=== PATIENT | male | born 1925 | race Caucasian/White ===

== ENCOUNTER 2016-09-16 16:25 | Inpatient (IN) | payer MEDICARE ==
[~2016-09-16] VITALS: Ht 180.3 cm; Wt 86.6 kg
[~2016-09-16 16:25] MED LIST: ACET-2321 PO; ASPI-725 PO; ATOR40TA PO; CABE0.5T2 PO; CLOP75TA PO; DIVA250T4 PO; DOCU-168 PO; HYDR-4246 PO; IPRA3AMP AEROSOL; MIDO10TA PO; MULT-57 PO; NITR0.4T38 SL; OMEG1CAP79 PO; ONDA4VIA23 PO/SL; POLY17PO18 PO; SODI1TAB3 PO
--- NOTE | 2016-09-16 16:25 | NUR ---
Admit Patient admitted to IRU 169. Transported to unit in wheelchair, accompanied by nsg and his spouse. Patient is on droplet precautions for Elam virus. Today is day 9 and his precautions should be lifted in 24 hours per report. Patient has had repeat CVA with right side weakness. He is a max assist with 2 person for transfers with gait belt from wc to bed. Hospitalist services states they will see him tomorrow. Patient on 1800 cc fluid restrictions. Patient has loose cough with clear sputum. Few crackles heard in left upper lobe of lungs. Patient oriented to room,
--- OUTSIDE RECORDS SUMMARY | 2016-09-16 16:45 | XMS REPORT | Continuity of Care Document ---
Author Author [facility] Organization [facility] Address Unknown Phone Unavailable Support Name Relationship Address Phone LILIAN SIEGEL MD Caregiver [address] [place] [phone] GONZALO BRIDGES MD Caregiver [address] [place] [address] [place] [phone] JENN DEMPSEY DPFRANSICO Next Of Kin [address] [place], [place] [id number] Insurance Providers Payer Name Policy Number Subscriber Name Relationship Medicare [id number] Eliza Dempsey Self [facility] [id number] Eliza Dempsey 20 Self Advance Directives Directive Response Recorded Date/Time Advanced Directives Type None 07/19/14 11:38am Problems Medical Problems Problem Onset Date Status syncopal episode Unknown Active Syncope Unknown Active Syncope Unknown Active Symptomatic bradycardia Unknown Active Medications Medication Dose Route Sig Days/Qty Instructions Order Date Discontinued Date Status Pravastatin Sodium 10 Mg PO DAILY 08/04/09 06/06/13 Discontinued Losartan Potassium 25 Mg PO DAILY 08/04/09 Active Aspirin 325 Mg PO DAILY 08/04/09 06/06/13 Discontinued Nitroglycerin 0.4 Mg SL NEEDED 08/04/09 Active Vitamin E 200 Unit PO DAILY 08/04/09 Active Fish Oil/[place]-3 Fatty Acids 1 Cap PO DAILY 08/04/09 06/06/13 Discontinued Nitroglycerin 1 Patch TD NEEDED 06/10/10 06/06/13 Discontinued Pravastatin Sodium 20 Mg PO BEDTIME 06/06/13 Active Aspirin 81 Mg PO DAILY 06/06/13 Active Multivitamin DAILY 04/09/14 Active Social History Social History Problem Response Recorded Date/Time Hx Substance Use No 07/19/2014 11:38am Hx Alcohol Use Y OCC 07/19/2014 11:38am Tobacco Usage none 07/19/2014 12:32pm Query Response Start Date Stop Date Smoking Status Never smoker Hospital Discharge Instructions No hospital discharge instructions. Plan of Care No plan of care. Functional Status Query Response Date Recorded Physical Hygiene Self July 19, 2014 11:38am Disabilities None July 19, 2014 11:38am Devices Used Cane July 19, 2014 11:38am Dressing Self July 19, 2014 11:38am Ambulation Assist July 19, 2014 11:38am Diet Self July 19, 2014 11:38am Cognitive/Functional Comments PT REPORTS HE HAS BEEN USING A CANE FOR SEVERAL MONTHS R/T GAIT ABNORMALITY July 19, 2014 11:38am Mental Status Alert Oriented July 19, 2014 11:38am Disabilities None July 19, 2014 11:38am Devices Used Cane July 19, 2014 11:38am Physical Hygiene Self July 19, 2014 11:38am Dressing Self July 19, 2014 11:38am Ambulation Assist July 19, 2014 11:38am Diet Self July 19, 2014 11:38am Allergies, Adverse Reactions, Alerts Allergen Type Severity Reaction Status Last Updated No Known Drug Allergies Allergy Unknown Active 07/19/14 Immunizations Name Given Type Hx Influenza Vaccination Y 03/27; H1N1 06/25 Historical Hx Pneumococcal Vaccination Y -2007 Historical Hx Influenza Vaccination Y 03/27; H1N1 06/25 Historical Vital Signs Acute Vital Signs Vital Response Date/Time Temperature (Fahrenheit) 96.5 deg F (96.8 - 99.1) Temperature (Calculated Celsius) 35.79695 degrees C (36.0 - 37.3) Pulse Rate (adult) 68 bpm (60 - 100) Respiratory Rate 16 breaths/min (10 - 20) O2 Sat by Pulse Oximetry 96 % (90 - 100) Blood Pressure 169/86 mm Hg Height 5 ft 11 in Weight 203 lb Body Mass Index 28.0 kg/m^2 Results Test Source Date Result Interp. Ref. Range Comments Activated Partial Thromboplast Time July 19, 2014 12:10pm 42.0 SEC H 24-36 Alanine Aminotransferase (ALT/SGPT) July 19, 2014 12:10pm 24 U/L N 21 -72 Albumin July 19, 2014 12:10pm 4.0 G/DL N 3.5-5.0 Albumin/Globulin Ratio July 19, 2014 12:10pm 1.5 RATIO N 1.1-2.2 Alkaline Phosphatase July 19, 2014 12:10pm 102 U/L N 38-126 Anion Gap July 19, 2014 12:10pm 8 MEQ/L N 5-15 Aspartate Amino Transf (AST/SGOT) July 19, 2014 12:10pm 29 U/L N 17- 59 BUN/Creatinine Ratio July 19, 2014 12:10pm 11 RATIO N 6-26 Basophils # (Auto) July 19, 2014 12:10pm 0.1 T/MM3 N 0-0.2 Basophils (%) (Auto) July 19, 2014 12:10pm 0.9 % N 0-2 Blood Urea Nitrogen July 19, 2014 12:10pm 12.0 MG/DL N 9-20 Calcium Level July 19, 2014 12:10pm 9.4 MG/DL N 8.4-10.2 Calculated Osmolality July 19, 2014 12:10pm 253 MOSM/KG L 261-280 Carbon Dioxide Level July 19, 2014 12:10pm 30 MEQ/L N 22-30 Chloride Level July 19, 2014 12:10pm 93 MEQ/L L 98-107 Creatinine July 19, 2014 12:10pm 1.1 MG/DL N 0.8-1.5 Eosinophils # (Auto) July 19, 2014 12:10pm 0.5 T/MM3 N 0-0.5 Eosinophils (%) (Auto) July 19, 2014 12:10pm 9.2 % H 0-4 Globulin July 19, 2014 12:10pm 2.6 G/DL N 2.4-3.6 Glucose Level July 19, 2014 12:10pm 104 MG/DL N 75-110 Hematocrit July 19, 2014 12:10pm 35.7 % L 41-53 Hemoglobin July 19, 2014 12:10pm 12.2 GM/DL L 13.5-17.5 Lymphocytes # (Auto) July 19, 2014 12:10pm 1.7 T/MM3 N 1-4.8 Lymphocytes (%) (Auto) July 19, 2014 12:10pm 31.7 % N 23-45 Magnesium Level July 19, 2014 12:10pm 2.1 MG/DL N 1.6-2.3 Mean Corpuscular Hemoglobin July 19, 2014 12:10pm 29.3 UUG N 26-34 Mean Corpuscular Hemoglobin Concent July 19, 2014 12:10pm 34.2 GM/DL N 31-37 Mean Corpuscular Volume July 19, 2014 12:10pm 85.6 UM3 N 80-100 Mean Platelet Volume July 19, 2014 12:10pm 8.4 UM3 L 9.4-12.4 Monocytes # (Auto) July 19, 2014 12:10pm 0.5 T/MM3 N 0-0.8 Monocytes (%) (Auto) July 19, 2014 12:10pm 9.0 % N 0-9.0 Neutrophils # (Auto) July 19, 2014 12:10pm 2.7 T/MM3 N 1.8-7.7 Neutrophils (%) (Auto) July 19, 2014 12:10pm 49.2 % N 33-66 Platelet Count July 19, 2014 12:10pm 259 T/MM3 N 130-400 Potassium Level July 19, 2014 12:10pm 3.7 MEQ/L N 3.6-5 Prostate Specific Antigen November 12, 2009 8:44am 1.79 NG/ML N 0-4.0 Prothromb Time International Ratio July 19, 2014 12:10pm 1.14 H 0.81- 1.09 THERAPUTIC RANGE=2.00-3.00 FOR ANTI-THROMBOSIS THERAPUTIC RANGE=2.50- 3.50 FOR IMPLANTED VALVE RDW Standard Deviation July 19, 2014 12:10pm 44.8 FL N 36.9-50.2 Red Blood Count July 19, 2014 12:10pm 4.17 M/MM3 L 4.50-5.90 Sodium Level July 19, 2014 12:10pm 131 MEQ/L L 134-144 Tests Not Done October 07, 2009 9:15am Not done - P[facility] Thyroid Stimulating Hormone (TSH) July 19, 2014 12:10pm 2.39 MIU/L N 0.47-4.68 Total Bilirubin July 19, 2014 12:10pm 1.30 MG/DL N 0.20-1.30 Total Protein July 19, 2014 12:10pm 6.6 G/DL N 6.3-8.2 Troponin I July 19, 2014 12:10pm 0.014 ng/ml N 0-0.12 Urine Bacteria September 16, 2009 9:25am 1+ - PLEASE [facility] Urine Bilirubin July 19, 2014 1:36pm Negative - Has specimen been collected/obtained? Y Urine Blood July 19, 2014 1:36pm Negative - Has specimen been collected/obtained? Y Urine Collection Type July 19, 2014 1:36pm Voided-not cc-midstr - Has specimen been collected/obtained? Y Urine Color July 19, 2014 1:36pm Yellow - Has specimen been collected/obtained? Y Urine Glucose (UA) July 19, 2014 1:36pm Negative - Has specimen been collected/obtained? Y Urine Ketones July 19, 2014 1:36pm Negative - Has specimen been collected/obtained? Y Urine Leukocyte Esterase July 19, 2014 1:36pm Negative - Has specimen been collected/obtained? Y Urine Nitrite July 19, 2014 1:36pm Negative - Has specimen been collected/obtained? Y Urine Protein July 19, 2014 1:36pm Negative - Has specimen been collected/obtained? Y Urine RBC September 16, 2009 9:25am 30-50 /HPF - PLEASE [facility] Urine Specific [place] July 19, 2014 1:36pm 1.010 L - Has specimen been collected/obtained? Y Urine Squamous Epithelial Cells September 16, 2009 9:25am Few - PLEASE [facility] Urine Turbidity July 19, 2014 1:36pm Clear - Has specimen been collected/obtained? Y Urine Urobilinogen July 19, 2014 1:36pm 0.2 EU/DL - Has specimen been collected/obtained? Y Urine WBC September 16, 2009 9:25am 5-10 /HPF - PLEASE [facility] Urine pH July 19, 2014 1:36pm 6.0 - Has specimen been collected/ obtained? Y White Blood Count July 19, 2014 12:10pm 5.4 T/MM3 N 4.5-11.0 Chemistry Specimen Hemolysis July 19, 2014 12:10pm < 15 0-25 0-25 : No Hemolysis.26-70: Slight Hemolysis - can falsely elevate K and Urine Protein. 71-285: Moderate Hemolysis - can falsely elevate K, Troponin I, CA 19-9, PTH, CSF GLucose, and Urine Protein, and can falsely decrease Phenytoin. 286-999: Gross Hemolysis - can falsely elevate K, Troponin I, CA 19-9, PTH, CSF Glucose, and Urine Protine, and can falsely decrease Phenytoin. Recommend specimen recollection. Urinalysis Comment July 19, 2014 1:36pm Microscopic not ind. - Has specimen been collected/obtained? Y Lab Scanned Report April 05, 2014 8:34pm LAB TEST FORM REQUEST [id number] - EKG August 04, 2009 7:50am Complete - Methicillin-Resist S.aureus DNA PCR June 08, 2010 9:18am Negative - Turbidity July 19, 2014 12:10pm < 20 0-20 Glomerular Filtration Rate Calc July 19, 2014 12:10pm 63 - Immature Granulocyte # (Auto) July 19, 2014 12:10pm 0.00 T/MM3 N 0.00 -0.03 Immature Granulocyte % (Auto) July 19, 2014 12:10pm 0.0 % N 0.0-0.5 Icterus Index July 19, 2014 12:10pm < 2 0-7 MRSA Specimen Source June 08, 2010 9:18am Nasal - GG-Gmp-B-Type Natriuretic Peptide July 19, 2014 12:10pm 1060 PG/ML H 0-175 Rule in cut points: <50 years old=450; 50-75 years old=900; >75 years old=1800; When utilizing ProBNP rule-in cut points, adjustment for impaired renal function is typically not required. Name: Eliza DEMPSEY Unit #: [id number] : 1925 Sex: M Loc / Svc: ED DOS: 07/19/14 Signed Report #: [id number] DIAGNOSTIC IMAGING REPORT TYPE OF EXAM: CT NECK W/O CONTRAST Dictated By: LUIS JONES MD INDICATION: ITS.REASON: SYNCOPE EPISODES ? NECK PAIN- MASS? CT NECK W/O CONTRAST: Comparison: None Technique: Axial CT images were performed through the neck without intravenous contrast. Coronal and sagittal two-dimensional reformats. Findings: 4 to 5 mm nodule in the right upper lobe. Additional 4 mm nodule in the left upper lobe. Esophagus is patulous. There is soft tissue prominence in the right clavicular area. Much of this appears to relate to an enlarged internal jugular and brachiocephalic vein. Without contrast it is difficult to tell if there could be a small soft tissue mass also in this location. Otherwise there is no discrete mass seen in the neck. The parotid and submandibular glands are stable. There are small subcentimeter bilateral cervical level II nodes present. Thyroid gland is grossly unremarkable. No mucosal based mass lesions appreciated. Bone windows show degenerative changes. Impression: 1. Soft tissue prominence in the right infraclavicular region, most of which is felt to relate to prominent veins. Recommend correlation for the site of any palpable abnormality. Contrast enhanced exam would be more sensitive for evaluation of this area. 2. Small upper lobe pulmonary nodules. Differential considerations include granulomas and metastases. . Procedures No known history of procedures. Encounters Encounter Location Date/Time Departed Emergency Room [facility] 07/19/14 11:36am Recent Diagnosis
--- OUTSIDE RECORDS SUMMARY | 2016-09-16 16:46 | XMS REPORT | Continuity of Care Document ---
Author Author Hossein [facility] Organization [facility] Address Unknown Phone Unavailable Support Name Relationship Address Phone GONZALO BRIDGES MD Caregiver [address] [place] [phone] ESTEFANY PASTRANA MD Caregiver [address] [place] [phone] JENN DEMPSEY DPOA Next Of Kin [address] [place] [address] Insurance Providers Payer Name Policy Number Subscriber Name Relationship Medicare [id number] Eliza Dempsey 20 Self [facility] [id number] Eliza Dempsey 20 Self Problems Medical Problems Problem Onset Date Status syncopal episode Unknown Active Syncope Unknown Active Syncope Unknown Active Medications Medication Dose Route Sig Days/Qty Instructions Order Date Discontinued Date Status Amlodipine Besylate 5 Mg PO DAILY 08/04/09 Active Pravastatin Sodium 10 Mg PO DAILY 08/04/09 06/06/13 Discontinued Losartan Potassium 25 Mg PO DAILY 08/04/09 Active Aspirin 325 Mg PO DAILY 08/04/09 06/06/13 Discontinued Nitroglycerin 0.4 Mg SL NEEDED 08/04/09 Active Vitamin E 200 Unit PO DAILY 08/04/09 Active Fish Oil/[place]-3 Fatty Acids 1 Cap PO DAILY 08/04/09 06/06/13 Discontinued Nitroglycerin 1 Patch TD NEEDED 06/10/10 06/06/13 Discontinued Pravastatin Sodium 20 Mg PO BEDTIME 06/06/13 Active Clopidogrel Bisulfate 75 Mg PO DAILY 06/06/13 Active Isosorbide Mononitrate 30 Mg PO DAILY 06/06/13 Active Aspirin 81 Mg PO DAILY 06/06/13 Active Multivitamin DAILY 04/09/14 Active Cephalexin 1 Cap PO NEEDED EVERY 6 MONTHS-HOUR BEFORE DENTAL APPOINTMENT 04/09/14 Active Social History Social History Problem Response Recorded Date/Time Smoking Status Never smoker 04/09/2014 3:39pm Hx Substance Use No 04/09/2014 3:39pm Hx Alcohol Use Y OCC 04/09/2014 3:39pm Query Response Start Date Stop Date Smoking Status Never smoker Hospital Discharge Instructions No hospital discharge instructions. Plan of Care No plan of care. Functional Status Query Response Date Recorded Physical Hygiene Self April 09, 2014 3:39pm Disabilities None April 09, 2014 3:39pm Devices Used None April 09, 2014 3:39pm Dressing Self April 09, 2014 3:39pm Ambulation Self April 09, 2014 3:39pm Diet Self April 09, 2014 3:39pm Mental Status Alert April 09, 2014 7:18pm Disabilities None April 09, 2014 3:39pm Devices Used None April 09, 2014 3:39pm Physical Hygiene Self April 09, 2014 3:39pm Dressing Self April 09, 2014 3:39pm Ambulation Self April 09, 2014 3:39pm Diet Self April 09, 2014 3:39pm Allergies, Adverse Reactions, Alerts Allergen Type Severity Reaction Status Last Updated No Known Drug Allergies Allergy Unknown Active 08/01/09 Immunizations Name Given Type Hx Influenza Vaccination Y 03/27; H1N1 06/25 Historical Hx Pneumococcal Vaccination Y -2007 Historical Hx Influenza Vaccination Y 03/27; H1N1 06/25 Historical Vital Signs Acute Vital Signs Vital Response Date/Time Temperature (Fahrenheit) 97.6 deg F (96.8 - 99.1) Temperature (Calculated Celsius) 36.48675 degrees C (36.0 - 37.3) Pulse Rate (adult) 66 bpm (60 - 100) Respiratory Rate 16 breaths/min (10 - 20) O2 Sat by Pulse Oximetry 98 % (90 - 100) Blood Pressure 138/73 mm Hg Results Test Source Date Result Interp. Ref. Range Comments Activated Partial Thromboplast Time August 04, 2009 7:50am 29.0 SEC N 25-36 Alanine Aminotransferase (ALT/SGPT) April 09, 2014 3:28pm 28 U/L N 21-72 Albumin April 09, 2014 3:28pm 3.7 G/DL N 3.5-5.0 Albumin/Globulin Ratio April 09, 2014 3:28pm 1.4 RATIO N 1.1-2.2 Alkaline Phosphatase April 09, 2014 3:28pm 85 U/L N 38-126 Anion Gap April 09, 2014 3:28pm 11 MEQ/L N 5-15 Aspartate Amino Transf (AST/SGOT) April 09, 2014 3:28pm 38 U/L N 17- 59 BUN/Creatinine Ratio April 09, 2014 3:28pm 12 RATIO N 6-26 Basophils # (Auto) April 09, 2014 3:28pm 0.1 T/MM3 N 0-0.2 Basophils (%) (Auto) April 09, 2014 3:28pm 0.8 % N 0-2 Blood Urea Nitrogen April 09, 2014 3:28pm 12.0 MG/DL N 9-20 Calcium Level April 09, 2014 3:28pm 8.9 MG/DL N 8.4-10.2 Calculated Osmolality April 09, 2014 3:28pm 255 MOSM/KG L 261-280 Carbon Dioxide Level April 09, 2014 3:28pm 27 MEQ/L N 22-30 Chloride Level April 09, 2014 3:28pm 93 MEQ/L L 98-107 Creatinine April 09, 2014 3:28pm 1.0 MG/DL N 0.8-1.5 Eosinophils # (Auto) April 09, 2014 3:28pm 0.3 T/MM3 N 0-0.5 Eosinophils (%) (Auto) April 09, 2014 3:28pm 3.0 % N 0-4 Globulin April 09, 2014 3:28pm 2.6 G/DL N 2.4-3.6 Glucose Level April 09, 2014 3:28pm 126 MG/DL H 75-110 Hematocrit April 09, 2014 3:28pm 34.3 % L 41-53 Hemoglobin April 09, 2014 3:28pm 12.0 GM/DL L 13.5-17.5 Lymphocytes # (Auto) April 09, 2014 3:28pm 3.5 T/MM3 N 1-4.8 Lymphocytes (%) (Auto) April 09, 2014 3:28pm 40.3 % N 23-45 Mean Corpuscular Hemoglobin April 09, 2014 3:28pm 30.6 UUG N 26-34 Mean Corpuscular Hemoglobin Concent April 09, 2014 3:28pm 35.0 GM/DL N 31-37 Mean Corpuscular Volume April 09, 2014 3:28pm 87.5 UM3 N 80-100 Mean Platelet Volume April 09, 2014 3:28pm 8.7 UM3 L 9.4-12.4 Monocytes # (Auto) April 09, 2014 3:28pm 1.1 T/MM3 H 0-0.8 Monocytes (%) (Auto) April 09, 2014 3:28pm 12.9 % H 0-9.0 Neutrophils # (Auto) April 09, 2014 3:28pm 3.7 T/MM3 N 1.8-7.7 Neutrophils (%) (Auto) April 09, 2014 3:28pm 42.9 % N 33-66 Platelet Count April 09, 2014 3:28pm 352 T/MM3 N 130-400 Potassium Level April 09, 2014 3:28pm 3.8 MEQ/L N 3.6-5 Prostate Specific Antigen November 12, 2009 8:44am 1.79 NG/ML N 0-4.0 Prothromb Time International Ratio June 18, 2010 5:18am 2.28 H 0.86- 1.10 THERAPUTIC RANGE=2.00-3.00 FOR ANTI-THROMBOSIS THERAPUTIC RANGE=2.50- 3.50 FOR IMPLANTED VALVE RDW Standard Deviation April 09, 2014 3:28pm 42.5 FL N 36.9-50.2 Red Blood Count April 09, 2014 3:28pm 3.92 M/MM3 L 4.50-5.90 Sodium Level April 09, 2014 3:28pm 131 MEQ/L L 134-144 Tests Not Done October 07, 2009 9:15am Not done - PLEASE [facility] Thyroid Stimulating Hormone (TSH) April 05, 2014 11:55am 2.83 MIU/L N 0.47-4.68 Total Bilirubin April 09, 2014 3:28pm 1.60 MG/DL H 0.20-1.30 Total Protein April 09, 2014 3:28pm 6.3 G/DL N 6.3-8.2 Troponin I April 09, 2014 3:28pm 0.017 ng/ml N 0-0.12 Urine Bacteria September 16, 2009 9:25am 1+ - P[facility] Urine Bilirubin October 07, 2009 9:15am Negative - P[facility] Urine Blood October 07, 2009 9:15am Negative - [facility] Urine Collection Type October 07, 2009 9:15am Voided - [facility] Urine Color October 07, 2009 9:15am Yellow - [facility] Urine Glucose (UA) October 07, 2009 9:15am Negative - [facility] Urine Ketones October 07, 2009 9:15am Negative - PLEASE [facility] Urine Leukocyte Esterase October 07, 2009 9:15am Negative - PLEASE [employer] Urine Nitrite October 07, 2009 9:15am Negative - PLEASE [employer] Urine Protein October 07, 2009 9:15am Negative - P[facility] Urine RBC September 16, 2009 9:25am 30-50 /HPF - PLEASE [employer] Urine Specific [place] October 07, 2009 9:15am 1.005 L - PLEASE [facility] Urine Squamous Epithelial Cells September 16, 2009 9:25am Few - [facility] Urine Turbidity October 07, 2009 9:15am Clear - PLEASE [facility] Urine Urobilinogen October 07, 2009 9:15am Normal EU/DL - PLEASE [facility] Urine WBC September 16, 2009 9:25am 5-10 /HPF - PLEASE [facility] Urine pH October 07, 2009 9:15am 7.0 - PLEASE [facility] White Blood Count April 09, 2014 3:28pm 8.6 T/MM3 N 4.5-11.0 Chemistry Specimen Hemolysis April 09, 2014 3:28pm 74 H 0-25 0-25: No Hemolysis.26-70: Slight Hemolysis - can falsely elevate K and Urine Protein. 71-285: Moderate Hemolysis - can falsely elevate K, Troponin I, CA 19-9, PTH, CSF GLucose, and Urine Protein, and can falsely decrease Phenytoin. 286-999: Gross Hemolysis - can falsely elevate K, Troponin I, CA 19-9, PTH, CSF Glucose, and Urine Protine, and can falsely decrease Phenytoin. Recommend specimen recollection. Lab Scanned Report April 05, 2014 8:34pm LAB TEST FORM REQUEST [id number] - EKG August 04, 2009 7:50am Complete - Methicillin-Resist S.aureus DNA PCR June 08, 2010 9:18am Negative - Turbidity April 09, 2014 3:28pm < 20 0-20 Glomerular Filtration Rate Calc April 09, 2014 3:28pm 71 - Immature Granulocyte # (Auto) April 09, 2014 3:28pm 0.01 T/MM3 N 0.00-0.03 Immature Granulocyte % (Auto) April 09, 2014 3:28pm 0.1 % N 0.0-0.5 Icterus Index April 09, 2014 3:28pm < 2 0-7 MRSA Specimen Source June 08, 2010 9:18am Nasal - KP-Bee-T-Type Natriuretic Peptide April 09, 2014 3:28pm 721 PG/ML H 0-175 Rule in cut points: <50 years old=450; 50-75 years old=900; >75 years old=1800; When utilizing ProBNP rule-in cut points, adjustment for impaired renal function is typically not required. Procedures No known history of procedures. Encounters Encounter Location Date/Time Departed Emergency Room [facility] 04/09/14 3:39pm Registered Clinic [facility] 04/05/14 12:17pm Recent Diagnosis
--- OUTSIDE RECORDS SUMMARY | 2016-09-16 16:46 | XMS REPORT | Continuity of Care Document ---
Author Author [facility] Organization [facility] Address Unknown Phone Unavailable Allergies Active Description Code Type Severity Reaction Onset Reported/Identified Relationship to Patient Clinical Status Yes No Known Medication Allergies NKMA N/A N/A 02/13/2014 Medications Problems Procedures Results Test Result Range FLUID CYTOLOGY - 12/10/15 15:25 FLUID CYTOLOGY SPECIMEN RECEIVED GRAM STAIN - 12/10/15 15:25 Microbiology Encounters ACCT No. Visit Date/Time Discharge Status Pt. Type Provider Facility Loc./Unit Complaint [id number] 07/31/2013 09:33:00 07/31/2013 23 :59:59 [facility] Outpatient [id number] 05/07/2013 08:16:00 05/07/2013 23 :59:59 [facility] Outpatient
--- OUTSIDE RECORDS SUMMARY | 2016-09-16 16:47 | XMS REPORT | Referral Summary ---
Author Author [facility] [place], [facility] Organization [facility] Address Unknown Phone Unavailable Care Team Providers Care Creative Lead Name Role Phone Jojo Corona Primary Care Physician [phone] Encounter [facility] [id number] Date(s): 07/08/16 - 07/08/16 [facility] [place] [address] [place] [address]- Discharge Diagnosis: Right-sided nosebleed Discharge Diagnosis: H/O pleural effusion Discharge Diagnosis: Poor mobility Discharge Diagnosis: Syncopal episodes Discharge Diagnosis: Dysphagia Discharge Diagnosis: Leg weakness Discharge Diagnosis: Encounter for medication monitoring Discharge Diagnosis: Frequent falls Discharge Diagnosis: CAD (coronary artery disease) Discharge Disposition: 01-Home or Self Care Attending Physician: Jose Corona MD Admitting Physician: Jose Corona MD Vital Signs Most recent to 1 oldest [Reference Range]: Temperature Tympanic 37 degC [36.6-38.1 degC] (07/08/16 11:17 AM) Peripheral Pulse 78 bpm Rate [60-100 bpm] (07/08/16 11:17 AM) Blood Pressure 130/68 mmHg [90-140/60-90 mmHg] (07/08/16 11:17 AM) Problem List Condition Effective Dates Status Health Status Informant Adenomatous colon 2006 Resolved polyp(Confirmed) Angina(Confirmed) Resolved Benign paroxysmal Resolved positional vertigo(Confirmed) Colonic Resolved polyps(Confirmed) Deviated Resolved septum(Confirmed) Diverticulitis(Confi Resolved rmed) Diverticulum of Resolved bladder(Confirmed) Dizziness and Resolved giddiness(Confirmed) Exostosis(Confirmed) Resolved High Resolved cholesterol(Confirme d) Hypertrophy(Confirme Resolved d) Irregular heart Resolved rhythm(Confirmed) 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) Neoplasm(Confirmed) Resolved Nodular prostate w/o Resolved urinary obstruction(Confirme d) Old bucket handle Resolved tear of medial meniscus(Confirmed) Osteopenia(Confirmed Resolved ) Osteoporosis(Confirm Resolved ed) Photokeratitis(Confi Resolved rmed) Seborrheic Resolved keratosis(Confirmed) Solar Resolved degeneration(Confirm ed) Allergies, Adverse Reactions, Alerts No Known Medication Allergies Medications Aspirin Low Dose 81 mg, Oral, Daily, 0 Refill(s) Start Date: 12/26/13 Status: Ordered Fish Oil Oral, 0 Refill(s) Start Date: 02/14/15 Status: Ordered midodrine 10 mg oral tablet See Instructions, 1 tabs in AM, 1/2 tab in afternoon, 0 Refill(s) Start Date: 11/25/15 Status: Ordered multivitamin 1 tabs, Oral, Daily, 0 Refill(s) Start Date: 12/26/13 Status: Ordered nitroglycerin 0.4 mg sublingual tablet 0.4 mg 1 tabs, SubLingual, q5min, as needed for chest pain, # [id number],640 tabs, 0 Refill(s), Pharmacy: [id number], 1 tabs SubLingual q5min,PRN:as needed for chest pain Start Date: 07/08/15 Status: Ordered Norvasc 5 mg oral tablet 5 mg 1 tabs, Oral, Daily, 0 Refill(s) Start Date: 12/12/15 Status: Ordered Tylenol Caplet 325 mg, Oral, q4hr, as needed for pain, 0 Refill(s) Start Date: 03/30/16 Status: Ordered Results Hematology Most recent to 1 oldest [Reference Range]: WBC [4.8-10.8 5.6 10*3/uL 10*3/uL] (07/08/16 12:07 PM) RBC [4.60-6.20] 3.59 *LOW* (07/08/16 12:07 PM) Hgb [14.0-18.0 10.6 gm/dL gm/dL] *LOW* (07/08/16 12:07 PM) Hct [42.0-52.0 %] 31.8 % *LOW* (07/08/16 12:07 PM) MCV [82.0-99.0 fL] 88.6 fL (07/08/16 12:07 PM) MCH [27.0-32.0 pg] 29.5 pg (12/22/16 12: PM) MCHC [32.0-36.0 33.3 gm/dL gm/dL] (07/08/16 12 PM) RDW [11.5-14.5 %] 14.2 % (07/08/16 PM) Platelet [150-400 308 10*3/uL 10*3/uL] (07/08/16 PM) MPV [8.8-14.8 fL] 8.6 fL *LOW* (07/08/16 PM) Immature 0.2 % Granulocytes (07/08/16 PM) [0.0-1.0 %] Neutrophils [51-75 59 % %] (07/08/16 PM) Lymphocytes [20-46 27 % %] (07/08/16 PM) Monocytes [4-11 %] 11 % (07/08/16 PM) Eosinophils [0-4 %] 2 % (07/08/16 PM) Basophils [0-2 %] 1 % (07/08/16: PM) Neutro Absolute 3.29 [1.90-7.00] (07/08/16: PM) Lymph Absolute 1.49 [0.80-3.30] (07/08/16: PM) [place] Absolute 0.61 [0.30-1.00] (07/08/16: PM) Eos Absolute 0.13 [0.00-0.50] (07/08/16 PM) Baso Absolute 0.06 [0.00-0.20] (07/08/16: PM) Chemistry Most recent to 1 oldest [Reference Range]: Sodium Lvl [135-144 128 mEq/L mEq/L] *LOW* (07/08/16 PM) Potassium Lvl 4.0 mEq/L [3.5-5.2 mEq/L] (07/08/16: PM) Chloride [99-111 94 mEq/L mEq/L] *LOW* (07/08/16 PM) CO2 [23-31 mEq/L] 26 mEq/L (12/22/16 12:07 PM) AGAP [3-20] 8 (07/08/16 12:07 PM) BUN [8-26 mg/dL] 16 mg/dL (07/08/16 12:07 PM) Glucose Lvl [70-99 102 mg/dL mg/dL] *HI* (07/08/16 12:07 PM) Creatinine Lvl 1.01 mg/dL [0.72-1.25 mg/dL] (07/08/16 12:07 PM) eGFR [>60 mL/min] >60 mL/min 1 (07/08/16 12:07 PM) Calcium Lvl 9.1 mg/dL [8.9-10.5 mg/dL] (07/08/16 12:07 PM) 1Result Comment: Multiply eGFR results by 1.21 for race. Immunizations Given and Recorded Vaccine Date Status Refusal Reason tetanus/diphth/pertuss (Tdap) adult/adol 10/28/15 Given influenza virus vaccine, live 05/17/11 Given influenza virus vaccine, live 03/25/10 Given pneumococcal 13-valent conjugate vaccine 06/10/15 Given pneumococcal 23-polyvalent vaccine 02/28/08 Recorded pneumococcal 23-polyvalent vaccine 12/14/96 Recorded tetanus toxoid 07/18/00 Given Procedures Procedure Date Related Diagnosis Body Site Syncope1 2013 Prostate biopsy sample2 2009 Colonoscopy 07/18/05 Cardiac catheterization3 1998 Angioplasty4 1995 Angioplasty 07/18/94 Arthroplasty Biopsy of prostate Cholecystectomy Circumcision Hx of CABG Placement of stent in cardiac conduit Tonsillectomy Transurethral resection of prostate (TURP) syndrome 1Hospitalized twice in 2013 2Adenocarcinoma. 3LIMA graft was open. 4Repeat coronary artery. Social History Social History Type Response Smoking Status Never smoker Assessment and Plan Extracted from: Title: 6 Month CDM Author: Jose Corona MD Date: 07/08/16 Impression and Plan Diagnosis CAD (coronary artery disease) (VTC64-OM I25.10, Discharge, Medical). Dysphagia (KAW66-ZT R13.10, Discharge, Medical). Encounter for medication monitoring (CWN26-RX Z51.81, Discharge, Medical). Frequent falls (OSK09-HV R29.6, Discharge, Medical). H/O pleural effusion (FBF17-CQ Z87.09, Discharge, Medical). Leg weakness (HCC05-LL M62.81, Discharge, Medical). Poor mobility (HIG28-VY Z74.09, Discharge, Medical). Right-sided nosebleed (EAF83-ZY R04.0, Discharge, Medical). Syncopal episodes (YQR50-BB R55, Discharge, Medical). Orders Orders (Selected) Outpatient Orders Future (On Hold) BMP: CBC w/ Differential: XR Chest 2 Views: .
--- OUTSIDE RECORDS SUMMARY | 2016-09-16 16:47 | XMS REPORT | Continuity of Care Document ---
Author Author [facility] Organization [facility] Address Unknown Phone Unavailable Support Name Relationship Address Phone LANRE RAMON MD Caregiver [address] [place] [address] GONZALO BRIDGES MD Caregiver [address] [place] [phone] JENN DEMPSEY DPOA Next Of Kin [address] [place] [address] Insurance Providers Payer Name Policy Number Subscriber Name Relationship Medicare [id number] Eliza Dempsey Self [facility] [id number] Eliza Dempsey 20 Self Advance Directives Directive Response Recorded Date/Time Advanced Directives Type None 07/28/14 10:19am Problems Medical Problems Problem Onset Date Status syncopal episode Unknown Active Syncope Unknown Active Syncope Unknown Active Symptomatic bradycardia Unknown Active Orthostatic hypotension Unknown Active Syncope Unknown Active Orthostatic hypotension Unknown Active Medications Medication Dose Route Sig Days/Qty Instructions Order Date Discontinued Date Status Pravastatin Sodium 10 Mg PO DAILY 08/04/09 06/06/13 Discontinued Losartan Potassium 25 Mg PO TWICE A DAY 08/04/09 Active Aspirin 325 Mg PO DAILY 08/04/09 06/06/13 Discontinued Nitroglycerin 0.4 Mg SL NEEDED 08/04/09 Active Vitamin E 200 Unit PO DAILY 08/04/09 Active Fish Oil/[place]-3 Fatty Acids 1 Cap PO DAILY 08/04/09 06/06/13 Discontinued Nitroglycerin 1 Patch TD NEEDED 06/10/10 06/06/13 Discontinued Pravastatin Sodium 20 Mg PO BEDTIME 06/06/13 Active Aspirin 81 Mg PO DAILY 06/06/13 Active Multivitamin DAILY 04/09/14 Active Fluticasone Propionate 2 [place] EA NOSTRIL NEEDED 07/28/14 Active Loratadine 10 Mg PO BEFORE BREAKFAST Take 1 tablet, by mouth, one time a day (before breakfast). 07/28/14 Active Midodrine HCl 10 Mg PO THREE TIMES A DAY 07/28/14 Active Fludrocortisone Acetate 0.1 Mg PO DAILY 30 Qty 07/28/14 Active Social History Social History Problem Response Recorded Date/Time Hx Substance Use No 07/19/2014 11:38am Hx Alcohol Use Y OCC 07/19/2014 11:38am Tobacco Usage none 07/19/2014 12:32pm Hospital Discharge Instructions No hospital discharge instructions. Plan of Care No plan of care. Functional Status Query Response Date Recorded Physical Hygiene Self July 19, 2014 11:38am Mental Status Alert July 28, 2014 11:56am Physical Hygiene Self July 19, 2014 11:38am Allergies, Adverse Reactions, Alerts Allergen Type Severity Reaction Status Last Updated No Known Drug Allergies Allergy Unknown Active 07/19/14 Immunizations Name Given Type Hx Influenza Vaccination Y 03/27; H1N1 06/25 Historical Hx Pneumococcal Vaccination Y -2007 Historical Hx Influenza Vaccination Y 03/27; H1N1 06/25 Historical Vital Signs Acute Vital Signs Vital Response Date/Time Temperature (Fahrenheit) 97.1 deg F (96.8 - 99.1) Temperature (Calculated Celsius) 36.12090 degrees C (36.0 - 37.3) Pulse Rate (adult) 69 bpm (60 - 100) Respiratory Rate 14 breaths/min (10 - 20) O2 Sat by Pulse Oximetry 98 % (90 - 100) Blood Pressure 152/80 mm Hg Height 5 ft 11 in Weight 199 lb Body Mass Index 27.0 kg/m^2 Results Test Source Date Result Interp. Ref. Range Comments Activated Partial Thromboplast Time July 19, 2014 12:10pm 42.0 SEC H 24-36 Alanine Aminotransferase (ALT/SGPT) July 28, 2014 9:36am 24 U/L N 21- 72 Albumin July 28, 2014 9:36am 3.9 G/DL N 3.5-5.0 Albumin/Globulin Ratio July 28, 2014 9:36am 1.3 RATIO N 1.1-2.2 Alkaline Phosphatase July 28, 2014 9:36am 102 U/L N 38-126 Anion Gap July 28, 2014 9:36am 8 MEQ/L N 5-15 Aspartate Amino Transf (AST/SGOT) July 28, 2014 9:36am 44 U/L N 17- 59 BUN/Creatinine Ratio July 28, 2014 9:36am 14 RATIO N 6-26 Basophils # (Auto) July 28, 2014 9:36am 0.1 T/MM3 N 0-0.2 Basophils (%) (Auto) July 28, 2014 9:36am 1.9 % N 0-2 Blood Urea Nitrogen July 28, 2014 9:36am 14.0 MG/DL N 9-20 Calcium Level July 28, 2014 9:36am 9.7 MG/DL N 8.4-10.2 Calculated Osmolality July 28, 2014 9:36am 259 MOSM/KG L 261-280 Carbon Dioxide Level July 28, 2014 9:36am 26 MEQ/L N 22-30 Chloride Level July 28, 2014 9:36am 100 MEQ/L N 98-107 Creatinine July 28, 2014 9:36am 1.0 MG/DL N 0.8-1.5 Eosinophils # (Auto) July 28, 2014 9:36am 0.4 T/MM3 N 0-0.5 Eosinophils (%) (Auto) July 28, 2014 9:36am 5.7 % H 0-4 Globulin July 28, 2014 9:36am 2.9 G/DL N 2.4-3.6 Glucose Level July 28, 2014 9:36am 105 MG/DL N 75-110 Hematocrit July 28, 2014 9:36am 36.7 % L 41-53 Hemoglobin July 28, 2014 9:36am 12.4 GM/DL L 13.5-17.5 Lymphocytes # (Auto) July 28, 2014 9:36am 3.8 T/MM3 N 1-4.8 Lymphocytes (%) (Auto) July 28, 2014 9:36am 51.5 % H 23-45 Magnesium Level July 19, 2014 12:10pm 2.1 MG/DL N 1.6-2.3 Mean Corpuscular Hemoglobin July 28, 2014 9:36am 29.1 UUG N 26-34 Mean Corpuscular Hemoglobin Concent July 28, 2014 9:36am 33.8 GM/DL N 31-37 Mean Corpuscular Volume July 28, 2014 9:36am 86.2 UM3 N 80-100 Mean Platelet Volume July 28, 2014 9:36am 9.8 UM3 N 9.4-12.4 Monocytes # (Auto) July 28, 2014 9:36am 0.7 T/MM3 N 0-0.8 Monocytes (%) (Auto) July 28, 2014 9:36am 8.7 % N 0-9.0 Neutrophils # (Auto) July 28, 2014 9:36am 2.4 T/MM3 N 1.8-7.7 Neutrophils (%) (Auto) July 28, 2014 9:36am 32.2 % L 33-66 Platelet Count July 28, 2014 9:36am 328 T/MM3 N 130-400 Potassium Level July 28, 2014 9:36am 3.7 MEQ/L N 3.6-5 Prolactin July 28, 2014 9:36am 24.4 NG/ML - Normal Female (Non- ): 3.0-18.6 ng/ml;Males: 3.7-17.9 ng/ml Prostate Specific Antigen November 12, 2009 8:44am 1.79 NG/ML N 0-4.0 Prothromb Time International Ratio July 19, 2014 12:10pm 1.14 H 0.81- 1.09 THERAPUTIC RANGE=2.00-3.00 FOR ANTI-THROMBOSIS THERAPUTIC RANGE=2.50- 3.50 FOR IMPLANTED VALVE RDW Standard Deviation July 28, 2014 9:36am 47.5 FL N 36.9-50.2 Red Blood Count July 28, 2014 9:36am 4.26 M/MM3 L 4.50-5.90 Sodium Level July 28, 2014 9:36am 134 MEQ/L N 134-144 Tests Not Done October 07, 2009 9:15am Not done - [facility] Thyroid Stimulating Hormone (TSH) July 19, 2014 12:10pm 2.39 MIU/L N 0.47-4.68 Total Bilirubin July 28, 2014 9:36am 1.50 MG/DL H 0.20-1.30 Total Protein July 28, 2014 9:36am 6.8 G/DL N 6.3-8.2 Troponin I July 28, 2014 9:36am 0.016 ng/ml N 0-0.12 Urine Bacteria September 16, 2009 9:25am 1+ - [facility] Urine Bilirubin July 19, 2014 1:36pm Negative [...] 16, 2009 9:25am 30-50 /HPF - [facility] Urine Specific [place] July 19, 2014 1:36pm 1.010 L - Has specimen been collected/obtained? Y Urine Squamous Epithelial Cells September 16, 2009 9:25am Few - [facility] Urine Turbidity July 19, 2014 1:36pm Clear - Has specimen been collected/obtained? Y Urine Urobilinogen July 19, 2014 1:36pm 0.2 EU/DL - Has specimen been collected/obtained? Y Urine WBC September 16, 2009 9:25am 5-10 /HPF - [facility] Urine pH July 19, 2014 1:36pm 6.0 - Has specimen been collected/ obtained? Y White Blood Count July 28, 2014 9:36am 7.4 T/MM3 N 4.5-11.0 Chemistry Specimen Hemolysis July 28, 2014 9:36am 73 H 0-25 0-25: No Hemolysis.26-70: Slight Hemolysis [...] 05, 2014 8:34pm LAB TEST FORM REQUEST [id number] - EKG August 04, 2009 7:50am Complete - Methicillin-Resist S.aureus DNA PCR June 08, 2010 9:18am Negative - Turbidity July 28, 2014 9:36am < 20 0-20 Glomerular Filtration Rate Calc July 28, 2014 9:36am 71 - Immature Granulocyte # (Auto) July 28, 2014 9:36am 0.00 T/MM3 N 0.00- 0.03 Immature Granulocyte % (Auto) July 28, 2014 9:36am 0.0 % N 0.0-0.5 Icterus Index July 28, 2014 9:36am < 2 0-7 MRSA Specimen Source June 08, 2010 9:18am Nasal - CI-Cih-P-Type Natriuretic Peptide July 19, 2014 12:10pm 1060 PG/ML H 0-175 Rule in cut points: <50 years old=450; 50-75 years old=900; >75 years old=1800; When utilizing ProBNP rule-in cut points, adjustment for impaired renal function is typically not required. Name: Eliza DEMPSEY Unit #: [id number] : 1925 Sex: M Loc / Svc: ED DOS: 07/28/14 Signed Report #: [id number] DIAGNOSTIC IMAGING REPORT TYPE OF EXAM: CT HEAD W/O CONTRAST Dictated By: LUIS JONES MD INDICATION: ITS.REASON: syncope CT HEAD W/O CONTRAST: Comparison: July 19, 2014 Technique: Axial CT images through the head were performed without contrast. FINDINGS: The suprasellar rounded density is stable. The ventricles are of normal size, shape, and contour for the patient's age. There are scattered areas of low attenuation in the white matter which most likely represent changes from chronic microvascular ischemia. The brainstem, cerebellum, and cerebral hemispheres otherwise have a normal morphology and CT attenuation. There is no evidence of midline displacement. No hemorrhage, signs of acute territorial stroke, or edema is evident. The visualized portions of the skull base, midface, and calvarium demonstrate no abnormality. The paranasal sinuses are well aerated and free of significant disease. Small mastoid effusions. IMPRESSION: No acute intracranial abnormality or hemorrhage. Suprasellar rounded density that again could represent aneurysm or true mass. Recommendations as given on the comparison report. There is a preliminary report by virtual radiologic. . Procedures Procedure Status Date Provider(s) ROUTINE VENIPUNCTURE completed 07/19/14 CT HEAD/BRAIN W/O DYE completed 07/19/14 CT SOFT TISSUE NECK W/O DYE completed 07/19/14 CHEST X-RAY 1 VIEW FRONTAL completed 07/19/14 COMPREHEN METABOLIC PANEL completed 07/19/14 URINALYSIS AUTO W/O SCOPE completed 07/19/14 ASSAY OF MAGNESIUM completed 07/19/14 ASSAY OF NATRIURETIC PEPTIDE completed 07/19/14 ASSAY THYROID STIM HORMONE completed 07/19/14 ASSAY OF TROPONIN QUANT completed 07/19/14 COMPLETE CBC W/AUTO DIFF WBC completed 07/19/14 PROTHROMBIN TIME completed 07/19/14 THROMBOPLASTIN TIME PARTIAL completed 07/19/14 ELECTROCARDIOGRAM TRACING completed 07/19/14 HYDRATION IV INFUSION INIT completed 07/19/14 EMERGENCY DEPT VISIT completed 07/19/14 [id number]"INFUSION, NORMAL SALINE SOLUTION , 1000 CC" completed 07/19/14 Encounters Encounter Location Date/Time Departed Emergency Room [facility] 07/28/14 9:54am Departed Emergency Room [facility] 07/19/14 11:36am Recent Diagnosis
--- OUTSIDE RECORDS SUMMARY | 2016-09-16 16:47 | XMS REPORT | Continuity of Care Document ---
Author Author [facility] LIVE Organization [facility] LIVE Address Unknown Phone Unavailable Support Name Relationship Address Phone LILIAN SIEGEL MD Caregiver [address] [place] [phone] GONZALO BRIDGES MD Caregiver [address] [place] [address] [place] [phone] JENN DEMPSEY DPFRANSICO Next Of Kin [address] [place] [address] Insurance Providers Payer Name Policy Number Subscriber Name Relationship Medicare [id number] Eliza Dempsey Self [facility] [id number] Eliza Dempsey Self Advance Directives Directive Response Recorded Date/Time Advanced Directives Type DNR Documentation 09/18/14 12:08pm Problems Medical Problems Problem Onset Date Status syncopal episode Unknown Resolved Syncope Unknown Resolved Symptomatic bradycardia Unknown Active Orthostatic hypotension Unknown Active Syncope Unknown Resolved Prostate cancer Unknown Resolved Chr Ischemic Hrt Dis Nos Unknown Active Syncope Unknown Active Medications Medication Dose Route Sig Days/Qty Instructions Order Date Discontinued Date Status Pravastatin Sodium 10 Mg PO DAILY 08/04/09 06/06/13 Discontinued Aspirin 325 Mg PO DAILY 08/04/09 06/06/13 Discontinued Nitroglycerin 0.4 Mg SL NEEDED 08/04/09 Active Vitamin E 200 Unit PO DAILY 08/04/09 Active Fish Oil/Parnell-3 Fatty Acids 1 Cap PO DAILY 08/04/09 06/06/13 Discontinued Nitroglycerin 1 Patch TD NEEDED 06/10/10 06/06/13 Discontinued Pravastatin Sodium 20 Mg PO BEDTIME 06/06/13 Active Aspirin 81 Mg PO DAILY 06/06/13 Active Multivitamin DAILY 04/09/14 Active Midodrine HCl 10 Mg PO THREE TIMES A DAY Take 1 tablet, by mouth, 3 times a day. 07/28/14 Active Fludrocortisone Acetate (FLORINEF Eq.) 0.1 Mg PO DAILY 30 Qty 07/28/14 Active Cabergoline 0.5 Mg PO TWICE A WEEK 03/04/15 Active Social History Social History Problem Response Recorded Date/Time Hx Substance Use No 09/18/2014 1:14pm Hx Alcohol Use Y OCC 09/18/2014 1:14pm Tobacco Usage none 07/19/2014 12:32pm Query Response Start Date Stop Date Smoking Status Never smoker Hospital Discharge Instructions No hospital discharge instructions. Plan of Care No plan of care. Functional Status Query Response Date Recorded Physical Hygiene Self September 18, 2014 1:14pm Disabilities None September 18, 2014 1:14pm Devices Used Glasses Walker September 18, 2014 1:14pm Dressing Self September 18, 2014 1:14pm Ambulation Self September 18, 2014 1:14pm Diet Self September 18, 2014 1:14pm Mental Status Alert Oriented September 18, 2014 3:59pm Disabilities None September 18, 2014 1:14pm Devices Used Glasses Walker September 18, 2014 1:14pm Physical Hygiene Self September 18, 2014 1:14pm Dressing Self September 18, 2014 1:14pm Ambulation Self September 18, 2014 1:14pm Diet Self September 18, 2014 1:14pm Allergies, Adverse Reactions, Alerts Allergen Type Severity Reaction Status Last Updated No Known Drug Allergies Allergy Unknown Active 09/18/14 Immunizations Name Given Type Hx Influenza Vaccination Y 03/27; H1N1 06/25 Historical Hx Pneumococcal Vaccination Y Historical Hx Influenza Vaccination Y 03/27; H1N1 06/25 Historical Vital Signs Acute Vital Signs Vital Response Date/Time Temperature (Fahrenheit) 96.0 deg F (96.8 - 99.1) Temperature (Calculated Celsius) 35.04424 degrees C (36.0 - 37.3) Pulse Rate (adult) 59 bpm (60 - 100) Respiratory Rate 12 breaths/min (10 - 20) O2 Sat by Pulse Oximetry 98 % (90 - 100) Blood Pressure 179/88 mm Hg Height 5 ft 11 in Weight 189 lb Body Mass Index 26.0 kg/m^2 Results Test Source Date Result Interp. Ref. Range Comments Activated Partial Thromboplast Time July 19, 2014 12:10pm 42.0 SEC H 24-36 Alanine Aminotransferase (ALT/SGPT) September 18, 2014 12:47pm 24 U/L N 21- 72 Albumin September 18, 2014 12:47pm 3.9 G/DL N 3.5-5.0 Albumin/Globulin Ratio September 18, 2014 12:47pm 1.3 RATIO N 1.1-2.2 Alkaline Phosphatase September 18, 2014 12:47pm 115 U/L N 38-126 Anion Gap September 18, 2014 12:47pm 13 MEQ/L N 5-15 Aspartate Amino Transf (AST/SGOT) September 18, 2014 12:47pm 35 U/L N 17-59 BUN/Creatinine Ratio September 18, 2014 12:47pm 13 RATIO N 6-26 Basophils # (Auto) September 18, 2014 12:47pm 0.1 T/MM3 N 0-0.2 Basophils (%) (Auto) September 18, 2014 12:47pm 0.8 % N 0-2 Blood Urea Nitrogen September 18, 2014 12:47pm 13.0 MG/DL N 9-20 Calcium Level September 18, 2014 12:47pm 9.1 MG/DL N 8.4-10.2 Calculated Osmolality September 18, 2014 12:47pm 278 MOSM/KG N 261-280 Carbon Dioxide Level September 18, 2014 12:47pm 31 MEQ/L H 22-30 Chemistry Specimen Hemolysis September 18, 2014 12:47pm 22 N 0-25 0-25: No Hemolysis.26-70: Slight Hemolysis - can falsely elevate K and Urine Protein. 71-285: Moderate Hemolysis - can falsely elevate K, Troponin I, CA 19-9, PTH, CSF GLucose, and Urine Protein, and can falsely decrease Phenytoin. 286-999: Gross Hemolysis - can falsely elevate K, Troponin I, CA 19-9, PTH, CSF Glucose, and Urine Protine, and can falsely decrease Phenytoin. Recommend specimen recollection. Chloride Level September 18, 2014 12:47pm 100 MEQ/L N 98-107 Creatinine September 18, 2014 12:47pm 1.0 MG/DL N 0.8-1.5 EKG August 04, 2009 7:50am Complete - Eosinophils # (Auto) September 18, 2014 12:47pm 0.2 T/MM3 N 0-0.5 Eosinophils (%) (Auto) September 18, 2014 12:47pm 2.5 % N 0-4 Globulin September 18, 2014 12:47pm 3.1 G/DL N 2.4-3.6 Glomerular Filtration Rate Calc September 18, 2014 12:47pm 71 - Glucometer September 18, 2014 12:37pm 117 mg/dL H 75-110 Glucose Level September 18, 2014 12:47pm 116 MG/DL H 75-110 Hematocrit September 18, 2014 12:47pm 37.9 % L 41-53 Hemoglobin September 18, 2014 12:47pm 12.3 GM/DL L 13.5-17.5 Icterus Index September 18, 2014 12:47pm < 2 0-7 Immature Granulocyte # (Auto) September 18, 2014 12:47pm 0.00 T/MM3 N 0.00- 0.03 Immature Granulocyte % (Auto) September 18, 2014 12:47pm 0.0 % N 0.0-0.5 Lab Scanned Report August 11, 2014 10:39pm LAB TEST FORM REQUEST [id number] - Lymphocytes # (Auto) September 18, 2014 12:47pm 1.8 T/MM3 N 1-4.8 Lymphocytes (%) (Auto) September 18, 2014 12:47pm 28.7 % N 23-45 MRSA Specimen Source June 08, 2010 9:18am Nasal - Magnesium Level July 19, 2014 12:10pm 2.1 MG/DL N 1.6-2.3 Mean Corpuscular Hemoglobin September 18, 2014 12:47pm 28.9 UUG N 26-34 Mean Corpuscular Hemoglobin Concent September 18, 2014 12:47pm 32.5 GM/DL N 31-37 Mean Corpuscular Volume September 18, 2014 12:47pm 89.0 UM3 N 80-100 Mean Platelet Volume September 18, 2014 12:47pm 8.6 UM3 L 9.4-12.4 Methicillin-Resist S.aureus DNA PCR June 08, 2010 9:18am Negative - Monocytes # (Auto) September 18, 2014 12:47pm 0.6 T/MM3 N 0-0.8 Monocytes (%) (Auto) September 18, 2014 12:47pm 9.7 % H 0-9.0 LN-Uqq-C-Type Natriuretic Peptide July 19, 2014 12:10pm 1060 PG/ML H 0-175 Rule in cut points: <50 years old=450; 50-75 years old=900; >75 years old=1800; When utilizing ProBNP rule-in cut points, adjustment for impaired renal function is typically not required. Neutrophils # (Auto) September 18, 2014 12:47pm 3.7 T/MM3 N 1.8-7.7 Neutrophils (%) (Auto) September 18, 2014 12:47pm 58.3 % N 33-66 Platelet Count September 18, 2014 12:47pm 311 T/MM3 N 130-400 Potassium Level September 18, 2014 12:47pm 3.3 MEQ/L L 3.6-5 Prolactin September 18, 2014 12:47pm 4.5 NG/ML - Normal Female (Non- ): 3.0-18.6 ng/ml;Males: 3.7-17.9 ng/ml Prostate Specific Antigen November 12, 2009 8:44am 1.79 NG/ML N 0-4.0 Prothromb Time International Ratio July 19, 2014 12:10pm 1.14 H 0.81- 1.09 THERAPUTIC RANGE=2.00-3.00 FOR ANTI-THROMBOSIS THERAPUTIC RANGE=2.50- 3.50 FOR IMPLANTED VALVE RDW Standard Deviation September 18, 2014 12:47pm 49.3 FL N 36.9-50.2 Red Blood Count September 18, 2014 12:47pm 4.26 M/MM3 L 4.50-5.90 Sodium Level September 18, 2014 12:47pm 144 MEQ/L N 134-144 Tests Not Done October 07, 2009 9:15am Not done - PLEASE SET BUILDER Thyroid Stimulating Hormone (TSH) July 19, 2014 12:10pm 2.39 MIU/L N 0.47-4.68 Total Bilirubin September 18, 2014 12:47pm 1.10 MG/DL N 0.20-1.30 Total Protein September 18, 2014 12:47pm 7.0 G/DL N 6.3-8.2 Troponin I September 18, 2014 12:47pm < 0.012 ng/ml 0-0.12 Turbidity September 18, 2014 12:47pm < 20 0-20 U Collection Duration (Cortisol) August 10, 2014 10:00pm 24 - Urinalysis Comment July 19, 2014 1:36pm Microscopic not ind. - Has specimen been collected/obtained? Y Urine Amorphous Phosphates September 18, 2014 2:09pm Many - Has specimen been collected/obtained? Y Urine Bacteria September 18, 2014 2:09pm Trace H - Has specimen been collected/obtained? Y Urine Bilirubin September 18, 2014 2:09pm Negative - Has specimen been collected/obtained? Y Urine Blood September 18, 2014 2:09pm Negative - Has specimen been collected/obtained? Y Urine Collection Type September 18, 2014 2:09pm Straight cath - Has specimen been collected/obtained? Y Urine Color September 18, 2014 2:09pm Yellow - Has specimen been collected/obtained? Y Urine Free Cortisol 24 Hour August 10, 2014 10:00pm 4.1 mcg/24 h - Urine Glucose (UA) September 18, 2014 2:09pm Negative - Has specimen been collected/obtained? Y Urine Ketones September 18, 2014 2:09pm Trace H - Has specimen been collected/obtained? Y Urine Leukocyte Esterase September 18, 2014 2:09pm Negative - Has specimen been collected/obtained? Y Urine Nitrite September 18, 2014 2:09pm Negative - Has specimen been collected/obtained? Y Urine Protein September 18, 2014 2:09pm Negative - Has specimen been collected/obtained? Y Urine RBC September 18, 2014 2:09pm None seen /HPF - Has specimen been collected/obtained? Y Urine Specific [place] September 18, 2014 2:09pm 1.020 - Has specimen been collected/obtained? Y Urine Squamous Epithelial Cells September 16, 2009 9:25am Few - PLEASE SET BUILDER Urine Total Volume (Cortisol) August 10, 2014 10:00pm 900 mL - Cortisol Free, 24 hr Urine performed at [facility], [address] [place] [address] Pressure Welder Nydia Hines MD Test Performed by: [place] [address] Promotion Manager: Derek Maldonado M.D. Cortisol Free, 24 hr Urine performed at [facility], [address] [place] [address] Pressure Welder Nydia Hines MD --- 08/14/14 1605 --- CORTFV previously reported as: 900 Cortisol Free, 24 hr Urine performed at [facility], [address] [place] [address] Pressure Welder Nydia Hines MD Urine Turbidity September 18, 2014 2:09pm Sl cloudy - Has specimen been collected/obtained? Y Urine Urobilinogen September 18, 2014 2:09pm 1.0 EU/DL - Has specimen been collected/obtained? Y Urine WBC September 18, 2014 2:09pm None seen /HPF - Has specimen been collected/obtained? Y Urine pH September 18, 2014 2:09pm 8.0 - Has specimen been collected/ obtained? Y White Blood Count September 18, 2014 12:47pm 6.4 T/MM3 N 4.5-11.0 Name: Eliza DEMPSEY Unit #: [id number] : [id number] Sex: M Loc / Svc: ED DOS: 09/18/14 Signed Report #: [id number] DIAGNOSTIC IMAGING REPORT TYPE OF EXAM: CHEST 1 VIEW Dictated By: FOREST FLYNN MD Indication: ITS.REASON: LEFT LATERAL GAZE, RIGHT SIDED WEAKNESS CHEST 1 VIEW: Comparison: 07/19/2014 Findings: Lungs: Low lung volumes. Redemonstration of left upper lobe postsurgical changes. No new focal airspace consolidation. Normal pulmonary vasculature. Pleura: No pleural effusion or pneumothorax. Heart and mediastinum: The cardiomediastinal silhouette and great vessels appear stable with redemonstration of mild aortic atherosclerosis. Osseous structures: The visualized osseous structures appear unchanged with redemonstration of postoperative changes of median sternotomy and degenerative arthrosis of the bilateral shoulders. Impression: No acute cardiac pulmonary process. . Procedures Procedure Status Date Provider(s) ROUTINE [...] completed 07/19/14 EMERGENCY DEPT VISIT completed 07/19/14 [id number]"INFUSION, NORMAL SALINE SOLUTION , 1000 CC" completed 07/19/14 ROUTINE VENIPUNCTURE completed 07/28/14 CT HEAD/BRAIN W/O DYE completed 07/28/14 COMPREHEN METABOLIC PANEL completed 07/28/14 ASSAY OF PROLACTIN completed 07/28/14 ASSAY OF TROPONIN QUANT completed 07/28/14 COMPLETE CBC W/AUTO DIFF WBC completed 07/28/14 ELECTROCARDIOGRAM TRACING completed 07/28/14 EMERGENCY DEPT VISIT completed 07/28/14 MR ANGIOGRAPHY HEAD W/O DYE completed 08/05/14 MRI BRAIN STEM W/O & W/DYE completed 08/05/14 GADAVIST 10ML SDV - Contrast,Gadavist 10ml completed 08/05/14 Encounters Encounter Location Date/Time Registered Emergency Room [facility] 09/18/14 12:05pm Registered Clinic [facility] 08/05/14 1:17pm Departed Emergency Room [facility] 07/28/14 9:54am Departed Emergency Room [facility] 07/19/14 11:36am Recent Diagnosis
[2016-09-16 17:27] VITALS: BP 146/73; PULSE 87; RESP 24; TEMP 99.2; O2SAT 96
[2016-09-16 17:28] VITALS: Ht 180.3 cm; Wt 86.6 kg
[2016-09-16] MEDS ORDERED: HYDROCODONE/APAP 5 mg/325 mg TABLET PO PRN (18:45)
[2016-09-16] MEDS ORDERED: PRN ORDERS MC (18:45)
[2016-09-16] MEDS ORDERED: ONDANSETRON 4mg/2ml INJECTION IV PRN (18:45)
[2016-09-16] MEDS ORDERED: NITROGLYCERIN 0.4 MG SUBLINGUAL TABLET SL PRN (18:45)
[2016-09-16] MEDS ORDERED: ACETAMINOPHEN 325 MG TABLET PO PRN (18:45)
[2016-09-16] MEDS ORDERED: ONDANSETRON 4 MG TABLET PO PRN (18:45)
[2016-09-16 19:51] VITALS: BP 148/69; PULSE 52; RESP 18; TEMP 98.3; O2SAT 94
[2016-09-16] MEDS: ALBUTEROL/IPRATROPIUM INHAL. 2.5mg-0.5mg/3ml Neb. AEROSOL SCH (20:03)
[2016-09-16 20:05] VITALS: O2SAT 95
[2016-09-16] MEDS: DOCUSATE SODIUM 100 MG CAPSULE PO SCH ×2 (21:00→21:26)
[2016-09-16] MEDS: SODIUM CHLORIDE 1 G TABLET PO SCH (21:26)
[2016-09-16] MEDS: DEMECLOCYCLINE 150 MG TABLET PO SCH (21:26)
[2016-09-16] MEDS: DIVALPROEX 250 MG TABLET PO SCH (21:27)
[2016-09-16] MEDS: ATORVASTATIN 40 MG TABLET PO SCH (21:27)
[2016-09-16 23:01] VITALS: PULSE 52; RESP 18
--- NOTE | 2016-09-16 23:42 | NUR ---
STATUS. PT HAS BEEN ALERT AND ORIENTED. PT STATES HE DOESN'T NOT REMEMBER BEING ON THIS UNIT A MONTH AGO. PT ASKED WHAT ARE THE RULES OF THIS UNIT? THIS NURSE EXPLAINED ABOUT USING THE CALL LIGHT, AND THAT HE WILL GO TO DINING ROOM FOR HIS MEALS, AND WORK WITH THERAPY TOMORROW. PT RESPONDS "OK". PT INCONT OF BLADDER. PT DENIED NEED FOR URINAL., BUT HE IS AWARE HE IS WET. TOTAL ASSIST WITH INCONT CARE.
--- NOTE | 2016-09-16 23:49 | NUR ---
Chart Check 24 hour chart check completed
[2016-09-17] MEDS: DEMECLOCYCLINE 150 MG TABLET PO SCH ×2 (06:22→19:54)
[2016-09-17 06:49] LABS: BASOPHILS # (AUTO) 0.1 T/MM3 (0-0.2); BASOPHILS % (AUTO) 0.8 % (0-2); EOSINOPHILS # (AUTO) 0.1 T/MM3 (0-0.5); EOSINOPHILS % (AUTO) 2.1 % (0-4); HCT - HEMATOCRIT 29.9 % (41-53); HGB - HEMOGLOBIN 9.4 GM/DL (13.5-17.5); IMMATURE GRANULOCYTE # (AUTO) 0.02 T/MM3 (0.00-0.03); IMMATURE GRANULOCYTE % (AUTO) 0.3 % (0.0-0.5); LYMPHOCYTES # (AUTO) 1.4 T/MM3 (1-4.8); LYMPHOCYTES % (AUTO) 23.1 % (23-45); MEAN CORPUSCULAR HGB CONC(MCHC 31.4 GM/DL (31-37); MEAN CORPUSCULAR VOLUME 92.3 UM3 (80-100); MONOCYTES # (AUTO) 0.6 T/MM3 (0-0.8); MONOCYTES % (AUTO) 9.7 % (0-9.0); RED BLOOD COUNT 3.24 M/MM3 (4.50-5.90); WBC - WHITE BLOOD COUNT 6.2 T/MM3 (4.5-11.0)
[2016-09-17 07:00] LABS: ANION GAP 7 MEQ/L (5-15); BUN/CREATININE RATIO 20 RATIO (6-26); CALCIUM 8.4 MG/DL (8.4-10.2); CHLORIDE 102 MEQ/L (98-107); CO2 - CARBON DIOXIDE 28 MEQ/L (22-30); CREATININE 1.3 MG/DL (0.8-1.5); GLOMERULAR FILTRATION RATE 52; GLUCOSE 80 MG/DL (75-110); POTASSIUM 4.2 MEQ/L (3.6-5); SODIUM 137 MEQ/L (134-144)
[2016-09-17 08:00] VITALS: PULSE 52; RESP 18
[2016-09-17] MEDS ORDERED: MIDODRINE 5 MG TABLET PO SCH (08:00)
[2016-09-17 08:07] VITALS: BP 175/94; PULSE 68; RESP 12; TEMP 97.5; O2SAT 97
[2016-09-17] MEDS: ALBUTEROL/IPRATROPIUM INHAL. 2.5mg-0.5mg/3ml Neb. AEROSOL SCH ×2 (08:15→19:20)
[2016-09-17] MEDS: POLYETHYL.GLYCOL 3350 PACKET 17gm PO SCH (09:00)
[2016-09-17] MEDS: DOCUSATE SODIUM 100 MG CAPSULE PO SCH ×3 (09:00→19:54)
[2016-09-17] MEDS: SODIUM CHLORIDE 1 G TABLET PO SCH (09:07)
[2016-09-17] MEDS: OMEGA-3 ACID ESTERS 1 G CAPSULE PO SCH (09:08)
[2016-09-17] MEDS: MULTIVITAMIN PLAIN TABLET PO SCH (09:09)
[2016-09-17] MEDS: CLOPIDOGREL 75 MG TABLET PO SCH (09:09)
[2016-09-17] MEDS: MIDODRINE 10 MG TABLET PO SCH ×3 (09:10→17:48)
[2016-09-17] MEDS: DIVALPROEX 250 MG TABLET PO SCH ×2 (09:11→19:55)
[2016-09-17] MEDS: AMIODARONE 200 MG TABLET PO SCH (09:11)
[2016-09-17] MEDS: ASPIRIN 81 MG CHEWABLE TABLET PO SCH (09:21)
--- NOTE | 2016-09-17 10:40 | STEVAL ---
Eval Subjective and History Date/Time of Eval DATE: 09/17/16 TIME: 09:59 Medical Diagnosis repeat CVA with right side weakness; increased risk for oropharyngeal dysphagia Orientations: Person, Alert, Cooperative Primary Complaint: repeat CVA Pain: No (none reported) Date of Onset of Primary Com: 09/16/16 Clinical Test Results: bedside swallow eval complete Prior History of This Problem: Yes (hx recent CVA 08/07/16 with dysphagia) Patient's Goals: none stated Significant Past Medical Hx: Per chart, the pt is an 89 y/o male admitted to [facility] on 09/16/16 with repeat CVA with right side weakness. AT the time of admit, the pt was on droplet precautions for Elam virus, but those precautions have since been lifted. 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 Medical History Form Reviewed: Yes Residence Type: Private home/apartment Lives With: Spouse Caregiver Status: No Prior Functional Status: pt received dysphagia tx during prior admit, after his CVA; dismissed to on soft diet with thin liquids with swallow precautions Current Functional Status: increased risk of aspiration due to recent repeat CVA Education Subject: Diet, Treatment Plan Person(s) Educated: Patient Instruction Understanding Demo: Pt. verbalizes understand Education Comment HYDROPRESS OPERATOR educated patient on reasoning for evaluation. Patient was agreeable to evaluation and he participated willingly. After the evaluation was completed, the pt was educated regarding results and recommendations, including recommendation for thickened liquids and dysphagia tx. Pt was agreeable to treatment and his questions were answered. Subjective and History Comment: Per chart, the patient is an 89 y/o male admitted to [facility] on 09/16/16 with c/o repeat CVA. At the time of admit, the pt was on droplet precautions for Elam virus, but those precautions have since been lifted per RN. 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 Dysphagia Evaluation Evaluation Location: Chair Evaluation Angle: 90 Comment Pt was sitting upright in the chair and eating breakfast when HYDROPRESS OPERATOR entered the patient's room. He was agreeable to participating in this evaluation. Tongue Elevation: No Impairment (WFL) Tongue Lateralization: Minimal Impairment (slow, but functional, with no noted reduced ROM) Tongue Protrusion: No Impairment (WFL) Tongue Retraction: No Impairment (WFL) Tongue Extension Midline: No Impairment (WFL) Labial Approximation: No Impairment (WFL) Intraoral Air Pressure: No Impairment (WFL) Volitional Cough: No Impairment (WFL) Palatal Elevation: No Impairment (WFL) Saliva Control: No Impairment (WFL) Dentition: Natural Oral Peripheral Exam Comment: No asymmetry or gross weakness noted. Lip Seal: Adequate-liquid, Adequate-solid Lingual Manipulation: Adequate-liquid, Inadequate-liquid (audible swallow, which may be indicative of reduced oral bolus control), Adequate-solid (slow but functional mastication of solids) Chewing: Adequate-solid (slow but functional swallow) Oral cavity clear post swallow: Adequate-liquid, Adequate-solid Multiple swallows not needed: Inadequate-solid (sometimes pt needed to use a secondary swallow to clear) Voice clear&dry post swallow: Adequate-liquid, Adequate-solid No cough/throat clear: Inadequate-liquid (coughing approximately 30% of the time after the swallow with thin), Adequate-solid Comments During this evaluation, the pt took self-administered trials of thin liquids and solids from his breakfast tray. No straws were used during this assessment. With thin, the patient exhibited audible swallow with all trials, with coughing after the swallow on approximately 40% of trials. Coughing was eliminated when pt took trials of nectar-thick liquids by cup. He also took self -administered trials of solids from his breakfast tray. Mastication was slow, but functional. The oral cavity was clear post-swallow with most trials or was cleared with a spontaneous subsequent swallow. There were no clinical s/s aspiration. Assessment/Plan of Care Speech Therapy Impressions: Pt presents with mild/moderate oropharyngeal dysphagia characterized by the following: slow mastication; audible swallow with thin liquids; coughing after the swallow with thin liquids on approximately 40% of trials. Based on this assessment, the following recommendations are made: 1. continue regular diet 2. nectar-thick liquids by cup only 3. no straws 4. upright fully for all intake 5. dysphagia tx Half-Way Goal: Pt will maintain nutrition and hydration of the least restrictive diet while demonstrating no s/s of aspiration for 3 consecutive trials. Short Term Goal: Pt will consume a regular consistency with nectar-thick liquids without outward signs of aspiration at bedside in 85% of trials. Pt will demonstrate 2 out of 3 components necessary for a safe swallow as listed from the following no straws; upright fully for all eating and drinking; small, single sips of liquids. ST Treatment Plan: Swallow Retraining, Swallow Precautions, Modified Diet ST Treatment Plan Frequency: three times per week Treatment Plan Duration: one week Plan of Care Comment ST will continue to follow for dysphagia tx, providing treatment 3x per week for 30 minutes each time. Recommended Diet: Regular diet with nectar-thick liquids Date of Visit 09/17/16 Time Visit Began: 08:30 Time Visit Ended: 09:00 ST Assess/Plan of Care: ST Treatment Charge: Swallow Eval Minutes of Individual Therapy: 30 ST FIM Comprehension Ability: 5 Supervision/Setup Social Interaction: 5 Supervision/Setup Expression Ability: 5 Supervision/Setup Swallowin Moderate Assistance MASTER MANDUJANO MS CCC-HYDROPRESS OPERATOR Sep 17, 2016 10:03
--- NOTE | 2016-09-17 12:20 | CONSPD ---
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 West Reason for Consultation: Stroke; CAD; orthostatic hypotension HPI - Adult Date DATE: 09/17/16 TIME: 09:49 General Chief Complaint: Weakness History of Present Illness Bernabe Galeana is an 89 y/o male seen in consultation from Dr. West. He was admitted on 08/07/16 and again on 09/06/16, both for acute strokes to left MCA territory; resulting in right leg weakness, short term memory loss (resolved ). ASA and statin were continued, Plavix was initiated. Further investigation revealed NSVT, started amiodarone. Heart cath showed significant coronary occlusions, and RCA was stented. He had early problems with hypoxia, and required intermittent supplemental oxygen. He had problems with hyponatremia during both hospitalizations, treated with salt tabs/fluid restriction. Sodium improved to a normal level. He was also dx with coronavirus, and placed in precautions. Chronic orthostasis was treated with midodrine, and occasional fluid bolus. Medically stabilized, and was transferred to IRU on 09/16/16. Bernabe was seen while working with therapy. He was very weak. He was unable to sit upright on the side of his bed without a nurse holding onto him. He tends to lean to the right. He requires assistance of 2 to stand and transfer to the chair beside his bed. He was unsteady. He states he doesn't feel weaker per se on his right, just overall weak. He felt dizzy this morning, and nurse reports that his systolic blood pressure was 104 with standing. His dizziness improved after he sat back down. He did not become dizzy during the transfer from his bed to the chair. He denies any chest pain or difficulty breathing. No abdominal pain or GI complaints. He continues to have a cough, and will be on precautions for coronavirus for 1 more day. He is incontinent of urine. Past Medical History Past Medical History Acute CVA- left MCA with right-sided weakness-08/07/16, 09/06/16 HTN CAD-Dr. Marie Dyslipidemia Pituitary adenoma-Dr. Romero Bradycardia Chronic anemia Orthostatic hypotension Osteoarthritis Left pleural effusion-negative workup in [place] fall 2015 Surgical History Patient's Surgical History: Heart catheterization 09/14/16 - stent to RCA (Resolute integrity); LAD occluded; L circ 50% stenosis; RCA 90%; EF 50-55% Tonsillectomy Right partial knee replacement CABG . Cardiac [id number]. [place] Cholecystectomy TURP Thoracentesis 11/2015 Colonoscopy Current Medications Home Meds Active Scripts Ipratropium/Albuterol Sulfate (Iprat-Albut 0.5-3(2.5) mg/3 ml) 3 Ml Ampul.neb, 3 ML AEROSOL BID for 7 Days Prov:TIFFANIE JOE MD 09/16/16 Ondansetron HCl/Pf (Ondansetron HCl 4 mg/2 ml Vial) 4 Mg/2 Ml Vial, 4 MG PO/SL Q6H Y for NAUSEA &/OR VOMITING, #20 VIAL Prov:TIFFANIE JOE MD 09/16/16 Divalproex Sodium (Depakote) 250 Mg Tablet.dr, 1 TAB PO BID, #30 TAB Prov:DYAN WEST MD 09/05/16 Docusate Sodium (Colace) 100 Mg Capsule, 100 MG PO BID for 30 Days, #60 CAP Prov:LUIS FERNANDO NOBLES APRN 08/26/16 Sodium Chloride (Sodium Chloride) 1 G Tablet, 1 G PO BID for 30 Days, #60 TAB Prov:LUIS FERNANDO NOBLES APRN 08/26/16 Cabergoline (Cabergoline) 0.5 Mg Tablet, 0.25 MG PO 2XW for 30 Days Tuesday and tuesday at 0900. Prov:LUIS FERNANDO NOBLES APRN 08/26/16 Polyethylene Glycol 3350 (Healthylax) 17 Gm Powd.pack, 17 G PO DAILY for 30 Days Prov:LUIS FERNANDO NOBLES APRN 08/26/16 Hydrocodone/Acetaminophen ([place] 5-325 Tablet) 5-325 Tablet, 1 TAB PO Q6H Y for PAIN for 30 Days, #120 TAB Prov:LUIS FERNANDO NOBLES APRN 08/26/16 Atorvastatin Calcium (Lipitor) 40 Mg Tablet, 40 MG PO HS for 30 Days, #30 TAB Prov:LUIS FERNANDO NOBLES APRN 08/26/16 Clopidogrel Bisulfate (Plavix) 75 Mg Tablet, 75 MG PO DAILY for 30 Days, #30 TAB Prov:LUIS FERNANDO NOBLES APRN 08/26/16 Midodrine HCl (Midodrine HCl) 10 Mg Tablet, 5 MG PO TID for 30 Days 0800,1200,1600 Prov:LUIS FERNANDO NOBLES APRN 08/26/16 Acetaminophen (Tylenol) 325 Mg Tablet, 325 MG PO Q5H Y for PAIN for 30 Days, # 120 TAB Prov:LUIS FERNANDO NOBLES APRN 08/11/16 Reported Medications [place]-3/Dha/Epa/Fish Oil (Fish Oil 1,000 mg Softgel) 1 Each Capsule, 1000 MG PO DAILY 12/11/15 Multivitamin (Daily Vitamin) 1 Each Tablet, 1 TAB PO DAILY 04/09/14 Aspirin (Aspirin) 81 Mg Tab.chew, 81 MG PO DAILY 06/06/13 Nitroglycerin (Nitroglycerin) 0.4 Mg Tab.subl, 0.4 MG SL Q5MIN Y for CHEST PAIN 08/04/09 Allergies: Coded Allergies: No Known Drug Allergies (Verified Allergy, Unknown, 09/05/16) Family History Family History: Father- at age 75 from heart disease. Mother-CVA. Brother-coronary artery disease and prostate cancer. Social History Smoking Status: Never smoker Does patient use chewing tobac: No Second Hand Exposure: No Substance Use Type: does not use Alcohol Intake: none, occasionally Marital Status: Sexuality: female partner Housing: house Household Members: spouse Current Occupational Status: retired Occupational Hazard: No Advance Directives: Yes DPOA for Healthcare Only, Yes Full Code Social History Comments PCP - Dr. Corona Review of Systems Constitutional: REPORTS: dizziness, weakness, DENIES: chills, fever Eyes Vision: DENIES: vision changes ENMT Sinuses: NOT FOUND: congestion, rhinorrhea Mouth/Throat: DENIES: sore throat Cardiovascular DENIES: chest pain, dyspnea on exertion Vascular: DENIES: pedal edema Pulmonary Respiratory: DENIES: cough, dyspnea GI Upper Abdomen: DENIES: nausea, vomiting Lower Abdomen: DENIES: diarrhea General: DENIES: dysuria Musculoskeletal General: weakness Integumentary Skin: DENIES: sores Neurological General: syncope (history), weakness, DENIES: headache, seizures Comments Right-sided weakness Psychiatric Psychiatric: DENIES: nervousness Hematologic/Lymphatic anemia, easy bruising All Other Systems All Other Systems: Reviewed (remainder of 10-point ROS Neg.) Physical Exam General General Nourishment: well nourished, well developed General Body Habitus: well groomed Vital Signs Vital Signs Date Time Temp Pulse Resp B/P Pulse Ox O2 Delivery O2 Flow Rate FiO2 09/17/16 08:18 51 09/17/16 08:15 14 09/17/16 08:07 97.5 175/94 97 Room Air Height (Feet): 5 Height (Inches): 11.00 Eyes Brief: FOUND: PERRL, NOT FOUND: scleral icterus ENMT Brief: NOT FOUND: mucosa moist (dry tongue) Neck Brief: NOT FOUND: adenopathy, nuchal rigidity Respiratory Auscultation: FOUND: decreased (Left mid and lower lung whelan), NOT FOUND: rales, rhonchi, wheezes Cardiovascular (brief) Cardiac Brief: FOUND: regular rate, regular rhythm Cardiovascular Auscultation: FOUND: S1, S2, regular Peripheral Pulses: 2+: Dorasalis Pedis (L), Dorsalis Pedis (R), Posterior Tibial (L), Posterior Tibial (R), Radial (L), Radial (R) Edema: 0: Anasarca, Arm (L), Arm (R), Face, Leg (L), Leg (R) Abdomen Inspection: NOT FOUND: distention Palpation: FOUND: soft, NOT FOUND: McBurney's point tender, Barrios's sign, involuntary guarding, rebound, tender, voluntary guarding Auscultation: FOUND: normo active Lymphatic (brief) Lymphatic Brief: NOT FOUND: adenopathy Musculoskeletal (brief) Musculoskeletal Brief: FOUND: loss of motion Integumentary (brief) Integumentary Brief: FOUND: dry, pink, warm Integumentary General: FOUND: dry, warm Color: FOUND: pink Neurologic (brief) Neurological Brief: FOUND: cranial 2-12 intact (grossly), motor (manager asset equal but he tends to lean towards the right) Neurologic GCS Eye Opening: (4)Spontaneous GCS Verbal: (5)Oriented GCS Motor: (6)Obeys Commands RN Documented GCS Total: 15 Psychiatric (brief) FOUND: alert, attentive, normal affect, oriented Laboratory Laboratory Tests Test 09/17/16 06:07 White Blood Count 6.2T/MM3 Red Blood Count 3.24M/MM3 Hemoglobin 9.4GM/DL Hematocrit 29.9% Mean Corpuscular Volume 92.3UM3 Mean Corpuscular Hemoglobin 29.0UUG Mean Corpuscular Hemoglobin Concent 31.4GM/DL RDW Standard Deviation 50.3FL Platelet Count 296T/MM3 Mean Platelet Volume 9.0UM3 Immature Granulocyte % (Auto) 0.3% Neutrophils (%) (Auto) 64.0% Lymphocytes (%) (Auto) 23.1% Monocytes (%) (Auto) 9.7% Eosinophils (%) (Auto) 2.1% Basophils (%) (Auto) 0.8% Absolute Immature Granulocyte (auto 0.02T/MM3 Absolute Neutrophils (auto) 4.0T/MM3 Absolute Lymphocytes (auto) 1.4T/MM3 Absolute Monocytes (auto) 0.6T/MM3 Absolute Eosinophils (auto) 0.1T/MM3 Absolute Basophils (auto) 0.1T/MM3 Turbidity < 20 Sodium Level 137MEQ/L Potassium Level 4.2MEQ/L Chloride Level 102MEQ/L Carbon Dioxide Level 28MEQ/L Anion Gap 7MEQ/L Blood Urea Nitrogen 26.0MG/DL Creatinine 1.3MG/DL Glomerular Filtration Rate Calc 52 BUN/Creatinine Ratio 20RATIO Glucose Level 80MG/DL Calculated Osmolality 268MOSM/KG Calcium Level 8.4MG/DL Icterus Index < 2 Chemistry Specimen Hemolysis 19 Impression/Recommendation Problems: (1) Myopathy (2) Right sided weakness Status: Acute (3) Arterial ischemic stroke, MCA (middle cerebral artery), left, acute Onset Date: ~ 08/07/2016 Status: Acute Assessment & Plan: Had a repeat stroke to the same area on 09/06/16 (4) Nonsustained ventricular tachycardia Status: Resolved Assessment & Plan: Treated with amiodarone (5) Coronavirus infection Status: Acute (6) Hyponatremia Status: Chronic (7) Syncope Status: Chronic (8) Orthostatic hypotension Status: Chronic (9) CAD (coronary artery disease) Status: Chronic Assessment & Plan: Heart catheterization on 09/14/[address] 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 Recommendation Acute stroke - continue aspirin, statin, Plavix, PT and OT. Stop Depakote - no reason to suspect hx of seizure. Creatinine has slightly increased to 1.3, and BUN is at 26. Repeat BMP tomorrow , and if renal functions are still elevated, consider lifting fluid restriction. Chronic hyponatremia - improving on demeclocycline and salt tabs and 1800 fluid restriction Left pleural effusion with decreased breath sounds - repeat chest x-ray Coronary artery disease and recent nonsustained V. tach - consult Dr. Adkins; continue amiodarone Orthostatic hypotension - continue midodrine, monitor orthostatics Coronavirus infection - mild residual cough. Continue precautions, DC later today. Thank you for this consultation. We will continue to follow Mr. Galeana throughout his rehabilitation stay. TIFFANIE JOE MD 09/17/16 3101: Past Medical History Current Medications Home Meds Active Scripts Ipratropium/Albuterol Sulfate (Iprat-Albut 0.5-3(2.5) mg/3 ml) 3 Ml Ampul.neb, 3 ML AEROSOL BID for 7 Days Prov:TIFFANIE JOE MD 09/16/16 Ondansetron HCl/Pf (Ondansetron HCl 4 mg/2 ml Vial) 4 Mg/2 Ml Vial, 4 MG PO/SL Q6H Y for NAUSEA &/OR VOMITING, #20 VIAL Prov:TIFFANIE JOE MD 09/16/16 Divalproex Sodium (Depakote) 250 Mg Tablet.dr, 1 TAB PO BID, #30 TAB Prov:DYAN EWST MD 09/05/16 Docusate Sodium (Colace) 100 Mg Capsule, 100 MG PO BID for 30 Days, #60 CAP Prov:LUIS FERNANDO NOBLES APRN 08/26/16 Sodium Chloride (Sodium Chloride) 1 G Tablet, 1 G PO BID for 30 Days, #60 TAB Prov:LUIS FERNANDO NOBLES APRN 08/26/16 Cabergoline (Cabergoline) 0.5 Mg Tablet, 0.25 MG PO 2XW for 30 Days Tuesday and tuesday at 0900. Prov:LUIS FERNANDO NOBLES APRN 08/26/16 Polyethylene Glycol 3350 (Healthylax) 17 Gm Powd.pack, 17 G PO DAILY for 30 Days Prov:LUIS FERNANDO NOBLES APRN 08/26/16 Hydrocodone/Acetaminophen ([place] 5-325 Tablet) 5-325 Tablet, 1 TAB PO Q6H Y for PAIN for 30 Days, #120 TAB Prov:LUIS FERNANDO NOBLES APRN 08/26/16 Atorvastatin Calcium (Lipitor) 40 Mg Tablet, 40 MG PO HS for 30 Days, #30 TAB Prov:LUIS FERNANDO NOBLES APRN 08/26/16 Clopidogrel Bisulfate (Plavix) 75 Mg Tablet, 75 MG PO DAILY for 30 Days, #30 TAB Prov:LUIS FERNANDO NOBLES APRN 08/26/16 Midodrine HCl (Midodrine HCl) 10 Mg Tablet, 5 MG PO TID for 30 Days 0800,1200,1600 Prov:LUIS FERNANDO NOBLES APRN 08/26/16 Acetaminophen (Tylenol) 325 Mg Tablet, 325 MG PO Q5H Y for PAIN for 30 Days, # 120 TAB Prov:LUIS FERNANDO NOBLES APRN 08/11/16 Reported Medications [place]-3/Dha/Epa/Fish Oil (Fish Oil 1,000 mg Softgel) 1 Each Capsule, 1000 MG PO DAILY 12/11/15 Multivitamin (Daily Vitamin) 1 Each Tablet, 1 TAB PO DAILY 04/09/14 Aspirin (Aspirin) 81 Mg Tab.chew, 81 MG PO DAILY 06/06/13 Nitroglycerin (Nitroglycerin) 0.4 Mg Tab.subl, 0.4 MG SL Q5MIN Y for CHEST PAIN 08/04/09 Allergies: Coded Allergies: No Known Drug Allergies (Verified Allergy, Unknown, 09/05/16) Impression/Recommendation Recommendation Have read and physically examined patient same day as nurse practitioner Valente Angelo. Agree with above findings location is now mildly wheezy with slightly diminished left posterior base. In review of patients chest x-ray performed today there is some enlargement of the left pleural effusion but this does not appear to be clinically significant enough to warrant thoracentesis at this time. Patient has had prior thoracentesis with nonmalignant findings. Continue patient care per rehab VALENTE ANGELO APRN Sep 17, 2016 09:52 TIFFANIE JOE MD Sep 17, 2016 17:31
--- NOTE | 2016-09-17 12:51 | CONSPD ---
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 ASA and statin were continued, Plavix was initiated. Further investigation revealed NSVT, started amiodarone. Heart cath showed significant coronary occlusions, and RCA was stented. He had early problems with hypoxia, and required intermittent supplemental oxygen. He had problems with hyponatremia during both hospitalizations, treated with salt tabs/ fluid restriction. Sodium improved to a normal level. He was also dx with coronavirus, and placed in precautions. Chronic orthostasis was treated with midodrine, and occasional fluid bolus. Medically stabilized, and was transferred to IRU on 09/16/16. Bernabe is seen in his wheelchair as he is rolling himself towards the dining room for lunch. He denies chest pain or pressure, dyspnea or dizziness at this time. Past Medical History Past Medical History Metabolic: cancer, hypercholesterolemia, hypertension, other Cardiac: CAD Neurological: CVA, other Musculoskeletal: osteoarthritis Surgical History Cardiac: cardiac bypass, cardiac cath, cardiac stent Joint: knee Current Medications Home Meds Active Scripts Ipratropium/Albuterol Sulfate (Iprat-Albut 0.5-3(2.5) mg/3 ml) 3 Ml Ampul.neb, 3 ML AEROSOL BID for 7 Days Prov:TIFFANIE JOE MD 09/16/16 Ondansetron HCl/Pf (Ondansetron HCl 4 mg/2 ml Vial) 4 Mg/2 Ml Vial, 4 MG PO/SL Q6H Y for NAUSEA &/OR VOMITING, #20 VIAL Prov:TIFFANIE JOE MD 09/16/16 Divalproex Sodium (Depakote) 250 Mg Tablet.dr, 1 TAB PO BID, #30 TAB Prov:DYAN WEST MD 09/05/16 Docusate Sodium (Colace) 100 Mg Capsule, 100 MG PO BID for 30 Days, #60 CAP Prov:LUIS FERNANDO NOBLES APRN 08/26/16 Sodium Chloride (Sodium Chloride) 1 G Tablet, 1 G PO BID for 30 Days, #60 TAB Prov:LUIS FERNANDO NOBLES APRN 08/26/16 Cabergoline (Cabergoline) 0.5 Mg Tablet, 0.25 MG PO 2XW for 30 Days Tuesday and tuesday at 0900. Prov:LUIS FERNANDO NOBLES APRN 08/26/16 Polyethylene Glycol 3350 (Healthylax) 17 Gm Powd.pack, 17 G PO DAILY for 30 Days Prov:LUIS FERNANDO NOBLES APRN 08/26/16 Hydrocodone/Acetaminophen ([place] 5-325 Tablet) 5-325 Tablet, 1 TAB PO Q6H Y for PAIN for 30 Days, #120 TAB Prov:LUIS FERNANDO NOBLES APRN 08/26/16 Atorvastatin Calcium (Lipitor) 40 Mg Tablet, 40 MG PO HS for 30 Days, #30 TAB Prov:LUIS FERNANDO NOBLES APRN 08/26/16 Clopidogrel Bisulfate (Plavix) 75 Mg Tablet, 75 MG PO DAILY for 30 Days, #30 TAB Prov:LUIS FERNANDO NOBLES APRN 08/26/16 Midodrine HCl (Midodrine HCl) 10 Mg Tablet, 5 MG PO TID for 30 Days 0800,1200,1600 Prov:LUIS FERNANDO NOBLES APRN 08/26/16 Acetaminophen (Tylenol) 325 Mg Tablet, 325 MG PO Q5H Y for PAIN for 30 Days, # 120 TAB Prov:LUIS FERNANDO NOBLES APRN 08/11/16 Reported Medications [place]-3/Dha/Epa/Fish Oil (Fish Oil 1,000 mg Softgel) 1 Each Capsule, 1000 MG PO DAILY 12/11/15 Multivitamin (Daily Vitamin) 1 Each Tablet, 1 TAB PO DAILY 04/09/14 Aspirin (Aspirin) 81 Mg Tab.chew, 81 MG PO DAILY 06/06/13 Nitroglycerin (Nitroglycerin) 0.4 Mg Tab.subl, 0.4 MG SL Q5MIN Y for CHEST PAIN 08/04/09 Allergies: Coded Allergies: No Known Drug Allergies (Verified Allergy, Unknown, 09/05/16) Family History FOUND: hypertension Vaccines apr [id number] 11/2012 Social History Smoking Status: Never smoker Does patient use chewing tobac: No Second Hand Exposure: No Substance Use Type: does not use Alcohol Intake: none, occasionally Marital Status: Sexuality: female partner Housing: house Household Members: spouse Current Occupational Status: retired Occupational Hazard: No Advance Directives: Yes DPOA for Healthcare Only, Yes Full Code Review of Systems Constitutional: REPORTS: weakness, DENIES: chills, dizziness, fever Eyes Vision: DENIES: double vision ENMT Hearing: DENIES: tinnitus Balance: DENIES: vertigo Mouth/Throat: DENIES: sore throat Cardiovascular DENIES: chest pain, dyspnea on exertion Rhythm/Rate: DENIES: irregular beat, palpitations Pulmonary Respiratory: DENIES: cough, sputum GI Upper Abdomen: DENIES: nausea, vomiting Lower Abdomen: DENIES: diarrhea Integumentary Skin: DENIES: rash, sores Neurological General: weakness, DENIES: headache, numbness All Other Systems All Other Systems: Reviewed (remainder of 10-point ROS Neg.) Physical Exam General General Nourishment: well nourished, apparent age Vital Signs Vital Signs Date Time Temp Pulse Resp B/P Pulse Ox O2 Delivery O2 Flow Rate FiO2 09/17/16 08:18 51 09/17/16 08:15 14 09/17/16 08:07 97.5 175/94 97 Room Air Height (Feet): 5 Height (Inches): 11.00 ENMT Brief: FOUND: mucosa moist Neck Brief: NOT FOUND: JVD, carotid bruits Respiratory Brief: FOUND: clear all whelan, NOT FOUND: equal bilaterally ( diminished left), wheezes Cardiovascular (brief) Cardiac Brief: FOUND: regular rate, regular rhythm, NOT FOUND: gallop, murmur, pedal edema Abdomen (brief) Abdominal Brief: FOUND: BS normo active x4, soft, NOT FOUND: tender Integumentary (brief) Integumentary Brief: FOUND: dry, pink, warm Neurologic RN Documented GCS Eye Opening: (4)Spontaneous Verbal: (5)Oriented Motor: (6)Obeys Commands Total: Psychiatric (brief) FOUND: alert, attentive Laboratory Laboratory Tests Test 09/17/16 06:07 White Blood Count 6.2T/MM3 Red Blood Count 3.24M/MM3 Hemoglobin 9.4GM/DL Hematocrit 29.9% Mean Corpuscular Volume 92.3UM3 Mean Corpuscular Hemoglobin 29.0UUG Mean Corpuscular Hemoglobin Concent 31.4GM/DL RDW Standard Deviation 50.3FL Platelet Count 296T/MM3 Mean Platelet Volume 9.0UM3 Immature Granulocyte % (Auto) 0.3% Neutrophils (%) (Auto) 64.0% Lymphocytes (%) (Auto) 23.1% Monocytes (%) (Auto) 9.7% Eosinophils (%) (Auto) 2.1% Basophils (%) (Auto) 0.8% Absolute Immature Granulocyte (auto 0.02T/MM3 Absolute Neutrophils (auto) 4.0T/MM3 Absolute Lymphocytes (auto) 1.4T/MM3 Absolute Monocytes (auto) 0.6T/MM3 Absolute Eosinophils (auto) 0.1T/MM3 Absolute Basophils (auto) 0.1T/MM3 Turbidity < 20 Sodium Level 137MEQ/L Potassium Level 4.2MEQ/L Chloride Level 102MEQ/L Carbon Dioxide Level 28MEQ/L Anion Gap 7MEQ/L Blood Urea Nitrogen 26.0MG/DL Creatinine 1.3MG/DL Glomerular Filtration Rate Calc 52 BUN/Creatinine Ratio 20RATIO Glucose Level 80MG/DL Calculated Osmolality 268MOSM/KG Calcium Level 8.4MG/DL Icterus Index < 2 Chemistry Specimen Hemolysis 19 Laboratory Tests Test 09/17/16 06:07 White Blood Count 6.2T/MM3 Red Blood Count 3.24M/MM3 Hemoglobin 9.4GM/DL Hematocrit 29.9% Mean Corpuscular Volume 92.3UM3 Mean Corpuscular Hemoglobin 29.0UUG Mean Corpuscular Hemoglobin Concent 31.4GM/DL RDW Standard Deviation 50.3FL Platelet Count 296T/MM3 Mean Platelet Volume 9.0UM3 Immature Granulocyte % (Auto) 0.3% Neutrophils (%) (Auto) 64.0% Lymphocytes (%) (Auto) 23.1% Monocytes (%) (Auto) 9.7% Eosinophils (%) (Auto) 2.1% Basophils (%) (Auto) 0.8% Absolute Immature Granulocyte (auto 0.02T/MM3 Absolute Neutrophils (auto) 4.0T/MM3 Absolute Lymphocytes (auto) 1.4T/MM3 Absolute Monocytes (auto) 0.6T/MM3 Absolute Eosinophils (auto) 0.1T/MM3 Absolute Basophils (auto) 0.1T/MM3 Turbidity < 20 Sodium Level 137MEQ/L Potassium Level 4.2MEQ/L Chloride Level 102MEQ/L Carbon Dioxide Level 28MEQ/L Anion Gap 7MEQ/L Blood Urea Nitrogen 26.0MG/DL Creatinine 1.3MG/DL Glomerular Filtration Rate Calc 52 BUN/Creatinine Ratio 20RATIO Glucose Level 80MG/DL Calculated Osmolality 268MOSM/KG Calcium Level 8.4MG/DL Icterus Index < 2 Chemistry Specimen Hemolysis 19 Impression/Recommendation Problems: (1) CAD (coronary artery disease) Status: Chronic Assessment & Plan: Medical management, Continue Atorvastatin. (2) S/P right coronary artery (RCA) stent placement Status: Acute Assessment & Plan: Plavix 75mg and Aspirin 81mg daily (3) Nonsustained ventricular tachycardia Status: Resolved Assessment & Plan: Amiodarone 200mg daily, monitor telemetry (4) Orthostatic hypotension Status: Chronic Assessment & Plan: Midodrine 10mg TID (5) Dyslipidemia Status: Chronic Assessment & Plan: Continue Atorvastatin Recommendation CAD, S/P RCA Stent: Medical management, continue Atorvastatin. EKG prn chest pain. NSVT: Continue Amiodarone, monitor Telemetry. Thank you for allowing us to participate in this patients care. We will follow along with you. PRINCESS CRUZ MD 10/04/16 1013: Past Medical History Current Medications Home Meds Active Scripts Ipratropium/Albuterol Sulfate (Iprat-Albut 0.5-3(2.5) mg/3 ml) 3 Ml Ampul.neb, 3 ML AEROSOL BID for 7 Days Prov:TIFFANIE JOE MD 09/16/16 Ondansetron HCl/Pf (Ondansetron HCl 4 mg/2 ml Vial) 4 Mg/2 Ml Vial, 4 MG PO/SL Q6H Y for NAUSEA &/OR VOMITING, #20 VIAL Prov:TIFFANIE JOE MD 09/16/16 Divalproex Sodium (Depakote) 250 Mg Tablet.dr, 1 TAB PO BID, #30 TAB Prov:DYAN WEST MD 09/05/16 Docusate Sodium (Colace) 100 Mg Capsule, 100 MG PO BID for 30 Days, #60 CAP Prov:LUIS FERNANDO NOBLES APRN 08/26/16 Sodium Chloride (Sodium Chloride) 1 G Tablet, 1 G PO BID for 30 Days, #60 TAB Prov:MALLORIE,LUIS FERNANDOYISEL Uribe APRN 08/26/16 Cabergoline (Cabergoline) 0.5 Mg Tablet, 0.25 MG PO 2XW for 30 Days Tuesday and tuesday at 0900. Prov:LUIS FERNANDO NOBLES APRN 08/26/16 Polyethylene Glycol 3350 (Healthylax) 17 Gm Powd.pack, 17 G PO DAILY for 30 Days Prov:LUIS FERNANDO NOBLES APRN 08/26/16 Hydrocodone/Acetaminophen ([place] 5-325 Tablet) 5-325 Tablet, 1 TAB PO Q6H Y for PAIN for 30 Days, #120 TAB Prov:LUIS FERNANDO ONBLES APRN 08/26/16 Atorvastatin Calcium (Lipitor) 40 Mg Tablet, 40 MG PO HS for 30 Days, #30 TAB Prov:LUIS FERNANDO NOBLES APRN 08/26/16 Clopidogrel Bisulfate (Plavix) 75 Mg Tablet, 75 MG PO DAILY for 30 Days, #30 TAB Prov:LUIS FERNANDO NOBLES APRN 08/26/16 Midodrine HCl (Midodrine HCl) 10 Mg Tablet, 5 MG PO TID for 30 Days 0800,1200,1600 Prov:LUIS FERNANDO NOBLES APRN 08/26/16 Acetaminophen (Tylenol) 325 Mg Tablet, 325 MG PO Q5H Y for PAIN for 30 Days, # 120 TAB Prov:LUIS FERNANDO NOBLES APRN 08/11/16 Reported Medications Laie-3/Dha/Epa/Fish Oil (Fish Oil 1,000 mg Softgel) 1 Each Capsule, 1000 MG PO DAILY 12/11/15 Multivitamin (Daily Vitamin) 1 Each Tablet, 1 TAB PO DAILY 04/09/14 Aspirin (Aspirin) 81 Mg Tab.chew, 81 MG PO DAILY 06/06/13 Nitroglycerin (Nitroglycerin) 0.4 Mg Tab.subl, 0.4 MG SL Q5MIN Y for CHEST PAIN 08/04/09 Allergies: Coded Allergies: No Known Drug Allergies (Verified Allergy, Unknown, 09/05/16) Impression/Recommendation Recommendation After examining the patient I agree with the above assessment. I am involved in the formulation of the patient's plan of care. CINDY MEHTA APRN Sep 17, 2016 12:36 PRINCESS CRUZ MD Oct 04, 2016 10:13
--- NOTE | 2016-09-17 13:36 | DI ---
Indication: ITS.REASON: left pleural effusion PROCEDURE: CHEST 1 VIEW: Encounter: Initial Comparison: September 12, 2016 Findings: Increasing moderate left pleural effusion with continued compressive atelectasis of the left lower lobe. Right lung appears grossly clear. No pneumothorax. Cardiac silhouette is obscured by the effusion. Prior CABG. The mediastinal contours are grossly stable. Pulmonary vascularity appears normal. Impression: Increasing moderate left effusion. .
--- NOTE | 2016-09-17 13:36 | NUR ---
CM RASTAE SCORE IS 11 Addendum: 09/17/16 at 1336 by ANNA CINTRON Amended: Links added.
--- NOTE | 2016-09-17 13:37 | NUR ---
CM CALL FROM [facility] WITH [facility]; SHE SAID PER FAMILY, PT IS CONSIDERING SNU THEN NURSERY RN CARE WITH THEM. SHE SAID SHE WILL CALL THE FAMILY TO INQUIRE FURTHER OF WHAT THEIR PLANS ARE. THIS WORKER SPOKE WITH PT. INTRODUCED SELF, EXPLAINED ROLE, PROVIDED CONTACT INFO. PT SAID HE LIVES WITH HIS , JENN, AND HE WANTS TO RETURN HOME. HE SAID HE IS NOT AWARE OF FAMILY'S PLAN. HE GAVE PERMISSION TO CONTACT FAMILY FOR DC PLANNING. HE SAID AT HOME, HE HAS A WHEELCHAIR AND 2 WALKERS (2 WHEELED AND 4 WHEELED). HE SAID HE HAD [facility] PRIOR TO BEING ADMITTED TO THE HOSPITAL. HE WOULD WANT TO RETURN HOME WITH [facility]. HE HAD NO QUESTIONS/NEEDS AT THIS TIME. Addendum: 09/17/16 at 1339 by ANNA CINTRON Amended: Links added.
--- NOTE | 2016-09-17 13:49 | HPPDOC ---
HPI Date DATE: 09/17/16 TIME: 13:38 General Chief Complaint: Weakness Past Medical History Past Medical History Acute CVA- left MCA with right-sided weakness-08/07/16, 09/06/16 HTN CAD-Dr. Marie Dyslipidemia Pituitary adenoma-Dr. Romero Bradycardia Chronic anemia Orthostatic hypotension Osteoarthritis Left pleural effusion-negative workup in fall Surgical History Patient's Surgical History: Heart catheterization 09/14/16 - stent to RCA (Resolute integrity); LAD occluded; L circ 50% stenosis; RCA 90%; EF 50-55% Tonsillectomy Right partial knee replacement CABG . Cardiac [id number]. [place] Cholecystectomy TURP Thoracentesis 11/2015 Colonoscopy Current Medications Home Meds Active Scripts Ipratropium/Albuterol Sulfate (Iprat-Albut 0.5-3(2.5) mg/3 ml) 3 Ml Ampul.neb, 3 ML AEROSOL BID for 7 Days Prov:TIFFANIE JOE MD 09/16/16 Ondansetron HCl/Pf (Ondansetron HCl 4 mg/2 ml Vial) 4 Mg/2 Ml Vial, 4 MG PO/SL Q6H Y for NAUSEA &/OR VOMITING, #20 VIAL Prov:TIFFANIE JOE MD 09/16/16 Divalproex Sodium (Depakote) 250 Mg Tablet.dr, 1 TAB PO BID, #30 TAB Prov:DYAN WEST MD 09/05/16 Docusate Sodium (Colace) 100 Mg Capsule, 100 MG PO BID for 30 Days, #60 CAP Prov:LUIS FERNANDO NOBLES APRN 08/26/16 Sodium Chloride (Sodium Chloride) 1 G Tablet, 1 G PO BID for 30 Days, #60 TAB Prov:LUIS FERNANDO NOBLES APRN 08/26/16 Cabergoline (Cabergoline) 0.5 Mg Tablet, 0.25 MG PO 2XW for 30 Days Tuesday and tuesday at 0900. Prov:LUIS FERNANDO NOBLES APRN 08/26/16 Polyethylene Glycol 3350 (Healthylax) 17 Gm Powd.pack, 17 G PO DAILY for 30 Days Prov:LUIS FERNANDO NOBLES APRN 08/26/16 Hydrocodone/Acetaminophen ([place] 5-325 Tablet) 5-325 Tablet, 1 TAB PO Q6H Y for PAIN for 30 Days, #120 TAB Prov:LUIS FERNANDO NOBLES V SERVICE PLANNER 08/26/16 Atorvastatin Calcium (Lipitor) 40 Mg Tablet, 40 MG PO HS for 30 Days, #30 TAB Prov:LUIS FERNANDO NOBLES V SERVICE PLANNER 08/26/16 Clopidogrel Bisulfate (Plavix) 75 Mg Tablet, 75 MG PO DAILY for 30 Days, #30 TAB Prov:LUIS FERNANDO NOBLES V SERVICE PLANNER 08/26/16 Midodrine HCl (Midodrine HCl) 10 Mg Tablet, 5 MG PO TID for 30 Days 0800,1200,1600 Prov:LUIS FERNANDO NOBLES V SERVICE PLANNER 08/26/16 Acetaminophen (Tylenol) 325 Mg Tablet, 325 MG PO Q5H Y for PAIN for 30 Days, # 120 TAB Prov:LUIS FERNANDO NOBLES APRN 08/11/16 Reported Medications [place]-3/Dha/Epa/Fish Oil (Fish Oil 1,000 mg Softgel) 1 Each Capsule, 1000 MG PO DAILY 12/11/15 Multivitamin (Daily Vitamin) 1 Each Tablet, 1 TAB PO DAILY 04/09/14 Aspirin (Aspirin) 81 Mg Tab.chew, 81 MG PO DAILY 06/06/13 Nitroglycerin (Nitroglycerin) 0.4 Mg Tab.subl, 0.4 MG SL Q5MIN Y for CHEST PAIN 08/04/09 Allergies: Coded Allergies: No Known Drug Allergies (Verified Allergy, Unknown, 09/05/16) Family History Family History: Father- at age 75 from heart disease. Mother-CVA. Brother-coronary artery disease and prostate cancer. Social History Smoking Status: Never smoker Does patient use chewing tobac: No Second Hand Exposure: No Substance Use Type: does not use Alcohol Intake: none, occasionally Marital Status: Sexuality: female partner Housing: house Household Members: spouse Current Occupational Status: retired Occupational Hazard: No Advance Directives: Yes DPOA for Healthcare Only, Yes Full Code Physical Exam General Vital Signs Vital Signs Date Time Temp Pulse Resp B/P Pulse Ox O2 Delivery O2 Flow Rate FiO2 09/17/16 08:18 51 09/17/16 08:15 14 09/17/16 08:07 97.5 175/94 97 Room Air Height (Feet): 5 Height (Inches): 11.00 Neurologic RN Documented GCS Eye Opening: (4)Spontaneous Verbal: (5)Oriented Motor: (6)Obeys Commands Total: Laboratory Laboratory Tests Test 09/17/16 06:07 White Blood Count 6.2T/MM3 Red Blood Count 3.24M/MM3 Hemoglobin 9.4GM/DL Hematocrit 29.9% Mean Corpuscular Volume 92.3UM3 Mean Corpuscular Hemoglobin 29.0UUG Mean Corpuscular Hemoglobin Concent 31.4GM/DL RDW Standard Deviation 50.3FL Platelet Count 296T/MM3 Mean Platelet Volume 9.0UM3 Immature Granulocyte % (Auto) 0.3% Neutrophils (%) (Auto) 64.0% Lymphocytes (%) (Auto) 23.1% Monocytes (%) (Auto) 9.7% Eosinophils (%) (Auto) 2.1% Basophils (%) (Auto) 0.8% Absolute Immature Granulocyte (auto 0.02T/MM3 Absolute Neutrophils (auto) 4.0T/MM3 Absolute Lymphocytes (auto) 1.4T/MM3 Absolute Monocytes (auto) 0.6T/MM3 Absolute Eosinophils (auto) 0.1T/MM3 Absolute Basophils (auto) 0.1T/MM3 Turbidity < 20 Sodium Level 137MEQ/L Potassium Level 4.2MEQ/L Chloride Level 102MEQ/L Carbon Dioxide Level 28MEQ/L Anion Gap 7MEQ/L Blood Urea Nitrogen 26.0MG/DL Creatinine 1.3MG/DL Glomerular Filtration Rate Calc 52 BUN/Creatinine Ratio 20RATIO Glucose Level 80MG/DL Calculated Osmolality 268MOSM/KG Calcium Level 8.4MG/DL Icterus Index < 2 Chemistry Specimen Hemolysis 19 Assessment & Plan Code Status Full Code Interventions to Obtain Goals PT Treatment Plan: Therapeutic Exercise, Gait Training, Functional Activities , Patient/Family Education, Balance/Proprioception OT Treatment Plan: ADL's (basic care), Ther. Exercise for ADL's, UE Functional Training, Pt./Family Education ST Treatment Plan: Swallow Retraining, Swallow Precautions, Modified Diet Hospital Course Summary Disclaimer The hospital course summary below is not to be considered part of the above Progress Note. DYAN WEST MD Sep 17, 2016 13:41
--- NOTE | 2016-09-17 14:05 | HPPDOC ---
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 Patient has been admitted inpatient to hospital since 09/06/2016. He has had several medical issues during that period of time including SVT, CAD with an KS , coronary stenting, hyponatremia, most recently a coronavirus infection. He has done well with all of these and consistently improved after acute interventions. However the CVA continues to plague him with weakness. He is admitted to IRU for physical therapy, occupational therapy and speech therapy if needed. Past Medical History Past Medical History Acute CVA- left MCA with right-sided weakness-08/07/16, 09/06/16 HTN CAD-Dr. Marie Dyslipidemia Pituitary adenoma-Dr. Romero Bradycardia Chronic anemia Orthostatic hypotension Osteoarthritis Left pleural effusion-negative workup in fall Surgical History Patient's Surgical History: Heart catheterization 09/14/16 - stent to RCA (Resolute integrity); LAD occluded; L circ 50% stenosis; RCA 90%; EF 50-55% Tonsillectomy Right partial knee replacement CABG . Cardiac pypic-[id number]. [place] Cholecystectomy TURP Thoracentesis 11/2015 Colonoscopy Current Medications Home Meds Active Scripts Ipratropium/Albuterol Sulfate (Iprat-Albut 0.5-3(2.5) mg/3 ml) 3 Ml Ampul.neb, 3 ML AEROSOL BID for 7 Days Prov:TIFFANIE JOE MD 09/16/16 Ondansetron HCl/Pf (Ondansetron HCl 4 mg/2 ml Vial) 4 Mg/2 Ml Vial, 4 MG PO/SL Q6H Y for NAUSEA &/OR VOMITING, #20 VIAL Prov:TIFFANIE JOE MD 09/16/16 Divalproex Sodium (Depakote) 250 Mg Tablet.dr, 1 TAB PO BID, #30 TAB Prov:DYAN WEST MD 09/05/16 Docusate Sodium (Colace) 100 Mg Capsule, 100 MG PO BID for 30 Days, #60 CAP Prov:LUIS FERNANDO NOBLES APRN 08/26/16 Sodium Chloride (Sodium Chloride) 1 G Tablet, 1 G PO BID for 30 Days, #60 TAB Prov:LUIS FERNANDO NOBLES APRN 08/26/16 Cabergoline (Cabergoline) 0.5 Mg Tablet, 0.25 MG PO 2XW for 30 Days Tuesday and tuesday at 0900. Prov:MALLORIELUIS FERNANDO APRN 08/26/16 Polyethylene Glycol 3350 (Healthylax) 17 Gm Powd.pack, 17 G PO DAILY for 30 Days Prov:LUIS FERNANDO NOBLES APRN 08/26/16 Hydrocodone/Acetaminophen ([place] 5-325 Tablet) 5-325 Tablet, 1 TAB PO Q6H Y for PAIN for 30 Days, #120 TAB Prov:LUIS FERNANDO NOBLES APRN 08/26/16 Atorvastatin Calcium (Lipitor) 40 Mg Tablet, 40 MG PO HS for 30 Days, #30 TAB Prov:LUIS FERNANDO NOBLES APRN 08/26/16 Clopidogrel Bisulfate (Plavix) 75 Mg Tablet, 75 MG PO DAILY for 30 Days, #30 TAB Prov:LUIS FERNANDO NOBLES APRN 08/26/16 Midodrine HCl (Midodrine HCl) 10 Mg Tablet, 5 MG PO TID for 30 Days 0800,1200,1600 Prov:LUIS FERNANDO NOBLES APRN 08/26/16 Acetaminophen (Tylenol) 325 Mg Tablet, 325 MG PO Q5H Y for PAIN for 30 Days, # 120 TAB Prov:LUIS FERNANDO NOBLES APRN 08/11/16 Reported Medications [place]-3/Dha/Epa/Fish Oil (Fish Oil 1,000 mg Softgel) 1 Each Capsule, 1000 MG PO DAILY 12/11/15 Multivitamin (Daily Vitamin) 1 Each Tablet, 1 TAB PO DAILY 04/09/14 Aspirin (Aspirin) 81 Mg Tab.chew, 81 MG PO DAILY 06/06/13 Nitroglycerin (Nitroglycerin) 0.4 Mg Tab.subl, 0.4 MG SL Q5MIN Y for CHEST PAIN 08/04/09 Allergies: Coded Allergies: No Known Drug Allergies (Verified Allergy, Unknown, 09/05/16) Family History Family History: Father- at age 75 from heart disease. Mother-CVA. Brother-coronary artery disease and prostate cancer. Social History Smoking Status: Never smoker Does patient use chewing tobac: No Second Hand Exposure: No Substance Use Type: does not use Alcohol Intake: none, occasionally Marital Status: Sexuality: female partner Housing: house Household Members: spouse Current Occupational Status: retired Occupational Hazard: No Advance Directives: Yes DPOA for Healthcare Only, Yes Full Code Review of Systems Constitutional: REPORTS: dizziness, weakness Cardiovascular see HPI Rhythm/Rate: see HPI Vascular: see HPI Musculoskeletal General: see HPI Neurological General: see HPI Physical Exam General General Nourishment: well nourished, well developed, adult General Body Habitus: well groomed Vital Signs Vital Signs Date Time Temp Pulse Resp B/P Pulse Ox O2 Delivery O2 Flow Rate FiO2 09/17/16 08:18 51 09/17/16 08:15 14 09/17/16 08:07 97.5 175/94 97 Room Air Height (Feet): 5 Height (Inches): 11.00 Eyes Brief: FOUND: EOMI, PERRL Neck Brief: NOT FOUND: adenopathy, carotid bruits, thyromegaly Respiratory Brief: FOUND: clear all whelan Comments Diminished bilateral Cardiovascular (brief) Cardiac Brief: FOUND: regular rate, regular rhythm Capillary Refill: <2 sec Abdomen (brief) Abdominal Brief: FOUND: BS normo active x4, soft, NOT FOUND: tender Musculoskeletal (brief) Comments Generalized lower extremity weakness, requiring assist. Neurologic (brief) Neurological Brief: FOUND: DTR 2/4 all extremities, cranial 2-12 intact, motor (see musculoskeletal), sensory Neurologic RN Documented GCS Eye Opening: (4)Spontaneous Verbal: (5)Oriented Motor: (6)Obeys Commands Total: Psychiatric (brief) FOUND: alert, oriented Laboratory Laboratory Tests Test 09/17/16 06:07 White Blood Count 6.2T/MM3 Red Blood Count 3.24M/MM3 Hemoglobin 9.4GM/DL Hematocrit 29.9% Mean Corpuscular Volume 92.3UM3 Mean Corpuscular Hemoglobin 29.0UUG Mean Corpuscular Hemoglobin Concent 31.4GM/DL RDW Standard Deviation 50.3FL Platelet Count 296T/MM3 Mean Platelet Volume 9.0UM3 Immature Granulocyte % (Auto) 0.3% Neutrophils (%) (Auto) 64.0% Lymphocytes (%) (Auto) 23.1% Monocytes (%) (Auto) 9.7% Eosinophils (%) (Auto) 2.1% Basophils (%) (Auto) 0.8% Absolute Immature Granulocyte (auto 0.02T/MM3 Absolute Neutrophils (auto) 4.0T/MM3 Absolute Lymphocytes (auto) 1.4T/MM3 Absolute Monocytes (auto) 0.6T/MM3 Absolute Eosinophils (auto) 0.1T/MM3 Absolute Basophils (auto) 0.1T/MM3 Turbidity < 20 Sodium Level 137MEQ/L Potassium Level 4.2MEQ/L Chloride Level 102MEQ/L Carbon Dioxide Level 28MEQ/L Anion Gap 7MEQ/L Blood Urea Nitrogen 26.0MG/DL Creatinine 1.3MG/DL Glomerular Filtration Rate Calc 52 BUN/Creatinine Ratio 20RATIO Glucose Level 80MG/DL Calculated Osmolality 268MOSM/KG Calcium Level 8.4MG/DL Icterus Index < 2 Chemistry Specimen Hemolysis 19 Concerns For Adverse Events Significant recent medical issues including coronary artery disease, and SVT, CVA all require medical supervision during physical therapy. Assessment & Plan Problems: (1) Orthostatic hypotension Status: Chronic Assessment & Plan: Physical therapy and occupational therapy as well as nursing staff will be aware of this while working with patient. (2) CAD (coronary artery disease) Status: Chronic Assessment & Plan: Medical management (3) Acute ischemic stroke Status: Acute Assessment & Plan: Left-sided CVA with right-sided weakness, PT OT and ST consulted (4) Myopathy Assessment & Plan: Patient has right-sided weakness, physical therapy and occupational therapy are consulted. (5) Hyponatremia Status: Chronic Assessment & Plan: Medically managed DVT Prophylaxis: SANTIAGO [place]er Code Status Full Code Interventions to Obtain Goals PT Treatment Plan: Therapeutic Exercise, Gait Training, Functional Activities , Patient/Family Education, Balance/Proprioception OT Treatment Plan: ADL's (basic care), Ther. Exercise for ADL's, UE Functional Training, Pt./Family Education ST Treatment Plan: Swallow Retraining, Swallow Precautions, Modified Diet Hospital Course Summary Disclaimer The hospital course summary below is not to be considered part of the above Progress Note. DYAN WEST MD Sep 17, 2016 14:00
--- NOTE | 2016-09-17 14:08 | IRU24PDOC ---
24 Hour Post Admission Eval Relevant Changes Relevant Changes: No I have reviewed the patient's information and concur with the finding and results of the pre-admission screen. Certification I certify the patient for rehabilitation. Patient Condition Prior Medical Conditions: (1) Orthostatic hypotension Status: Chronic Additional Information: Physical therapy and occupational therapy as well as nursing staff will be aware of this while working with patient. (2) CAD (coronary artery disease) Status: Chronic Additional Information: Medical management (3) Acute ischemic stroke Status: Acute Additional Information: Left-sided CVA with right-sided weakness, PT OT and ST consulted (4) Myopathy Additional Information: Patient has right-sided weakness, physical therapy and occupational therapy are consulted. (5) Hyponatremia Status: Chronic Additional Information: Medically managed Current Medical Conditions: (1) Orthostatic hypotension Status: Chronic Additional Information: Physical therapy and occupational therapy as well as nursing staff will be aware of this while working with patient. (2) CAD (coronary artery disease) Status: Chronic Additional Information: Medical management (3) Acute ischemic stroke Status: Acute Additional Information: Left-sided CVA with right-sided weakness, PT OT and ST consulted (4) Myopathy Additional Information: Patient has right-sided weakness, physical therapy and occupational therapy are consulted. (5) Hyponatremia Status: Chronic Additional Information: Medically managed Prior Functional Condition Lives With: Spouse Residence Type: Private home/apartment Assistive Devices: Front Wheeled Walker Prior Functional Status: Indep. at home or school Current Functional Status Failed Alternative Therapy Tri: Arrived from acute care Patient Requirements * Patient has been determined to have significant functional limitations requiring at least two therapy disciplines. * Rehabilitation medical practitioner will provide admission approval, assessment and oversight and program coordination at least daily. * Intensive rehabilitative nursing services on site and available 24 hours a day. * The treatment plan will be developed within 24 hours of admission. * Interdisciplinary and goal oriented treatment by professional nursing, social media content manager, and rehabilitation therapist. * Interdisciplinary team meeting weekly inclusive of ongoing comprehensive discharge planning. First team meeting by . Weekly meetings to follow. * Rehab Physician is the team meeting leader. * Pharmacy and diagnostic services will be available. * Ongoing comprehensive rehab program with at least 2 disciplines and greater than or equal to 3 hours a day, 5 days a week. Speech Therapy Minutes: 60 Physical Therapy Minutes: 60 Occupational Therapy Minutes: 60 Therapy The patient is to receive therapy at least 5 days a week. Current Functional Status: Using assistive device PT Treatment Plan: Therapeutic Exercise, Gait Training, Functional Activities , Patient/Family Education, Balance/Proprioception Treatment Plan Frequency: five times per week Treatment Plan Duration: two weeks Plan of Care Comment: 6x/wk for 1st wk; 5x/wk for 2nd and 3rd wks. OT Treatment Plan: ADL's (basic care), Ther. Exercise for ADL's, UE Functional Training, Pt./Family Education OT Treatment Plan Frequency: five times per week OT Treatment Plan Duration: three weeks ST Treatment Plan: Swallow Retraining, Swallow Precautions, Modified Diet ST Treatment Plan Frequency: three times per week Treatment Plan Duration: one week ROM Deficit: Right Lower Extremity ROM Comment: B/L SHAY ROOTL See OT for UEs. Complication/Comorbidities Patient Complication Risk: (1) Orthostatic hypotension Status: Chronic Comments: Physical therapy and occupational therapy as well as nursing staff will be aware of this while working with patient. (2) CAD (coronary artery disease) Status: Chronic Comments: Medical management (3) Acute ischemic stroke Status: Acute Comments: Left-sided CVA with right-sided weakness, PT OT and ST consulted (4) Myopathy Comments: Patient has right-sided weakness, physical therapy and occupational therapy are consulted. (5) Hyponatremia Status: Chronic Comments: Medically managed Impact on Functional Outcomes Limited endurance and will need close supervision Barriers to Discharge: weakness, endurance, balance, medical stability Plan to Avoid Complications Plan to Avoid Complications The patient cannot receive this care in a lesser intensive setting such as [facility]sp or Outpatient Therapy due to the patient requiring the following CAD, SVT, Hyponatremia. The patient requires oversight by a rehabilitation physician to manage their rehabilitation treatment plan and the multidisciplinary approach to care that can only be provided in an IRF and requires a multidisciplinary approach to care , provided by professional PTs, OTs, STs, dieticians, RTs, rehabilitation nurses and is not available in lesser levels of care. The frequency and duration for therapy, as recommended by the professional Rehabilitation therapists, meet the patient's initial rehabilitation treatment plan needs and will be further evaluated on a weekly basis for progress and/or changes needed. YDAN WEST MD Sep 17, 2016 14:08
[2016-09-17 16:00] VITALS: BP 157/82; PULSE 97; RESP 18; TEMP 98.4; O2SAT 94
[2016-09-17 17:28] VITALS: BP 157/82; PULSE 97; RESP 18; TEMP 98.4; O2SAT 94
[2016-09-17 19:30] VITALS: PULSE 50; RESP 18
[2016-09-17] MEDS: ATORVASTATIN 40 MG TABLET PO SCH (19:55)
[2016-09-17 20:18] VITALS: BP 148/73; PULSE 50; RESP 18; TEMP 98.1; O2SAT 95
--- NOTE | 2016-09-17 20:21 | NUR ---
Shift summary Patient transfering with assiist x2 using gait belt and grab bar for toileting. Transfer sith 2 assist and gait belt for transfer to bed and wheelchair. Patient started on nectar thick liquids today and states he does not like them. Telemetry started per Dr. Gentile today. Patient droplet precautions lifted today. Patient feeds self, takes mediacation whole. Thigh high SANTIAGO hose on this shift. Denies pain this shift. Patient alert and oriented x3. Leans to the right, right side weakness noted.
--- NOTE | 2016-09-18 01:37 | NUR ---
Chart Check 24 hour chart check completed
[2016-09-18 05:05] LABS: ANION GAP 8 MEQ/L (5-15); BUN/CREATININE RATIO 20 RATIO (6-26); CALCIUM 8.7 MG/DL (8.4-10.2); CHLORIDE 105 MEQ/L (98-107); CO2 - CARBON DIOXIDE 27 MEQ/L (22-30); CREATININE 1.4 MG/DL (0.8-1.5); GLOMERULAR FILTRATION RATE 48; GLUCOSE 81 MG/DL (75-110); POTASSIUM 5.5 MEQ/L (3.6-5); SODIUM 140 MEQ/L (134-144)
[2016-09-18] MEDS: DEMECLOCYCLINE 150 MG TABLET PO SCH ×2 (05:55→20:38)
--- NOTE | 2016-09-18 06:20 | NUR ---
Summary Bernabe has been pleasant and cooperative. He is alert and oriented x three. He has denied pain. He has taken all his meds whole.His IVL to his left hand is intact and flushes easily. 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 Fluid restrictions continue. He transfers with max assist of two staff and gaitbelt to and from the w/c-- toilet.When in bed the SCD'S to bilateral lower legs intact along with the bedalarms . The siderails were up x two .Dressing to his right groin C/D/I.Bilateral feet noted to be edematous 1 to 2 plus.Pedal pulses +.Once in bed he was turned frequently through the night.
[2016-09-18] MEDS: ALBUTEROL/IPRATROPIUM INHAL. 2.5mg-0.5mg/3ml Neb. AEROSOL SCH ×2 (07:08→19:40)
[2016-09-18 08:00] VITALS: BP 110/65; PULSE 60; RESP 16; TEMP 98.1; O2SAT 95
[2016-09-18] MEDS: MIDODRINE 10 MG TABLET PO SCH ×3 (08:32→16:24)
[2016-09-18] MEDS: DOCUSATE SODIUM 100 MG CAPSULE PO SCH ×2 (08:33→20:38)
[2016-09-18] MEDS: ASPIRIN 81 MG CHEWABLE TABLET PO SCH (08:33)
[2016-09-18] MEDS: OMEGA-3 ACID ESTERS 1 G CAPSULE PO SCH (08:33)
[2016-09-18] MEDS: POLYETHYL.GLYCOL 3350 PACKET 17gm PO SCH ×2 (08:33→09:00)
[2016-09-18] MEDS: CABERGOLINE 0.5 MG TABLET PO SCH (08:33)
[2016-09-18] MEDS: CLOPIDOGREL 75 MG TABLET PO SCH (08:34)
[2016-09-18] MEDS: MULTIVITAMIN PLAIN TABLET PO SCH (08:34)
[2016-09-18] MEDS: AMIODARONE 200 MG TABLET PO SCH (08:34)
[2016-09-18 09:53] VITALS: BP 110/65; PULSE 53; RESP 18; TEMP 97.9; O2SAT 94
[2016-09-18 10:35] VITALS: PULSE 59; RESP 16
--- NOTE | 2016-09-18 13:39 | STDAILYN ---
ST Daily Note Date/Time DATE: 09/18/16 TIME: 13:31 Orientations: Alert, Cooperative Chief Complaint: Repeat CVA with right sided weakness, dysphagia Pain: No Was Patient Education Provided: Yes Person(s) Educated: Patient Education Subject: Diet Instruction Understanding Demo: Pt. verbalizes understand *Speech Therapy Impressions Pt received speech therapy during the noon meal. He is currently on a regular diet with nectar thick liquids however, his liquids did not come thickened for this meal. The pt was assessed with thin liquids and nectar consistency. The pt consumed a chicken sandwich, cooked broccoli, apple juice and coffee. The pt demonstrated adequate mastication however slight residue was noted in the oral cavity. The pt stated that the meat is a little difficult to chew and he prefers the meat to be cut up. The pt took small sips of thin coffee and demonstrated a timely swallow response. No coughing or throat clearing was noted throughout the meal. Voicing remained dry and clear. Recommend upgrading liquids to thin and changing diet to include chopped meat. ST Treatment Plan: Swallow Retraining ST Treatment Plan Frequency: three times per week Treatment Plan Duration: one week Plan of Care Comment: Cont POC. Recommend upgrade liquids to thin liquids and change diet to include chopped meats per pt request. Start Treatment 1: 12:15 Stop Treatment 1: 12:45 Treatment Duration : ST Treatment Charge: Swallow Treatment Minutes of Individual Therapy: 30 ST FIM Comprehension Ability: 5 Supervision/Setup Social Interaction: 5 Supervision/Setup Expression Ability: 5 Supervision/Setup Swallowin Minimal Assistance LYNNETTE JOHNSON MA Sep 18, 2016 13:37
[2016-09-18 16:00] VITALS: BP 158/78; PULSE 55; RESP 16; TEMP 98.3; O2SAT 95
--- NOTE | 2016-09-18 18:28 | NUR ---
SUMMARY Bernabe is A/O X 3. Patient is up with 2 assist and GB to WC. Patient worked with PT/OT today and did well. Patient at bedside most of the day. Patient tolerates meals well and denies nausea and vomiting. Patient denies SOA, and pain during my shift. Patient is out to dining halls x 3 today. Patient takes Meds whole and does well with the new thin liquid diet. Patient sitting in chair in room most of the day. Patient call light is within reach will continue to monitor.
--- NOTE | 2016-09-18 18:44 | PDIRUOPC ---
Overall Plan of Care Date DATE: 09/18/16 TIME: 18:41 Relevant Changes Relevant Changes: No I have reviewed the patient's information and concur with the finding and results of the pre-admission screen. Certification I certify the patient for rehabilitation. Patient Impairments Prior Medical Conditions: (1) Orthostatic hypotension Status: Chronic Additional Information: Physical therapy and occupational therapy as well as nursing staff will be aware of this while working with patient. (2) CAD (coronary artery disease) Status: Chronic Additional Information: Medical management (3) Acute ischemic stroke Status: Acute Additional Information: Left-sided CVA with right-sided weakness, PT OT and ST consulted (4) Myopathy Additional Information: Patient has right-sided weakness, physical therapy and occupational therapy are consulted. (5) Hyponatremia Status: Chronic Additional Information: Medically managed Current Medical Conditions: (1) Orthostatic hypotension Status: Chronic Additional Information: Physical therapy and occupational therapy as well as nursing staff will be aware of this while working with patient. (2) CAD (coronary artery disease) Status: Chronic Additional Information: Medical management (3) Acute ischemic stroke Status: Acute Additional Information: Left-sided CVA with right-sided weakness, PT OT and ST consulted (4) Myopathy Additional Information: Patient has right-sided weakness, physical therapy and occupational therapy are consulted. (5) Hyponatremia Status: Chronic Additional Information: Medically managed Medical Prognosis IRF Tx That Should Address Dx: (1) Weakness (2) Right sided weakness (3) CVA (cerebral vascular accident) Dx Requiring Medical FU: (1) Hyponatremia (2) Coronary artery disease (3) Prolactinoma Vital Signs Vital Signs Date Time Temp Pulse Resp B/P Pulse Ox O2 Delivery O2 Flow Rate FiO2 09/18/16 16:00 98.3 55 16 158/78 95 Room Air Laboratory Laboratory Tests Test 09/17/16 06:07 09/18/16 04:19 White Blood Count 6.2T/MM3 Red Blood Count 3.24M/MM3 Hemoglobin 9.4GM/DL Hematocrit 29.9% Mean Corpuscular Volume 92.3UM3 Mean Corpuscular Hemoglobin 29.0UUG Mean Corpuscular Hemoglobin Concent 31.4GM/DL RDW Standard Deviation 50.3FL Platelet Count 296T/MM3 Mean Platelet Volume 9.0UM3 Immature Granulocyte % (Auto) 0.3% Neutrophils (%) (Auto) 64.0% Lymphocytes (%) (Auto) 23.1% Monocytes (%) (Auto) 9.7% Eosinophils (%) (Auto) 2.1% Basophils (%) (Auto) 0.8% Absolute Immature Granulocyte (auto 0.02T/MM3 Absolute Neutrophils (auto) 4.0T/MM3 Absolute Lymphocytes (auto) 1.4T/MM3 Absolute Monocytes (auto) 0.6T/MM3 Absolute Eosinophils (auto) 0.1T/MM3 Absolute Basophils (auto) 0.1T/MM3 Turbidity < 20 < 20 Sodium Level 137MEQ/L 140MEQ/L Potassium Level 4.2MEQ/L 5.5MEQ/L Chloride Level 102MEQ/L 105MEQ/L Carbon Dioxide Level 28MEQ/L 27MEQ/L Anion Gap 7MEQ/L 8MEQ/L Blood Urea Nitrogen 26.0MG/DL 28.0MG/DL Creatinine 1.3MG/DL 1.4MG/DL Glomerular Filtration Rate Calc 52 48 BUN/Creatinine Ratio 20RATIO 20RATIO Glucose Level 80MG/DL 81MG/DL Calculated Osmolality 268MOSM/KG 274MOSM/KG Calcium Level 8.4MG/DL 8.7MG/DL Icterus Index < 2 < 2 Chemistry Specimen Hemolysis 19 41 Anticipated Interventions The patient requires inpatient IRF care for PT, OT, and/or ST for residuals remaining from [] resulting in muscular weakness and strength deficits. Strength Deficits: Right Upper Extremity FIM Scores Ambulation Distance: 12 Wheelchair Propulsion Distance: 47 Ambulation Ability: 3 Moderate Assistance Ambulation Assistance Needed: 1 Person Wheelchair Propulsion Ability: 4 Minimal Assistance Wheelchair Propulsion [place]: 1 Person Wheelchair FIM Score Reason: Difficulty negotiating WC Stairs: 0 Activity Does Not Occur Eating Ability-FIM: 5 Supervision/Setup Grooming Ability: 4 Minimal Assistance Grooming FIM Score Reason: sba ; pt is at sink doing cares Bathing Ability: 2 Maximum Assistance Upper Body Dressing Ability: 4 Minimal Assistance Lower Body Dressing Ability: 2 Maximum Assistance Lower Body Dressing Assistance: 2 Persons Toileting Ability: 1 Total Assistance Toileting Assistance Needed: 2 Persons Bed Transfer Ability: 3 Moderate Assistance Bed Transfer Assistance Needed: 2 Persons Chair Transfer Ability: 3 Moderate Assistance Chair Transfer Assistance Need: 1 Person Overall Wheelchair Transfer Ab: 3 Moderate Assistance Overall Toilet / Commode Trans: 1 Total Assistance Toilet / Commode Transfer Assi: 2 Persons Comprehension Ability: 5 Supervision/Setup Social Interaction: 5 Supervision/Setup Problem Solvin Modified Bledsoe Expression Ability: 5 Supervision/Setup Memory: 7+ Complete Bledsoe Swallowin Minimal Assistance Current Functional Status Failed Alternative Therapy: Arrived from acute care Patient Requires * Patient has been determined to have significant functional limitations requiring at least two therapy disciplines. * Rehabilitation medical practitioner will provide admission approval, assessment and oversight and program coordination at least daily. * Intensive rehabilitative nursing services on site and available 24 hours a day. * The treatment plan will be developed within 24 hours of admission. * Interdisciplinary and goal oriented treatment by professional nursing, social insurance administrator, and rehabilitation therapist. * Interdisciplinary team meeting weekly inclusive of ongoing comprehensive discharge planning. First team meeting by . Weekly meetings to follow. * Rehab Physician is the team meeting leader. * Pharmacy and diagnostic services will be available. * Ongoing comprehensive rehab program with at least 2 disciplines and greater than or equal to 3 hours a day, 5 days a week. Speech Therapy Minutes: 60 Physical Therapy Minutes: 60 Occupational Therapy Minutes: 60 Therapy The patient is to receive therapy at least 5 days a week. PT Treatment Plan: Therapeutic Exercise, Gait Training, Functional Activities , Patient/Family Education, Balance/Proprioception Treatment Plan Frequency: five times per week Treatment Plan Duration: two weeks Plan of Care Comment: Cont POC. Recommend upgrade liquids to thin liquids and change diet to include chopped meats per pt request. OT Treatment Plan: ADL's (basic care), Ther. Exercise for ADL's, UE Functional Training, Pt./Family Education OT Treatment Plan Frequency: five times per week OT Treatment Plan Duration: three weeks ST Treatment Plan: Swallow Retraining ST Treatment Plan Frequency: three times per week Treatment Plan Duration: one week Anticapted LOS/Outcomes Anticipated Functional Outcome improvement in right sided strength and coordination. Anticipated DC Destination: Home Health Service Home Safety Plan The patient will be provided with the development of a Home Safety Plan for return to a home or home-like environment and to ensure safety post discharge. Complicating Conditions Complications since IRF admit: (1) Orthostatic hypotension Status: Chronic Comments: Physical therapy and occupational therapy as well as nursing staff will be aware of this while working with patient. (2) CAD (coronary artery disease) Status: Chronic Comments: Medical management (3) Acute ischemic stroke Status: Acute Comments: Left-sided CVA with right-sided weakness, PT OT and ST consulted (4) Myopathy Comments: Patient has right-sided weakness, physical therapy and occupational therapy are consulted. (5) Hyponatremia Status: Chronic Comments: Medically managed Other Contributing Factors: Plan to Avoid Complications Barriers to Attaining Goals: weakness, balance, endurance, medical limitation Plan to Avoid Complications The patient cannot receive this care in a lesser intensive setting such as [facility] or Outpatient Therapy due to the patient requiring the following Prolactinoma, orthostatic hypotension, hyponatremia. The patient requires oversight by a rehabilitation physician to manage their rehabilitation treatment plan and the multidisciplinary approach to care that can only be provided in an IRF and requires a multidisciplinary approach to care , provided by professional PTs, OTs, STs, dieticians, RTs, rehabilitation nurses and is not available in lesser levels of care. The frequency and duration for therapy, as recommended by the professional Rehabilitation therapists, meet the patient's initial rehabilitation treatment plan needs and will be further evaluated on a weekly basis for progress and/or changes needed. DYAN WEST MD Sep 18, 2016 18:43
[2016-09-18 20:30] VITALS: PULSE 75; RESP 20
--- NOTE | 2016-09-18 20:30 | NUR ---
Summary Bernabe is pleasant and cooperative. He is alert and oriented x three. He denies pain. He took all of his meds whole. His IVL to his left hand is intact and flushes easily. He tolerates thin liquids well. Fluid restrictions continue. He transfers with max assist of two staff and gaitbelt with use of w/c to and from the bathroom. He is incontinent of bladder and bowel with staff managing hygiene and clothes. When in bed he has SCD'S to bilateral lower legs intact along with the bedalarms and siderails up x two . Dressing to his right groin C/D/I.Bilateral feet noted to be edematous 1 plus.Pedal pulses +.
[2016-09-18] MEDS: ATORVASTATIN 40 MG TABLET PO SCH (20:38)
[2016-09-18 21:28] VITALS: BP 161/88; PULSE 75; RESP 20; TEMP 97.2; O2SAT 95
--- NOTE | 2016-09-18 22:03 | NUR ---
Chart Check 24 hour chart check completed
[2016-09-19] MEDS: DEMECLOCYCLINE 150 MG TABLET PO SCH ×2 (05:39→19:37)
--- NOTE | 2016-09-19 06:10 | NUR ---
ERIC has slept well this evening.He has been incontinent times three with staff managing clothing and hygiene. He has continued to deny pain.
[2016-09-19] MEDS: ALBUTEROL/IPRATROPIUM INHAL. 2.5mg-0.5mg/3ml Neb. AEROSOL SCH ×2 (07:52→19:54)
[2016-09-19 08:30] VITALS: PULSE 57; RESP 16
[2016-09-19 08:45] VITALS: BP 122/69; PULSE 57; RESP 16; TEMP 96.3; O2SAT 92
[2016-09-19] MEDS: DOCUSATE SODIUM 100 MG CAPSULE PO SCH ×2 (09:00→19:36)
[2016-09-19] MEDS: POLYETHYL.GLYCOL 3350 PACKET 17gm PO SCH (09:00)
[2016-09-19] MEDS: AMIODARONE 200 MG TABLET PO SCH (09:00)
[2016-09-19] MEDS: CLOPIDOGREL 75 MG TABLET PO SCH (09:02)
[2016-09-19] MEDS: MIDODRINE 10 MG TABLET PO SCH ×3 (09:02→17:20)
[2016-09-19] MEDS: ASPIRIN 81 MG CHEWABLE TABLET PO SCH (09:02)
[2016-09-19] MEDS: MULTIVITAMIN PLAIN TABLET PO SCH (09:02)
[2016-09-19] MEDS: OMEGA-3 ACID ESTERS 1 G CAPSULE PO SCH (09:02)
[2016-09-19 13:22] LABS: ANION GAP 14 MEQ/L (5-15); BUN/CREATININE RATIO 19 RATIO (6-26); CALCIUM 8.9 MG/DL (8.4-10.2); CHLORIDE 102 MEQ/L (98-107); CO2 - CARBON DIOXIDE 27 MEQ/L (22-30); CREATININE 1.5 MG/DL (0.8-1.5); GLOMERULAR FILTRATION RATE 44; GLUCOSE 98 MG/DL (75-110); POTASSIUM 3.7 MEQ/L (3.6-5); SODIUM 143 MEQ/L (134-144)
--- NOTE | 2016-09-19 14:28 | PNPDOC ---
Subjective Date DATE: 09/19/16 TIME: 14:24 Subjective Mr. Galeana is seen today for f/u CVA, hyponatremia. He is seen in his room. His is present. He denies dizziness today. Denies chest pain or trouble breathing. Objective Vital Signs Vital signs Vital Signs Date Time Temp Pulse Resp B/P Pulse Ox O2 Delivery O2 Flow Rate FiO2 09/19/16 08:45 96.3 57 16 122/69 92 Room Air Height (Feet): 5 Height (Inches): 11.00 Weight (Kilograms): 85.500 General General Appearance: Alert, Orientated x 3, Cooperative, No Acute Distress Respiratory (Brief) Respiratory: FOUND: clear all whelan, equal bilaterally Cardiovascular (Brief) Cardiac: FOUND: regular rate, regular rhythm Abdomen (Brief) Abdominal: FOUND: BS normo active x4, soft, NOT FOUND: tender Integumentary (Brief) Integumentary: FOUND: dry, pink, warm Psychiatric (Brief) Psychiatric: FOUND: alert, attentive, normal affect, oriented Laboratory Laboratory Laboratory Tests 09/18/16 04:19 09/19/16 13:01 Assessment & Plan Problems: (1) Myopathy (2) Right sided weakness Status: Acute (3) Arterial ischemic stroke, MCA (middle cerebral artery), left, acute Onset Date: ~ 08/07/2016 Status: Acute Assessment & Plan: Had a repeat stroke to the same area on 09/06/16 (4) Nonsustained ventricular tachycardia Status: Resolved Assessment & Plan: Treated with amiodarone (5) Coronavirus infection Status: Acute (6) Hyponatremia Status: Chronic (7) Syncope Status: Chronic (8) Orthostatic hypotension Status: Chronic (9) CAD (coronary artery disease) Status: Chronic Assessment & Plan: Heart catheterization on 09/14/[address] 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 Continues on demeclocycline as started by Dr. Pruitt on 09/07. Consulted with Dr. Robles regarding appropriate time to discontinue. At this time, it is effective and we will continue. Consider lowering dose of discontinuing if Na goes too high. Salt tabs have been discontinued. Fluid restriction discontinued. Tele showing SB with BBB hr 50-60s. Amirani was consulted for non sustained VT with patient' having prior CAD hx. On amiodarone. Continue Plavix for cerebrovascular disease. K 5.5 yest on hemolyzed specimen. Rechecked today for accuracy - 3.7. Continue to trend. Doing well in rehab. Code Status Full Code Hospital Course Summary Disclaimer The hospital course summary below is not to be considered part of the above Progress Note. SUYAPA ROSSI APRN Sep 19, 2016 14:27
[2016-09-19 15:18] VITALS: BP 165/81; PULSE 54; RESP 18; TEMP 98.1; O2SAT 94
--- NOTE | 2016-09-19 18:19 | NUR ---
Shift Summary Pt is resting at this time. He is alert and oriented to person, place, and time. Pivot transfers with assist of 2, FWW, and gait belt. He has denied pain this shift. IVL flushed well. Has been continent and incontinent this shift, needed max assist with clothing and hygiene cares. With a bath needed moderate assist with top and max assist with bottom. The same with getting dressed, did need total assist with shoes. Telemetry has been running sinus vern with a bundle branch block. Ate well for all meals, did not need assist with his tray, wheeled himself to the dining room on occasion. When in bed or the chair the alarm is in use and call light is within reach.
[2016-09-19 19:30] VITALS: PULSE 50; RESP 20
[2016-09-19 19:32] VITALS: BP 143/67; PULSE 50; RESP 20; TEMP 98.6; O2SAT 96
[2016-09-19] MEDS: ATORVASTATIN 40 MG TABLET PO SCH (19:37)
--- NOTE | 2016-09-19 20:16 | PNPDOC ---
IRU Subjective Date DATE: 09/19/16 TIME: 20:12 Subjective Pt comfortable, resting tonight. Did get up for meals, but otherwise resting. He is sitting in wheelchair waiting to go to bed. No pain, did eat meals in commons. IRU Objective Vital Signs Vital signs Vital Signs Date Time Temp Pulse Resp B/P Pulse Ox O2 Delivery O2 Flow Rate FiO2 09/19/16 20:04 68 09/19/16 19:54 16 09/19/16 19:32 98.6 143/67 96 Room Air Height (Feet): 5 Height (Inches): 11.00 Weight (Kilograms): 85.500 General General Appearance: Alert, Orientated x 2 Respiratory (Brief) Respiratory: FOUND: clear all whelan, equal bilaterally Cardiovascular (Brief) Cardiac: FOUND: regular rate, regular rhythm Capillary Refill: <2 sec Laboratory Laboratory Laboratory Tests Test 09/18/16 04:19 09/19/16 13:01 Turbidity < 20 < 20 Sodium Level 140MEQ/L 143MEQ/L Potassium Level 5.5MEQ/L 3.7MEQ/L Chloride Level 105MEQ/L 102MEQ/L Carbon Dioxide Level 27MEQ/L 27MEQ/L Anion Gap 8MEQ/L 14MEQ/L Blood Urea Nitrogen 28.0MG/DL 29.0MG/DL Creatinine 1.4MG/DL 1.5MG/DL Glomerular Filtration Rate Calc 48 44 BUN/Creatinine Ratio 20RATIO 19RATIO Glucose Level 81MG/DL 98MG/DL Calculated Osmolality 274MOSM/KG 281MOSM/KG Calcium Level 8.7MG/DL 8.9MG/DL Icterus Index < 2 < 2 Chemistry Specimen Hemolysis 41 28 Assessment & Plan Problems: (1) Orthostatic hypotension Status: Chronic Assessment & Plan: managed by medical. (2) CAD (coronary artery disease) Status: Chronic (3) Acute ischemic stroke Status: Acute Assessment & Plan: Pt to dining room for meals, but otherwise rested most of today. Plan to reeval with PT and OT in am. Follow in am. (4) Myopathy (5) Hyponatremia Status: Chronic Code Status Full Code Interventions to Obtain Goals PT Treatment Plan: Therapeutic Exercise, Gait Training, Functional Activities , Patient/Family Education, Balance/Proprioception OT Treatment Plan: ADL's (basic care), Ther. Exercise for ADL's, UE Functional Training, Pt./Family Education ST Treatment Plan: Swallow Retraining Hospital Course Summary Disclaimer The hospital course summary below is not to be considered part of the above Progress Note. DYAN WEST MD Sep 19, 2016 20:15
--- NOTE | 2016-09-19 22:29 | NUR ---
Chart Check 24 hour chart check completed
[2016-09-20] MEDS: DEMECLOCYCLINE 150 MG TABLET PO SCH ×2 (06:10→19:56)
--- NOTE | 2016-09-20 07:24 | NUR ---
Summary Jimmy is pleasant cooperative ,somewhat reserved with a flat affect.He is alert and oriented and will answer all direct questions but will not initiate conversation. He is able to make his needs known.He denies pain. Cough noted .His IV lock to his left hand is intact and flushes well , erythremia noted. SCD's worn during the night.While in bed side rails up x two and bedalarms intact.He has been incontinent of bladder x 4 . Hygiene and clothing management per staff of two. Attends and an insert used to manage urinary incontinence .
[2016-09-20] MEDS: ALBUTEROL/IPRATROPIUM INHAL. 2.5mg-0.5mg/3ml Neb. AEROSOL SCH ×2 (07:26→20:03)
[2016-09-20 07:27] VITALS: O2SAT 95
[2016-09-20] MEDS: AMIODARONE 200 MG TABLET PO SCH (08:55)
[2016-09-20] MEDS: DOCUSATE SODIUM 100 MG CAPSULE PO SCH ×2 (08:55→19:56)
[2016-09-20] MEDS: MULTIVITAMIN PLAIN TABLET PO SCH (08:55)
[2016-09-20] MEDS: CLOPIDOGREL 75 MG TABLET PO SCH (08:55)
[2016-09-20] MEDS: ASPIRIN 81 MG CHEWABLE TABLET PO SCH (08:55)
[2016-09-20] MEDS: MIDODRINE 10 MG TABLET PO SCH ×3 (08:56→17:04)
[2016-09-20] MEDS: POLYETHYL.GLYCOL 3350 PACKET 17gm PO SCH (08:57)
[2016-09-20 08:58] VITALS: BP 107/60; PULSE 57; RESP 18; TEMP 98.7; O2SAT 95
[2016-09-20 09:00] VITALS: PULSE 57
[2016-09-20] MEDS: OMEGA-3 ACID ESTERS 1 G CAPSULE PO SCH (09:59)
--- NOTE | 2016-09-20 10:49 | STDAILYN ---
ST Daily Note Date/Time DATE: 09/20/16 TIME: 10:36 Subjective Comment Pt received therapy during the breakfast meal. He was alert and pleasant to work with. The pt stated that he had coughed up phlegm earlier this morning but it wasn't while eating or drinking. He said he feels good this morning and denies s/s of swallowing problems. He also stated that he prefers the chopped meat and is doing well with this diet. Orientations: x 3, Alert, Cooperative Chief Complaint: Repeat CVA, Dysphagia Pain: No Was Patient Education Provided: Yes Person(s) Educated: Patient Education Subject: Diet Instruction Understanding Demo: Pt. verbalizes understand *Speech Therapy Impressions Pt consumed cream of wheat, thin orange juice, and thin coffee for breakfast. Prior to the meal, the pts speech was clear and voicing was dry and clear. The pt demonstrated a timely swallow response with all consistencies; slightly decreased laryngeal elevation was noted however, no cough or throat clearing was elicited during this meal. The pt is independently using swallow strategies such as small bites/sips at a slow rate and use of chin tuck strategy. The pt tolerated swallowing his pills whole with coffee; again no s/ s of aspiration was noted. Although the pt did not have a meat item on his tray , the pt is currently on a dysphagia chopped meat diet per pt request. ST Treatment Plan: Swallow Retraining, Modified Diet ST Treatment Plan Frequency: three times per week Treatment Plan Duration: one week Plan of Care Comment: Cont POC Start Treatment 1: 08:25 Stop Treatment 1: 08:55 Treatment Duration : ST Treatment Charge: Swallow Treatment Minutes of Individual Therapy: 30 ST FIM Comprehension Ability: 5 Supervision/Setup Social Interaction: 5 Supervision/Setup Expression Ability: 5 Supervision/Setup Swallowin Minimal Assistance LYNNETTE JOHNSON MA Sep 20, 2016 10:39
--- NOTE | 2016-09-20 12:25 | NUR ---
CM ON 09-18-16, THIS WORKER SPOKE WITH PT'S DAUGHTER. SHE SAID THE DC PLAN IS FOR PT TO GO TO [facility], AND HIS WOULD GO TO THE ASSISTED LIVING AT [facility]. SHE SAID PT HAS BEEN A BIT RESISTIVE OF THIS AND THINKS HIS CAN TAKE CARE OF HIM, BUT SHE CANNOT ANY LONGER. SHE SAID PT IS COMING AROUND AND IS MORE AGREEABLE TO THIS NOW. TODAY, ON 09-20-16, THIS WORKER SPOKE WITH PT, RE: DC PLAN. HE SAID HE JUST WANTS TO GO HOME. HE SAID GOING TO [facility] IS NOT WHAT HE WANTS RIGHT NOW. DISCUSSED THAT WE NEED TO HAVE A MEETING WITH HIS FAMILY, THEN, SINCE THEY WANT HIM TO GO TO [facility]. HE WAS AGREEABLE TO A MEETING. CALLED HIS , SCHEDULED MEETING FOR THIS AFTERNOON. SHE SAID SHE IS ON BOARD WITH HIM GOING TO [facility], AND THAT SHE WOULD MOVE THERE WITH HIM, TOO.
--- NOTE | 2016-09-20 12:29 | NUR ---
NADINE LEFT MESSAGE WITH CARL AT [facility].
--- NOTE | 2016-09-20 12:47 | PNPDOC ---
CINDY MEHTA PRODUCT DEVELOPMENT CHEMIST 09/20/16 1246: Subjective Date DATE: 09/20/16 TIME: 12:43 Subjective Bernabe is laying in bed, he has no complaints. Objective Vital Signs Vital signs Vital Signs 09/20/16 09/20/16 09/20/16 09/20/16 07:27 07:27 07:27 08:58 Temp 98.7 Pulse 66 64 57 Resp 18 18 B/P 107/60 Pulse Ox 95 95 O2 Delivery Room Air 09/20/16 09:00 Pulse 57 Height (Feet): 5 Height (Inches): 11.00 Weight (Kilograms): 85.500 General Alert, Orientated x 3, Cooperative ENMT (Brief) mucosa moist Neck (Brief) NOT FOUND: JVD, carotid bruits Respiratory (Brief) clear all whelan, equal bilaterally, NOT FOUND: rales, wheezes Cardiovascular (Brief) regular rate, regular rhythm, NOT FOUND: murmur, pedal edema Abdomen (Brief) BS normo active x4, soft, NOT FOUND: tender Integumentary (Brief) dry, pink, warm Psychiatric (Brief) alert, attentive, oriented Laboratory Laboratory Laboratory Tests Test 09/19/16 13:01 Turbidity < 20 Sodium Level 143MEQ/L Potassium Level 3.7MEQ/L Chloride Level 102MEQ/L Carbon Dioxide Level 27MEQ/L Anion Gap 14MEQ/L Blood Urea Nitrogen 29.0MG/DL Creatinine 1.5MG/DL Glomerular Filtration Rate Calc 44 BUN/Creatinine Ratio 19RATIO Glucose Level 98MG/DL Calculated Osmolality 281MOSM/KG Calcium Level 8.9MG/DL Icterus Index < 2 Chemistry Specimen Hemolysis 28 Laboratory Tests 09/19/16 13:01 Medications Current Medications Miscellaneous Medication (May use PRN orders) 1 PRN PRN MC ; Start 09/16/16 at 18:45 Acetaminophen (Tylenol Regular Strength) 325 mg Q5H PRN PO PAIN; Start 09/16/16 at 18:45 Aspirin (ASA) 81 mg DAILY PO Last administered on 09/20/16 08:55; Start at 09:00 Atorvastatin Calcium (LIPITOR 40 mg) 40 mg HS PO Last administered on 09/19/16 19:37; Start 09/16/16 at 22:00 Cabergoline (Dostinex) 0.25 mg TuSa@09 PO Last administered on 09/18/16 08:33; Start 09/18/16 at 09:00 Clopidogrel Bisulfate (Plavix) 75 mg DAILY PO Last administered on 09/20/16 08: 55; Start 09/17/16 at 09:00 Divalproex Sodium (Depakote) 250 mg BID PO Last administered on 09/17/16 19:55 ; Start 09/16/16 at 21:00; Stop 09/17/16 at 20:26; Status DC Docusate Sodium (Colace) 100 mg BID PO ; Start 09/16/16 at 21:00; Stop 09/17/16 at 17:32; Status DC Acetaminophen/ Hydrocodone Bitart (Bisbee 5/325) 1 tab Q6H PRN PO PAIN; Start at 18:45 Albuterol/ Ipratropium (Duoneb) 3 ml BID AEROSOL Last administered on 09/20/16 07:26; Start 09/16/16 at 21:00 Nitroglycerin (Nitrostat) 0.4 mg Q5MIN PRN SL CHEST PAIN; Start 09/16/16 at 18: 45 Polyethylene Glycol (Miralax) 17 g DAILY PO ; Start 09/17/16 at 09:00 Sodium Chloride (Salt Tab) 1 g BIDBS PO Last administered on 09/17/16 09:07; Start 09/16/16 at 19:30; Status Future Hold Multivitamins Therapeutic (Theragran) 1 tab DAILY PO Last administered on 08:55; Start 09/17/16 at 09:00 [id number] Ethyl Esters (Lovaza) 1 g DAILY PO Last administered on 09/20/16 09:59; Start 09/17/16 at 09:00 Ondansetron HCl (Zofran) 4 mg Q6H PRN PO ; Start 09/16/16 at 18:45 Midodrine (Proamatine) 10 mg 08,12,16 PO Last administered on 09/20/16 12:17; Start 09/17/16 at 08:00 Demeclocycline HCl (Declomycin) 300 mg BID/E PO Last administered on 09/20/16 06:10; Start 09/16/16 at 20:00 Amiodarone HCl (Pacerone) 200 mg DAILY PO Last administered on 09/20/16t 08:55; Start 09/17/16 at 09:00 Assessment & Plan Problems: (1) CAD (coronary artery disease) Status: Chronic Qualifiers: Coronary Disease-Associated Artery/Lesion type: bypass graft [place] vs. transplanted heart: [place] heart Associated angina: with unspecified angina Qualified Codes: I25.709 - Atherosclerosis of coronary artery bypass graft(s), unspecified, with unspecified angina pectoris Assessment & Plan: Medical management, Continue Atorvastatin. (2) S/P right coronary artery (RCA) stent placement Status: Acute Assessment & Plan: Plavix 75mg and Aspirin 81mg daily (3) Nonsustained ventricular tachycardia Status: Resolved Assessment & Plan: Amiodarone 200mg daily, monitor telemetry (4) Orthostatic hypotension Status: Chronic Assessment & Plan: Midodrine 10mg TID (5) Dyslipidemia Status: Chronic Assessment & Plan: Continue Atorvastatin Plan/Intensity of Service 09/17/16 CAD, S/P RCA Stent: Medical management, continue Atorvastatin. EKG prn chest pain. NSVT: Continue Amiodarone, monitor Telemetry. 09/20/16 No further VTach on telemetry. No cardiac complaint. continue to monitor telemetry. Thank you for allowing us to participate in this patients care. We will follow along with you. PRINCESS CRUZ MD 10/04/16 1015: Assessment & Plan Plan/Intensity of Service After examining the patient I agree with the above assessment. I am involved in the formulation of the patient's plan of care. CINDY MEHTA APRN Sep 20, 2016 12:46 PRINCESS CRUZ MD Oct 04, 2016 10:15
--- NOTE | 2016-09-20 14:21 | NUR ---
CM CALL FROM CARL WITH [facility]. DISCUSSED DC PLANNING AND POSSIBLE LONGTERM CARE AT [facility] (PER FAMILY'S PREVIOUS CONVERSATIONS). SHE SAID SHE DID MEET WITH THE FAMILY, AND PT IS ON THE WAIT LIST FOR THEIR LONGTERM CARE UNIT. SHE SAID IF THE PT CAN GET A ROOM THERE, THEN THEY COULD GET THE A ROOM IN THE ASSISTED LIVING SECTION. SHE SAID THEY WILL PROBABLY NOT APPROVE ASSISTED LIVING FOR BOTH OF THEM, DUE TO PT'S LEVEL OF CARE, SO PT WOULD NEED TO GO SN[facility] OR [facility] AND COULD GO ASSISTED LIVING. IT WILL STILL DEPEND ON ROOM AVAILABILITY AT [facility] WHEN PT IS READY TO DC.
[2016-09-20 16:47] VITALS: BP 156/91; PULSE 55; RESP 18; TEMP 98.5; O2SAT 96
--- NOTE | 2016-09-20 17:15 | NUR ---
CM MET WITH PT, , AND SON (LANDON) AND DTR IN LAW. DISCUSSED DC PLANNING. PT AND STATED THEY WANT PT TO RETURN HOME. STATED SHE REALLY WANTS PT HOME, AND CAN MANAGE HIS CARES LONG HE CAN STAND AND PIVOT. SAID THEY HAVE THEIR ROUTINE OF PERSONAL CARES AT HOME (I.E. SHOWERING WITH THE HAND HELD SHOWER AND SHOWER CHAIR, ETC). SHE SAID THE PROBLEM IS GETTING PT IN/OUT OF THE HOME TO GO TO DOCTOR'S APPOINTMENTS. DISCUSSED INSTALLING A RAMP; FAMILY AGREEABLE TO THIS. THEY WILL LOOK FOR A RAMP, AND THIS WORKER WILL ALSO FOLLOW UP WITH THIS. FAMILY WAS IN AGREEMENT WITH PT RETURNING HOME IF RAMP INSTALLED, AND IF PT PROGRESSES TO A LEVEL THAT CAN SAFELY MANAGE. THIS WORKER DISCUSSED THAT DC PLAN CAN BE ONGOING; GOAL IS HOME AND THIS WILL BE REASSESSED. ENCOURAGED TO COME DURING THERAPY TO SEE PT'S PROGRESS. DISCUSSED POSSIBLE ASSISTED LIVING FOR BOTH OF THEM IF PT CAN PROGRESS ENOUGH. PROVIDED AND FAMILY WITH THIS WORKER'S CONTACT INFO AND ENCOURAGED THEM TO CALL.
--- NOTE | 2016-09-20 17:19 | NUR ---
CM ALSO DISCUSSED HOME HEALTH AND PRIVATE PAY SERVICES IN THE HOME WHEN/IF PT DC'S HOME.
--- NOTE | 2016-09-20 18:01 | PNPDOC ---
IRU Subjective Date DATE: 09/20/16 TIME: 17:59 Subjective Pt pleasant and relaxed. WOrked with PT and OT today. No specific complaints. IRU Objective Vital Signs Vital signs Vital Signs Date Time Temp Pulse Resp B/P Pulse Ox O2 Delivery O2 Flow Rate FiO2 09/20/16 16:47 98.5 55 18 156/91 96 Room Air Height (Feet): 5 Height (Inches): 11.00 Weight (Kilograms): 85.500 General General Appearance: Alert, Orientated x 2 Respiratory (Brief) Respiratory: FOUND: clear all whelan, equal bilaterally, NOT FOUND: rales, wheezes Cardiovascular (Brief) Cardiac: FOUND: regular rate, regular rhythm, NOT FOUND: pedal edema Capillary Refill: <2 sec Laboratory Laboratory Laboratory Tests Test 09/19/16 13:01 Turbidity < 20 Sodium Level 143MEQ/L Potassium Level 3.7MEQ/L Chloride Level 102MEQ/L Carbon Dioxide Level 27MEQ/L Anion Gap 14MEQ/L Blood Urea Nitrogen 29.0MG/DL Creatinine 1.5MG/DL Glomerular Filtration Rate Calc 44 BUN/Creatinine Ratio 19RATIO Glucose Level 98MG/DL Calculated Osmolality 281MOSM/KG Calcium Level 8.9MG/DL Icterus Index < 2 Chemistry Specimen Hemolysis 28 Assessment & Plan Problems: (1) Orthostatic hypotension Status: Chronic Assessment & Plan: medical management (2) CAD (coronary artery disease) Status: Chronic Assessment & Plan: stable, followed by cardiology (3) Acute ischemic stroke Status: Acute (4) Myopathy Assessment & Plan: Continues to work well with PT nd OT and Speech. Follow FIM scores. Team meeting scheduled for tuesday. (5) Hyponatremia Status: Chronic Code Status Full Code Interventions to Obtain Goals PT Treatment Plan: Therapeutic Exercise, Gait Training, Functional Activities , Patient/Family Education, Balance/Proprioception OT Treatment Plan: ADL's (basic care), Ther. Exercise for ADL's, UE Functional Training, Pt./Family Education ST Treatment Plan: Swallow Retraining, Modified Diet Hospital Course Summary Disclaimer The hospital course summary below is not to be considered part of the above Progress Note. DYAN WEST MD Sep 20, 2016 18:01
--- NOTE | 2016-09-20 18:48 | NUR ---
SHIFT SUMMARY PT HAS BEEN PLEASANT AND COOPERATIVE. HAS BEEN OUT TO DINING ROOM FOR MEALS. PT HAS WORKED WITH THERAPY. PT IS INCONTINENT OF BLADDER. PT PIVOT TRANSFERS WITH AND WITHOUT FWW TO WHEELCHAIR. PT PROPELLED SELF MOST OF THE WAY BACK TO ROOM FROM DINNING ROOM. PT DID REQUIRE ASSISTANCE TO STAY STRAIGHT AND NOT RUN INTO SETHI. PT IS CURRENTLY UP IN WHEELCHAIR IN ROOM.
[2016-09-20] MEDS: ATORVASTATIN 40 MG TABLET PO SCH (19:55)
[2016-09-20 20:00] VITALS: BP 140/75; PULSE 48; RESP 20; TEMP 98.5; O2SAT 99
--- NOTE | 2016-09-20 23:03 | NUR ---
Chart Check 24 hour chart check completed
[2016-09-21] MEDS: DEMECLOCYCLINE 150 MG TABLET PO SCH ×2 (05:52→21:57)
--- NOTE | 2016-09-21 06:21 | NUR ---
Summary Jimmy is pleasant and cooperative with a flat affect.He is alert and oriented and will answer questions but will not initiate a conversation. He is able to make his needs known.He denies pain. His IV lock to his left hand is intact and flushes well , erythremia noted. SCD's worn during the night.While in bed side rails up x two and bedalarms intact.He has been incontinent of bladder x 3. Hygiene and clothing management per staff of two. Attends and an insert used to manage urinary incontinence . Telemetry with sinus bradycardia and bbb.
[2016-09-21] MEDS: CLOPIDOGREL 75 MG TABLET PO SCH (08:37)
[2016-09-21] MEDS: CABERGOLINE 0.5 MG TABLET PO SCH (08:37)
[2016-09-21] MEDS: MIDODRINE 10 MG TABLET PO SCH ×3 (08:37→16:49)
[2016-09-21] MEDS: OMEGA-3 ACID ESTERS 1 G CAPSULE PO SCH (08:38)
[2016-09-21] MEDS: MULTIVITAMIN PLAIN TABLET PO SCH (08:38)
[2016-09-21] MEDS: ASPIRIN 81 MG CHEWABLE TABLET PO SCH (08:38)
[2016-09-21] MEDS: AMIODARONE 200 MG TABLET PO SCH (08:38)
[2016-09-21] MEDS: DOCUSATE SODIUM 100 MG CAPSULE PO SCH ×2 (08:39→21:57)
[2016-09-21] MEDS: POLYETHYL.GLYCOL 3350 PACKET 17gm PO SCH (08:39)
[2016-09-21 08:48] VITALS: BP 104/65; PULSE 53; RESP 20; TEMP 97.9; O2SAT 96
--- NOTE | 2016-09-21 10:23 | STDAILYN ---
ST Daily Note Date/Time DATE: 09/21/16 TIME: 09:54 Subjective Comment Jimmy WAS TREATED IN HIS ROOM FOLLOWING BREAKFAST. HE HAD NO ACUTE C/O PAIN OR FATIGUE. PATIENT WAS PLEASANT, COOPERATIVE, AND AGREEABLE TO HAVING CONCRETE [employer] CLINICIAN, J LUIS, CONDUCT TREATMENT WHILE [employer] SURVEYOR NIKKI SUPERVISED. Orientations: x 3, Alert, Cooperative Chief Complaint: Repeat CVA, Dysphagia Pain: No Was Patient Education Provided: Yes Person(s) Educated: Patient Education Subject: Swallowing Strategies, Treatment Plan Instruction Understanding Demo: Pt. verbalizes understand Education Comment PATIENT WAS EDUCATED ON THE PURPOSE FOR THE TREATMENT SESSION, WHICH WAS TO COMPLETE LARYNGEAL EXERCISES TO IMPROVE SWALLOW FUNCTION. HE WAS ALSO INSTRUCTED ON HOW TO COMPLETE SEVERAL LARYNGEAL EXERCISES. PATIENT VERBALIZED AND THEN DEMONSTRATED UNDERSTANDING OF HOW TO PERFORM THE EXERCISES. PATIENT WAS AGREEABLE TO TREATMENT. *Speech Therapy Impressions PATIENT WAS SEATED UPRIGHT AT 90 DEGREES IN HIS WHEELCHAIR DURING THE SESSION. THIN ICE WATER WAS PROVIDED BY THE CLINICIAN, WHICH THE PATIENT CONSUMED BETWEEN LARYNGEAL EXERCISES. PATIENT OCCASIONALLY REQUIRED A BREAK WHEN HE FATIGUED. HE COMPLETED THE FOLLOWING EXERCISES: ALEX 11X: PATIENT WAS INSTRUCTED TO PRODUCE A SWALLOW WHILE LIGHTLY BITING HIS TONGUE. (PATIENT SUCCESSFULLY COMPLETED 10/11 TRIALS; A DELAY IN SWALLOW WAS OBSERVED ON 1/6 TRIALS) TONGUE PRESS OUT 5X: PATIENT WAS INSTRUCTED TO PROTRUDE HIS TONGUE AND RESIST A TONGUE DEPRESSOR FOR 5 SECONDS. (PATIENT SUCCESSFULLY COMPLETED 5/5 TRIALS) TONGUE PRESS SIDE 5X EACH SIDE: PATIENT WAS INSTRUCTED TO PROTRUDE HIS TONGUE LATERALLY WHILE RESISTING A TONGUE DEPRESSOR FOR 5 SECONDS. (PATIENT COMPLETED 5/5 TRIALS ON EACH SIDE. INCREASED FATIGUE WAS NOTED WITH MORE TRIALS) TONGUE BOWL 5X: PATIENT WAS INSTRUCTED TO MAKE HIS TONGUE INTO A BOWL-LIKE SHAPE AND HOLD A SMALL ICE CHIP FOR 5 SECONDS BEFORE SWALLOWING. (PATIENT COMPLETED 5/5 SUCCESSFUL TRIALS) SHOWA 2X: THIS EXERCISE WAS MODIFIED TO DECREASE DIFFICULTY. PATIENT WAS INSTRUCTED TO HOLD A TONGUE DEPRESSOR ON THE ROOF OF HIS MOUTH WITH HIS TONGUE WHILE HE PRODUCED A SWALLOW. (PATIENT ATTEMPTED 2 TRIALS, BUT WAS UNSUCCESSFUL (I.E., SWALLOW WAS NOT ELICITED)) EFFORTFUL SWALLOW 5X: PATIENT WAS INSTRUCTED TO SQUEEZE THE MUSCLES IN HIS THROAT WHILE HE SWALLOWED. (PATIENT SUCCESSFULLY COMPLETED 5/5 TRIALS. 1/5 TRIALS WAS COMPLETED WITH THIN WATER) SUSTAINED "AH" 1X: PATIENT WAS INSTRUCTED TO SAY "AH" AND HOLD IT FOR LONG AND LOUD HE COULD. (PATIENT SUSTAINED PHONATION FOR 12 SECONDS) HAWK EXERCISES 10X: PATIENT WAS INSTRUCTED TO REPEAT WORDS THAT CONTAINED /K/ IN FINAL POSITION OF WORDS WITH AN EXAGGERATED/FORCEFUL /K/. (PATIENT SUCCESSFULLY COMPLETED 9/10 TRIALS) ST Treatment Plan: Swallow Retraining, Modified Diet ST Treatment Plan Frequency: three times per week Treatment Plan Duration: one week Plan of Care Comment: CURRENT DIET: REGULAR WITH CHOPPED MEATS, THIN LIQUIDS PATIENT COULD BENEFIT FROM ADDITIONAL LARYNGEAL EXERCISES. HIS POC WILL BE EXTENDED TO RECIEVE ST SERVICES 3X A WEEK FOR 1 WEEK, FOR 30 MINUTE SESSIONS. Start Treatment 1: 09:17 Stop Treatment 1: 09:48 Treatment Duration : ST Treatment Charge: Swallow Treatment Minutes of Individual Therapy: 31 ST FIM Comprehension Ability: 5 Supervision/Setup Social Interaction: 5 Supervision/Setup Expression Ability: 5 Supervision/Setup Swallowin Minimal Assistance J LUIS HAGEN Sep 21, 2016 09:59
--- NOTE | 2016-09-21 10:27 | PNPDOC ---
VALENTE ANGELO Bud CASINO PORTER 09/21/16 1022: Subjective Date DATE: 09/21/16 TIME: 10:19 Subjective Bernabe was resting in his room after a busy morning with PT. He feels like he's getting stronger, but his right leg still isn't working yet. He is still leaning towards the right but not as bad as he was previously. He hasn't had any problems with his right arm. He denies any syncope or dizziness with change in positions. No chest pain or dyspnea. Objective Vital Signs Vital signs Vital Signs Date Time Temp Pulse Resp B/P Pulse Ox O2 Delivery O2 Flow Rate FiO2 09/21/16 08:48 97.9 53 20 104/65 96 Room Air Height (Feet): 5 Height (Inches): 11.00 Weight (Kilograms): 85.500 General General Appearance: Alert, Orientated x 3, Well Nourished, Well Developed, No Acute Distress Eyes (Brief) Eyes: FOUND: PERRL, NOT FOUND: scleral icterus ENMT (Brief) ENMT: FOUND: mucosa moist, NOT FOUND: pharnyx erythema Respiratory (Brief) Respiratory: FOUND: rales (left low-mid blunting - known effusion) Cardiovascular (Brief) Cardiac: FOUND: pedal edema, regular rate, regular rhythm Abdomen (Brief) Abdominal: FOUND: BS normo active x4, soft, NOT FOUND: distended, tender Extremities (Brief) Extremity : Extremity Finding: FOUND: edema (b/l lower ext) Musculoskeletal (Brief) Musculoskeletal: NOT FOUND: tenderness (calves soft nttp) Integumentary (Brief) Integumentary: FOUND: dry, pink, warm Psychiatric (Brief) Psychiatric: FOUND: alert, attentive, normal affect, oriented Laboratory Laboratory Laboratory Tests 09/19/16 13:01 Assessment & Plan Problems: (1) Myopathy (2) Right sided weakness Status: Acute (3) Arterial ischemic stroke, MCA (middle cerebral artery), left, acute Onset Date: ~ 08/07/2016 Status: Acute Assessment & Plan: Had a repeat stroke to the same area on 09/06/16 (4) Nonsustained ventricular tachycardia Status: Resolved Assessment & Plan: Treated with amiodarone (5) Coronavirus infection Status: Resolved (6) Hyponatremia Status: Chronic (7) Syncope Status: Chronic (8) Orthostatic hypotension Status: Chronic (9) CAD (coronary artery disease) Status: Chronic Assessment & Plan: Heart catheterization on 09/14/[address] 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 He's on an 1800 ml fluid restriction but he's been taking in less than that per day. Cardiology notes reviewed - cont Amiodarone. No further NSVT. Continue Plavix, statin, ASA given recent ischemic strokes. Code Status Full Code Hospital Course Summary Disclaimer The hospital course summary below is not to be considered part of the above Progress Note. Hospital Course Summary 09/21/16 Will repeat BMP tomorrow to f/u on Na - salt tabs have been dc'd. He's on an 1800 ml fluid restriction but he's been taking in less than that per day. Cardiology notes reviewed - cont Amiodarone. No further NSVT. Continue Plavix, statin, ASA given recent ischemic strokes. OFELIA MI MD 09/22/16 1935: VALENTE ANGELO APRN Sep 21, 2016 10:22 OFELIA MI MD Sep 22, 2016 19:35
[2016-09-21] MEDS: ALBUTEROL/IPRATROPIUM INHAL. 2.5mg-0.5mg/3ml Neb. AEROSOL SCH ×2 (11:00→20:13)
[2016-09-21 11:21] VITALS: PULSE 53; RESP 20
--- NOTE | 2016-09-21 11:44 | PNPDOC ---
CINDY MEHTA RN ANESTHESIOLOGY 09/21/16 1143: Subjective Date DATE: 09/21/16 TIME: 11:42 Subjective F/U V Tach Bernabe is up in the recliner doing therapy. He denies chest pain or palpitations. States his breathing is okay. Objective Vital Signs Vital signs Vital Signs 09/21/16 09/21/16 09/21/16 09/21/16 08:48 11:00 11:00 11:11 Temp 97.9 Pulse 53 48 44 Resp 20 16 B/P 104/65 Pulse Ox 96 O2 Delivery Room Air 09/21/16 11:21 Pulse 53 Resp 20 Telemetry Rhythm: Sinus Rhythm Height (Feet): 5 Height (Inches): 11.00 Weight (Kilograms): 85.500 General Alert, Cooperative ENMT (Brief) mucosa moist Neck (Brief) NOT FOUND: JVD, carotid bruits Respiratory (Brief) clear all whelan, equal bilaterally, NOT FOUND: rales, wheezes Cardiovascular (Brief) regular rate, regular rhythm, NOT FOUND: murmur, pedal edema Abdomen (Brief) BS normo active x4, soft, NOT FOUND: tender Integumentary (Brief) dry, pink, warm Psychiatric (Brief) alert, attentive, oriented Laboratory Laboratory Laboratory Tests Test 09/19/16 13:01 Turbidity < 20 Sodium Level 143MEQ/L Potassium Level 3.7MEQ/L Chloride Level 102MEQ/L Carbon Dioxide Level 27MEQ/L Anion Gap 14MEQ/L Blood Urea Nitrogen 29.0MG/DL Creatinine 1.5MG/DL Glomerular Filtration Rate Calc 44 BUN/Creatinine Ratio 19RATIO Glucose Level 98MG/DL Calculated Osmolality 281MOSM/KG Calcium Level 8.9MG/DL Icterus Index < 2 Chemistry Specimen Hemolysis 28 Medications Current Medications Miscellaneous Medication (May use PRN orders) 1 PRN PRN MC ; Start 09/16/16 at 18:45 Acetaminophen (Tylenol Regular Strength) 325 mg Q5H PRN PO PAIN; Start 09/16/16 at 18:45 Aspirin (ASA) 81 mg DAILY PO Last administered on 09/21/16 08:38; Start at 09:00 Atorvastatin Calcium (LIPITOR 40 mg) 40 mg HS PO Last administered on 09/20/16 19:55; Start 09/16/16 at 22:00 Cabergoline (Dostinex) 0.25 mg TuSa@09 PO Last administered on 09/21/16 08:37; Start 09/18/16 at 09:00 Clopidogrel Bisulfate (Plavix) 75 mg DAILY PO Last administered on 09/21/16 08: 37; Start 09/17/16 at 09:00 Divalproex Sodium (Depakote) 250 mg BID PO Last administered on 09/17/16 19:55 ; Start 09/16/16 at 21:00; Stop 09/17/16 at 20:26; Status DC Docusate Sodium (Colace) 100 mg BID PO ; Start 09/16/16 at 21:00; Stop 09/17/16 at 17:32; Status DC Acetaminophen/ Hydrocodone Bitart ([place] 5/325) 1 tab Q6H PRN PO PAIN; Start at 18:45 Albuterol/ Ipratropium (Duoneb) 3 ml BID AEROSOL Last administered on 09/21/16 11:00; Start 09/16/16 at 21:00 Nitroglycerin (Nitrostat) 0.4 mg Q5MIN PRN SL CHEST PAIN; Start 09/16/16 at 18: 45 Polyethylene Glycol (Miralax) 17 g DAILY PO ; Start 09/17/16 at 09:00 Sodium Chloride (Salt Tab) 1 g BIDBS PO Last administered on 09/17/16 09:07; Start 09/16/16 at 19:30; Status Future Hold Multivitamins Therapeutic (Theragran) 1 tab DAILY PO Last administered on 08:38; Start 09/17/16 at 09:00 Dlctj-8-Pghm Ethyl Esters (Lovaza) 1 g DAILY PO Last administered on 09/21/16 08:38; Start 09/17/16 at 09:00 Ondansetron HCl (Zofran) 4 mg Q6H PRN PO ; Start 09/16/16 at 18:45 Midodrine (Proamatine) 10 mg 08,12,16 PO Last administered on 09/21/16 11:24; Start 09/17/16 at 08:00 Demeclocycline HCl (Declomycin) 300 mg BID/E PO Last administered on 09/21/16 05:52; Start 09/16/16 at 20:00 Amiodarone HCl (Pacerone) 200 mg DAILY PO Last administered on 09/21/16 08:38; Start 09/17/16 at 09:00 Assessment & Plan Problems: (1) CAD (coronary artery disease) Status: Chronic Qualifiers: Coronary Disease-Associated Artery/Lesion type: bypass graft [place] vs. transplanted heart: [place] heart Associated angina: with unspecified angina Qualified Codes: I25.709 - Atherosclerosis of coronary artery bypass graft(s), unspecified, with unspecified angina pectoris Assessment & Plan: Medical management, Continue Atorvastatin. (2) S/P right coronary artery (RCA) stent placement Status: Acute Assessment & Plan: Plavix 75mg and Aspirin 81mg daily (3) Nonsustained ventricular tachycardia Status: Resolved Assessment & Plan: Amiodarone 200mg daily, monitor telemetry (4) Orthostatic hypotension Status: Chronic Assessment & Plan: Midodrine 10mg TID (5) Dyslipidemia Status: Chronic Assessment & Plan: Continue Atorvastatin Plan/Intensity of Service 09/17/16 CAD, S/P RCA Stent: Medical management, continue Atorvastatin. EKG prn chest pain. NSVT: Continue Amiodarone, monitor Telemetry. 09/20/16 No further VTach on telemetry. No cardiac complaint. continue to monitor telemetry. 09/21/16 Continues to progress well with therapy, he denies complaints Thank you for allowing us to participate in this patients care. We will follow along with you. PRINCESS CRUZ MD 10/04/16 1019: Assessment & Plan Plan/Intensity of Service After examining the patient I agree with the above assessment. I am involved in the formulation of the patient's plan of care. CINDY MEHTA APRN Sep 21, 2016 11:43 PRINCESS CRUZ MD Oct 04, 2016 10:19
[2016-09-21 16:10] VITALS: BP 161/89; PULSE 55; RESP 18; TEMP 98.2; O2SAT 96
--- NOTE | 2016-09-21 18:25 | NUR ---
Summary VS's stable. Pt. has denied pain, nausea, SOA and dizziness/lightheadedness this shift. He is A/O. Pt. is a mod-max assist x2 with cares and transfers. He has been incontinent of urine once this shift. Pt. takes meds whole w/o difficulty. Pt. is currently sitting up in the recliner. Call light is within reach. Will pass on report to insurance account assistant.
[2016-09-21 20:37] VITALS: BP 144/73; PULSE 50; RESP 16; TEMP 98.3; O2SAT 97
[2016-09-21] MEDS: ATORVASTATIN 40 MG TABLET PO SCH (21:57)
[2016-09-21 22:25] VITALS: PULSE 50; RESP 16
[2016-09-22] VITALS (9 sets, daily range): BP systolic 78–154; BP diastolic 50–85; PULSE 49–63; RESP 12–20; TEMP 97.8–98.9; O2SAT 93–96
--- NOTE | 2016-09-22 01:16 | NUR ---
Chart Check 24 hour chart check completed
[2016-09-22 05:45] LABS: ANION GAP 12 MEQ/L (5-15); BUN/CREATININE RATIO 19 RATIO (6-26); CALCIUM 8.4 MG/DL (8.4-10.2); CHLORIDE 105 MEQ/L (98-107); CO2 - CARBON DIOXIDE 29 MEQ/L (22-30); CREATININE 1.6 MG/DL (0.8-1.5); GLOMERULAR FILTRATION RATE 41; GLUCOSE 81 MG/DL (75-110); POTASSIUM 3.4 MEQ/L (3.6-5); SODIUM 146 MEQ/L (134-144)
--- NOTE | 2016-09-22 06:25 | NUR ---
Summary Patient alert and oriented times three, pleasant and cooperative. Two person assist for transfer to bed. IV line flushes well. Took meds whole with no problems. Incontinent times 4 during the night with total assist times two for cleanup. He helps with turning himself. Patient had bed bath and linin change this morning. He washed his own face. He wore SCDs until bed bath this morning. He is in bed now with side rails up times two, bed alarm on and call light within reach.
[2016-09-22] MEDS: DEMECLOCYCLINE 150 MG TABLET PO SCH (06:30)
[2016-09-22] MEDS: ALBUTEROL/IPRATROPIUM INHAL. 2.5mg-0.5mg/3ml Neb. AEROSOL SCH ×2 (06:37→20:35)
--- NOTE | 2016-09-22 08:30 | NUR ---
Status Therapist came and got RN. It was reported pt. was not feeling well and acting differently than normal. VS's taken and BP noted to be 78/50. Pt. denies dizziness, pain and nausea at this time. He is awake and alert. KENNEDY Andrade, is present. Pt. is assisted back to be by therapist. BP taken again lying down in bed and noted to be 117/65. Morning meds (including Midodrine) administered. Please see eMAR. Will continue to monitor.
[2016-09-22] MEDS: MULTIVITAMIN PLAIN TABLET PO SCH (08:38)
[2016-09-22] MEDS: CLOPIDOGREL 75 MG TABLET PO SCH (08:38)
[2016-09-22] MEDS: MIDODRINE 10 MG TABLET PO SCH ×3 (08:38→16:45)
[2016-09-22] MEDS: ASPIRIN 81 MG CHEWABLE TABLET PO SCH (08:38)
[2016-09-22] MEDS: AMIODARONE 200 MG TABLET PO SCH (08:38)
[2016-09-22] MEDS: OMEGA-3 ACID ESTERS 1 G CAPSULE PO SCH (08:38)
[2016-09-22] MEDS: POLYETHYL.GLYCOL 3350 PACKET 17gm PO SCH (08:39)
[2016-09-22] MEDS: DOCUSATE SODIUM 100 MG CAPSULE PO SCH ×2 (08:39→20:23)
[2016-09-22] MEDS ORDERED: POTASSIUM CHLORIDE 20 MEQ TABLET PO SCH (08:45)
[2016-09-22] MEDS ORDERED: NORMAL SALINE 1,000 ML IV ONE (09:00)
--- NOTE | 2016-09-22 10:00 | NUR ---
Cough Pt. is noted to have a productive cough. He denies SOA and is on RA. Notified KENNEDY Andrade. Pt. is noted to be on scheduled breathing treatments. No new orders given at this time. Will continue to monitor.
--- NOTE | 2016-09-22 10:23 | PNPDOC ---
LUIS FERNANDO NOBLES V GEOTHERMAL HVAC TECHNICIAN 09/22/16 1014: Subjective Date DATE: 09/22/16 TIME: 10:11 Subjective Bernabe is seen this morning acutely following contact from physical therapy. Staff reported that patient is "not himself". Like you is generally weak and "slower" mentation. Upon arrival to exam room. Patient is sitting up in the wheelchair at the sink. He is alert, oriented 3, however, states that he feels "terrible" . When asked to be specific, he states that he is just worn out and doesn't fell well. He did initially complaining of feeling lightheaded/dizzy Initially when gotten up out of bed. Bedside vital signs are obtained and he is found to be hypotensive 78/50. Patient was then assisted back to bed, where vital signs were rechecked blood pressure improved to 117/65. He is noted to have an increase in sodium up to 146. Denies having any pain. Objective Vital Signs Vital signs Vital Signs Date Time Temp Pulse Resp B/P Pulse Ox O2 Delivery O2 Flow Rate FiO2 09/22/16 06:38 12 09/22/16 06:38 60 09/21/16 20:37 98.3 144/73 97 Room Air Telemetry Rhythm: Sinus Rhythm Height (Feet): 5 Height (Inches): 11.00 Weight (Kilograms): 85.500 General General Appearance: Alert, Orientated x 3, Cooperative, No Acute Distress Eyes (Brief) Eyes: FOUND: EOMI ENMT (Brief) ENMT: FOUND: mucosa moist, normal dentition, NOT FOUND: pharnyx erythema Neck (Brief) Neck: FOUND: midline, NOT FOUND: adenopathy, carotid bruits, tracheal deviation Respiratory (Brief) Respiratory: FOUND: clear all whelan, equal bilaterally, NOT FOUND: wheezes Cardiovascular (Brief) Cardiac: FOUND: regular rate, regular rhythm, NOT FOUND: murmur, pedal edema Capillary Refill: <2 sec Abdomen (Brief) Abdominal: FOUND: BS normo active x4, soft, NOT FOUND: distended, tender Lymphatic (Brief) Lymphatic: NOT FOUND: adenopathy Musculoskeletal (Brief) Musculoskeletal: NOT FOUND: tenderness Integumentary (Brief) Integumentary: FOUND: dry, pink, warm Neurologic (Brief) Neurological: FOUND: cranial 2-12 intact Psychiatric (Brief) Psychiatric: FOUND: alert, attentive, normal affect, oriented Laboratory Laboratory Laboratory Tests 09/22/16 04:39 Assessment & Plan Problems: (1) Myopathy (2) Right sided weakness Status: Acute (3) Arterial ischemic stroke, MCA (middle cerebral artery), left, acute Onset Date: ~ 08/07/2016 Status: Acute Assessment & Plan: Had a repeat stroke to the same area on 09/06/16 (4) Nonsustained ventricular tachycardia Status: Resolved Assessment & Plan: Treated with amiodarone (5) Coronavirus infection Status: Resolved (6) Hyponatremia Status: Chronic (7) Syncope Status: Chronic (8) Orthostatic hypotension Status: Chronic (9) CAD (coronary artery disease) Status: Chronic Assessment & Plan: Heart catheterization on 09/14/[address] 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 Spoke with cardiology agree with given 1 liter of IVF now. Sodium increased to 146 and Shoe Repairer is elevated at 1.6. Likely dehydrated. Recheck CBC as the last Hgb was 9.4. Given one time dose of oral potassium supplementation Continue Midodrine 10mg three times a day Continue Plavix, statin, ASA given recent ischemic strokes. Recheck Labs again tomorrow morning to follow blood counts, renal function and electrolytes Code Status Full Code Hospital Course Summary Disclaimer The hospital course summary below is not to be considered part of the above Progress Note. Hospital Course Summary 09/21/16 Will repeat BMP tomorrow to f/u on Na - salt tabs have been dc'd. He's on an 1800 ml fluid restriction but he's been taking in less than that per day. Cardiology notes reviewed - cont Amiodarone. No further NSVT. Continue Plavix, statin, ASA given recent ischemic strokes. 09/22/16 Given Hypotension will discontinue fluid restriction. Spoke with cardiology agree with given 1 liter of IVF now. Sodium increased to 146 and Shoe Repairer is elevated at 1.6. Likely dehydrated. Recheck CBC as the last Hgb was 9.4. Given one time dose of oral potassium supplementation Continue Midodrine 10mg three times a day Continue Plavix, statin, ASA given recent ischemic strokes. Recheck Labs again tomorrow morning to follow blood counts, renal function and electrolytes OFELIA NELSON MD 09/22/161955: Assessment & Plan Assessment 09/22/2016-I reviewed this chart, the patient history, and the GEOTHERMAL HVAC TECHNICIAN's/PA's documented findings as above. We discussed and formulated the assessment and plan as above with the additions below.-Dr. Nelson The patient was seen sitting up in a chair by the sink getting ready for bed. He states he is feeling better and is no longer lightheaded. He denies any pain. He denies any shortness of breath. He denies any nausea. He has had SIADH and low sodium and was on demeclocycline, salt tabs and fluid restriction. Today sodium was elevated and BUN and creatinine were rising. He was also hypotensive. Symptoms resolved after 1 L of IV fluids. Fluid restriction was discontinued. Salt tabs have been on hold. He does report that the salt tablets make him nauseated. Because of acute elevated sodium will hold demeclocycline. If sodium trends towards the low end of normal, could consider restarting demeclocycline then. Would try just demeclocycline at first and hopefully avoid salt tablets and fluid restriction. On exam the patient is alert and in no acute distress. HEENT reveals oropharynx to be moist. Chest is clear to auscultation. Cardio vascular reveals a regular rate and rhythm. Abdomen is soft and nontender. Extremities free of edema. Demeclocycline placed on hold CBC, renal panel, magnesium in the morning Continue to monitor vital signs. LUIS FERNANDO NOBLES APRN Sep 22, 2016 10:14 OFELIA NELSON MD Sep 22, 2016 19:56
--- NOTE | 2016-09-22 10:32 | PNPDOC ---
CINDY MEHTA EDGE TRIMMING MACHINE OPERATOR 09/22/16 1021: Subjective Date DATE: 09/22/16 TIME: 8:18 Subjective Bernabe is sitting up in his bed eating breakfast. States he was quite dizzy earlier this morning, states it is a little better now. He denies chest pain or pressure, palpitations or dyspnea. Objective Vital Signs Vital signs Vital Signs 09/21/16 09/22/16 09/22/16 09/22/16 22:25 06:38 06:38 06:38 Pulse 50 60 60 Resp 16 12 Telemetry Rhythm: Sinus Rhythm Height (Feet): 5 Height (Inches): 11.00 Weight (Kilograms): 85.500 General Alert, Orientated x 3, Cooperative, No Acute Distress ENMT (Brief) mucosa moist Neck (Brief) NOT FOUND: JVD, carotid bruits Respiratory (Brief) rales (left basilar), NOT FOUND: clear all whelan, equal bilaterally, wheezes Cardiovascular (Brief) pedal edema, regular rate, regular rhythm, NOT FOUND: murmur Abdomen (Brief) BS normo active x4, soft, NOT FOUND: tender Integumentary (Brief) dry, pink, warm Psychiatric (Brief) alert, oriented Laboratory Laboratory Laboratory Tests Test 09/22/16 04:39 Turbidity < 20 Sodium Level 146MEQ/L Potassium Level 3.4MEQ/L Chloride Level 105MEQ/L Carbon Dioxide Level 29MEQ/L Anion Gap 12MEQ/L Blood Urea Nitrogen 30.0MG/DL Creatinine 1.6MG/DL Glomerular Filtration Rate Calc 41 BUN/Creatinine Ratio 19RATIO Glucose Level 81MG/DL Calculated Osmolality 286MOSM/KG Calcium Level 8.4MG/DL Icterus Index < 2 Chemistry Specimen Hemolysis < 15 Laboratory Tests 09/22/16 04:39 Medications Current Medications Miscellaneous Medication (May use PRN orders) 1 PRN PRN MC ; Start 09/16/16 at 18:45 Acetaminophen (Tylenol Regular Strength) 325 mg Q5H PRN PO PAIN; Start 09/16/16 at 18:45 Aspirin (ASA) 81 mg DAILY PO Last administered on 09/22/16 08:38; Start at 09:00 Atorvastatin Calcium (LIPITOR 40 mg) 40 mg HS PO Last administered on 09/21/16 21:57; Start 09/16/16 at 22:00 Cabergoline (Dostinex) 0.25 mg TuSa@09 PO Last administered on 09/21/16 08:37; Start 09/18/16 at 09:00 Clopidogrel Bisulfate (Plavix) 75 mg DAILY PO Last administered on 09/22/16 08: 38; Start 09/17/16 at 09:00 Divalproex Sodium (Depakote) 250 mg BID PO Last administered on 09/17/16 19:55 ; Start 09/16/16 at 21:00; Stop 09/17/16 at 20:26; Status DC Docusate Sodium (Colace) 100 mg BID PO ; Start 09/16/16 at 21:00; Stop 09/17/16 at 17:32; Status DC Acetaminophen/ Hydrocodone Bitart ([place]land 5/325) 1 tab Q6H PRN PO PAIN; Start at 18:45 Albuterol/ Ipratropium (Duoneb) 3 ml BID AEROSOL Last administered on 09/22/16 06:37; Start 09/16/16 at 21:00 Nitroglycerin (Nitrostat) 0.4 mg Q5MIN PRN SL CHEST PAIN; Start 09/16/16 at 18: 45 Polyethylene Glycol (Miralax) 17 g DAILY PO ; Start 09/17/16 at 09:00 Sodium Chloride (Salt Tab) 1 g BIDBS PO Last administered on 09/17/16 09:07; Start 09/16/16 at 19:30; Status Future Hold Multivitamins Therapeutic (Theragran) 1 tab DAILY PO Last administered on 08:38; Start 09/17/16 at 09:00 [id number]-8-[id number] Ethyl Esters (Lovaza) 1 g DAILY PO Last administered on 09/22/16 08:38; Start 09/17/16 at 09:00 Ondansetron HCl (Zofran) 4 mg Q6H PRN PO ; Start 09/16/16 at 18:45 Midodrine (Proamatine) 10 mg 08,12,16 PO Last administered on 09/22/16 08:38; Start 09/17/16 at 08:00; Stop 09/22/16 at 09:02; Status DC Demeclocycline HCl (Declomycin) 300 mg BID/E PO Last administered on 09/22/16 06:30; Start 09/16/16 at 20:00 Amiodarone HCl (Pacerone) 200 mg DAILY PO Last administered on 09/22/16 08:38; Start 09/17/16 at 09:00 Potassium Chloride (Kdur) 20 meq WB PO Last administered on 09/22/16 09:53; Start 09/22/16 at 08:45 Midodrine 10 mg 10 mg 08,12,16 PO ; Start 09/22/16 at 12:00 Sodium Chloride (Normal Saline IV) 1,000 ml @ 500 mls/hr Q2H ONCE IV Last administered on 09/22/16 09:53; Start 09/22/16 at 09:00; Stop 09/22/16 at 10:59 Assessment & Plan Problems: (1) CAD (coronary artery disease) Status: Chronic Qualifiers: Coronary Disease-Associated Artery/Lesion type: bypass graft [place] vs. transplanted heart: [place] heart Associated angina: with unspecified angina Qualified Codes: I25.709 - Atherosclerosis of coronary artery bypass graft(s), unspecified, with unspecified angina pectoris Assessment & Plan: Medical management, Continue Atorvastatin. (2) S/P right coronary artery (RCA) stent placement Status: Acute Assessment & Plan: Plavix 75mg and Aspirin 81mg daily (3) Nonsustained ventricular tachycardia Status: Resolved Assessment & Plan: Amiodarone 200mg daily, monitor telemetry (4) Orthostatic hypotension Status: Chronic Assessment & Plan: Midodrine 10mg TID (5) Dyslipidemia Status: Chronic Assessment & Plan: Continue Atorvastatin Plan/Intensity of Service 09/17/16 CAD, S/P RCA Stent: Medical management, continue Atorvastatin. EKG prn chest pain. NSVT: Continue Amiodarone, monitor Telemetry. 09/20/16 No further VTach on telemetry. No cardiac complaint. continue to monitor telemetry. 09/21/16 Continues to progress well with therapy, he denies complaints. 09/22/16 Patient reports dizziness this morning, evidently had some orthostasis as well. Hypernatremic NA 146 today, give 1L of NS over 2 hours please. Continue to monitor BP and Midodrine dosage. Thank you for allowing us to participate in this patients care. We will follow along with you. PRINCESS CRUZ MD 10/04/16 1026: Assessment & Plan Plan/Intensity of Service After examining the patient I agree with the above assessment. I am involved in the formulation of the patient's plan of care. CINDY MEHTA APRN Sep 22, 2016 10:21 PRINCESS CRUZ MD Oct 04, 2016 10:26
--- NOTE | 2016-09-22 11:40 | NUR ---
BP/Status Ortho VS's taken per orders by KENNEDY Andrade. Lying BP noted to be 150/74, sitting 154/64 and standing 123/67. Lupe notified. Pt. reports he is feeling some better. NS bolus infusing at 500cc/hr per orders. Will continue to monitor.
[2016-09-22 11:58] LABS: BASOPHILS # (AUTO) 0.1 T/MM3 (0-0.2); BASOPHILS % (AUTO) 1.2 % (0-2); EOSINOPHILS # (AUTO) 0.1 T/MM3 (0-0.5); EOSINOPHILS % (AUTO) 1.5 % (0-4); HCT - HEMATOCRIT 28.2 % (41-53); IMMATURE GRANULOCYTE # (AUTO) 0.04 T/MM3 (0.00-0.03); IMMATURE GRANULOCYTE % (AUTO) 0.6 % (0.0-0.5); LYMPHOCYTES # (AUTO) 1.2 T/MM3 (1-4.8); LYMPHOCYTES % (AUTO) 17.8 % (23-45); MEAN CORPUSCULAR HGB 28.7 UUG (26-34); MEAN CORPUSCULAR HGB CONC(MCHC 31.9 GM/DL (31-37); MEAN CORPUSCULAR VOLUME 89.8 UM3 (80-100); MONOCYTES # (AUTO) 0.6 T/MM3 (0-0.8); MONOCYTES % (AUTO) 9.3 % (0-9.0); NEUTROPHILS #(AUTO)-ABSOLUTE 4.6 T/MM3 (1.8-7.7); NEUTROPHILS % (AUTO) 69.6 % (33-66); RED BLOOD COUNT 3.14 M/MM3 (4.50-5.90); WBC - WHITE BLOOD COUNT 6.6 T/MM3 (4.5-11.0)
--- NOTE | 2016-09-22 12:11 | PDIRUTEAM ---
Multidisciplinary Team Meeting Nursing Hx Incontinence: Yes Bladder Goal: 5 Supervision/Setup López Y/N: No Bladder Continent or Incontine: Incontinent Incontinent Product Used: Pull-up, Pads Number of Times Incontinent of: 4 Cleaning Ability-Bladder: 1 Total Assistance Bladder Incontinence Managemen: 1 Total Assistance Bowel Goal: 7+ Complete Gila Colostomy Y/N: No Bowel Incontinent/Continent: Continent Bowel Number of Accidents: 0 Number of times Incontinent of: 1 Cleaning Ability-Bowel: 1 Total Assistance Colostomy Care: 0 Activity Does Not Occur Bowel Incontinence Management: 1 Total Assistance Toileting Ability: 1 Total Assistance Vital Signs Vital Signs Date Time Temp Pulse Resp B/P Pulse Ox O2 Delivery O2 Flow Rate FiO2 09/22/16 08:40 62 20 09/22/16 08:35 97.8 117/65 96 Room Air Current Medications Current Medications Medications (Trade) Dose Ordered Sig/Aishwarya Route PRN Reason Start Time Stop Time Status Last Admin Dose Admin Docusate Sodium (Colace) 100 mg BID PO 09/16/16 21:00 09/21/16 21:57 Aspirin (ASA) 81 mg DAILY PO 09/17/16 09:00 09/22/16 08:38 Atorvastatin Calcium (LIPITOR 40 mg) 40 mg HS PO 09/16/16 22:00 09/21/16 21:57 Cabergoline (Dostinex) 0.25 mg TuSa@09 PO 09/18/16 09:00 09/21/16 08:37 Clopidogrel Bisulfate (Plavix) 75 mg DAILY PO 09/17/16 09:00 09/22/16 08:38 Divalproex Sodium (Depakote) 250 mg BID PO 09/16/16 21:00 09/17/16 20:26 DC 09/17/16 19:55 Albuterol/ Ipratropium (Duoneb) 3 ml BID AEROSOL 09/16/16 21:00 09/22/16 06:37 Sodium Chloride (Salt Tab) 1 g BIDBS PO 09/16/16 19:30 Future Hold 09/17/16 09:07 Multivitamins Therapeutic (Theragran) 1 tab DAILY PO 09/17/16 09:00 09/22/16 08:38 Iyswn-8-Kjec Ethyl Esters (Lovaza) 1 g DAILY PO 09/17/16 09:00 09/22/16 08:38 Midodrine (Proamatine) 10 mg 08,12,16 PO 09/17/16 08:00 09/22/16 09:02 DC 09/22/16 08:38 Demeclocycline HCl (Declomycin) 300 mg BID/E PO 09/16/16 20:00 09/22/16 06:30 Amiodarone HCl (Pacerone) 200 mg DAILY PO 09/17/16 09:00 09/22/16 08:38 Potassium Chloride (Kdur) 20 meq WB PO 09/22/16 08:45 09/22/16 09:53 Midodrine (Proamatine) 10 mg 08,12,16 PO 09/22/16 12:00 09/22/16 11:40 Comments S/P cva and left cardiac stent placement. Orthostatic Hypotension today. Creat incr to 1.6 Diet thin liquids and chopped meat Physical Therapy Bed Transfer Ability: 4 Minimal Assistance Bed Transfer Assistance Needed: 2 Persons Chair Transfer Ability: 3 Moderate Assistance Chair Transfer Assistance Need: 2 Persons Overall Wheelchair Transfer Ab: 3 Moderate Assistance Wheelchair Transfer Assistance: 2 Persons Overall Toilet / Commode Trans: 2 Maximum Assistance Ambulation Ability: 2 Maximum Assistance Ambulation Assistance Needed: 2 Persons Walk FIM Score Reason: distance. 4/7 A Ambulation Distance: 189 Comments Overall improvement, today slightly less due to hypotension Occupational Therapy Grooming Ability: 4 Minimal Assistance Grooming FIM Score Reason: seated in w/c. Bathing Ability: 2 Maximum Assistance Upper Body Dressing Ability: 4 Minimal Assistance Lower Body Dressing Ability: 2 Maximum Assistance Lower Body Dressing Assistance: 2 Persons Toileting Assistance Needed: 2 Persons Comments Diff with transfers. Hypotension caused diff with problem solving today. Care Plan Condition at time of discharge: Fair IRU Discharge Disposition: Home Health Service Interventions/Goals increased fluids to improve pressure. Day 6 . Barriers to d/c: endurance, strength, balance re-eval next week. DYAN WEST MD Sep 22, 2016 12:10
--- NOTE | 2016-09-22 16:44 | NUR ---
Student charting reviewed by [facility] automotive technician instructor.
--- NOTE | 2016-09-22 16:54 | NUR ---
Nutrition Risk R/T poor po intake Diet Order: Dysphagia Chopped 1/4" meat with thin liquids RD spoke with pt regarding poor po intake. Pt states nothing sounds good or tastes good. Pt reports difficulty with swallowing. Pt expressed interest in mighty shakes with each meal. Pt also expressed willingness to have 2% milk with each meal. FANS notified to send mighty shakes and 2 % milk. RD available at ext [phone]
--- NOTE | 2016-09-22 16:58 | NUR ---
CM CALL FROM PT'S AND LATER FROM PT'S SON (LANDON), RE: REQUESTING A PRESCRIPTION ORDER FOR A BP LIFT CHAIR. STATED THEY CHECKED INTO GETTING A RAMP AT HOME BUT THIS IS NOT FEASIBLE, SO THEY ARE GOING TO INSTALL A LIFT CHAIR TO GET PT IN/OUT OF THE HOUSE. THAT WAY HE CAN GET TO DOCTORS' APPOINTMENTS. SHE SAID SHE TALKED WITH PRES [facility] AND WAS TOLD PT WOULD NOT BE ACCEPTED AT [facility], AND "THERE IS NO WAY I'M GOING TO BE APART FROM HIM IN OUR LAST YEARS." SHE SAID THE PLAN IS GOING TO BE FOR PT TO RETURN HOME. SON LANDON ALSO CONFIRMED DC PLAN IS HOME, AND THEY NEED THE PRESCRIPTION FOR THE LIFT. RECEIVED RX FOR THE LIFT, AND THEN FAXED THIS TO [facility] (PER FAMILY'S REQUEST).
--- NOTE | 2016-09-22 18:34 | NUR ---
Summary Pt. A/O. VS's stable. He is an assist x2 with FWW and gait belt. Pt. is max to total assist with hygiene and toileting cares. He has be incontinent of urine twice this shift. He has denied SOA and pain all shift. Pt. does have a flat affect. He takes meds whole w/o difficulty. Will pass on report to night guard.
[2016-09-22] MEDS: ATORVASTATIN 40 MG TABLET PO SCH (20:23)
--- NOTE | 2016-09-22 21:50 | NUR ---
Chart Check 24 hour chart check completed
[2016-09-23 05:07] LABS: BASOPHILS # (AUTO) 0.1 T/MM3 (0-0.2); BASOPHILS % (AUTO) 0.7 % (0-2); EOSINOPHILS # (AUTO) 0.2 T/MM3 (0-0.5); EOSINOPHILS % (AUTO) 2.2 % (0-4); HCT - HEMATOCRIT 31.2 % (41-53); HGB - HEMOGLOBIN 9.5 GM/DL (13.5-17.5); IMMATURE GRANULOCYTE # (AUTO) 0.01 T/MM3 (0.00-0.03); IMMATURE GRANULOCYTE % (AUTO) 0.1 % (0.0-0.5); LYMPHOCYTES # (AUTO) 1.6 T/MM3 (1-4.8); MEAN CORPUSCULAR HGB 27.9 UUG (26-34); MEAN CORPUSCULAR HGB CONC(MCHC 30.4 GM/DL (31-37); MEAN CORPUSCULAR VOLUME 91.8 UM3 (80-100); MEAN PLATELET VOLUME 9.1 UM3 (9.4-12.4); MONOCYTES # (AUTO) 0.7 T/MM3 (0-0.8); MONOCYTES % (AUTO) 9.3 % (0-9.0); NEUTROPHILS % (AUTO) 66.7 % (33-66); WBC - WHITE BLOOD COUNT 7.4 T/MM3 (4.5-11.0)
[2016-09-23 05:14] LABS: ALBUMIN 3.2 G/DL (3.5-5.0); ANION GAP 14 MEQ/L (5-15); BUN/CREATININE RATIO 19 RATIO (6-26); CALCIUM 8.6 MG/DL (8.4-10.2); CHLORIDE 105 MEQ/L (98-107); CO2 - CARBON DIOXIDE 27 MEQ/L (22-30); CREATININE 1.6 MG/DL (0.8-1.5); GLOMERULAR FILTRATION RATE 41; GLUCOSE 85 MG/DL (75-110); MAGNESIUM 2.3 MG/DL (1.6-2.3); PHOSPHORUS 4.9 MG/DL (2.5-4.5); POTASSIUM 3.8 MEQ/L (3.6-5); SODIUM 146 MEQ/L (134-144)
--- NOTE | 2016-09-23 05:28 | NUR ---
Summary Jimmy is a pleasant and cooperative gentleman .He is alert and oriented x three. He is able to make his needs known.He denies pain. His IV lock to his left hand is intact and flushes well , erythremia noted. SCD's bilaterally worn during the night.While in bed side rails up x two and bedalarms intact.He has been incontinent of bladder x two with hygiene and clothing management per staff of two. Attends and an insert used to manage urinary incontinence . Telemetry with sinus bradycardia and BBB. HRR, LSCTA , BS+.Dressing to right groin is intact w/out drainage and yellow bruise noted .
[2016-09-23 07:44] VITALS: BP 148/77; PULSE 53; TEMP 98.1; O2SAT 96
[2016-09-23] MEDS: MIDODRINE 10 MG TABLET PO SCH ×3 (08:50→17:23)
[2016-09-23] MEDS: DOCUSATE SODIUM 100 MG CAPSULE PO SCH ×2 (08:50→20:09)
[2016-09-23] MEDS: OMEGA-3 ACID ESTERS 1 G CAPSULE PO SCH (08:50)
[2016-09-23] MEDS: AMIODARONE 200 MG TABLET PO SCH (08:50)
[2016-09-23] MEDS: MULTIVITAMIN PLAIN TABLET PO SCH (08:51)
[2016-09-23] MEDS: CLOPIDOGREL 75 MG TABLET PO SCH (08:51)
[2016-09-23] MEDS: ASPIRIN 81 MG CHEWABLE TABLET PO SCH (08:51)
[2016-09-23] MEDS: POLYETHYL.GLYCOL 3350 PACKET 17gm PO SCH (08:51)
[2016-09-23 09:28] VITALS: PULSE 53; RESP 16
--- NOTE | 2016-09-23 09:43 | PNPDOC ---
MALLORIESHIRALUIS FERNANDO Jojo BENAVIDES 09/23/16 0925: Subjective Date DATE: 09/23/16 TIME: 09:20 Subjective Mr Galeana is seen this morning while eating breakfast. He is alert and oriented. States he is feeling much better than yesterday morning in which he was lightheaded and hypotensive. He feels like the IV fluid bolus. He received yesterday did help. He currently denies having any pain, dizziness, shortness of breath or GI complaints. Blood pressure this morning 148/77. Pulse remains bradycardic in the 50s. Objective Vital Signs Vital signs Vital Signs Date Time Temp Pulse Resp B/P Pulse Ox O2 Delivery O2 Flow Rate FiO2 09/23/16 07:44 98.1 53 148/77 96 Room Air 09/22/16 20:40 16 Telemetry Rhythm: Sinus Rhythm Height (Feet): 5 Height (Inches): 11.00 Weight (Kilograms): 85.500 General General Appearance: Alert, Orientated x 3, Cooperative, No Acute Distress Eyes (Brief) Eyes: FOUND: EOMI ENMT (Brief) ENMT: FOUND: mucosa moist, normal dentition, NOT FOUND: pharnyx erythema Neck (Brief) Neck: FOUND: midline, NOT FOUND: adenopathy, carotid bruits, tracheal deviation Respiratory (Brief) Respiratory: FOUND: clear all whelan, equal bilaterally, NOT FOUND: wheezes Cardiovascular (Brief) Cardiac: FOUND: regular rate, regular rhythm, NOT FOUND: murmur, pedal edema Capillary Refill: <2 sec Abdomen (Brief) Abdominal: FOUND: BS normo active x4, soft, NOT FOUND: distended, tender Lymphatic (Brief) Lymphatic: NOT FOUND: adenopathy Musculoskeletal (Brief) Musculoskeletal: NOT FOUND: tenderness Integumentary (Brief) Integumentary: FOUND: dry, pink, warm Neurologic (Brief) Neurological: FOUND: cranial 2-12 intact Psychiatric (Brief) Psychiatric: FOUND: alert, attentive, normal affect, oriented Laboratory Laboratory Laboratory Tests 09/22/16 04:39 09/23/16 04:41 Laboratory Tests 09/22/16 11:51 09/23/16 04:41 Assessment & Plan Problems: (1) Myopathy Status: Acute (2) Right sided weakness Status: Acute (3) Arterial ischemic stroke, MCA (middle cerebral artery), left, acute Onset Date: ~ 08/07/2016 Status: Acute Assessment & Plan: Had a repeat stroke to the same area on 09/06/16 (4) Nonsustained ventricular tachycardia Status: Resolved Assessment & Plan: Treated with amiodarone (5) Coronavirus infection Status: Resolved (6) Hyponatremia Status: Chronic (7) Syncope Status: Chronic (8) Orthostatic hypotension Status: Chronic (9) CAD (coronary artery disease) Status: Chronic Assessment & Plan: Heart catheterization on 09/14/[address] 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 Developing Machine Operator remains elevated at 1.6 Continue with Midodrine 10 milligrams 3 times a day for orthostatic hypotension Appreciate continued recommendations by cardiology team Continue Plavix, statin, ASA given recent ischemic strokes. Recheck Labs again tomorrow morning to follow blood counts, renal function and electrolytes Continue to encourage work with PT and OT for ongoing strengthening Code Status Full Code Hospital Course Summary Disclaimer The hospital course summary below is not to be considered part of the above Progress Note. Hospital Course Summary 09/21/16 Will repeat BMP tomorrow to f/u on Na - salt tabs have been dc'd. He's on an 1800 ml fluid restriction but he's been taking in less than that per day. Cardiology notes reviewed - cont Amiodarone. No further NSVT. Continue Plavix, statin, ASA given recent ischemic strokes. 09/22/16 Given Hypotension will discontinue fluid restriction. Spoke with cardiology agree with given 1 liter of IVF now. Sodium increased to 146 and Developing Machine Operator is elevated at 1.6. Likely dehydrated. Recheck CBC as the last Hgb was 9.4. Given one time dose of oral potassium supplementation Continue Midodrine 10mg three times a day Continue Plavix, statin, ASA given recent ischemic strokes. 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 Developing Machine Operator remains elevated at 1.6 Continue with Midodrine 10 milligrams 3 times a day for orthostatic hypotension Appreciate continued recommendations by cardiology team Continue Plavix, statin, ASA given recent ischemic strokes. Recheck Labs again tomorrow morning to follow blood counts, renal function and electrolytes Continue to encourage work with PT and OT for ongoing strengthening OFELIA MI MD 09/23/16 1922: LUIS FERNANDO NOBLES APRN Sep 23, 2016 09:25 OFELIA MI MD Sep 23, 2016 19:22
--- NOTE | 2016-09-23 11:31 | STDAILYN ---
Daily Note Date/Time DATE: 09/23/16 TIME: 11:14 Subjective Comment Jimmy WAS TREATED WHILE SITTING IN HIS WHEELCHAIR IN HIS PRIVATE ROOM. HE DENIED PAIN AND FATIGUE AT THE TIME. HE WAS UNABLE TO IDENTIFY TODAY'S DATE, BUT WAS AWARE THAT IT WAS NEAR THE BEGINNING OF SEPTEMBER. PATIENT WAS PLEASANT USUAL, COOPERATIVE, AND AGREEABLE TO HAVING FILLER FEEDER CLINICIAN, J LUIS, CONDUCT TREATMENT WHILE FIRE ENGINE OPERATOR CATHLEEN SUPERVISED. Orientations: x 3, Alert, Cooperative Chief Complaint: REPEAT CVA; DYSPHAGIA Pain: No Was Patient Education Provided: Yes Person(s) Educated: Patient Education Subject: Swallowing Strategies, Treatment Plan Instruction Understanding Demo: Pt. verbalizes understand Education Comment PATIENT WAS REMINDED OF HOW TO PERFORM CERTAIN LARYNGEAL EXERCISES, AND INFORMED OF HOW THEY STRENGTHEN THE MUSCLES FOR IMPROVED SWALLOW FUNCTION. PATIENT VERBALIZED UNDERSTANDING AND WAS AGREEABLE TO TREATMENT. *Speech Therapy Impressions PATIENT WAS SEATED UPRIGHT AT 90 DEGREES IN HIS WHEELCHAIR DURING THE SESSION. THIN WATER WAS PROVIDED BY THE CLINICIAN, WHICH THE PATIENT CONSUMED BETWEEN LARYNGEAL EXERCISES. PATIENT OCCASIONALLY REQUIRED A BREAK WHEN HE FATIGUED. HE COMPLETED THE FOLLOWING LINGUAL/LARYNGEAL EXERCISES: ALEX 10X: PATIENT WAS INSTRUCTED TO PRODUCE A SWALLOW WHILE LIGHTLY BITING HIS TONGUE. (PATIENT SUCCESSFULLY COMPLETED 10/10 TRIALS; A SWALLOW DELAY WAS OBSERVED ON 8/ 10 TRIALS, AND LARYNGEAL BOBBING WAS OBSERVED ON 1/10 TRIALS) TONGUE OUT 5X: PATIENT WAS INSTRUCTED TO PROTRUDE HIS TONGUE FAR/NARROW IT WOULD GO AND HOLD FOR 5 SECONDS. (PATIENT COMPLETED 5/5 TRIALS WITH ASSISTANCE FROM HIS LIPS) TONGUE PRESS OUT 5X: PATIENT WAS INSTRUCTED TO PROTRUDE HIS TONGUE AND RESIST A TONGUE DEPRESSOR FOR 5 SECONDS. (PATIENT SUCCESSFULLY COMPLETED 5/5 TRIALS. LINGUAL WEAKNESS NOTED ON 5/5 TRIALS ) TONGUE PRESS SIDE 5X EACH SIDE: PATIENT WAS INSTRUCTED TO PROTRUDE HIS TONGUE LATERALLY WHILE RESISTING A TONGUE DEPRESSOR FOR 5 SECONDS. (PATIENT COMPLETED 5/5 TRIALS ON EACH SIDE. INCREASED FATIGUE WAS NOTED WITH MORE TRIALS) TONGUE BACK 5X: PATIENT WAS INSTRUCTED TO RETRACT THE TIP OF HIS TONGUE POSTERIORLY FAR WAS IT WOULD GO AND HOLD IT FOR 5 SECONDS. (PATIENT SUCCESSFULLY COMPLETED 5/5 TRIALS) SHOWA 2X: THIS EXERCISE WAS MODIFIED TO DECREASE DIFFICULTY. PATIENT WAS INSTRUCTED TO HOLD A TONGUE DEPRESSOR ON THE ROOF OF HIS MOUTH WITH HIS TONGUE WHILE HE PRODUCED A SWALLOW. (PATIENT ATTEMPTED 2 TRIALS, BUT WAS UNSUCCESSFUL (I.E., SWALLOW NOT ELICITED) .THIS IS CONSISTENT WITH HIS PERFORMANCE ON /7) EFFORTFUL SWALLOW 5X: PATIENT WAS INSTRUCTED TO SQUEEZE THE MUSCLES IN HIS THROAT WHILE HE SWALLOWED. (PATIENT SUCCESSFULLY COMPLETED 5/5 TRIALS. 2/5 TRIALS WERE COMPLETED WITH THIN WATER, AND A SWALLOW DELAY WAS NOTED ON 3/5 TRIALS) SUSTAINED "AH" 1X: PATIENT WAS INSTRUCTED TO SAY "AH" AND HOLD IT FOR LONG AND LOUD HE COULD. (PATIENT SUSTAINED PHONATION FOR 12 SECONDS) HAWK EXERCISES 10X: PATIENT WAS INSTRUCTED TO REPEAT WORDS THAT CONTAINED /K/ IN FINAL POSITION OF WORDS WITH AN EXAGGERATED/FORCEFUL /K/. (PATIENT SUCCESSFULLY COMPLETED 9/10 TRIALS) ST Treatment Plan: Swallow Retraining ST Treatment Plan Frequency: three times per week Treatment Plan Duration: one week Plan of Care Comment: PATIENT WILL RECEIVE 2 MORE 30-MINUTE SESSIONS WITH SPEECH THERAPY TO COMPLETE LARYNGEAL EXERCISES. Start Treatment 1: 10:01 Stop Treatment 1: 10:32 Treatment Duration : ST Treatment Charge: Swallow Treatment Minutes of Individual Therapy: 31 ST FIM Comprehension Ability: 5 Supervision/Setup Social Interaction: 5 Supervision/Setup Expression Ability: 5 Supervision/Setup Swallowin Minimal Assistance J LUIS HAGEN Sep 23, 2016 11:17
[2016-09-23 13:41] VITALS: PULSE 56; RESP 16
--- NOTE | 2016-09-23 13:49 | NUR ---
SUMMARY PT A&O X3. TRANSFERS WITH ASSISTX1 AND GAIT BELT. PT FEEDS SELF AT MEALS. DENIES PAIN AT THIS TIME. PT ON TELE. SINUS LEXIE RHYTHM WITH BUNDLE BRANCH BLOCK NOTED. EXPIRATORY WHEEZES AUSCULTATED IN BILATERAL LOWER LOBES. DIMINISHED IN BILATERAL UPPER LOBES. ACTIVE BOWEL SOUNDS IN ALL QUADRANTS. DRESSING INTACT IN RIGHT GROIN. SANTIAGO HOSE IN PLACE ON BILATERAL LOWER EXTREMITIES. PT CONTINUES TO WORK WITH THERAPY AND MAKES NEEDS KNOWN.
--- NOTE | 2016-09-23 15:44 | NUR ---
CM THIS WORKER CALLED [facility] AT [phone]. VERIFIED THEY RECEIVED THE FAX FOR THE PRESCRIPTION FOR A LIFT. THIS WORKER CALLED PT'S -[facility] AT [phone]. LEFT A VOICEMAIL CONFIRMING THE PRESCRIPTION WAS FAXED AND RECEIVED AND ENCOURAGED TO CALL WITH ANY QUESTIONS/NEEDS.
[2016-09-23 16:00] VITALS: BP 152/79; PULSE 52; RESP 16; TEMP 98.2; O2SAT 98
--- NOTE | 2016-09-23 16:49 | PNPDOC ---
CINDY MEHTA ENGLISH COMPOSITION INSTRUCTOR 09/23/16 1645: Subjective Date DATE: 09/23/16 TIME: 16:42 Subjective Bernabe is in bed, many family at the bedside. He says he has had no dizziness today, however states that he doesn't feel very good after his nebulizer treatments. He denies chest pain, dyspnea or nausea. Objective Vital Signs Vital signs Vital Signs 09/23/16 09/23/16 09/23/16 09/23/16 07:44 09:28 10:56 10:56 Temp 98.1 Pulse 53 53 52 Resp 16 16 B/P 148/77 Pulse Ox 96 O2 Delivery Room Air 09/23/16 09/23/16 11:07 13:41 Pulse 52 56 Resp 16 Telemetry Rhythm: Sinus Rhythm Height (Feet): 5 Height (Inches): 11.00 Weight (Kilograms): 85.500 General Alert, Orientated x 3, Cooperative, No Acute Distress ENMT (Brief) mucosa moist Neck (Brief) NOT FOUND: JVD, carotid bruits Respiratory (Brief) clear all whelan, equal bilaterally, NOT FOUND: rales, wheezes Cardiovascular (Brief) pedal edema, regular rate, regular rhythm, NOT FOUND: murmur Abdomen (Brief) BS normo active x4, soft, NOT FOUND: tender Integumentary (Brief) dry, pink, warm Psychiatric (Brief) alert, attentive, oriented Laboratory Laboratory Laboratory Tests Test 09/22/16 04:39 09/22/16 11:51 09/23/16 04:41 Turbidity < 20 < 20 Sodium Level 146MEQ/L 146MEQ/L Potassium Level 3.4MEQ/L 3.8MEQ/L Chloride Level 105MEQ/L 105MEQ/L Carbon Dioxide Level 29MEQ/L 27MEQ/L Anion Gap 12MEQ/L 14MEQ/L Blood Urea Nitrogen 30.0MG/DL 31.0MG/DL Creatinine 1.6MG/DL 1.6MG/DL Glomerular Filtration Rate Calc 41 41 BUN/Creatinine Ratio 19RATIO 19RATIO Glucose Level 81MG/DL 85MG/DL Calculated Osmolality 286MOSM/KG 287MOSM/KG Calcium Level 8.4MG/DL 8.6MG/DL Icterus Index < 2 < 2 Chemistry Specimen Hemolysis < 15 18 White Blood Count 6.6T/MM3 7.4T/MM3 Red Blood Count 3.14M/MM3 3.40M/MM3 Hemoglobin 9.0GM/DL 9.5GM/DL Hematocrit 28.2% 31.2% Mean Corpuscular Volume 89.8UM3 91.8UM3 Mean Corpuscular Hemoglobin 28.7UUG 27.9UUG Mean Corpuscular Hemoglobin Concent 31.9GM/DL 30.4GM/DL RDW Standard Deviation 50.2FL 52.0FL Platelet Count 352T/MM3 387T/MM3 Mean Platelet Volume 9.0UM3 9.1UM3 Immature Granulocyte % (Auto) 0.6% 0.1% Neutrophils (%) (Auto) 69.6% 66.7% Lymphocytes (%) (Auto) 17.8% 21.0% Monocytes (%) (Auto) 9.3% 9.3% Eosinophils (%) (Auto) 1.5% 2.2% Basophils (%) (Auto) 1.2% 0.7% Absolute Immature Granulocyte (auto 0.04T/MM3 0.01T/MM3 Absolute Neutrophils (auto) 4.6T/MM3 5.0T/MM3 Absolute Lymphocytes (auto) 1.2T/MM3 1.6T/MM3 Absolute Monocytes (auto) 0.6T/MM3 0.7T/MM3 Absolute Eosinophils (auto) 0.1T/MM3 0.2T/MM3 Absolute Basophils (auto) 0.1T/MM3 0.1T/MM3 Phosphorus Level 4.9MG/DL Magnesium Level 2.3MG/DL Albumin 3.2G/DL Laboratory Tests 09/23/16 04:41 Laboratory Tests 09/23/16 04:41 Medications Current Medications Miscellaneous Medication (May use PRN orders) 1 PRN PRN MC ; Start 09/16/16 at 18:45 Acetaminophen (Tylenol Regular Strength) 325 mg Q5H PRN PO PAIN; Start 09/16/16 at 18:45 Aspirin (ASA) 81 mg DAILY PO Last administered on 09/23/16 08:51; Start at 09:00 Atorvastatin Calcium (LIPITOR 40 mg) 40 mg HS PO Last administered on 09/22/16 20:23; Start 09/16/16 at 22:00 Cabergoline (Dostinex) 0.25 mg TuSa@09 PO Last administered on 09/21/16 08:37; Start 09/18/16 at 09:00 Clopidogrel Bisulfate (Plavix) 75 mg DAILY PO Last administered on 09/23/16 08: 51; Start 09/17/16 at 09:00 Divalproex Sodium (Depakote) 250 mg BID PO Last administered on 09/17/16 19:55 ; Start 09/16/16 at 21:00; Stop 09/17/16 at 20:26; Status DC Docusate Sodium (Colace) 100 mg BID PO ; Start 09/16/16 at 21:00; Stop 09/17/16 at 17:32; Status DC Acetaminophen/ Hydrocodone Bitart ([place] 5/325) 1 tab Q6H PRN PO PAIN; Start at 18:45 Albuterol/ Ipratropium (Duoneb) 3 ml BID AEROSOL Last administered on 09/22/16 20:35; Start 09/16/16 at 21:00 Nitroglycerin (Nitrostat) 0.4 mg Q5MIN PRN SL CHEST PAIN; Start 09/16/16 at 18: 45 Polyethylene Glycol (Miralax) 17 g DAILY PO ; Start 09/17/16 at 09:00 Sodium Chloride (Salt Tab) 1 g BIDBS PO Last administered on 09/17/16 09:07; Start 09/16/16 at 19:30; Status Future Hold Multivitamins Therapeutic (Theragran) 1 tab DAILY PO Last administered on 08:51; Start 09/17/16 at 09:00 [id number] Ethyl Esters (Lovaza) 1 g DAILY PO Last administered on 09/23/16 08:50; Start 09/17/16 at 09:00 Ondansetron HCl (Zofran) 4 mg Q6H PRN PO ; Start 09/16/16 at 18:45 Midodrine (Proamatine) 10 mg 08,12,16 PO Last administered on 09/22/16 08:38; Start 09/17/16 at 08:00; Stop 09/22/16 at 09:02; Status DC Demeclocycline HCl (Declomycin) 300 mg BID/E PO Last administered on 09/22/16 06:30; Start 09/16/16 at 20:00; Status Future Hold Amiodarone HCl (Pacerone) 200 mg DAILY PO Last administered on 09/23/16 08:50; Start 09/17/16 at 09:00 Potassium Chloride (Kdur) 20 meq WB PO Last administered on 09/22/16 09:53; Start 09/22/16 at 08:45; Stop 09/23/16 at 07:33; Status DC Midodrine 10 mg 10 mg 08,12,16 PO Last administered on 09/23/16 12:10; Start at 12:00 Sodium Chloride (Normal Saline IV) 1,000 ml @ 500 mls/hr Q2H ONCE IV Last administered on 09/22/16 09:53; Start 09/22/16 at 09:00; Stop 09/22/16 at 10:59; Status DC Assessment & Plan Problems: (1) CAD (coronary artery disease) Status: Chronic Qualifiers: Coronary Disease-Associated Artery/Lesion type: bypass graft [place] vs. transplanted heart: [place] heart Associated angina: with unspecified angina Qualified Codes: I25.709 - Atherosclerosis of coronary artery bypass graft(s), unspecified, with unspecified angina pectoris Assessment & Plan: Medical management, Continue Atorvastatin. (2) S/P right coronary artery (RCA) stent placement Status: Acute Assessment & Plan: Plavix 75mg and Aspirin 81mg daily (3) Nonsustained ventricular tachycardia Status: Resolved Assessment & Plan: Amiodarone 200mg daily, monitor telemetry (4) Orthostatic hypotension Status: Chronic Assessment & Plan: Midodrine 10mg TID (5) Dyslipidemia Status: Chronic Assessment & Plan: Continue Atorvastatin Plan/Intensity of Service 09/17/16 CAD, S/P RCA Stent: Medical management, continue Atorvastatin. EKG prn chest pain. NSVT: Continue Amiodarone, monitor Telemetry. 09/20/16 No further VTach on telemetry. No cardiac complaint. continue to monitor telemetry. 09/21/16 Continues to progress well with therapy, he denies complaints. 09/22/16 Patient reports dizziness this morning, evidently had some orthostasis as well. Hypernatremic NA 146 today, give 1L of NS over 2 hours please. Continue to monitor BP and Midodrine dosage. 09/23/16 Denies dizziness, however appears fluid down. Na remains elevated at 146 and Creatinine remains 1.6. Standing BP 123/67. Will give NS @ 75mL x1 Thank you for allowing us to participate in this patients care. We will follow along with you. PRINCESS CRUZ MD 10/04/16 1031: Assessment & Plan Plan/Intensity of Service After examining the patient I agree with the above assessment. I am involved in the formulation of the patient's plan of care. CINDY MEHTA APRN Sep 23, 2016 16:45 PRINCESS CRUZ MD Oct 04, 2016 10:31
[2016-09-23] MEDS: ALBUTEROL/IPRATROPIUM INHAL. 2.5mg-0.5mg/3ml Neb. AEROSOL SCH (18:31)
[2016-09-23 18:33] VITALS: O2SAT 91
[2016-09-23] MEDS ORDERED: NORMAL SALINE 1,000 ML IV SCH (18:45)
--- NOTE | 2016-09-23 19:16 | NUR ---
SHIFT SUMMARY PT HAS BEEN PLEASANT AND COOPERATIVE. PT HAS BEEN OUT TO DINING ROOM FOR MEALS. PT PIVOT TRANSFERS TO WHEELCHAIR. HAS WORKED WITH THERAPY. PT IS CURRENTLY RESTING IN BED.
[2016-09-23 19:30] VITALS: BP 141/74; PULSE 56; RESP 16; TEMP 98.1; O2SAT 94
[2016-09-23] MEDS ORDERED: NORMAL SALINE 1,000 ML IV ONE (19:44)
--- NOTE | 2016-09-23 20:00 | NUR ---
CARE: PM care was given.Resting comfortably in bed. Oral meds taken w/out issue.1000cc ns was started per order infusing at 75 cc per/hour. His site in his left hand with erythema noted . He denies pain.SCD's to bilateral lower legs.SR up x two,bedalarms on and pt aware of call light on bedrail. Dressing to his right groin C/D/I. J.B. is alert oriented and coopertive with all cares.Able to make his needs known.
[2016-09-23] MEDS: ATORVASTATIN 40 MG TABLET PO SCH (20:09)
--- NOTE | 2016-09-23 22:54 | NUR ---
Chart Check 24 hour chart check completed
[2016-09-24 05:25] LABS: ANION GAP 9 MEQ/L (5-15); BUN/CREATININE RATIO 21 RATIO (6-26); CALCIUM 8.4 MG/DL (8.4-10.2); CHLORIDE 107 MEQ/L (98-107); CO2 - CARBON DIOXIDE 27 MEQ/L (22-30); CREATININE 1.7 MG/DL (0.8-1.5); GLOMERULAR FILTRATION RATE 38; GLUCOSE 87 MG/DL (75-110); POTASSIUM 3.6 MEQ/L (3.6-5); SODIUM 143 MEQ/L (134-144)
--- NOTE | 2016-09-24 05:46 | NUR ---
Summary Jimmy has slept well through the night even amid the interruptions for turning and changing of his attends. He continues to deny pain . IV infusing w/o issue.Pascale has been incontinent x two with max assist of two staff with clothing management and hygiene.
[2016-09-24 07:30] VITALS: O2SAT 98
[2016-09-24] MEDS: ALBUTEROL/IPRATROPIUM INHAL. 2.5mg-0.5mg/3ml Neb. AEROSOL SCH ×2 (07:30→19:12)
[2016-09-24 08:00] VITALS: BP 137/70; PULSE 52; RESP 18; TEMP 97.8; O2SAT 98
[2016-09-24] MEDS: MIDODRINE 10 MG TABLET PO SCH ×3 (08:54→16:03)
[2016-09-24] MEDS: POLYETHYL.GLYCOL 3350 PACKET 17gm PO SCH (08:55)
[2016-09-24] MEDS: DOCUSATE SODIUM 100 MG CAPSULE PO SCH ×2 (08:55→20:33)
[2016-09-24] MEDS: ASPIRIN 81 MG CHEWABLE TABLET PO SCH (08:55)
[2016-09-24] MEDS: OMEGA-3 ACID ESTERS 1 G CAPSULE PO SCH (08:55)
[2016-09-24] MEDS: CLOPIDOGREL 75 MG TABLET PO SCH (09:02)
[2016-09-24] MEDS: MULTIVITAMIN PLAIN TABLET PO SCH (09:03)
[2016-09-24] MEDS: AMIODARONE 200 MG TABLET PO SCH (09:05)
--- NOTE | 2016-09-24 09:46 | STDAILYN ---
Daily Note Date/Time DATE: 09/24/16 TIME: 09:34 Subjective Comment Jimmy WAS TREATED WHILE SITTING IN HIS WHEELCHAIR FOLLOWING BREAKFAST. HE DENIED ACUTE PAIN AND FATIGUE. PATIENT'S RN AND TAG AND LABEL CUTTER WERE PRESENT DURING THE SESSION TO GIVE PATIENT HIS MEDS. PATIENT WAS AGREEABLE TO HAVING FILAMENT WELDER CLINICIAN, J LUIS, CONDUCT TREATMENT WHILE SUPERINTENDENT TESTS NIKKI SUPERVISED. Orientations: x 3, Alert, Cooperative Chief Complaint: REPEAT CVA; DYSPHAGIA Pain: No Was Patient Education Provided: Yes Person(s) Educated: Patient Education Subject: Swallowing Strategies, Treatment Plan Education Comment PATIENT WAS REMINDED OF HOW TO PERFORM CERTAIN LINGUAL AND LARYNGEAL EXERCISES. PATIENT VERBALIZED UNDERSTANDING AND CORRECTLY PERFORMED THE EXERCISES. HE WAS AGREEABLE TO TREATMENT. *Speech Therapy Impressions PATIENT WAS SEATED UPRIGHT AT 90 DEGREES IN HIS WHEELCHAIR DURING THE SESSION. THIN WATER WAS PROVIDED BY THE CLINICIAN, WHICH THE PATIENT CONSUMED WITH HIS MEDS AND BETWEEN LARYNGEAL EXERCISES. COUGH RESPONSE WAS NOTED 2X WITH MEDS, BUT VOCAL QUALITY WAS DRY. PATIENT REPORTED LARGER PILL GETTING STUCK IN HIS THROAT. HE WAS INSTRUCTED TO TAKE A SIP OF WATER AND PERFORM THE EFFORTFUL SWALLOW, AFTER WHICH PATIENT REPORTED PILL HAD CLEARED. PATIENT PATIENT OCCASIONALLY REQUIRED A BREAK WHEN HE FATIGUED. HE COMPLETED THE FOLLOWING LINGUAL/LARYNGEAL EXERCISES: ALEX 8X: PATIENT WAS INSTRUCTED TO PRODUCE A SWALLOW WHILE LIGHTLY BITING HIS TONGUE. (PATIENT SUCCESSFULLY COMPLETED THIS EXERCISE 8X; A SWALLOW DELAY WAS OBSERVED ON 2/8 TRIALS, AND LARYNGEAL BOBBING WAS OBSERVED ON 2/8 TRIALS) TONGUE PRESS OUT 5X: PATIENT WAS INSTRUCTED TO PROTRUDE HIS TONGUE AND RESIST A TONGUE DEPRESSOR FOR 5 SECONDS. (PATIENT SUCCESSFULLY COMPLETED 5/5 TRIALS. LINGUAL WEAKNESS NOTED ON 5/5 TRIALS ) TONGUE PRESS SIDE 5X EACH SIDE: PATIENT WAS INSTRUCTED TO PROTRUDE HIS TONGUE LATERALLY WHILE RESISTING A TONGUE DEPRESSOR FOR 5 SECONDS. (PATIENT COMPLETED 5/5 TRIALS ON EACH SIDE. INCREASED FATIGUE WAS NOTED WITH MORE TRIALS) TONGUE BACK 5X: PATIENT WAS INSTRUCTED TO RETRACT THE TIP OF HIS TONGUE POSTERIORLY FAR WAS IT WOULD GO AND HOLD IT FOR 5 SECONDS. (PATIENT SUCCESSFULLY COMPLETED 5/5 TRIALS) SHOWA 2X: THIS EXERCISE WAS MODIFIED TO DECREASE DIFFICULTY. PATIENT WAS INSTRUCTED TO HOLD A TONGUE DEPRESSOR ON THE ROOF OF HIS MOUTH WITH HIS TONGUE WHILE HE PRODUCED A SWALLOW. (PATIENT ATTEMPTED 2 TRIALS, BUT WAS UNSUCCESSFUL (I.E., SWALLOW NOT ELICITED) .THIS IS CONSISTENT WITH HIS PERFORMANCE ON 09/23) EFFORTFUL SWALLOW 5X: PATIENT WAS INSTRUCTED TO SQUEEZE THE MUSCLES IN HIS THROAT WHILE HE SWALLOWED. (PATIENT SUCCESSFULLY COMPLETED 5/5 TRIALS. 2/5 TRIALS WERE COMPLETED WITH THIN WATER. NO SWALLOW DELAY NOTED) SUSTAINED "AH" 1X: PATIENT WAS INSTRUCTED TO SAY "AH" AND HOLD IT FOR LONG AND LOUD HE COULD. (PATIENT SUSTAINED PHONATION FOR 14 SECONDS. CLEAR/DRY AND FORCEFUL VOCAL QUALITY OBSERVED) HAWK EXERCISES 10X: PATIENT WAS INSTRUCTED TO REPEAT WORDS THAT CONTAINED /K/ IN FINAL POSITION OF WORDS WITH AN EXAGGERATED/FORCEFUL /K/. (PATIENT SUCCESSFULLY COMPLETED 10/10 TRIALS) ST Treatment Plan: Swallow Retraining ST Treatment Plan Frequency: three times per week Treatment Plan Duration: one week Plan of Care Comment: CONTINUE PLAN OF CARE Start Treatment 1: 09:00 Stop Treatment 1: 09:30 Treatment Duration : ST Treatment Charge: Swallow Treatment Minutes of Individual Therapy: 30 ST FIM Comprehension Ability: 5 Supervision/Setup Social Interaction: 5 Supervision/Setup Expression Ability: 5 Supervision/Setup Swallowin Minimal Assistance J LUIS HAGEN Sep 24, 2016 09:40
[2016-09-24 09:55] VITALS: PULSE 52; RESP 18
--- NOTE | 2016-09-24 12:32 | NUR ---
Nutrition Risk F/U Diet Order: Cardiac Dysphagia 07/21" chopped meat with regular liquids Pt continues to receive and enjoy 2% milk and mighty shakes with each meal. Intake is now 90-100% however pt only had soup on his lunch tray besides the mighty shake and milk. RD offered to get pt additional food and made suggestions however pt declined. Mighty shake and 2% milk alone provides pt with 420 calories and 17 gm of protein per meal; 1260 calories and 51 gm [address] per day. RD available at ext [phone]
--- NOTE | 2016-09-24 14:12 | PNPDOC ---
CINDY MEHTA UTILITY LOCATOR 09/24/16 1410: Subjective Date DATE: 09/24/16 TIME: 14:07 Subjective taylor is in bed, just returned from the bathroom with therapy. He denies chest pain or palpitations, dyspnea or dizziness when up out of bed. Objective Vital Signs Vital signs Vital Signs 09/24/16 09/24/16 09/24/16 09/24/16 07:30 07:30 07:38 08:00 Temp 97.8 Pulse 52 52 52 Resp 16 18 B/P 137/70 Pulse Ox 98 98 O2 Delivery Room Air 09/24/16 09:55 Pulse 52 Resp 18 Telemetry Rhythm: Sinus Rhythm Height (Feet): 5 Height (Inches): 11.00 Weight (Kilograms): 85.500 General Alert, Orientated x 3, Cooperative ENMT (Brief) mucosa moist Neck (Brief) NOT FOUND: JVD, carotid bruits Respiratory (Brief) clear all whelan, equal bilaterally, NOT FOUND: rales, wheezes Cardiovascular (Brief) pedal edema, regular rate, regular rhythm, NOT FOUND: murmur Abdomen (Brief) BS normo active x4 Integumentary (Brief) dry, pink, warm Psychiatric (Brief) alert, attentive, oriented Laboratory Laboratory Laboratory Tests Test 09/23/16 04:41 09/24/16 04:36 White Blood Count 7.4T/MM3 Red Blood Count 3.40M/MM3 Hemoglobin 9.5GM/DL Hematocrit 31.2% Mean Corpuscular Volume 91.8UM3 Mean Corpuscular Hemoglobin 27.9UUG Mean Corpuscular Hemoglobin Concent 30.4GM/DL RDW Standard Deviation 52.0FL Platelet Count 387T/MM3 Mean Platelet Volume 9.1UM3 Immature Granulocyte % (Auto) 0.1% Neutrophils (%) (Auto) 66.7% Lymphocytes (%) (Auto) 21.0% Monocytes (%) (Auto) 9.3% Eosinophils (%) (Auto) 2.2% Basophils (%) (Auto) 0.7% Absolute Immature Granulocyte (auto 0.01T/MM3 Absolute Neutrophils (auto) 5.0T/MM3 Absolute Lymphocytes (auto) 1.6T/MM3 Absolute Monocytes (auto) 0.7T/MM3 Absolute Eosinophils (auto) 0.2T/MM3 Absolute Basophils (auto) 0.1T/MM3 Turbidity < 20 < 20 Sodium Level 146MEQ/L 143MEQ/L Potassium Level 3.8MEQ/L 3.6MEQ/L Chloride Level 105MEQ/L 107MEQ/L Carbon Dioxide Level 27MEQ/L 27MEQ/L Anion Gap 14MEQ/L 9MEQ/L Blood Urea Nitrogen 31.0MG/DL 35.0MG/DL Creatinine 1.6MG/DL 1.7MG/DL Glomerular Filtration Rate Calc 41 38 BUN/Creatinine Ratio 19RATIO 21RATIO Glucose Level 85MG/DL 87MG/DL Calculated Osmolality 287MOSM/KG 282MOSM/KG Calcium Level 8.6MG/DL 8.4MG/DL Phosphorus Level 4.9MG/DL Magnesium Level 2.3MG/DL Icterus Index < 2 < 2 Albumin 3.2G/DL Chemistry Specimen Hemolysis 18 < 15 Laboratory Tests 09/24/16 04:36 Medications Current Medications Miscellaneous Medication (May use PRN orders) 1 PRN PRN MC ; Start 09/16/16 at 18:45 Acetaminophen (Tylenol Regular Strength) 325 mg Q5H PRN PO PAIN; Start 09/16/16 at 18:45 Aspirin (ASA) 81 mg DAILY PO Last administered on 09/24/16 08:55; Start at 09:00 Atorvastatin Calcium (LIPITOR 40 mg) 40 mg HS PO Last administered on 09/23/16 20:09; Start 09/16/16 at 22:00 Cabergoline (Dostinex) 0.25 mg TuSa@09 PO Last administered on 09/21/16 08:37; Start 09/18/16 at 09:00 Clopidogrel Bisulfate (Plavix) 75 mg DAILY PO Last administered on 09/24/16 09 :02; Start 09/17/16 at 09:00 Divalproex Sodium (Depakote) 250 mg BID PO Last administered on 09/17/16 19:55 ; Start 09/16/16 at 21:00; Stop 09/17/16 at 20:26; Status DC Docusate Sodium (Colace) 100 mg BID PO ; Start 09/16/16 at 21:00; Stop 09/17/16 at 17:32; Status DC Acetaminophen/ Hydrocodone Bitart ([place] 5/325) 1 tab Q6H PRN PO PAIN; Start at 18:45 Albuterol/ Ipratropium (Duoneb) 3 ml BID AEROSOL Last administered on 07:30; Start 09/16/16 at 21:00 Nitroglycerin (Nitrostat) 0.4 mg Q5MIN PRN SL CHEST PAIN; Start 09/16/16 at 18: 45 Polyethylene Glycol (Miralax) 17 g DAILY PO Last administered on 09/24/16 08: 55; Start 09/17/16 at 09:00 Sodium Chloride (Salt Tab) 1 g BIDBS PO Last administered on 09/17/16 09:07; Start 09/16/16 at 19:30; Status Future Hold Multivitamins Therapeutic (Theragran) 1 tab DAILY PO Last administered on 09:03; Start 09/17/16 at 09:00 Ygddr-3-[id number] Ethyl Esters (Lovaza) 1 g DAILY PO Last administered on 09/24/16 08:55; Start 09/17/16 at 09:00 Ondansetron HCl (Zofran) 4 mg Q6H PRN PO ; Start 09/16/16 at 18:45 Midodrine (Proamatine) 10 mg 08,12,16 PO Last administered on 09/22/16 08:38; Start 09/17/16 at 08:00; Stop 09/22/16 at 09:02; Status DC Demeclocycline HCl (Declomycin) 300 mg BID/E PO Last administered on 09/22/16 06:30; Start 09/16/16 at 20:00; Status Future Hold Amiodarone HCl (Pacerone) 200 mg DAILY PO Last administered on 09/24/16 09:05 ; Start 09/17/16 at 09:00 Potassium Chloride (Kdur) 20 meq WB PO Last administered on 09/22/16 09:53; Start 09/22/16 at 08:45; Stop 09/23/16 at 07:33; Status DC Midodrine 10 mg 10 mg 08,12,16 PO Last administered on 09/24/16 12:21; Start 09/22/16 at 12:00 Sodium Chloride (Normal Saline IV) 1,000 ml @ 75 mls/hr [id number] ONCE IV Last administered on 09/23/16t 20:08; Start 09/23/16 at 19:44; Stop 09/24/16 at 09:03; Status DC Assessment & Plan Problems: (1) CAD (coronary artery disease) Status: Chronic Qualifiers: Coronary Disease-Associated Artery/Lesion type: bypass graft [place] vs. transplanted heart: [place] heart Associated angina: with unspecified angina Qualified Codes: I25.709 - Atherosclerosis of coronary artery bypass graft(s), unspecified, with unspecified angina pectoris Assessment & Plan: Medical management, Continue Atorvastatin. (2) S/P right coronary artery (RCA) stent placement Status: Acute Assessment & Plan: Plavix 75mg and Aspirin 81mg daily (3) Nonsustained ventricular tachycardia Status: Resolved Assessment & Plan: Amiodarone 200mg daily, monitor telemetry (4) Orthostatic hypotension Status: Chronic Assessment & Plan: Midodrine 10mg TID (5) Dyslipidemia Status: Chronic Assessment & Plan: Continue Atorvastatin Plan/Intensity of Service 09/17/16 CAD, S/P RCA Stent: Medical management, continue Atorvastatin. EKG prn chest pain. NSVT: Continue Amiodarone, monitor Telemetry. 09/20/16 No further VTach on telemetry. No cardiac complaint. continue to monitor telemetry. 09/21/16 Continues to progress well with therapy, he denies complaints. 09/22/16 Patient reports dizziness this morning, evidently had some orthostasis as well. Hypernatremic NA 146 today, give 1L of NS over 2 hours please. Continue to monitor BP and Midodrine dosage. 09/23/16 Denies dizziness, however appears fluid down. Na remains elevated at 146 and Creatinine remains 1.6. Standing BP 123/67. Will give NS @ 75mL x1 09/24/16 He denies any symptoms. Na 143 today, creatinine 1.7, continue to monitor. Measure and treat standing BP only Thank you for allowing us to participate in this patients care. We will follow along with you. PRINCESS CRUZ MD 10/04/16 1401: Assessment & Plan Plan/Intensity of Service After examining the patient I agree with the above assessment. I am involved in the formulation of the patient's plan of care. CINDY MEHTA UTILITY LOCATOR Sep 24, 2016 14:10 PRINCESS CRUZ MD Oct 04, 2016 14:01
[2016-09-24 15:48] VITALS: BP 162/86; PULSE 55; RESP 20; TEMP 98; O2SAT 95
--- NOTE | 2016-09-24 18:10 | NUR ---
SHIFT SUMMARY Pt has been in a good mood, flat affect, pleasant, compliant with medications, Pt speech is clear and appropriate, he is able to verbalize needs. He had input of NS of 200.87 mL this shift. He now has an IV lock on Left hand. Pt came out to the dining room for all meals. He uses call light appropriately. He transfers with assistance of 2 pivot to .
[2016-09-24 19:12] VITALS: O2SAT 98
[2016-09-24 19:59] VITALS: BP 145/73; PULSE 50; RESP 18; TEMP 98.1; O2SAT 96
[2016-09-24] MEDS: ATORVASTATIN 40 MG TABLET PO SCH (20:33)
[2016-09-25] VITALS (7 sets, daily range): BP systolic 91–132; BP diastolic 60–68; PULSE 48–79; RESP 16–20; TEMP 98.1–98.5; O2SAT 91–97
--- NOTE | 2016-09-25 04:20 | NUR ---
STATUS Patient required mod assist of 2 for toilet transfer and bed transfer. Was checked on rounds and has been dry so far. No incontinence this shift so far. Meds whole with water. Is repositioned with pillows q 2 hours. Noted spot on Right arm that appeared to be a scab that got bumped. Is not a skin tear. Sm. amt of bleeding at this site, but stopped quickly. Bandaid applied to the site.
--- NOTE | 2016-09-25 06:00 | NUR ---
SUMMARY Patient was incontinent of urine 1x, no bladder accidents, continent of bowel with total assist for all hygiene cares and dressing. Transfers with 2 person mod-max assist. IV patent, flushed. Dressing intact in R groin. Barrier cream to rakesh area following cares. Repositioned in bed q 2 hrs. Cooperative, oriented, but does not choose to tell staff when he needs to use bathroom. He goes in his pad, and then staff finds it when we round on him. Takes meds whole with water.
[2016-09-25] MEDS: POLYETHYL.GLYCOL 3350 PACKET 17gm PO SCH (09:00)
[2016-09-25] MEDS: DOCUSATE SODIUM 100 MG CAPSULE PO SCH ×2 (09:00→21:35)
[2016-09-25] MEDS: ALBUTEROL/IPRATROPIUM INHAL. 2.5mg-0.5mg/3ml Neb. AEROSOL SCH ×2 (09:15→19:48)
[2016-09-25] MEDS: CABERGOLINE 0.5 MG TABLET PO SCH (09:26)
[2016-09-25] MEDS: CLOPIDOGREL 75 MG TABLET PO SCH (09:26)
[2016-09-25] MEDS: AMIODARONE 200 MG TABLET PO SCH (09:26)
[2016-09-25] MEDS: MULTIVITAMIN PLAIN TABLET PO SCH (09:27)
[2016-09-25] MEDS: MIDODRINE 10 MG TABLET PO SCH ×3 (09:27→16:56)
[2016-09-25] MEDS: OMEGA-3 ACID ESTERS 1 G CAPSULE PO SCH (09:27)
[2016-09-25] MEDS: ASPIRIN 81 MG CHEWABLE TABLET PO SCH (09:27)
--- NOTE | 2016-09-25 11:53 | PNPDOC ---
IRU Subjective Date DATE: 09/24/16 TIME: 19:51 Subjective Pt is relaxed, comfortable. DId work with therapy and ate in commons. Exam done 09/24/16 evening. IRU Objective Vital Signs Vital signs Vital Signs Date Time Temp Pulse Resp B/P Pulse Ox O2 Delivery O2 Flow Rate FiO2 09/25/16 09:22 48 09/25/16 09:15 16 09/25/16 08:14 98.1 91/60 97 Room Air Telemetry Rhythm: Sinus Rhythm Height (Feet): 5 Height (Inches): 11.00 Weight (Kilograms): 85.500 General General Appearance: Alert, Orientated x 2 Respiratory (Brief) Respiratory: FOUND: clear all whelan, equal bilaterally, NOT FOUND: rales Cardiovascular (Brief) Cardiac: FOUND: pedal edema (trace), regular rate Capillary Refill: <2 sec Laboratory Laboratory Laboratory Tests Test 09/24/16 04:36 Turbidity < 20 Sodium Level 143MEQ/L Potassium Level 3.6MEQ/L Chloride Level 107MEQ/L Carbon Dioxide Level 27MEQ/L Anion Gap 9MEQ/L Blood Urea Nitrogen 35.0MG/DL Creatinine 1.7MG/DL Glomerular Filtration Rate Calc 38 BUN/Creatinine Ratio 21RATIO Glucose Level 87MG/DL Calculated Osmolality 282MOSM/KG Calcium Level 8.4MG/DL Icterus Index < 2 Chemistry Specimen Hemolysis < 15 Assessment & Plan Problems: (1) Orthostatic hypotension Status: Chronic Assessment & Plan: Midodrine per cardiology. (2) CAD (coronary artery disease) Status: Chronic Assessment & Plan: medical following. (3) Acute ischemic stroke Status: Acute Assessment & Plan: Pt is stable, medical following. PT and OT working with residual strength adn coordination loss. (4) Myopathy Status: Acute Assessment & Plan: PT and OT have POC to cont with strengthening and safety awareness. (5) Hyponatremia Status: Chronic Assessment & Plan: medical management. Code Status Full Code Interventions to Obtain Goals PT Treatment Plan: Therapeutic Exercise, Gait Training, Functional Activities , Patient/Family Education, Balance/Proprioception OT Treatment Plan: ADL's (basic care), Ther. Exercise for ADL's, UE Functional Training, Pt./Family Education ST Treatment Plan: Swallow Retraining Hospital Course Summary Disclaimer The hospital course summary below is not to be considered part of the above Progress Note. Hospital Course Summary 09/21/16 Will repeat BMP tomorrow to f/u on Na - salt tabs have been dc'd. He's on an 1800 ml fluid restriction but he's been taking in less than that per day. Cardiology notes reviewed - cont Amiodarone. No further NSVT. Continue Plavix, statin, ASA given recent ischemic strokes. 09/22/16 Given Hypotension will discontinue fluid restriction. Spoke with cardiology agree with given 1 liter of IVF now. Sodium increased to 146 and Straddle Bug Driver is elevated at 1.6. Likely dehydrated. Recheck CBC as the last Hgb was 9.4. Given one time dose of oral potassium supplementation Continue Midodrine 10mg three times a day Continue Plavix, statin, ASA given recent ischemic strokes. 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 Straddle Bug Driver remains elevated at 1.6 Continue with Midodrine 10 milligrams 3 times a day for orthostatic hypotension Appreciate continued recommendations by cardiology team Continue Plavix, statin, ASA given recent ischemic strokes. Recheck Labs again tomorrow morning to follow blood counts, renal function and electrolytes Continue to encourage work with PT and OT for ongoing strengthening DYAN WEST MD Sep 25, 2016 11:53
--- NOTE | 2016-09-25 19:49 | NUR ---
Summary Pt. A/O. VS's stable. He is a pivot transfer x2 with FWW and gait belt. Pt. is total assist clothing management and toileting cares. He has be incontinent of both urine and bowel twice this shift. He has denied SOA, nausea, dizziness and pain all shift. Pt. does have a flat affect. He takes meds whole w/o difficulty. Nick hose are applied. Report has been past on to restaurant shift supervisor.
[2016-09-25] MEDS: ATORVASTATIN 40 MG TABLET PO SCH (21:35)
--- NOTE | 2016-09-26 04:42 | NUR ---
CHART CHECK 24hr chart check completed
[2016-09-26 05:26] LABS: ANION GAP 8 MEQ/L (5-15); BUN/CREATININE RATIO 23 RATIO (6-26); CALCIUM 8.3 MG/DL (8.4-10.2); CHLORIDE 105 MEQ/L (98-107); CO2 - CARBON DIOXIDE 28 MEQ/L (22-30); CREATININE 1.4 MG/DL (0.8-1.5); GLOMERULAR FILTRATION RATE 48; GLUCOSE 87 MG/DL (75-110); POTASSIUM 3.6 MEQ/L (3.6-5); SODIUM 141 MEQ/L (134-144)
--- NOTE | 2016-09-26 07:31 | NUR ---
SHIFT SUMMARY Patient was assisted with 2 staff to transfer to w/c and to toilet. He had a bm before bed. Incontinent of urine during night. Was changed in bed with 2 staff. He reports he is aware of being wet, but he chooses not to tell staff that he needs to go, or that he is wet. He waits to be asked to tell staff. Meds taken without difficulty. Swallows them whole with water. IV patent. Asymptomatic.
[2016-09-26 08:19] VITALS: BP 102/62; PULSE 52; RESP 18; TEMP 97.9; O2SAT 95
[2016-09-26 08:30] VITALS: PULSE 52; RESP 18
[2016-09-26] MEDS: AMIODARONE 200 MG TABLET PO SCH (08:37)
[2016-09-26] MEDS: OMEGA-3 ACID ESTERS 1 G CAPSULE PO SCH (08:37)
[2016-09-26] MEDS: MULTIVITAMIN PLAIN TABLET PO SCH (08:37)
[2016-09-26] MEDS: ASPIRIN 81 MG CHEWABLE TABLET PO SCH (08:37)
[2016-09-26] MEDS: CLOPIDOGREL 75 MG TABLET PO SCH (08:37)
[2016-09-26] MEDS: DOCUSATE SODIUM 100 MG CAPSULE PO SCH ×2 (08:38→20:53)
[2016-09-26] MEDS: POLYETHYL.GLYCOL 3350 PACKET 17gm PO SCH (08:38)
[2016-09-26] MEDS: MIDODRINE 10 MG TABLET PO SCH ×3 (08:38→16:51)
[2016-09-26] MEDS: ALBUTEROL/IPRATROPIUM INHAL. 2.5mg-0.5mg/3ml Neb. AEROSOL SCH ×2 (09:57→18:33)
--- NOTE | 2016-09-26 16:41 | PNPDOC ---
BETTIE WILSON HOME HEALTH CLINICAL LIAISON 09/26/16 1639: Subjective Date DATE: 09/26/16 TIME: 16:35 Subjective Mr. Galeana is seen today in follow up. Reports that he is feeling well. Has no c/o. Chart is reviewed. Remains bradycardic. Objective Vital Signs Vital signs Vital Signs Date Time Temp Pulse Resp B/P Pulse Ox O2 Delivery O2 Flow Rate FiO2 09/26/16 10:07 52 09/26/16 09:58 16 09/26/16 08:19 97.9 102/62 95 Room Air Telemetry Rhythm: Sinus Bradycardia (Last EKG concerning for junctional rhythm) Height (Feet): 5 Height (Inches): 11.00 Weight (Kilograms): 85.500 General General Appearance: Alert, Cooperative, No Acute Distress Comments Pale, mildly icteric. Eyes (Brief) Eyes: FOUND: EOMI, PERRL, NOT FOUND: scleral icterus Neck (Brief) Neck: FOUND: midline, NOT FOUND: JVD, nuchal rigidity, spasm Respiratory (Brief) Respiratory: FOUND: clear all whelan, equal bilaterally, symmetrical, NOT FOUND : rales, wheezes Cardiovascular (Brief) Cardiac: FOUND: pedal edema (Trace), regular rate, regular rhythm, NOT FOUND: murmur Abdomen (Brief) Abdominal: FOUND: BS normo active x4, soft, NOT FOUND: distended, tender Extremities (Brief) Extremity : Side: Bilateral Extremity Finding: FOUND: edema (Trace) Integumentary (Brief) Integumentary: FOUND: dry, warm Laboratory Laboratory Laboratory Tests 09/26/16 04:39 Assessment & Plan Problems: (1) Arterial ischemic stroke, MCA (middle cerebral artery), left, acute Onset Date: ~ 08/07/2016 Status: Acute Assessment & Plan: Had a repeat stroke to the same area on 09/06/16 (2) Myopathy Status: Acute (3) Right sided weakness Status: Acute (4) Nonsustained ventricular tachycardia Status: Resolved Assessment & Plan: Treated with amiodarone (5) Coronavirus infection Status: Resolved (6) Hyponatremia Status: Chronic (7) Syncope Status: Chronic (8) Orthostatic hypotension Status: Chronic (9) CAD (coronary artery disease) Status: Chronic Assessment & Plan: Heart catheterization on 09/14/[address] 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 Continues with therapy. I was able to observe him wheeling his wheelchair independently. Nursing staff reports a flat affect- need to monitor for depression. Continue ASA, Plavix, Statin. Remains orthostatic- On midodrine. No BP meds otherwise. Hx of NSVT, but has been bradycardic with junctional rhythm. Hold Amiodarone. Repeat EKG in AM. CV following. Recent labs reviewed. Salt tabs on hold currently. Code Status Full Code Hospital Course Summary Disclaimer The hospital course summary below is not to be considered part of the above Progress Note. Hospital Course Summary 09/21/16 Will repeat BMP tomorrow to f/u on Na - salt tabs have been dc'd. He's on an 1800 ml fluid restriction but he's been taking in less than that per day. Cardiology notes reviewed - cont Amiodarone. No further NSVT. Continue Plavix, statin, ASA given recent ischemic strokes. 09/22/16 Given Hypotension will discontinue fluid restriction. Spoke with cardiology agree with given 1 liter of IVF now. Sodium increased to 146 and Information Writer is elevated at 1.6. Likely dehydrated. Recheck CBC as the last Hgb was 9.4. Given one time dose of oral potassium supplementation Continue Midodrine 10mg three times a day Continue Plavix, statin, ASA given recent ischemic strokes. 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 Information Writer remains elevated at 1.6 Continue with Midodrine 10 milligrams 3 times a day for orthostatic hypotension Appreciate continued recommendations by cardiology team Continue Plavix, statin, ASA given recent ischemic strokes. Recheck Labs again tomorrow morning to follow blood counts, renal function and electrolytes Continue to encourage work with PT and OT for ongoing strengthening 09/26/16- Pt reports feeling well. Continues with therapy. I was able to observe him wheeling his wheelchair independently. Nursing staff reports a flat affect- need to monitor for depression. Continue ASA, Plavix, Statin. Remains orthostatic- On midodrine. No BP meds otherwise. Hx of NSVT, but has been bradycardic with junctional rhythm. Hold Amiodarone. Repeat EKG in AM. CV following. Recent labs reviewed. Salt tabs on hold currently. AUTUMN FAJARDO MD 09/26/16 2932: Assessment & Plan Assessment I have independently evaluated and examined this patient. I reviewed the chart, the patient's history, and the HOME HEALTH CLINICAL LIAISON's documented findings as above. We discussed and formulated the assessment and plan as above with additions as below: Mr. Galeana reports he is feeling okay. He is walking minimally but denies lightheadedness or dizziness when he stands. He denied dyspnea, chest pain, palpitations, nausea or constipation. Appetite is good. On examination respirations nonlabored and air flow is good. There are faint crackles at the left base. Cardiac rhythm is regular. There is generalized pallor. He has no lower extremity edema and SANTIAGO hose are on. Serum sodium has been stable/improved with addition of demeclocycline. Salt tablets have been on hold-we'll discontinue at this time. We'll discuss bradycardia with Dr. Adkins tomorrow. Blood pressure low normal, may require additional IV fluids. Minor orthostasis present with last lying/standing blood pressures. Plan/Intensity of Service Laboratory data reviewed, medications modified. BETTIE WILSON APRN Sep 26, 2016 16:39 AUTUMN FAJARDO MD Sep 26, 2016 17:52
[2016-09-26 16:49] VITALS: BP 120/72; PULSE 52; RESP 16; TEMP 98.1; O2SAT 97
[2016-09-26 18:32] VITALS: O2SAT 99
[2016-09-26 18:53] LABS: BLOOD, URINE NEGATIVE (NEGATIVE); COLOR,URINE YELLOW (YELLOW); LEUKOCYTE ESTERASE ,URINE NEGATIVE (NEGATIVE); NITRITE,URINE NEGATIVE (NEGATIVE); UROBILINOGEN,URINE 0.2 EU/DL (NORMAL)
--- NOTE | 2016-09-26 19:32 | NUR ---
Summary Pt. A/O. VS's stable. He is a pivot transfer x12 with FWW and gait belt. He has been slowly gaining strength and improving with transfers. Pt. is total assist clothing management and toileting cares. He has be incontinent of urine three times this shift. He has denied SOA, nausea, dizziness and pain all shift. Pt. does have a flat affect. He takes meds whole w/o difficulty. Nick hose are applied. Pt. is currently resting in bed. Alarm is on. Report has been past on to thermocouple tester.
[2016-09-26] MEDS: ATORVASTATIN 40 MG TABLET PO SCH (20:53)
[2016-09-26 21:00] VITALS: PULSE 52; RESP 16
--- NOTE | 2016-09-26 22:00 | NUR ---
Assessment: Pascale is a quiet and reserved gentleman.He has been cooperative with all cares.He is alert and oriented x three.He has denied pain.He has been incontinent of bladder with staff managing hygiene and clothing. Side rails up x two ,bedalarms intact and bilateral SCD;s on.Two staff manage position changes.His IV lock remains intact and flushes. His telemetry reads BBB with Sinus Elieser.He is a stand and pivot with one staff for all transfers.Use of fww and gaitbelt.
--- NOTE | 2016-09-26 22:27 | PNPDOC ---
IRU Subjective Date DATE: 09/26/16 TIME: 22:22 Subjective Pt rested today, ate in commons area. No chest pain, still light headed on initial standing from sit. Unstable and requiring assist. IRU Objective Vital Signs Vital signs Vital Signs Date Time Temp Pulse Resp B/P Pulse Ox O2 Delivery O2 Flow Rate FiO2 09/26/16 18:41 52 09/26/16 18:32 16 99 09/26/16 16:49 98.1 120/72 Room Air Telemetry Rhythm: Sinus Bradycardia (Last EKG concerning for junctional rhythm) Height (Feet): 5 Height (Inches): 11.00 Weight (Kilograms): 85.500 General General Appearance: Alert, Orientated x 2 Respiratory (Brief) Respiratory: FOUND: clear all whelan, equal bilaterally, NOT FOUND: rales Cardiovascular (Brief) Capillary Refill: <2 sec Comments slightly bradycardic. Laboratory Laboratory Laboratory Tests Test 09/26/16 04:39 09/26/16 18:37 Turbidity < 20 Sodium Level 141MEQ/L Potassium Level 3.6MEQ/L Chloride Level 105MEQ/L Carbon Dioxide Level 28MEQ/L Anion Gap 8MEQ/L Blood Urea Nitrogen 32.0MG/DL Creatinine 1.4MG/DL Glomerular Filtration Rate Calc 48 BUN/Creatinine Ratio 23RATIO Glucose Level 87MG/DL Calculated Osmolality 277MOSM/KG Calcium Level 8.3MG/DL Icterus Index < 2 Chemistry Specimen Hemolysis < 15 Urine Collection Type Urine Color Yellow Urine Turbidity Clear Urine pH 6.5 Urine Specific [place] 1.010 Urine Protein Negative Urine Glucose (UA) Negative Urine Ketones Negative Urine Blood Negative Urine Nitrite Negative Urine Bilirubin Negative Urine Urobilinogen 0.2EU/DL Urine Leukocyte Esterase Negative Urinalysis Comment Microscopic not ind. Assessment & Plan Problems: (1) Orthostatic hypotension Status: Chronic Assessment & Plan: Continues to have sx. Managed by medical/ cardiology. (2) CAD (coronary artery disease) Status: Chronic (3) Acute ischemic stroke Status: Acute Assessment & Plan: Continued weakness with improved accommodation. Review with PT/OT and speech in am. (4) Myopathy Status: Acute Assessment & Plan: Therapies continuing to work with pt. He rested today, will restart therapy tomorrow. (5) Hyponatremia Status: Chronic Assessment & Plan: managed by medical. Assessment I have independently evaluated and examined this patient. I reviewed the chart, the patient's history, and the LAGGING MACHINE OPERATOR's documented findings as above. We discussed and formulated the assessment and plan as above with additions as below: Mr. Galeana reports he is feeling okay. He is walking minimally but denies lightheadedness or dizziness when he stands. He denied dyspnea, chest pain, palpitations, nausea or constipation. Appetite is good. On examination respirations nonlabored and air flow is good. There are faint crackles at the left base. Cardiac rhythm is regular. There is generalized pallor. He has no lower extremity edema and SANTIAGO hose are on. Serum sodium has been stable/improved with addition of demeclocycline. Salt tablets have been on hold-we'll discontinue at this time. We'll discuss bradycardia with Dr. Adkins tomorrow. Blood pressure low normal, may require additional IV fluids. Minor orthostasis present with last lying/standing blood pressures. Code Status Full Code Interventions to Obtain Goals PT Treatment Plan: Therapeutic Exercise, Gait Training, Functional Activities , Patient/Family Education, Balance/Proprioception OT Treatment Plan: ADL's (basic care), Ther. Exercise for ADL's, UE Functional Training, Pt./Family Education ST Treatment Plan: Swallow Retraining Hospital Course Summary Disclaimer The hospital course summary below is not to be considered part of the above Progress Note. Hospital Course Summary 09/21/16 Will repeat BMP tomorrow to f/u on Na - salt tabs have been dc'd. He's on an 1800 ml fluid restriction but he's been taking in less than that per day. Cardiology notes reviewed - cont Amiodarone. No further NSVT. Continue Plavix, statin, ASA given recent ischemic strokes. 09/22/16 Given Hypotension will discontinue fluid restriction. Spoke with cardiology agree with given 1 liter of IVF now. Sodium increased to 146 and Event Av Operator is elevated at 1.6. Likely dehydrated. Recheck CBC as the last Hgb was 9.4. Given one time dose of oral potassium supplementation Continue Midodrine 10mg three times a day Continue Plavix, statin, ASA given recent ischemic strokes. 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 Event Av Operator remains elevated at 1.6 Continue with Midodrine 10 milligrams 3 times a day for orthostatic hypotension Appreciate continued recommendations by cardiology team Continue Plavix, statin, ASA given recent ischemic strokes. Recheck Labs again tomorrow morning to follow blood counts, renal function and electrolytes Continue to encourage work with PT and OT for ongoing strengthening 09/26/16- Pt reports feeling well. Continues with therapy. I was able to observe him wheeling his wheelchair independently. Nursing staff reports a flat affect- need to monitor for depression. Continue ASA, Plavix, Statin. Remains orthostatic- On midodrine. No BP meds otherwise. Hx of NSVT, but has been bradycardic with junctional rhythm. Hold Amiodarone. Repeat EKG in AM. CV following. Recent labs reviewed. Salt tabs on hold currently. DYAN WEST MD Sep 26, 2016 22:25
[2016-09-26 23:13] VITALS: BP 130/69; PULSE 57; RESP 18; TEMP 98.7; O2SAT 99
--- NOTE | 2016-09-27 00:22 | NUR ---
Chart Check 24 hour chart check completed
--- NOTE | 2016-09-27 06:25 | NUR ---
Summary Jimmy has rested well for the exception of position changes , scheduled lab draws and routine EKG.He continues to deny pain or needs.Sleeping in bed at this time.
[2016-09-27 08:00] VITALS: PULSE 57; RESP 18
[2016-09-27 08:13] VITALS: BP 106/59; PULSE 52; RESP 16; TEMP 98; O2SAT 95
[2016-09-27] MEDS: POLYETHYL.GLYCOL 3350 PACKET 17gm PO SCH (09:00)
[2016-09-27] MEDS: DOCUSATE SODIUM 100 MG CAPSULE PO SCH ×2 (09:00→21:06)
[2016-09-27] MEDS: CLOPIDOGREL 75 MG TABLET PO SCH (09:02)
[2016-09-27] MEDS: OMEGA-3 ACID ESTERS 1 G CAPSULE PO SCH (09:03)
[2016-09-27] MEDS: MULTIVITAMIN PLAIN TABLET PO SCH (09:03)
[2016-09-27] MEDS: MIDODRINE 10 MG TABLET PO SCH ×3 (09:03→17:21)
[2016-09-27] MEDS: ASPIRIN 81 MG CHEWABLE TABLET PO SCH (09:03)
[2016-09-27] MEDS: ALBUTEROL/IPRATROPIUM INHAL. 2.5mg-0.5mg/3ml Neb. AEROSOL SCH (10:03)
[2016-09-27 10:05] VITALS: O2SAT 95
--- NOTE | 2016-09-27 13:49 | PNPDOC ---
CINDY MEHTA VENEER SORTER 09/27/16 1347: Subjective Date DATE: 09/27/16 TIME: 13:43 Subjective Bernabe is in bed working with therapy. He has no complaints. Objective Vital Signs Vital signs Vital Signs 09/27/16 09/27/16 09/27/16 09/27/16 08:13 10:05 10:05 10:11 Temp 98.0 Pulse 52 75 70 Resp 16 16 B/P 106/59 Pulse Ox 95 95 O2 Delivery Room Air Telemetry Rhythm: Sinus Bradycardia Height (Feet): 5 Height (Inches): 11.00 Weight (Kilograms): 85.500 General Alert, Orientated x 3, Cooperative ENMT (Brief) mucosa moist Neck (Brief) NOT FOUND: JVD, carotid bruits Respiratory (Brief) clear all whelan, equal bilaterally, NOT FOUND: rales, wheezes Cardiovascular (Brief) pedal edema, regular rate, regular rhythm, NOT FOUND: murmur Abdomen (Brief) BS normo active x4, soft, NOT FOUND: tender Integumentary (Brief) dry, warm Psychiatric (Brief) alert, oriented Laboratory Laboratory Laboratory Tests Test 09/26/16 04:39 09/26/16 18:37 Turbidity < 20 Sodium Level 141MEQ/L Potassium Level 3.6MEQ/L Chloride Level 105MEQ/L Carbon Dioxide Level 28MEQ/L Anion Gap 8MEQ/L Blood Urea Nitrogen 32.0MG/DL Creatinine 1.4MG/DL Glomerular Filtration Rate Calc 48 BUN/Creatinine Ratio 23RATIO Glucose Level 87MG/DL Calculated Osmolality 277MOSM/KG Calcium Level 8.3MG/DL Icterus Index < 2 Chemistry Specimen Hemolysis < 15 Urine Collection Type Urine Color Yellow Urine Turbidity Clear Urine pH 6.5 Urine Specific [place] 1.010 Urine Protein Negative Urine Glucose (UA) Negative Urine Ketones Negative Urine Blood Negative Urine Nitrite Negative Urine Bilirubin Negative Urine Urobilinogen 0.2EU/DL Urine Leukocyte Esterase Negative Urinalysis Comment Microscopic not ind. Medications Current Medications Miscellaneous Medication (May use PRN orders) 1 PRN PRN MC ; Start 09/16/16 at 18:45 Acetaminophen (Tylenol Regular Strength) 325 mg Q5H PRN PO PAIN; Start 09/16/16 at 18:45 Aspirin (ASA) 81 mg DAILY PO Last administered on 09/27/16t 09:03; Start at 09:00 Atorvastatin Calcium (LIPITOR 40 mg) 40 mg HS PO Last administered on 20:53; Start 09/16/16 at 22:00 Cabergoline (Dostinex) 0.25 mg TuSa@09 PO Last administered on 09/25/16 09:26 ; Start 09/18/16 at 09:00 Clopidogrel Bisulfate (Plavix) 75 mg DAILY PO Last administered on 09/27/16 09 :02; Start 09/17/16 at 09:00 Divalproex Sodium (Depakote) 250 mg BID PO Last administered on 09/17/16 19:55 ; Start 09/16/16 at 21:00; Stop 09/17/16 at 20:26; Status DC Docusate Sodium (Colace) 100 mg BID PO ; Start 09/16/16 at 21:00; Stop 09/17/16 at 17:32; Status DC Acetaminophen/ Hydrocodone Bitart ([place] 5/325) 1 tab Q6H PRN PO PAIN; Start at 18:45 Albuterol/ Ipratropium (Duoneb) 3 ml BID AEROSOL Last administered on 10:03; Start 09/16/16 at 21:00 Nitroglycerin (Nitrostat) 0.4 mg Q5MIN PRN SL CHEST PAIN; Start 09/16/16 at 18: 45 Polyethylene Glycol (Miralax) 17 g DAILY PO Last administered on 09/24/16 08: 55; Start 09/17/16 at 09:00 Sodium Chloride (Salt Tab) 1 g BIDBS PO Last administered on 09/17/16 09:07; Start 09/16/16 at 19:30; Stop 09/26/16 at 17:55; Status DC Multivitamins Therapeutic (Theragran) 1 tab DAILY PO Last administered on 09:03; Start 09/17/16 at 09:00 Rbcyo-5-Cydg Ethyl Esters (Lovaza) 1 g DAILY PO Last administered on 09/27/16 09:03; Start 09/17/16 at 09:00 Ondansetron HCl (Zofran) 4 mg Q6H PRN PO ; Start 09/16/16 at 18:45 Midodrine (Proamatine) 10 mg 08,12,16 PO Last administered on 09/22/16 08:38; Start 09/17/16 at 08:00; Stop 09/22/16 at 09:02; Status DC Demeclocycline HCl (Declomycin) 300 mg BID/E PO Last administered on 09/22/16 06:30; Start 09/16/16 at 20:00; Status Future Hold Amiodarone HCl (Pacerone) 200 mg DAILY PO Last administered on 09/26/16 08:37 ; Start 09/17/16 at 09:00; Status Future Hold Potassium Chloride (Kdur) 20 meq WB PO Last administered on 09/22/16 09:53; Start 09/22/16 at 08:45; Stop 09/23/16 at 07:33; Status DC Midodrine 10 mg 10 mg 08,12,16 PO Last administered on 09/27/16 12:20; Start 09/22/16 at 12:00 Sodium Chloride (Normal Saline IV) 1,000 ml @ 75 mls/hr [id number] ONCE IV Last administered on 09/23/16 20:08; Start 09/23/16 at 19:44; Stop 09/24/16 at 09:03; Status DC Assessment & Plan Problems: (1) CAD (coronary artery disease) Status: Chronic Qualifiers: Coronary Disease-Associated Artery/Lesion type: bypass graft [place] vs. transplanted heart: [place] heart Associated angina: with unspecified angina Qualified Codes: I25.709 - Atherosclerosis of coronary artery bypass graft(s), unspecified, with unspecified angina pectoris Assessment & Plan: Medical management, Continue Atorvastatin. (2) S/P right coronary artery (RCA) stent placement Status: Acute Assessment & Plan: Plavix 75mg and Aspirin 81mg daily (3) Nonsustained ventricular tachycardia Status: Resolved Assessment & Plan: Amiodarone 200mg daily, monitor telemetry (4) Orthostatic hypotension Status: Chronic Assessment & Plan: Midodrine 10mg TID (5) Dyslipidemia Status: Chronic Assessment & Plan: Continue Atorvastatin Plan/Intensity of Service 09/17/16 CAD, S/P RCA Stent: Medical management, continue Atorvastatin. EKG prn chest pain. NSVT: Continue Amiodarone, monitor Telemetry. 09/20/16 No further VTach on telemetry. No cardiac complaint. continue to monitor telemetry. 09/21/16 Continues to progress well with therapy, he denies complaints. 09/22/16 Patient reports dizziness this morning, evidently had some orthostasis as well. Hypernatremic NA 146 today, give 1L of NS over 2 hours please. Continue to monitor BP and Midodrine dosage. 09/23/16 Denies dizziness, however appears fluid down. Na remains elevated at 146 and Creatinine remains 1.6. Standing BP 123/67. Will give NS @ 75mL x1 09/24/16 He denies any symptoms. Na 143 today, creatinine 1.7, continue to monitor. Measure and treat standing BP only. 09/27/16 Na remains stable last Creatinine 1.4, repeat BMP Thank you for allowing us to participate in this patients care. We will follow along with you. PRINCESS CRUZ MD 10/04/16 1413: Assessment & Plan Plan/Intensity of Service After examining the patient I agree with the above assessment. I am involved in the formulation of the patient's plan of care. CINDY MEHTA APRN Sep 27, 2016 13:47 PRINCESS CRUZ MD Oct 04, 2016 14:13
[2016-09-27 14:45] LABS: ANION GAP 13 MEQ/L (5-15); BUN/CREATININE RATIO 21 RATIO (6-26); CALCIUM 8.5 MG/DL (8.4-10.2); CHLORIDE 100 MEQ/L (98-107); CO2 - CARBON DIOXIDE 28 MEQ/L (22-30); CREATININE 1.5 MG/DL (0.8-1.5); GLOMERULAR FILTRATION RATE 44; GLUCOSE 76 MG/DL (75-110); POTASSIUM 3.8 MEQ/L (3.6-5); SODIUM 141 MEQ/L (134-144)
--- NOTE | 2016-09-27 15:23 | NUR ---
Nutrition Risk F/U Intake: 100% of all meals Pt states he is getting enough to eat and his appetite is good. Pt continues to enjoy mighty shakes. FANS notified to continue sending mighty shakes. RD available at ext [phone]
[2016-09-27 16:00] VITALS: BP 139/68; PULSE 51; RESP 20; TEMP 98.1; O2SAT 99
[2016-09-27] MEDS ORDERED: ALBUTEROL/IPRATROPIUM INHAL. 2.5mg-0.5mg/3ml Neb. AEROSOL PRN (17:00)
--- NOTE | 2016-09-27 18:45 | NUR ---
Shift Summary Patient alert and oriented x3. Ambulates with FWW, gait belt, min to mod assist to bathroom. Walks with therapy today. Incontinent at times of urine. Incontinet of BM x1 this shift. Telemetry shows sinus vern. IVL to left hand. Feeds self meals, takes med whole. Denies pain this shift.
[2016-09-27] MEDS: ATORVASTATIN 40 MG TABLET PO SCH (21:06)
--- NOTE | 2016-09-27 21:55 | PNPDOC ---
IRU Subjective Date DATE: 09/27/16 TIME: 21:52 Subjective Pt at breakfast, moving himself with wheelchair. Worked with PT and OT today. IRU Objective Vital Signs Vital signs Vital Signs Date Time Temp Pulse Resp B/P Pulse Ox O2 Delivery O2 Flow Rate FiO2 09/27/16 16:00 98.1 51 20 139/68 99 Room Air Telemetry Rhythm: Sinus Bradycardia Height (Feet): 5 Height (Inches): 11.00 Weight (Kilograms): 85.500 General General Appearance: Alert Respiratory (Brief) Respiratory: FOUND: clear all whelan, equal bilaterally, NOT FOUND: rales, wheezes Cardiovascular (Brief) Cardiac: FOUND: regular rate, regular rhythm Capillary Refill: <2 sec Laboratory Laboratory Laboratory Tests Test 09/26/16 04:39 09/26/16 18:37 09/27/16 14:13 Turbidity < 20 < 20 Sodium Level 141MEQ/L 141MEQ/L Potassium Level 3.6MEQ/L 3.8MEQ/L Chloride Level 105MEQ/L 100MEQ/L Carbon Dioxide Level 28MEQ/L 28MEQ/L Anion Gap 8MEQ/L 13MEQ/L Blood Urea Nitrogen 32.0MG/DL 31.0MG/DL Creatinine 1.4MG/DL 1.5MG/DL Glomerular Filtration Rate Calc 48 44 BUN/Creatinine Ratio 23RATIO 21RATIO Glucose Level 87MG/DL 76MG/DL Calculated Osmolality 277MOSM/KG 277MOSM/KG Calcium Level 8.3MG/DL 8.5MG/DL Icterus Index < 2 < 2 Chemistry Specimen Hemolysis < 15 < 15 Urine Collection Type Urine Color Yellow Urine Turbidity Clear Urine pH 6.5 Urine Specific [place] 1.010 Urine Protein Negative Urine Glucose (UA) Negative Urine Ketones Negative Urine Blood Negative Urine Nitrite Negative Urine Bilirubin Negative Urine Urobilinogen 0.2EU/DL Urine Leukocyte Esterase Negative Urinalysis Comment Microscopic not ind. Assessment & Plan Problems: (1) Orthostatic hypotension Status: Chronic Assessment & Plan: medically managed. (2) CAD (coronary artery disease) Status: Chronic Assessment & Plan: managed by medical. (3) Acute ischemic stroke Status: Acute Assessment & Plan: cont with weakness, using wheelchair assist, working with PT and OT. Waiting for stroke consult note from [facility]. (4) Myopathy Status: Acute Assessment & Plan: See PT and OT notes. Cont with treatment (5) Hyponatremia Status: Chronic Assessment & Plan: Managed by medical. stable. Assessment I have independently evaluated and examined this patient. I reviewed the chart, the patient's history, and the FORENSIC PSYCHIATRIST's documented findings as above. We discussed and formulated the assessment and plan as above with additions as below: Mr. Galeana reports he is feeling okay. He is walking minimally but denies lightheadedness or dizziness when he stands. He denied dyspnea, chest pain, palpitations, nausea or constipation. Appetite is good. On examination respirations nonlabored and air flow is good. There are faint crackles at the left base. Cardiac rhythm is regular. There is generalized pallor. He has no lower extremity edema and SANTIAGO hose are on. Serum sodium has been stable/improved with addition of demeclocycline. Salt tablets have been on hold-we'll discontinue at this time. We'll discuss bradycardia with Dr. Adkins tomorrow. Blood pressure low normal, may require additional IV fluids. Minor orthostasis present with last lying/standing blood pressures. Code Status Full Code Interventions to Obtain Goals PT Treatment Plan: Therapeutic Exercise, Gait Training, Functional Activities , Patient/Family Education, Balance/Proprioception OT Treatment Plan: ADL's (basic care), Ther. Exercise for ADL's, UE Functional Training, Pt./Family Education ST Treatment Plan: Swallow Retraining Hospital Course Summary Disclaimer The hospital course summary below is not to be considered part of the above Progress Note. Hospital Course Summary 09/21/16 Will repeat BMP tomorrow to f/u on Na - salt tabs have been dc'd. He's on an 1800 ml fluid restriction but he's been taking in less than that per day. Cardiology notes reviewed - cont Amiodarone. No further NSVT. Continue Plavix, statin, ASA given recent ischemic strokes. 09/22/16 Given Hypotension will discontinue fluid restriction. Spoke with cardiology agree with given 1 liter of IVF now. Sodium increased to 146 and Mold Polisher is elevated at 1.6. Likely dehydrated. Recheck CBC as the last Hgb was 9.4. Given one time dose of oral potassium supplementation Continue Midodrine 10mg three times a day Continue Plavix, statin, ASA given recent ischemic strokes. 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 Mold Polisher remains elevated at 1.6 Continue with Midodrine 10 milligrams 3 times a day for orthostatic hypotension Appreciate continued recommendations by cardiology team Continue Plavix, statin, ASA given recent ischemic strokes. Recheck Labs again tomorrow morning to follow blood counts, renal function and electrolytes Continue to encourage work with PT and OT for ongoing strengthening 09/26/16- Pt reports feeling well. Continues with therapy. I was able to observe him wheeling his wheelchair independently. Nursing staff reports a flat affect- need to monitor for depression. Continue ASA, Plavix, Statin. Remains orthostatic- On midodrine. No BP meds otherwise. Hx of NSVT, but has been bradycardic with junctional rhythm. Hold Amiodarone. Repeat EKG in AM. CV following. Recent labs reviewed. Salt tabs on hold currently. DYAN WEST MD Sep 27, 2016 21:55
[2016-09-28] VITALS: BP 153/73; PULSE 50; RESP 18; TEMP 97.9; O2SAT 99
[2016-09-28 00:56] VITALS: PULSE 50; RESP 18
--- NOTE | 2016-09-28 04:51 | NUR ---
CHART CHECK 24hr chart check completed
--- NOTE | 2016-09-28 06:25 | NUR ---
SHIFT SUMMARY Bernabe slept well through night between repositioning and incontinent cares. He was toileted before going to bed for the night. Voided, but no bm. He was incontinent twice during night. Oriented x 3. Had a visitor after supper and he was quite talkative with him. Took meds whole with water without difficulty. He was able to ambulate from recliner to bathroom with only 1 assist. He moves slowly but was able to complete ambulation and transfers without difficulty. He reported being very worn out from all the therapy he did during the day, but stated he knew it would help him get stronger. He does not let staff know when he needs to use the bathroom, and instead is incontinent.
[2016-09-28 08:00] VITALS: BP 152/81; PULSE 52; RESP 18; TEMP 97.5; O2SAT 98
[2016-09-28] MEDS: MIDODRINE 10 MG TABLET PO SCH ×3 (08:47→17:48)
[2016-09-28] MEDS: CABERGOLINE 0.5 MG TABLET PO SCH (08:47)
[2016-09-28] MEDS: OMEGA-3 ACID ESTERS 1 G CAPSULE PO SCH (08:48)
[2016-09-28] MEDS: DOCUSATE SODIUM 100 MG CAPSULE PO SCH ×2 (08:48→21:17)
[2016-09-28] MEDS: MULTIVITAMIN PLAIN TABLET PO SCH (08:48)
[2016-09-28] MEDS: POLYETHYL.GLYCOL 3350 PACKET 17gm PO SCH (08:48)
[2016-09-28] MEDS: CLOPIDOGREL 75 MG TABLET PO SCH (08:48)
[2016-09-28] MEDS: ASPIRIN 81 MG CHEWABLE TABLET PO SCH (08:48)
--- NOTE | 2016-09-28 09:43 | STDAILYN ---
ST Daily Note Date/Time DATE: 09/28/16 TIME: 09:32 Subjective Comment Pt was alert, in good spirits and had no complaint of pain. Orientations: x 3, Person Chief Complaint: CVA Pain: No Was Patient Education Provided: Yes Person(s) Educated: Patient Education Subject: Swallowing Strategies Instruction Understanding Demo: Pt. verbalizes understand *Speech Therapy Impressions ALEX 11X: PATIENT WAS INSTRUCTED TO PRODUCE A SWALLOW WHILE LIGHTLY BITING HIS TONGUE. (PATIENT PRODUCED 3/6 TRIAL WITH FULL SWALLOW, LARYNGEAL BOBBING ON 3/6). TONGUE PRESS OUT 5X: PATIENT WAS INSTRUCTED TO PROTRUDE HIS TONGUE AND RESIST A TONGUE DEPRESSOR FOR 5 SECONDS. (PATIENT SUCCESSFULLY COMPLETED 5/5 TRIALS) TONGUE PRESS SIDE 5X EACH SIDE: PATIENT WAS INSTRUCTED TO PROTRUDE HIS TONGUE LATERALLY WHILE RESISTING A TONGUE DEPRESSOR FOR 5 SECONDS. (PATIENT COMPLETED 5/5 TRIALS ON EACH SIDE). TONGUE BOWL 5X: PATIENT WAS INSTRUCTED TO MAKE HIS TONGUE INTO A BOWL-LIKE SHAPE AND HOLD A SMALL ICE CHIP FOR 5 SECONDS BEFORE SWALLOWING. (NOT COMPLETED THIS SESSION). SHOWA 2X: THIS EXERCISE WAS MODIFIED TO DECREASE DIFFICULTY. PATIENT WAS INSTRUCTED TO HOLD A TONGUE DEPRESSOR ON THE ROOF OF HIS MOUTH WITH HIS TONGUE WHILE HE PRODUCED A SWALLOW. (PT POSITIONED TONGUE TIP ON ALVEOLAR RIDGE AND PRODUCED TONGUE CLICK X10) EFFORTFUL SWALLOW 5X: PATIENT WAS INSTRUCTED TO SQUEEZE THE MUSCLES IN HIS THROAT WHILE HE SWALLOWED. (PATIENT SUCCESSFULLY COMPLETED 5/5 TRIALS WAS COMPLETED WITH THIN WATER. SWALLOW WAS PROMPT). SUSTAINED "AH" 1X: PATIENT WAS INSTRUCTED TO SAY "AH" AND HOLD IT FOR LONG AND LOUD HE COULD. (PATIENT SUSTAINED PHONATION FOR 10 SECONDS ON 8/10 TRIALS). HAWK EXERCISES 10X: PATIENT WAS INSTRUCTED TO REPEAT WORDS THAT CONTAINED /K/ IN FINAL POSITION OF WORDS WITH AN EXAGGERATED/FORCEFUL /K/. (PT PRODUCE /K/ IN FINAL POSITION ON 5/[address]). [address] Treatment Plan: Oral Motor Exercise, Swallow Precautions, Modified Diet ST Treatment Plan Frequency: three times per week Treatment Plan Duration: one week Plan of Care Comment: CONTINUE POC Start Treatment 1: 09:00 Stop Treatment 1: 09:30 Treatment Duration : ST Treatment Charge: Swallow Treatment Minutes of Individual Therapy: 30 CATHLEEN JOYCE MS CCC-SPECIFICATION WRITER Sep 28, 2016 09:41
--- NOTE | 2016-09-28 14:23 | NUR ---
CM CALLED , EXPLAINED PER THERAPY, PT SEEMS TO HAVE FLUCTUATIONS, AND SHOULD COME IN TO SEE HIM, TO BETTER ASSESS IF SHE CAN PROVIDE THE CARES FOR HIM EVEN WHEN HE IS REQUIRING MORE ASSISTANCE. SHE SAID SHE CAN DO THIS, AND WILL BE IN TOMORROW AT 9 AM. SHE SAID THEY ARE IN PROCESS OF INSTALLING THE LIFT. SHE SAID SHE STILL WANTS PT TO RETURN HOME. THIS WORKER EXPLAINED PT IS NEEDING A LOT OF CARE, AND ENCOURAGED HER TO COME SEE PT. SHE SAID SHE WILL DO THIS.
[2016-09-28 16:00] VITALS: BP 134/66; PULSE 55; RESP 18; TEMP 97.8; O2SAT 95
--- NOTE | 2016-09-28 16:26 | STDAILYN ---
Discharge Note Date/Time DATE: 09/28/16 TIME: 16:24 Discharge From: Inpatient ST Reason for Discharge: Progress Plateaued Other Reasons for Discharge: HOSPICE Barriers to Achieving Outcomes: Pt's Medical Condition Discharge Summary: PT PLACED ON HOSPICE DUE TO DECLINING MEDICAL CONDITION. DC SKILLED SPEECH THERAPY Recommended Follow-up: Contact Dept. prn/as CATHLEEN Gunderson MS CCC-[employer] ADMINISTRATOR Sep 28, 2016 16:26
--- NOTE | 2016-09-28 16:52 | PNPDOC ---
CINDY MEHTA CHIEF JUVENILE PROBATION OFFICER 09/28/16 1649: Subjective Date DATE: 09/28/16 TIME: 16:44 Subjective Bernabe is in his bed, his and son at the bedside. He denies chest pain, palpitations or dizziness. Objective Vital Signs Vital signs Vital Signs 09/28/16 09/28/16 08:00 08:00 Temp 97.5 Pulse 52 52 Resp 18 18 B/P 152/81 Pulse Ox 98 O2 Delivery Room Air Telemetry Rhythm: Sinus Bradycardia Height (Feet): 5 Height (Inches): 11.00 Weight (Kilograms): 85.500 General Alert, Orientated x 3, Cooperative ENMT (Brief) mucosa moist Neck (Brief) NOT FOUND: JVD, carotid bruits Respiratory (Brief) clear all whelan, equal bilaterally, NOT FOUND: rales, wheezes Cardiovascular (Brief) pedal edema, regular rate, regular rhythm, NOT FOUND: click, gallop, murmur, rub Abdomen (Brief) BS normo active x4, soft, NOT FOUND: tender Integumentary (Brief) dry, warm Psychiatric (Brief) alert, attentive, oriented Laboratory Laboratory Laboratory Tests Test 09/26/16 18:37 09/27/16 14:13 Urine Collection Type Urine Color Yellow Urine Turbidity Clear Urine pH 6.5 Urine Specific [place] 1.010 Urine Protein Negative Urine Glucose (UA) Negative Urine Ketones Negative Urine Blood Negative Urine Nitrite Negative Urine Bilirubin Negative Urine Urobilinogen 0.2EU/DL Urine Leukocyte Esterase Negative Urinalysis Comment Microscopic not ind. Turbidity < 20 Sodium Level 141MEQ/L Potassium Level 3.8MEQ/L Chloride Level 100MEQ/L Carbon Dioxide Level 28MEQ/L Anion Gap 13MEQ/L Blood Urea Nitrogen 31.0MG/DL Creatinine 1.5MG/DL Glomerular Filtration Rate Calc 44 BUN/Creatinine Ratio 21RATIO Glucose Level 76MG/DL Calculated Osmolality 277MOSM/KG Calcium Level 8.5MG/DL Icterus Index < 2 Chemistry Specimen Hemolysis < 15 Medications Current Medications Miscellaneous Medication (May use PRN orders) 1 PRN PRN MC ; Start 09/16/16 at 18:45 Acetaminophen (Tylenol Regular Strength) 325 mg Q5H PRN PO PAIN; Start 09/16/16 at 18:45 Aspirin (ASA) 81 mg DAILY PO Last administered on 09/28/16 08:48; Start at 09:00 Atorvastatin Calcium (LIPITOR 40 mg) 40 mg HS PO Last administered on 21:06; Start 09/16/16 at 22:00 Cabergoline (Dostinex) 0.25 mg TuSa@09 PO Last administered on 09/28/16 08:47 ; Start 09/18/16 at 09:00 Clopidogrel Bisulfate (Plavix) 75 mg DAILY PO Last administered on 09/28/16 08 :48; Start 09/17/16 at 09:00 Divalproex Sodium (Depakote) 250 mg BID PO Last administered on 09/17/16 19:55 ; Start 09/16/16 at 21:00; Stop 09/17/16 at 20:26; Status DC Docusate Sodium (Colace) 100 mg BID PO ; Start 09/16/16 at 21:00; Stop 09/17/16 at 17:32; Status DC Acetaminophen/ Hydrocodone Bitart ([place] 5/325) 1 tab Q6H PRN PO PAIN; Start at 18:45 Nitroglycerin (Nitrostat) 0.4 mg Q5MIN PRN SL CHEST PAIN; Start 09/16/16 at 18: 45 Polyethylene Glycol (Miralax) 17 g DAILY PO Last administered on 09/24/16 08: 55; Start 09/17/16 at 09:00 Sodium Chloride (Salt Tab) 1 g BIDBS PO Last administered on 09/17/16 09:07; Start 09/16/16 at 19:30; Stop 09/26/16 at 17:55; Status DC Multivitamins Therapeutic (Theragran) 1 tab DAILY PO Last administered on 08:48; Start 09/17/16 at 09:00 [id number] Ethyl Esters (Lovaza) 1 g DAILY PO Last administered on 09/28/16 08:48; Start 09/17/16 at 09:00 Ondansetron HCl (Zofran) 4 mg Q6H PRN PO ; Start 09/16/16 at 18:45 Midodrine (Proamatine) 10 mg 08,12,16 PO Last administered on 09/22/16 08:38; Start 09/17/16 at 08:00; Stop 09/22/16 at 09:02; Status DC Demeclocycline HCl (Declomycin) 300 mg BID/E PO Last administered on 09/22/16 06:30; Start 09/16/16 at 20:00; Status Future Hold Amiodarone HCl (Pacerone) 200 mg DAILY PO Last administered on 09/26/16 08:37 ; Start 09/17/16 at 09:00; Status Future Hold Potassium Chloride (Kdur) 20 meq WB PO Last administered on 09/22/16 09:53; Start 09/22/16 at 08:45; Stop 09/23/16 at 07:33; Status DC Midodrine 10 mg 10 mg 08,12,16 PO Last administered on 09/28/16 12:03; Start 09/22/16 at 12:00 Sodium Chloride (Normal Saline IV) 1,000 ml @ 75 mls/hr [id number] ONCE IV Last administered on 09/23/16 20:08; Start 09/23/16 at 19:44; Stop 09/24/16 at 09:03; Status DC Albuterol/ Ipratropium (Duoneb) 3 ml PRN PRN AEROSOL ; Start 09/27/16 at 17:00 Assessment & Plan Problems: (1) CAD (coronary artery disease) Status: Chronic Qualifiers: Coronary Disease-Associated Artery/Lesion type: bypass graft [place] vs. 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 (2) S/P right coronary artery (RCA) stent placement Status: Acute Assessment & Plan: Plavix 75mg and Aspirin 81mg daily (3) Nonsustained ventricular tachycardia Status: Resolved Assessment & Plan: Amiodarone 200mg daily, monitor telemetry (4) Orthostatic hypotension Status: Chronic Assessment & Plan: Midodrine 10mg TID (5) Dyslipidemia Status: Chronic Assessment & Plan: Continue Atorvastatin Plan/Intensity of Service 09/17/16 CAD, S/P RCA Stent: Medical management, continue Atorvastatin. EKG prn chest pain. NSVT: Continue Amiodarone, monitor Telemetry. 09/20/16 No further VTach on telemetry. No cardiac complaint. continue to monitor telemetry. 09/21/16 Continues to progress well with therapy, he denies complaints. 09/22/16 Patient reports dizziness this morning, evidently had some orthostasis as well. Hypernatremic NA 146 today, give 1L of NS over 2 hours please. Continue to monitor BP and Midodrine dosage. 09/23/16 Denies dizziness, however appears fluid down. Na remains elevated at 146 and Creatinine remains 1.6. Standing BP 123/67. Will give NS @ 75mL x1 09/24/16 He denies any symptoms. Na 143 today, creatinine 1.7, continue to monitor. Measure and treat standing BP only. 09/27/16 Na remains stable last Creatinine 1.4, repeat BMP 09/28/16 BUN improved, creatinine 1.5. No change in plan Thank you for allowing us to participate in this patients care. We will follow along with you. PRINCESS CRUZ MD 10/06/16 1047: Assessment & Plan Plan/Intensity of Service After examining the patient I agree with the above assessment. I am involved in the formulation of the patient's plan of care. CINDY MEHTA APRN Sep 28, 2016 16:49 PRINCESS CRUZ MD Oct 06, 2016 10:47
[2016-09-28 20:05] VITALS: BP 126/73; PULSE 51; RESP 17; TEMP 97.9; O2SAT 98
--- NOTE | 2016-09-28 20:30 | NUR ---
Shift summary Patient ambulating to bathroom with FWW, gait belt, min assist. Incontinent of urine x2 this shift. Continent of BM, with total assist for hygeine. Wears pull ups. Telemetry with atrial fib. IVL patent to left hand. Patient alert and oriented x3. Alarms to chair and bed used as patient attempted to transfer self. Denies discomfort this shift.
[2016-09-28] MEDS: ATORVASTATIN 40 MG TABLET PO SCH (21:17)
[2016-09-29 02:26] VITALS: RESP 17
--- NOTE | 2016-09-29 05:34 | NUR ---
CHART CHECK 24hr chart check completed
--- NOTE | 2016-09-29 07:32 | NUR ---
SHIFT SUMMARY Bernabe slept well this shift. He was incontinent 2 times during night and was changed in bed with 1-2 staff assist. He was able to ambulate with min assist and walker to bathroom from his recliner before bed. Required total assist for hygiene. IV to L arm flushes. Telemetry continues to show Sinus Bradycardia with HR 52 this night. Batteries to tele box replaced. Takes meds whole with water without difficulty. Bernabe was a bit more talkative with staff tonight, and even joked around. He is a very private person, and visited a lot with visitors in the evening. Wore SCDs during night.
[2016-09-29 08:00] VITALS: BP 116/65; PULSE 57; RESP 18; TEMP 97.7; O2SAT 100
[2016-09-29] MEDS: POLYETHYL.GLYCOL 3350 PACKET 17gm PO SCH (09:00)
[2016-09-29] MEDS: ASPIRIN 81 MG CHEWABLE TABLET PO SCH (09:17)
[2016-09-29] MEDS: OMEGA-3 ACID ESTERS 1 G CAPSULE PO SCH (09:18)
[2016-09-29] MEDS: MULTIVITAMIN PLAIN TABLET PO SCH (09:18)
[2016-09-29] MEDS: CLOPIDOGREL 75 MG TABLET PO SCH (09:18)
[2016-09-29] MEDS: DOCUSATE SODIUM 100 MG CAPSULE PO SCH ×2 (09:18→21:31)
[2016-09-29] MEDS: MIDODRINE 10 MG TABLET PO SCH ×3 (09:19→17:09)
--- NOTE | 2016-09-29 12:42 | PDIRUTEAM ---
Multidisciplinary Team Meeting Nursing Hx Incontinence: Yes Bladder Goal: 5 Supervision/Setup Ló[place] Y/N: No Bladder Continent or Incontine: Incontinent Incontinent Product Used: Pull-up Number of Times Incontinent of: 2 Cleaning Ability-Bladder: 2 Maximum Assistance Bladder Incontinence Managemen: 2 Maximum Assistance Bowel Goal: 6 Modified [place] Colostomy Y/N: No Bowel Incontinent/Continent: Continent Bowel Number of Accidents: 0 Number of times Incontinent of: 0 Cleaning Ability-Bowel: 1 Total Assistance Colostomy Care: 0 Activity Does Not Occur Bowel Incontinence Management: 1 Total Assistance Toileting Ability: 3 Moderate Assistance Vital Signs Vital Signs Date Time Temp Pulse Resp B/P Pulse Ox O2 Delivery O2 Flow Rate FiO2 09/29/16 08:00 97.7 57 18 116/65 100 Room Air Current Medications Current Medications Medications (Trade) Dose Ordered Sig/Aishwarya Route PRN Reason Start Time Stop Time Status Last Admin Dose Admin Docusate Sodium (Colace) 100 mg BID PO 09/16/16 21:00 09/29/16 09:18 Aspirin (ASA) 81 mg DAILY PO 09/17/16 09:00 09/29/16 09:17 Atorvastatin Calcium (LIPITOR 40 mg) 40 mg HS PO 09/16/16 22:00 09/28/16 21:17 Cabergoline (Dostinex) 0.25 mg TuSa@09 PO 09/18/16 09:00 09/28/16 08:47 Clopidogrel Bisulfate (Plavix) 75 mg DAILY PO 09/17/16 09:00 09/29/16 09:18 Divalproex Sodium (Depakote) 250 mg BID PO 09/16/16 21:00 09/17/16 20:26 DC 09/17/16 19:55 Albuterol/ Ipratropium (Duoneb) 3 ml BID AEROSOL 09/16/16 21:00 09/27/16 16:49 DC 09/27/16 10:03 Polyethylene Glycol (Miralax) 17 g DAILY PO 09/17/16 09:00 09/24/16 08:55 Sodium Chloride (Salt Tab) 1 g BIDBS PO 09/16/16 19:30 09/26/16 17:55 DC 09/17/16 09:07 Multivitamins Therapeutic (Theragran) 1 tab DAILY PO 09/17/16 09:00 09/29/16 09:18 [id number] Ethyl Esters (Lovaza) 1 g DAILY PO 09/17/16 09:00 09/29/16 09:18 Midodrine (Proamatine) 10 mg 08,12,16 PO 09/17/16 08:00 09/22/16 09:02 DC 09/22/16 08:38 Demeclocycline HCl (Declomycin) 300 mg BID/E PO 09/16/16 20:00 Future Hold 09/22/16 06:30 Amiodarone HCl (Pacerone) 200 mg DAILY PO 09/17/16 09:00 Future Hold 09/26/16 08:37 Potassium Chloride (Kdur) 20 meq WB PO 09/22/16 08:45 09/23/16 07:33 DC 09/22/16 09:53 Midodrine (Proamatine) 10 mg 08,12,16 PO 09/22/16 12:00 09/29/16 12:14 Comments Still has saline lock in left hand. continent, eating 100% meals, but does not order much. Does take a might shake with each meal to increase calories. SPEECH swallow retraining program. Motivated, ability to swallow variable. Physical Therapy Bed Transfer Ability: 3 Moderate Assistance Bed Transfer Assistance Needed: 1 Person Bed FIM Score Reason: stood at bedside for blood pressure Chair Transfer Ability: 3 Moderate Assistance Chair Transfer Assistance Need: 1 Person Overall Wheelchair Transfer Ab: 4 Minimal Assistance Wheelchair Transfer Assistance: 1 Person Overall Toilet / Commode Trans: 3 Moderate Assistance Ambulation Ability: 4 Minimal Assistance Ambulation Assistance Needed: 1 Person Walk FIM Score Reason: distance. 4/7 A Ambulation Distance: 179 Comments 4-5 FIM. came in for training. Occupational Therapy Grooming Ability: 5 Supervision/Setup Grooming FIM Score Reason: seated in w/c. Bathing Ability: 4 Minimal Assistance Upper Body Dressing Ability: 5 Supervision/Setup Lower Body Dressing Ability: 4 Minimal Assistance Lower Body Dressing Assistance: 1 Person Toileting Assistance Needed: 2 Persons Comments FIMS 4. Scores do fluctuate daily. Care Plan Condition at time of discharge: Fair IRU Discharge Disposition: Home Health Service Interventions/Goals D/C home , Home lift in process of being installed. Day . Plan d/c next week. Awaiting home lift installation, family training. Barriers to d/c, fluctuation of ability, strength, coordination, DYAN WEST MD Sep 29, 2016 12:40
--- NOTE | 2016-09-29 12:42 | PNPDOC ---
LUIS FERNANDO NOBLES V CASTING AND PASTING SUPERVISOR 09/29/16 1239: Subjective Date DATE: 09/29/16 TIME: 12:35 Subjective Mr Galeana is seen this morning during breakfast. He is overall feeling well without complaints. No recent episodes of hypotension. Denies having pain or feeling short of breath. Appetite is decreased however he is taking mighty shakes. BP 153/73 Objective Vital Signs Vital signs Vital Signs Date Time Temp Pulse Resp B/P Pulse Ox O2 Delivery O2 Flow Rate FiO2 09/29/16 08:00 97.7 57 18 116/65 100 Room Air Telemetry Rhythm: Sinus Bradycardia Height (Feet): 5 Height (Inches): 11.00 Weight (Kilograms): 85.500 General General Appearance: Alert, Orientated x 3, Cooperative, No Acute Distress Eyes (Brief) Eyes: FOUND: EOMI ENMT (Brief) ENMT: FOUND: mucosa moist, normal dentition, NOT FOUND: pharnyx erythema Neck (Brief) Neck: FOUND: midline, NOT FOUND: adenopathy, carotid bruits, tracheal deviation Respiratory (Brief) Respiratory: FOUND: clear all whelan, equal bilaterally, NOT FOUND: wheezes Cardiovascular (Brief) Cardiac: FOUND: regular rate, regular rhythm, NOT FOUND: murmur, pedal edema Capillary Refill: <2 sec Abdomen (Brief) Abdominal: FOUND: BS normo active x4, soft, NOT FOUND: distended, tender Lymphatic (Brief) Lymphatic: NOT FOUND: adenopathy Musculoskeletal (Brief) Musculoskeletal: NOT FOUND: tenderness Integumentary (Brief) Integumentary: FOUND: dry, pink, warm Neurologic (Brief) Neurological: FOUND: cranial 2-12 intact Psychiatric (Brief) Psychiatric: FOUND: alert, attentive, normal affect, oriented Laboratory Laboratory Laboratory Tests 09/27/16 14:13 Assessment & Plan Problems: (1) Arterial ischemic stroke, MCA (middle cerebral artery), left, acute Onset Date: ~ 08/07/2016 Status: Acute Assessment & Plan: Had a repeat stroke to the same area on 09/06/16 (2) Myopathy Status: Acute (3) Right sided weakness Status: Acute (4) Nonsustained ventricular tachycardia Status: Resolved Assessment & Plan: Treated with amiodarone (5) Coronavirus infection Status: Resolved (6) Hyponatremia Status: Chronic (7) Syncope Status: Chronic (8) Orthostatic hypotension Status: Chronic (9) CAD (coronary artery disease) Status: Chronic Qualifiers: Coronary Disease-Associated Artery/Lesion type: bypass graft [place] vs. transplanted heart: [place] heart Associated angina: with unspecified angina Qualified Codes: I25.709 - Atherosclerosis of coronary artery bypass graft(s), unspecified, with unspecified angina pectoris Assessment & Plan: Heart catheterization on 09/14/[address] 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 Blood pressures are stable without episodes of hypotension. Does continue to be bradycardic. Amiodarone Declomycin currently on hold. Continue on Midodrine ASA and Plavix given recent stroke. Will check CBC and BMP tomorrow Planning for discharge home next week Code Status Full Code Hospital Course Summary Disclaimer The hospital course summary below is not to be considered part of the above Progress Note. Hospital Course Summary 09/21/16 Will repeat BMP tomorrow to f/u on Na - salt tabs have been dc'd. He's on an 1800 ml fluid restriction but he's been taking in less than that per day. Cardiology notes reviewed - cont Amiodarone. No further NSVT. Continue Plavix, statin, ASA given recent ischemic strokes. 09/22/16 Given Hypotension will discontinue fluid restriction. Spoke with cardiology agree with given 1 liter of IVF now. Sodium increased to 146 and Remote Sensing Advisor is elevated at 1.6. Likely dehydrated. Recheck CBC as the last Hgb was 9.4. Given one time dose of oral potassium supplementation Continue Midodrine 10mg three times a day Continue Plavix, statin, ASA given recent ischemic strokes. 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 Remote Sensing Advisor remains elevated at 1.6 Continue with Midodrine 10 milligrams 3 times a day for orthostatic hypotension Appreciate continued recommendations by cardiology team Continue Plavix, statin, ASA given recent ischemic strokes. Recheck Labs again tomorrow morning to follow blood counts, renal function and electrolytes Continue to encourage work with PT and OT for ongoing strengthening 09/26/16- Pt reports feeling well. Continues with therapy. I was able to observe him wheeling his wheelchair independently. Nursing staff reports a flat affect- need to monitor for depression. Continue ASA, Plavix, Statin. Remains orthostatic- On midodrine. No BP meds otherwise. Hx of NSVT, but has been bradycardic with junctional rhythm. Hold Amiodarone. Repeat EKG in AM. CV following. Recent labs reviewed. Salt tabs on hold currently. GREGORY HOLLAND MD 09/29/161916: Assessment & Plan Plan/Intensity of Service Have independently interviewed and examined pt. Chart reviewed. Case discussed with my CASTING AND PASTING SUPERVISOR. Above care plan developed with my supervision; agree with above. Doing well overall. Tolerating therapy. Strength improving. Does note that by evening he feels more weak in general. Breathing well. Eating well. No ab pain. Bowels stable. Lungs: clear CV: bradycardic MSE: awake alert appropriate Plan: Continue IRU care to help maximize functional status. Encourage therapy. Continue ASA and Plavix.D/C demeclocycline as hyponatremia resolved (started on acute). Medically stable for IRU floor activities. LUIS FERNANDO NOBLES APRN Sep 29, 2016 12:39 GREGORY HOLLAND MD Sep 29, 2016 19:17
--- NOTE | 2016-09-29 13:55 | PNPDOC ---
CINDY MEHTA PELLETISING EXTRUDER OPERATOR 09/29/16 1355: Subjective Date DATE: 09/29/16 TIME: 11:52 Subjective Bernabe is in bed, denies complaints Objective Vital Signs Vital signs Vital Signs 09/29/16 09/29/16 09/29/16 02:26 08:00 08:00 Temp 97.7 Pulse 57 57 Resp 18 B/P 116/65 Pulse Ox 100 O2 Delivery Room Air Telemetry Rhythm: Sinus Bradycardia Height (Feet): 5 Height (Inches): 11.00 Weight (Kilograms): 85.500 General Alert, Orientated x 3, Cooperative ENMT (Brief) mucosa moist Neck (Brief) NOT FOUND: JVD, carotid bruits Respiratory (Brief) clear all [place], equal bilaterally, NOT FOUND: rales, wheezes Cardiovascular (Brief) pedal edema, regular rate, regular rhythm, NOT FOUND: click, gallop, murmur, rub Abdomen (Brief) BS normo active x4, soft, NOT FOUND: tender Integumentary (Brief) dry, pink, warm Psychiatric (Brief) alert, attentive, oriented Laboratory Laboratory Laboratory Tests Test 09/27/16 14:13 Turbidity < 20 Sodium Level 141MEQ/L Potassium Level 3.8MEQ/L Chloride Level 100MEQ/L Carbon Dioxide Level 28MEQ/L Anion Gap 13MEQ/L Blood Urea Nitrogen 31.0MG/DL Creatinine 1.5MG/DL Glomerular Filtration Rate Calc 44 BUN/Creatinine Ratio 21RATIO Glucose Level 76MG/DL Calculated Osmolality 277MOSM/KG Calcium Level 8.5MG/DL Icterus Index < 2 Chemistry Specimen Hemolysis < 15 Medications Current Medications Miscellaneous Medication (May use PRN orders) 1 PRN PRN MC ; Start 09/16/16 at 18:45 Acetaminophen (Tylenol Regular Strength) 325 mg Q5H PRN PO PAIN; Start 09/16/16 at 18:45 Aspirin (ASA) 81 mg DAILY PO Last administered on 09/29/16 09:17; Start at 09:00 Atorvastatin Calcium (LIPITOR 40 mg) 40 mg HS PO Last administered on 21:17; Start 09/16/16 at 22:00 Cabergoline (Dostinex) 0.25 mg TuSa@09 PO Last administered on 09/28/16 08:47 ; Start 09/18/16 at 09:00 Clopidogrel Bisulfate (Plavix) 75 mg DAILY PO Last administered on 09/29/16 09 :18; Start 09/17/16 at 09:00 Divalproex Sodium (Depakote) 250 mg BID PO Last administered on 09/17/16 19:55 ; Start 09/16/16 at 21:00; Stop 09/17/16 at 20:26; Status DC Docusate Sodium (Colace) 100 mg BID PO ; Start 09/16/16 at 21:00; Stop 09/17/16 at 17:32; Status DC Acetaminophen/ Hydrocodone Bitart (Tama 5/325) 1 tab Q6H PRN PO PAIN; Start at 18:45 Nitroglycerin (Nitrostat) 0.4 mg Q5MIN PRN SL CHEST PAIN; Start 09/16/16 at 18: 45 Polyethylene Glycol (Miralax) 17 g DAILY PO Last administered on 09/24/16 08: 55; Start 09/17/16 at 09:00 Sodium Chloride (Salt Tab) 1 g BIDBS PO Last administered on 09/17/16 09:07; Start 09/16/16 at 19:30; Stop 09/26/16 at 17:55; Status DC Multivitamins Therapeutic (Theragran) 1 tab DAILY PO Last administered on 09:18; Start 09/17/16 at 09:00 Pxlpa-6-Raog Ethyl Esters (Lovaza) 1 g DAILY PO Last administered on 09/29/16 09:18; Start 09/17/16 at 09:00 Ondansetron HCl (Zofran) 4 mg Q6H PRN PO ; Start 09/16/16 at 18:45 Midodrine (Proamatine) 10 mg 08,12,16 PO Last administered on 09/22/16 08:38; Start 09/17/16 at 08:00; Stop 09/22/16 at 09:02; Status DC Demeclocycline HCl (Declomycin) 300 mg BID/E PO Last administered on 09/22/16 06:30; Start 09/16/16 at 20:00; Status Future Hold Amiodarone HCl (Pacerone) 200 mg DAILY PO Last administered on 09/26/16 08:37 ; Start 09/17/16 at 09:00; Status Future Hold Potassium Chloride (Kdur) 20 meq WB PO Last administered on 09/22/16 09:53; Start 09/22/16 at 08:45; Stop 09/23/16 at 07:33; Status DC Midodrine 10 mg 10 mg 08,12,16 PO Last administered on 09/29/16 12:14; Start 09/22/16 at 12:00 Sodium Chloride (Normal Saline IV) 1,000 ml @ 75 mls/hr [id number] ONCE IV Last administered on 09/23/16 20:08; Start 09/23/16 at 19:44; Stop 09/24/16 at 09:03; Status DC Albuterol/ Ipratropium (Duoneb) 3 ml PRN PRN AEROSOL ; Start 09/27/16 at 17:00 Assessment & Plan Problems: (1) CAD (coronary artery disease) Status: Chronic Qualifiers: Coronary Disease-Associated Artery/Lesion type: bypass graft [place] vs. transplanted heart: [place] heart Associated angina: with unspecified angina Qualified Codes: I25.709 - Atherosclerosis of coronary artery bypass graft(s), unspecified, with unspecified angina pectoris Assessment & Plan: Medical management, Continue Atorvastatin. (2) S/P right coronary artery (RCA) stent placement Status: Acute Assessment & Plan: Plavix 75mg and Aspirin 81mg daily (3) Nonsustained ventricular tachycardia Status: Resolved Assessment & Plan: Amiodarone 200mg daily, monitor telemetry (4) Orthostatic hypotension Status: Chronic Assessment & Plan: Midodrine 10mg TID (5) Dyslipidemia Status: Chronic Assessment & Plan: Continue Atorvastatin Plan/Intensity of Service 09/17/16 CAD, S/P RCA Stent: Medical management, continue Atorvastatin. EKG prn chest pain. NSVT: Continue Amiodarone, monitor Telemetry. 09/20/16 No further VTach on telemetry. No cardiac complaint. continue to monitor telemetry. 09/21/16 Continues to progress well with therapy, he denies complaints. 09/22/16 Patient reports dizziness this morning, evidently had some orthostasis as well. Hypernatremic NA 146 today, give 1L of NS over 2 hours please. Continue to monitor BP and Midodrine dosage. 09/23/16 Denies dizziness, however appears fluid down. Na remains elevated at 146 and Creatinine remains 1.6. Standing BP 123/67. Will give NS @ 75mL x1 09/24/16 He denies any symptoms. Na 143 today, creatinine 1.7, continue to monitor. Measure and treat standing BP only. 09/27/16 Na remains stable last Creatinine 1.4, repeat BMP 09/28/16 BUN improved, creatinine 1.5. No change in plan. 09/29/16 Doing well, will continue to follow Thank you for allowing us to participate in this patients care. We will follow along with you. PRINCESS CRUZ MD 10/06/16 1055: Assessment & Plan Plan/Intensity of Service After examining the patient I agree with the above assessment. I am involved in the formulation of the patient's plan of care. CINDY MEHTA APRN Sep 29, 2016 13:55 PRINCESS CRUZ MD Oct 06, 2016 10:55
--- NOTE | 2016-09-29 14:59 | PNPDOC ---
IRU Subjective Date DATE: 09/29/16 TIME: 14:57 IRU Objective Vital Signs Vital signs Vital Signs Date Time Temp Pulse Resp B/P Pulse Ox O2 Delivery O2 Flow Rate FiO2 09/29/16 08:00 97.7 57 18 116/65 100 Room Air Telemetry Rhythm: Sinus Bradycardia Height (Feet): 5 Height (Inches): 11.00 Weight (Kilograms): 85.500 Assessment & Plan Problems: (1) Orthostatic hypotension Status: Chronic Assessment & Plan: managed by medical. (2) CAD (coronary artery disease) Status: Chronic Qualifiers: Coronary Disease-Associated Artery/Lesion type: bypass graft [place] vs. transplanted heart: [place] heart Associated angina: with unspecified angina Qualified Codes: I25.709 - Atherosclerosis of coronary artery bypass graft(s), unspecified, with unspecified angina pectoris Assessment & Plan: managed by medical. (3) Acute ischemic stroke Status: Acute Assessment & Plan: Pt working with PT and OT to increase strength and stability. FIM improving. Looking to plan home d/c. (4) Myopathy Status: Acute Assessment & Plan: Increased strength, still dependent on chair and support. Cont with PT and OT as current. Pt is making improvements. See team meeting today. (5) Hyponatremia Status: Chronic Assessment DVT Prophylaxis: SANTIAGO Boyer Code Status Full Code Interventions to Obtain Goals PT Treatment Plan: Therapeutic Exercise, Gait Training, Functional Activities , Patient/Family Education, Balance/Proprioception OT Treatment Plan: ADL's (basic care), Ther. Exercise for ADL's, UE Functional Training, Pt./Family Education ST Treatment Plan: Oral Motor Exercise, Swallow Precautions, Modified Diet Hospital Course Summary Disclaimer The hospital course summary below is not to be considered part of the above Progress Note. Hospital Course Summary 09/21/16 Will repeat BMP tomorrow to f/u on Na - salt tabs have been dc'd. He's on an 1800 ml fluid restriction but he's been taking in less than that per day. Cardiology notes reviewed - cont Amiodarone. No further NSVT. Continue Plavix, statin, ASA given recent ischemic strokes. 09/22/16 Given Hypotension will discontinue fluid restriction. Spoke with cardiology agree with given 1 liter of IVF now. Sodium increased to 146 and Assistant Spa Manager is elevated at 1.6. Likely dehydrated. Recheck CBC as the last Hgb was 9.4. Given one time dose of oral potassium supplementation Continue Midodrine 10mg three times a day Continue Plavix, statin, ASA given recent ischemic strokes. 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 Assistant Spa Manager remains elevated at 1.6 Continue with Midodrine 10 milligrams 3 times a day for orthostatic hypotension Appreciate continued recommendations by cardiology team Continue Plavix, statin, ASA given recent ischemic strokes. Recheck Labs again tomorrow morning to follow blood counts, renal function and electrolytes Continue to encourage work with PT and OT for ongoing strengthening 09/26/16- Pt reports feeling well. Continues with therapy. I was able to observe him wheeling his wheelchair independently. Nursing staff reports a flat affect- need to monitor for depression. Continue ASA, Plavix, Statin. Remains orthostatic- On midodrine. No BP meds otherwise. Hx of NSVT, but has been bradycardic with junctional rhythm. Hold Amiodarone. Repeat EKG in AM. CV following. Recent labs reviewed. Salt tabs on hold currently. DYAN WEST MD Sep 29, 2016 14:59
[2016-09-29 17:24] VITALS: BP 135/68; PULSE 53; RESP 20; TEMP 98.4; O2SAT 100
--- NOTE | 2016-09-29 19:41 | NUR ---
SHIFT SUMMARY PATIENT COOPERATIVE AND ALERT AND ORIENTED THROUGHOUT SHIFT. UP WITH ONE ASSIST WITH WALKER TO . PATIENT DENIES PAIN. ON TELE-SB. HX OF ORTHOSTATIC HYPOTENSION, BP'S TAKEN STANDING. SL ON LH FLUSHES WITHOUT PAIN OR SWELLING. PATIENT ATE MEALS ADEQUATLY, AT PATIENTS BEDSIDE TODAY. TOWARD END OF SHIFT, AFTER DINNER, PATIENT C/O WEAK R LEG AND REQUIRED 2 PERSON ASSIST TO TRANSFER FROM WC TO CHAIR. WILL CONTINUE TO MONITOR.
[2016-09-29 20:40] VITALS: BP 124/64; PULSE 79; RESP 20; TEMP 98.5; O2SAT 97
[2016-09-29 20:45] VITALS: PULSE 79; RESP 20
[2016-09-29] MEDS: ATORVASTATIN 40 MG TABLET PO SCH (21:32)
--- NOTE | 2016-09-30 02:46 | NUR ---
Chart Check 24 hour chart check completed
[2016-09-30 05:05] LABS: BASOPHILS # (AUTO) 0.1 T/MM3 (0-0.2); BASOPHILS % (AUTO) 0.9 % (0-2); EOSINOPHILS # (AUTO) 0.2 T/MM3 (0-0.5); HCT - HEMATOCRIT 28.4 % (41-53); HGB - HEMOGLOBIN 8.7 GM/DL (13.5-17.5); IMMATURE GRANULOCYTE # (AUTO) 0.01 T/MM3 (0.00-0.03); IMMATURE GRANULOCYTE % (AUTO) 0.2 % (0.0-0.5); LYMPHOCYTES # (AUTO) 1.8 T/MM3 (1-4.8); MEAN CORPUSCULAR HGB CONC(MCHC 30.6 GM/DL (31-37); MEAN CORPUSCULAR VOLUME 91.3 UM3 (80-100); MEAN PLATELET VOLUME 9.6 UM3 (9.4-12.4); MONOCYTES # (AUTO) 0.8 T/MM3 (0-0.8); MONOCYTES % (AUTO) 13.7 % (0-9.0); NEUTROPHILS #(AUTO)-ABSOLUTE 2.9 T/MM3 (1.8-7.7); NEUTROPHILS % (AUTO) 50.2 % (33-66); RED BLOOD COUNT 3.11 M/MM3 (4.50-5.90); WBC - WHITE BLOOD COUNT 5.8 T/MM3 (4.5-11.0)
[2016-09-30 05:21] LABS: ANION GAP 8 MEQ/L (5-15); BUN/CREATININE RATIO 24 RATIO (6-26); CALCIUM 8.1 MG/DL (8.4-10.2); CHLORIDE 99 MEQ/L (98-107); CO2 - CARBON DIOXIDE 28 MEQ/L (22-30); CREATININE 1.2 MG/DL (0.8-1.5); GLOMERULAR FILTRATION RATE 57; GLUCOSE 89 MG/DL (75-110); POTASSIUM 4.2 MEQ/L (3.6-5); SODIUM 135 MEQ/L (134-144)
--- NOTE | 2016-09-30 07:53 | NUR ---
Assessment: Pascale is a quiet gentleman.He has been cooperative with all his cares.He is able to make his needs known. Appropriate use of call light.He is alert and oriented x three.He has denied pain.He has been incontinent of bladder twice through the night with staff managing hygiene and clothing. Side rails up x two ,bedalarms intact and bilateral SCD;s on.Two staff manage position changes.His IV lock remains intact and flushes. His telemetry reads BBB with Sinus Elieser.He is a stand and pivot transfers .Use of fww and gaitbelt and one staff.
[2016-09-30 08:00] VITALS: BP 109/65; PULSE 108; RESP 12; RESP 16; TEMP 97.9; O2SAT 95
--- NOTE | 2016-09-30 08:00 | NUR ---
Received report Patient is alert and oriented. Denies pain this morning. SCD's to BLE. RA. No concerns reported at this time.
[2016-09-30] MEDS: CLOPIDOGREL 75 MG TABLET PO SCH (08:31)
[2016-09-30] MEDS: ASPIRIN 81 MG CHEWABLE TABLET PO SCH (08:31)
[2016-09-30] MEDS: OMEGA-3 ACID ESTERS 1 G CAPSULE PO SCH (08:31)
[2016-09-30] MEDS: MIDODRINE 10 MG TABLET PO SCH ×3 (08:31→16:35)
[2016-09-30] MEDS: DOCUSATE SODIUM 100 MG CAPSULE PO SCH ×2 (08:31→20:58)
[2016-09-30] MEDS: MULTIVITAMIN PLAIN TABLET PO SCH (08:31)
[2016-09-30] MEDS: POLYETHYL.GLYCOL 3350 PACKET 17gm PO SCH ×2 (08:32→08:38)
--- NOTE | 2016-09-30 10:20 | STDAILYN ---
ST Daily Note Date/Time DATE: 09/30/16 TIME: 09:57 Subjective Comment Eliza Coats was in a pleasant mood this morning for therapy. He accepted the student graduate clinician, Carlyn, to work with him as supervised by PHYSIOTHERAPIST'S ASSISTANT Patricia. Orientations: x 3, Alert, Cooperative, Motivated Chief Complaint: CVA Pain: No (Pt. had no complaint of pain) Was Patient Education Provided: Yes Person(s) Educated: Patient Education Subject: Safety, Swallowing Strategies Instruction Understanding Demo: Pt. verbalizes understand Education Comment Patient verbally expressed his understanding of target exercises during therapy. *Speech Therapy Impressions ALEX 11X: PATIENT WAS INSTRUCTED TO PRODUCE A SWALLOW WHILE LIGHTLY BITING HIS TONGUE. (Patient produced 5/8 trial with an effortfull swallow) TONGUE PRESS OUT 5X: PATIENT WAS INSTRUCTED TO PROTRUDE HIS TONGUE AND RESIST A TONGUE DEPRESSOR FOR 5 SECONDS. (Patient successfully completed 5/5 trials) TONGUE PRESS SIDE 5X EACH SIDE: PATIENT WAS INSTRUCTED TO PROTRUDE HIS TONGUE LATERALLY WHILE RESISTING A TONGUE DEPRESSOR FOR 5 SECONDS. (Patient successfully completetd 5/5 trials on both left and right) TONGUE BOWL 5X: PATIENT WAS INSTRUCTED TO MAKE HIS TONGUE INTO A BOWL-LIKE SHAPE AND HOLD A SMALL ICE CHIP FOR 5 SECONDS BEFORE SWALLOWING. (Patient successfully withheld a small ice chip for longer than 5 seconds prior to swallowing 5/5 trials) SHOWA 2X: THIS EXERCISE WAS MODIFIED TO DECREASE DIFFICULTY. PATIENT WAS INSTRUCTED TO HOLD A TONGUE DEPRESSOR ON THE ROOF OF HIS MOUTH WITH HIS TONGUE WHILE HE PRODUCED A SWALLOW. (Patient produced 6 tongue clicks demonstrating a weak lingual elevation) EFFORTFUL SWALLOW 5X: PATIENT WAS INSTRUCTED TO SQUEEZE THE MUSCLES IN HIS THROAT WHILE HE SWALLOWED. (Patient produced 4/5 effortful swallows with thin water) SUSTAINED "AH" 1X: PATIENT WAS INSTRUCTED TO SAY "AH" AND HOLD IT FOR LONG AND LOUD HE COULD. (Patient sustained "ah" for 5 seconds the first trial and 8 seconds the second trial. Patient demonstrated crackly and hoarse voice during first trial) HAWK EXERCISES 10X: PATIENT WAS INSTRUCTED TO REPEAT WORDS THAT CONTAINED /K/ IN FINAL POSITION OF WORDS WITH AN EXAGGERATED/FORCEFUL /K/. (Patient successfully produced an exaggerated /k/ 10/10 trials. Patient also demonstrated phonemic paraphasia during this task (i.e. cake for make) This could be due to patient being [place]) Thermal Stimulation: (Patient successfully produced 4 effortful swallows after his tongue was stimulated with a cold/sour swab. Weak lingual elevation was seen during this task) ST Treatment Plan: Swallow Retraining, Oral Motor Exercise, Modified Diet ST Treatment Plan Frequency: three times per week Treatment Plan Duration: one week Plan of Care Comment: Continue Plan of Care Start Treatment 1: 09:25 Stop Treatment 1: 09:55 Treatment Duration : ST Treatment Charge: Swallow Treatment Minutes of Individual Therapy: 30 ST FIM Comprehension Ability: 4 Minimal Assistance Social Interaction: 4 Minimal Assistance Problem [place] Minimal Assistance Memory: 3 Moderate Assistance Expression Ability: 6 Modified [place] Swallowin Minimal Assistance CARLYN ROSEN Sep 30, 2016 10:11
--- NOTE | 2016-09-30 13:00 | NUR ---
Therapy Patient ambulates with FWW to dining room. Patient is cooperative with therapy. Takes Max assist to get up from sitting. Patient is also able to wheel himself in the hallway with therapy supervision. No concerns noted.
--- NOTE | 2016-09-30 15:21 | PNPDOC ---
CINDY MEHTA BREWERY REPRESENTATIVE 09/30/16 1521: Subjective Date DATE: 09/30/16 TIME: 15:18 Subjective Beranbe is sitting in his recliner, visiting with the case finishing machine adjuster. He reports difficulty standing today when doing therapy. He denies dizziness or lightheadedness, he denies chest pain or pressure. Objective Vital Signs Vital signs Vital Signs 09/30/16 09/30/16 08:00 08:00 Temp 97.9 Pulse 108 108 Resp 12 16 B/P 109/65 Pulse Ox 95 O2 Delivery Room Air Telemetry Rhythm: Sinus Bradycardia Height (Feet): 5 Height (Inches): 11.00 Weight (Kilograms): 85.500 General Alert, Orientated x 3, Cooperative ENMT (Brief) mucosa moist Neck (Brief) NOT FOUND: JVD, carotid bruits Respiratory (Brief) clear all whelan, equal bilaterally (diminished anteriorly), NOT FOUND: rales, wheezes Cardiovascular (Brief) pedal edema, regular rate, regular rhythm, NOT FOUND: click, gallop, murmur, rub Abdomen (Brief) BS normo active x4, soft Integumentary (Brief) dry, warm Psychiatric (Brief) alert, attentive, oriented Laboratory Laboratory Laboratory Tests Test 09/30/16 04:12 White Blood Count 5.8T/MM3 Red Blood Count 3.11M/MM3 Hemoglobin 8.7GM/DL Hematocrit 28.4% Mean Corpuscular Volume 91.3UM3 Mean Corpuscular Hemoglobin 28.0UUG Mean Corpuscular Hemoglobin Concent 30.6GM/DL RDW Standard Deviation 51.5FL Platelet Count 387T/MM3 Mean Platelet Volume 9.6UM3 Immature Granulocyte % (Auto) 0.2% Neutrophils (%) (Auto) 50.2% Lymphocytes (%) (Auto) 31.0% Monocytes (%) (Auto) 13.7% Eosinophils (%) (Auto) 4.0% Basophils (%) (Auto) 0.9% Absolute Immature Granulocyte (auto 0.01T/MM3 Absolute Neutrophils (auto) 2.9T/MM3 Absolute Lymphocytes (auto) 1.8T/MM3 Absolute Monocytes (auto) 0.8T/MM3 Absolute Eosinophils (auto) 0.2T/MM3 Absolute Basophils (auto) 0.1T/MM3 Turbidity < 20 Sodium Level 135MEQ/L Potassium Level 4.2MEQ/L Chloride Level 99MEQ/L Carbon Dioxide Level 28MEQ/L Anion Gap 8MEQ/L Blood Urea Nitrogen 29.0MG/DL Creatinine 1.2MG/DL Glomerular Filtration Rate Calc 57 BUN/Creatinine Ratio 24RATIO Glucose Level 89MG/DL Calculated Osmolality 265MOSM/KG Calcium Level 8.1MG/DL Icterus Index < 2 Chemistry Specimen Hemolysis 20 Laboratory Tests 09/30/16 04:12 Laboratory Tests 09/30/16 04:12 Medications Current Medications Miscellaneous Medication (May use PRN orders) 1 PRN PRN MC ; Start 09/16/16 at 18:45 Acetaminophen (Tylenol Regular Strength) 325 mg Q5H PRN PO PAIN; Start 09/16/16 at 18:45 Aspirin (ASA) 81 mg DAILY PO Last administered on 09/30/16 08:31; Start at 09:00 Atorvastatin Calcium (LIPITOR 40 mg) 40 mg HS PO Last administered on 21:32; Start 09/16/16 at 22:00 Cabergoline (Dostinex) 0.25 mg TuSa@09 PO Last administered on 09/28/16 08:47 ; Start 09/18/16 at 09:00 Clopidogrel Bisulfate (Plavix) 75 mg DAILY PO Last administered on 09/30/16 08 :31; Start 09/17/16 at 09:00 Divalproex Sodium (Depakote) 250 mg BID PO Last administered on 09/17/16 19:55 ; Start 09/16/16 at 21:00; Stop 09/17/16 at 20:26; Status DC Docusate Sodium (Colace) 100 mg BID PO ; Start 09/16/16 at 21:00; Stop 09/17/16 at 17:32; Status DC Acetaminophen/ Hydrocodone Bitart (Bellamy 5/325) 1 tab Q6H PRN PO PAIN; Start at 18:45 Nitroglycerin (Nitrostat) 0.4 mg Q5MIN PRN SL CHEST PAIN; Start 09/16/16 at 18: 45 Polyethylene Glycol (Miralax) 17 g DAILY PO Last administered on 09/24/16 08: 55; Start 09/17/16 at 09:00 Sodium Chloride (Salt Tab) 1 g BIDBS PO Last administered on 09/17/16 09:07; Start 09/16/16 at 19:30; Stop 09/26/16 at 17:55; Status DC Multivitamins Therapeutic (Theragran) 1 tab DAILY PO Last administered on 08:31; Start 09/17/16 at 09:00 Gdhie-2-Tgiq Ethyl Esters (Lovaza) 1 g DAILY PO Last administered on 09/30/16 08:31; Start 09/17/16 at 09:00 Ondansetron HCl (Zofran) 4 mg Q6H PRN PO ; Start 09/16/16 at 18:45 Midodrine (Proamatine) 10 mg 08,12,16 PO Last administered on 09/22/16 08:38; Start 09/17/16 at 08:00; Stop 09/22/16 at 09:02; Status DC Demeclocycline HCl (Declomycin) 300 mg BID/E PO Last administered on 09/22/16 06:30; Start 09/16/16 at 20:00; Stop 09/29/16 at 19:20; Status DC Amiodarone HCl (Pacerone) 200 mg DAILY PO Last administered on 09/26/16 08:37 ; Start 09/17/16 at 09:00; Status Future Hold Potassium Chloride (Kdur) 20 meq WB PO Last administered on 09/22/16 09:53; Start 09/22/16 at 08:45; Stop 09/23/16 at 07:33; Status DC Midodrine 10 mg 10 mg ,12,16 PO Last administered on 09/30/16 13:15; Start 09/22/16 at 12:00 Sodium Chloride (Normal Saline IV) 1,000 ml @ 75 mls/hr [id number] ONCE IV Last administered on 09/23/16 20:08; Start 09/23/16 at 19:44; Stop 09/24/16 at 09:03; Status DC Albuterol/ Ipratropium (Duoneb) 3 ml PRN PRN AEROSOL ; Start 09/27/16 at 17:00 Assessment & Plan Problems: (1) CAD (coronary artery disease) Status: Chronic Qualifiers: Coronary Disease-Associated Artery/Lesion type: bypass graft [place] vs. transplanted heart: [place] heart Associated angina: with unspecified angina Qualified Codes: I25.709 - Atherosclerosis of coronary artery bypass graft(s), unspecified, with unspecified angina pectoris Assessment & Plan: Medical management, Continue Atorvastatin. (2) S/P right coronary artery (RCA) stent placement Status: Acute Assessment & Plan: Plavix 75mg and Aspirin 81mg daily (3) Nonsustained ventricular tachycardia Status: Resolved Assessment & Plan: Amiodarone 200mg daily, monitor telemetry (4) Orthostatic hypotension Status: Chronic Assessment & Plan: Midodrine 10mg TID (5) Dyslipidemia Status: Chronic Assessment & Plan: Continue Atorvastatin Plan/Intensity of Service 09/17/16 CAD, S/P RCA Stent: Medical management, continue Atorvastatin. EKG prn chest pain. NSVT: Continue Amiodarone, monitor Telemetry. 09/20/16 No further VTach on telemetry. No cardiac complaint. continue to monitor telemetry. 09/21/16 Continues to progress well with therapy, he denies complaints. 09/22/16 Patient reports dizziness this morning, evidently had some orthostasis as well. Hypernatremic NA 146 today, give 1L of NS over 2 hours please. Continue to monitor BP and Midodrine dosage. 09/23/16 Denies dizziness, however appears fluid down. Na remains elevated at 146 and Creatinine remains 1.6. Standing BP 123/67. Will give NS @ 75mL x1 09/24/16 He denies any symptoms. Na 143 today, creatinine 1.7, continue to monitor. Measure and treat standing BP only. 09/27/16 Na remains stable last Creatinine 1.4, repeat BMP 09/28/16 BUN improved, creatinine 1.5. No change in plan. 09/29/16 Doing well, will continue to follow. 09/30/16 telemetry remains unremarkable, no V Tach. Thank you for allowing us to participate in this patients care. We will follow along with you. PRINCESS CRUZ MD 10/07/16 1007: Assessment & Plan Plan/Intensity of Service After examining the patient I agree with the above assessment. I am involved in the formulation of the patient's plan of care. CINDY MEHTA APRN Sep 30, 2016 15:21 PRINCESS CRUZ MD Oct 07, 2016 10:07
[2016-09-30 16:00] VITALS: BP 134/67; PULSE 53
--- NOTE | 2016-09-30 16:58 | NUR ---
CM SPOKE WITH PT, RE; DC PLANNING. EXPLAINED POSSIBLE RELEASE DATE ONCE THE LIFT IS INSTALLED AT HOME. THIS WORKER CALLED THE PT'S , SHE SAID SHE WANTED PT TO REMAIN ANOTHER WEEK. SHE SAID THE LIFT MIGHT BE INSTALLED BY TUESDAY. ARRANGED FOR HER TO COME IN TOMORROW FOR FAMILY TRAINING; SHE SAID SHE HAS BEEN DOING THIS FOR 4 YEARS, BUT WILL COME IN ANYWAY. THEN, THIS WORKER SPOKE WITH PT, RE: POSSIBLE SNU IF HE READY TO BE RELEASED BUT STILL NEEDS MORE ASSISTANCE THAN CAN PROVIDE. PT FIRST SAID NO, BUT THEN SAID HE WOULD CONSIDER IT.
[2016-09-30 17:15] VITALS: BP 134/67; PULSE 53; RESP 18; TEMP 97.6; O2SAT 99
--- NOTE | 2016-09-30 17:42 | NUR ---
EOS patient has not complained of pain all day. sits in recliner when in room. Has been cooperative with therapy all day. No concerns reported this shift.
[2016-09-30] MEDS: ATORVASTATIN 40 MG TABLET PO SCH (20:58)
[2016-09-30 21:54] VITALS: BP 135/64; PULSE 94; RESP 20; TEMP 98.1; O2SAT 98
[2016-09-30 21:56] VITALS: BP 135/64
--- NOTE | 2016-09-30 22:41 | NUR ---
Chart Check 24 hour chart check completed
[2016-09-30 23:40] VITALS: PULSE 94; RESP 20
--- NOTE | 2016-10-01 03:07 | NUR ---
Summary Jimmy is alert and oriented x three. He has a flat affect. He interacts with staff but will not initiate conversation. He denies pain. His IV lock to his left hand is intact and flushes but is noted to be pink. His Telemetry is running Sinus Elieser with a bundle branch block. He is incontinent of bladder and continent of bowel movement x one with staff managing hygiene and clothes. When out of bed he wears a pull up and when in bed he wears an attend with an insert. He is max assist for transfers. He is taken to the bathroom in a w/c then returned and placed to bed per the w/c. When in bed side rails up x two and bed alarms are in use for safety. Bilateral SCDs on. Turning pt while in bed requires two staff. Noted 1+ edema to both feet. He takes his meds whole.
[2016-10-01 05:46] LABS: ANION GAP 5 MEQ/L (5-15); BUN/CREATININE RATIO 22 RATIO (6-26); CALCIUM 8.4 MG/DL (8.4-10.2); CHLORIDE 100 MEQ/L (98-107); CO2 - CARBON DIOXIDE 31 MEQ/L (22-30); CREATININE 1.2 MG/DL (0.8-1.5); GLOMERULAR FILTRATION RATE 57; GLUCOSE 93 MG/DL (75-110); POTASSIUM 4.2 MEQ/L (3.6-5); SODIUM 136 MEQ/L (134-144)
[2016-10-01] MEDS: OMEGA-3 ACID ESTERS 1 G CAPSULE PO SCH (08:40)
[2016-10-01] MEDS: MULTIVITAMIN PLAIN TABLET PO SCH (08:40)
[2016-10-01] MEDS: CLOPIDOGREL 75 MG TABLET PO SCH (08:40)
[2016-10-01] MEDS: ASPIRIN 81 MG CHEWABLE TABLET PO SCH (08:40)
[2016-10-01] MEDS: MIDODRINE 10 MG TABLET PO SCH ×3 (08:40→16:35)
[2016-10-01] MEDS: DOCUSATE SODIUM 100 MG CAPSULE PO SCH ×2 (08:41→21:00)
[2016-10-01] MEDS: POLYETHYL.GLYCOL 3350 PACKET 17gm PO SCH (08:41)
--- NOTE | 2016-10-01 09:46 | STDAILYN ---
ST Daily Note Date/Time DATE: 10/01/16 TIME: 09:29 Subjective Comment Mr. Galeana was in a good mood this morning. He was accompanied by his , she reported she was here to be trained. Pt. agreed to having graduate clinician , Josh, complete the treatment while being supervised by MIGRATORY GAME BIRD BIOLOGIST Emeterio. Orientations: x 3, Alert, Cooperative, Motivated Chief Complaint: CVA Pain: No (Pt. had no complaint of any pain) Was Patient Education Provided: Yes Person(s) Educated: Patient, Spouse/significant other Education Subject: Swallowing Strategies Instruction Understanding Demo: Pt. verbalizes understand, Famly/Cargvr verb underst Education Comment Pt. and were educated about the different swallowing exercises and how they were beneficial. Both verbally understood. *Speech Therapy Impressions ALEX 11X: PATIENT WAS INSTRUCTED TO PRODUCE A SWALLOW WHILE LIGHTLY BITING HIS TONGUE. (Patient produced 5/5 trial with an effort-full swallow) TONGUE PRESS OUT 5X: PATIENT WAS INSTRUCTED TO PROTRUDE HIS TONGUE AND RESIST A TONGUE DEPRESSOR FOR 5 SECONDS. (Patient successfully completed 5/5 trials; Pt. presented with a cough following the first trial, thin water was offered to Pt., trials continued w/o difficulty) TONGUE PRESS SIDE 5X EACH SIDE: PATIENT WAS INSTRUCTED TO PROTRUDE HIS TONGUE LATERALLY WHILE RESISTING A TONGUE DEPRESSOR FOR 5 SECONDS. (Patient successfully completetd 5/5 trials on both left and right sides) TONGUE BOWL 5X: PATIENT WAS INSTRUCTED TO MAKE HIS TONGUE INTO A BOWL-LIKE SHAPE AND HOLD A SMALL ICE CHIP FOR 5 SECONDS BEFORE SWALLOWING. (Patient successfully withheld a small ice chip for longer than 5 seconds prior to swallowing 5/5 trials; Pt. presented with cough on trial 2, thin water was offered, trials continued w/o difficulty) SHOWA 2X: THIS EXERCISE WAS MODIFIED TO DECREASE DIFFICULTY. PATIENT WAS INSTRUCTED TO HOLD A TONGUE DEPRESSOR ON THE ROOF OF HIS MOUTH WITH HIS TONGUE WHILE HE PRODUCED A SWALLOW. (Patient produced 5 tongue clicks demonstrating a stronger lingual elevation as compared to previous session on 09/30 ) EFFORTFUL SWALLOW 5X: PATIENT WAS INSTRUCTED TO SQUEEZE THE MUSCLES IN HIS THROAT WHILE HE SWALLOWED. This task was not targeted SUSTAINED "AH" 1X: PATIENT WAS INSTRUCTED TO SAY "AH" AND HOLD IT FOR LONG AND LOUD HE COULD. (Patient was instructed to take a deep breath of air from belly rather than pulling up shoulders. Patient sustained "ah" for 8-9 seconds on the first trial and 12-13 seconds the second trial. Following tasks, Pt. requested drink of thin water before continuing on to the next exercise) HAWK EXERCISES 10X: PATIENT WAS INSTRUCTED TO REPEAT WORDS THAT CONTAINED /K/ IN FINAL POSITION OF WORDS WITH AN EXAGGERATED/FORCEFUL /K/. (Patient successfully produced an exaggerated /k/ 12/12 trials. Patient demonstrated phonemic paraphasia during this task (i.e. bake for take) This could be due to patient being [place]) Supra super glottic 5X: PATIENT WAS INSTRUCTED TO HOLD ON TO CLINICIANS HAND CAUSING A FORCE WHILE SWALLOWING. (Patient successfully completed this task 5/5 trials. Patient became fatigued during this exercise) ST Treatment Plan: Swallow Retraining, Oral Motor Exercise, Modified Diet ST Treatment Plan Frequency: three times per week Treatment Plan Duration: one week Plan of Care Comment: Continue Plan of Care Start Treatment 1: 09:00 Stop Treatment 1: 09:30 Treatment Duration : ST Treatment Charge: Swallow Treatment Minutes of Individual Therapy: 30 ST FIM Comprehension Ability: 6 Modified [place] Social Interaction: 6 Modified [place] Problem Solvin Supervision/Setup Memory: 4 Minimal Assistance Expression Ability: 5 Supervision/Setup Swallowin Supervision/Setup JOSH ROSEN Oct 01, 2016 09:32
[2016-10-01 09:54] VITALS: BP 95/59; PULSE 54; RESP 18; TEMP 97.9; O2SAT 95
[2016-10-01 09:55] VITALS: BP_SYST 120; BP_SYST 95; BP_DIAS 59; BP_DIAS 67; PULSE 54; PULSE 55
[2016-10-01 10:00] VITALS: PULSE 54; RESP 18
--- NOTE | 2016-10-01 10:00 | NUR ---
IVL/Tele Spoke with KENNEDY Andrade, about Tele and IVL. She gave verbal orders to okay DC'ing IVL and Tele. She reported we can leave IVL out as long as BP is stable. Notified pt. and Tele and IVL are DC'd. Will continue to monitor.
--- NOTE | 2016-10-01 10:25 | PNPDOC ---
IRU Subjective Date DATE: 10/01/16 TIME: 10:21 Subjective Patient would like to get finished and get home. He does cooperate well with PT and OT, is working hard to build strength. Eats in the common area IRU Objective Vital Signs Vital signs Vital Signs Date Time Temp Pulse Resp B/P Pulse Ox O2 Delivery O2 Flow Rate FiO2 10/01/16 09:55 54 120/67 10/01/16 09:54 97.9 18 95 Room Air Telemetry Rhythm: Sinus Bradycardia Height (Feet): 5 Height (Inches): 11.00 Weight (Kilograms): 86.600 General General Appearance: Alert, Orientated x 2 Respiratory (Brief) Respiratory: FOUND: clear all whelan, equal bilaterally Cardiovascular (Brief) Cardiac: FOUND: regular rate, regular rhythm, NOT FOUND: pedal edema Capillary Refill: <2 sec Laboratory Laboratory Laboratory Tests Test 09/30/16 04:12 10/01/16 05:10 White Blood Count 5.8T/MM3 Red Blood Count 3.11M/MM3 Hemoglobin 8.7GM/DL Hematocrit 28.4% Mean Corpuscular Volume 91.3UM3 Mean Corpuscular Hemoglobin 28.0UUG Mean Corpuscular Hemoglobin Concent 30.6GM/DL RDW Standard Deviation 51.5FL Platelet Count 387T/MM3 Mean Platelet Volume 9.6UM3 Immature Granulocyte % (Auto) 0.2% Neutrophils (%) (Auto) 50.2% Lymphocytes (%) (Auto) 31.0% Monocytes (%) (Auto) 13.7% Eosinophils (%) (Auto) 4.0% Basophils (%) (Auto) 0.9% Absolute Immature Granulocyte (auto 0.01T/MM3 Absolute Neutrophils (auto) 2.9T/MM3 Absolute Lymphocytes (auto) 1.8T/MM3 Absolute Monocytes (auto) 0.8T/MM3 Absolute Eosinophils (auto) 0.2T/MM3 Absolute Basophils (auto) 0.1T/MM3 Turbidity < 20 < 20 Sodium Level 135MEQ/L 136MEQ/L Potassium Level 4.2MEQ/L 4.2MEQ/L Chloride Level 99MEQ/L 100MEQ/L Carbon Dioxide Level 28MEQ/L 31MEQ/L Anion Gap 8MEQ/L 5MEQ/L Blood Urea Nitrogen 29.0MG/DL 26.0MG/DL Creatinine 1.2MG/DL 1.2MG/DL Glomerular Filtration Rate Calc 57 57 BUN/Creatinine Ratio 24RATIO 22RATIO Glucose Level 89MG/DL 93MG/DL Calculated Osmolality 265MOSM/KG 267MOSM/KG Calcium Level 8.1MG/DL 8.4MG/DL Icterus Index < 2 < 2 Chemistry Specimen Hemolysis 20 < 15 Assessment & Plan Problems: (1) Orthostatic hypotension Status: Chronic Assessment & Plan: Managed by medical (2) CAD (coronary artery disease) Status: Chronic Qualifiers: Coronary Disease-Associated Artery/Lesion type: bypass graft [place] vs. transplanted heart: [place] heart Associated angina: with unspecified angina Qualified Codes: I25.709 - Atherosclerosis of coronary artery bypass graft(s), unspecified, with unspecified angina pectoris Assessment & Plan: Managed by medical (3) Acute ischemic stroke Status: Acute Assessment & Plan: Patient is improving strength with PT and OT. Also working with speech. Continue with current plan (4) Myopathy Status: Acute Assessment & Plan: Improves in strength with PT and OT. Continue with current plan. (5) Hyponatremia Status: Chronic Assessment & Plan: Managed by medical Assessment Code Status Full Code Interventions to Obtain Goals PT Treatment Plan: Therapeutic Exercise, Gait Training, Functional Activities , Patient/Family Education, Balance/Proprioception OT Treatment Plan: ADL's (basic care), Ther. Exercise for ADL's, UE Functional Training, Pt./Family Education ST Treatment Plan: Swallow Retraining, Oral Motor Exercise, Modified Diet Hospital Course Summary Disclaimer The hospital course summary below is not to be considered part of the above Progress Note. Hospital Course Summary 09/21/16 Will repeat BMP tomorrow to f/u on Na - salt tabs have been dc'd. He's on an 1800 ml fluid restriction but he's been taking in less than that per day. Cardiology notes reviewed - cont Amiodarone. No further NSVT. Continue Plavix, statin, ASA given recent ischemic strokes. 09/22/16 Given Hypotension will discontinue fluid restriction. Spoke with cardiology agree with given 1 liter of IVF now. Sodium increased to 146 and Front Desk Auxiliary is elevated at 1.6. Likely dehydrated. Recheck CBC as the last Hgb was 9.4. Given one time dose of oral potassium supplementation Continue Midodrine 10mg three times a day Continue Plavix, statin, ASA given recent ischemic strokes. 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 Front Desk Auxiliary remains elevated at 1.6 Continue with Midodrine 10 milligrams 3 times a day for orthostatic hypotension Appreciate continued recommendations by cardiology team Continue Plavix, statin, ASA given recent ischemic strokes. Recheck Labs again tomorrow morning to follow blood counts, renal function and electrolytes Continue to encourage work with PT and OT for ongoing strengthening 09/26/16- Pt reports feeling well. Continues with therapy. I was able to observe him wheeling his wheelchair independently. Nursing staff reports a flat affect- need to monitor for depression. Continue ASA, Plavix, Statin. Remains orthostatic- On midodrine. No BP meds otherwise. Hx of NSVT, but has been bradycardic with junctional rhythm. Hold Amiodarone. Repeat EKG in AM. CV following. Recent labs reviewed. Salt tabs on hold currently. DYAN WEST MD Oct 01, 2016 10:24
--- NOTE | 2016-10-01 15:05 | PNPDOC ---
CINDY MEHTA REGULATORY LAW SPECIALIST 10/01/16 1505: Subjective Date DATE: 10/01/16 TIME: 14:04 Subjective Bernabe is in the chair in his room with family at the bedside. He denies complaints Objective Vital Signs Vital signs Vital Signs 10/01/16 10/01/16 10/01/16 10/01/16 09:54 09:55 09:55 10:00 Temp 97.9 Pulse 54 55 54 54 Resp 18 18 B/P 95/59 95/59 120/67 Pulse Ox 95 O2 Delivery Room Air Telemetry Rhythm: Sinus Bradycardia Height (Feet): 5 Height (Inches): 11.00 Weight (Kilograms): 86.600 General Alert, Orientated x 3, Cooperative ENMT (Brief) mucosa moist Neck (Brief) NOT FOUND: JVD, carotid bruits Respiratory (Brief) clear all whelan, equal bilaterally, NOT FOUND: rales Cardiovascular (Brief) pedal edema, regular rate, regular rhythm, NOT FOUND: click, gallop, murmur, rub Abdomen (Brief) BS normo active x4, soft Integumentary (Brief) dry, pink, warm Psychiatric (Brief) alert, attentive, oriented Laboratory Laboratory Laboratory Tests Test 09/30/16 04:12 10/01/16 05:10 White Blood Count 5.8T/MM3 Red Blood Count 3.11M/MM3 Hemoglobin 8.7GM/DL Hematocrit 28.4% Mean Corpuscular Volume 91.3UM3 Mean Corpuscular Hemoglobin 28.0UUG Mean Corpuscular Hemoglobin Concent 30.6GM/DL RDW Standard Deviation 51.5FL Platelet Count 387T/MM3 Mean Platelet Volume 9.6UM3 Immature Granulocyte % (Auto) 0.2% Neutrophils (%) (Auto) 50.2% Lymphocytes (%) (Auto) 31.0% Monocytes (%) (Auto) 13.7% Eosinophils (%) (Auto) 4.0% Basophils (%) (Auto) 0.9% Absolute Immature Granulocyte (auto 0.01T/MM3 Absolute Neutrophils (auto) 2.9T/MM3 Absolute Lymphocytes (auto) 1.8T/MM3 Absolute Monocytes (auto) 0.8T/MM3 Absolute Eosinophils (auto) 0.2T/MM3 Absolute Basophils (auto) 0.1T/MM3 Turbidity < 20 < 20 Sodium Level 135MEQ/L 136MEQ/L Potassium Level 4.2MEQ/L 4.2MEQ/L Chloride Level 99MEQ/L 100MEQ/L Carbon Dioxide Level 28MEQ/L 31MEQ/L Anion Gap 8MEQ/L 5MEQ/L Blood Urea Nitrogen 29.0MG/DL 26.0MG/DL Creatinine 1.2MG/DL 1.2MG/DL Glomerular Filtration Rate Calc 57 57 BUN/Creatinine Ratio 24RATIO 22RATIO Glucose Level 89MG/DL 93MG/DL Calculated Osmolality 265MOSM/KG 267MOSM/KG Calcium Level 8.1MG/DL 8.4MG/DL Icterus Index < 2 < 2 Chemistry Specimen Hemolysis 20 < 15 Laboratory Tests 10/01/16 05:10 Medications Current Medications Miscellaneous Medication (May use PRN orders) 1 PRN PRN MC ; Start 09/16/16 at 18:45 Acetaminophen (Tylenol Regular Strength) 325 mg Q5H PRN PO PAIN; Start 09/16/16 at 18:45 Aspirin (ASA) 81 mg DAILY PO Last administered on 10/01/16 08:40; Start at 09:00 Atorvastatin Calcium (LIPITOR 40 mg) 40 mg HS PO Last administered on 20:58; Start 09/16/16 at 22:00 Cabergoline (Dostinex) 0.25 mg TuSa@09 PO Last administered on 09/28/16 08:47 ; Start 09/18/16 at 09:00 Clopidogrel Bisulfate (Plavix) 75 mg DAILY PO Last administered on 10/01/16 08 :40; Start 09/17/16 at 09:00 Divalproex Sodium (Depakote) 250 mg BID PO Last administered on 09/17/16 19:55 ; Start 09/16/16 at 21:00; Stop 09/17/16 at 20:26; Status DC Docusate Sodium (Colace) 100 mg BID PO ; Start 09/16/16 at 21:00; Stop 09/17/16 at 17:32; Status DC Acetaminophen/ Hydrocodone Bitart ([place] 5/325) 1 tab Q6H PRN PO PAIN; Start at 18:45 Nitroglycerin (Nitrostat) 0.4 mg Q5MIN PRN SL CHEST PAIN; Start 09/16/16 at 18: 45 Polyethylene Glycol (Miralax) 17 g DAILY PO Last administered on 09/24/16 08: 55; Start 09/17/16 at 09:00 Sodium Chloride (Salt Tab) 1 g BIDBS PO Last administered on 09/17/16 09:07; Start 09/16/16 at 19:30; Stop 09/26/16 at 17:55; Status DC Multivitamins Therapeutic (Theragran) 1 tab DAILY PO Last administered on 08:40; Start 09/17/16 at 09:00 Ixstq-2-Ukar Ethyl Esters (Lovaza) 1 g DAILY PO Last administered on 10/01/16 08:40; Start 09/17/16 at 09:00 Ondansetron HCl (Zofran) 4 mg Q6H PRN PO ; Start 09/16/16 at 18:45 Midodrine (Proamatine) 10 mg 08,12,16 PO Last administered on 09/22/16 08:38; Start 09/17/16 at 08:00; Stop 09/22/16 at 09:02; Status DC Demeclocycline HCl (Declomycin) 300 mg BID/E PO Last administered on 09/22/16 06:30; Start 09/16/16 at 20:00; Stop 09/29/16 at 19:20; Status DC Amiodarone HCl (Pacerone) 200 mg DAILY PO Last administered on 09/26/16 08:37 ; Start 09/17/16 at 09:00; Status Future Hold Potassium Chloride (Kdur) 20 meq WB PO Last administered on 09/22/16 09:53; Start 09/22/16 at 08:45; Stop 09/23/16 at 07:33; Status DC Midodrine 10 mg 10 mg 08,12,16 PO Last administered on 10/01/16 12:20; Start 09/22/16 at 12:00 Sodium Chloride (Normal Saline IV) 1,000 ml @ 75 mls/hr [id number] ONCE IV Last administered on 09/23/16 20:08; Start 09/23/16 at 19:44; Stop 09/24/16 at 09:03; Status DC Albuterol/ Ipratropium (Duoneb) 3 ml PRN PRN AEROSOL ; Start 09/27/16 at 17:00 Assessment & Plan Problems: (1) CAD (coronary artery disease) Status: Chronic Qualifiers: Coronary Disease-Associated Artery/Lesion type: bypass graft [place] vs. transplanted heart: [place] heart Associated angina: with unspecified angina Qualified Codes: I25.709 - Atherosclerosis of coronary artery bypass graft(s), unspecified, with unspecified angina pectoris Assessment & Plan: Medical management, Continue Atorvastatin. (2) S/P right coronary artery (RCA) stent placement Status: Acute Assessment & Plan: Plavix 75mg and Aspirin 81mg daily (3) Nonsustained ventricular tachycardia Status: Resolved Assessment & Plan: Amiodarone 200mg daily, monitor telemetry (4) Orthostatic hypotension Status: Chronic Assessment & Plan: Midodrine 10mg TID (5) Dyslipidemia Status: Chronic Assessment & Plan: Continue Atorvastatin Plan/Intensity of Service 09/17/16 CAD, S/P RCA Stent: Medical management, continue Atorvastatin. EKG prn chest pain. NSVT: Continue Amiodarone, monitor Telemetry. 09/20/16 No further VTach on telemetry. No cardiac complaint. continue to monitor telemetry. 09/21/16 Continues to progress well with therapy, he denies complaints. 09/22/16 Patient reports dizziness this morning, evidently had some orthostasis as well. Hypernatremic NA 146 today, give 1L of NS over 2 hours please. Continue to monitor BP and Midodrine dosage. 09/23/16 Denies dizziness, however appears fluid down. Na remains elevated at 146 and Creatinine remains 1.6. Standing BP 123/67. Will give NS @ 75mL x1 09/24/16 He denies any symptoms. Na 143 today, creatinine 1.7, continue to monitor. Measure and treat standing BP only. 09/27/16 Na remains stable last Creatinine 1.4, repeat BMP 09/28/16 BUN improved, creatinine 1.5. No change in plan. 09/29/16 Doing well, will continue to follow. 09/30/16 telemetry remains unremarkable, no V Tach. Thank you for allowing us to participate in this patients care. We will follow along with you. PRINCESS CRUZ MD 10/07/16 1015: Assessment & Plan Plan/Intensity of Service After examining the patient I agree with the above assessment. I am involved in the formulation of the patient's plan of care. CINDY MEHTA APRN Oct 01, 2016 15:05 PRINCESS CRUZ MD Oct 07, 2016 10:15
[2016-10-01 16:00] VITALS: BP 154/72; PULSE 57; RESP 18; TEMP 98.6; O2SAT 96
--- NOTE | 2016-10-01 17:48 | NUR ---
Summary Pt. A/O. VS's stable. He is a pivot transfer x1-2 with FWW and gait belt. He has been slowly gaining strength and improving with transfers. Pt. is total assist clothing management and toileting cares. He is incontinent of urine. He has denied SOA, nausea, dizziness, lightheadedness and pain all shift. Pt. does have a flat affect at times. He takes meds whole w/o difficulty. Nick hose are applied. Will pass on report to news anchor.
[2016-10-01] MEDS: ATORVASTATIN 40 MG TABLET PO SCH (21:11)
[2016-10-01 22:00] VITALS: BP 134/67; PULSE 53; RESP 16; TEMP 98; O2SAT 97
--- NOTE | 2016-10-02 06:38 | NUR ---
Summary Pt has been incont of bladder twice this shift managed by pull up incont product. no bladder accidents this shift. Pt was up to BR last night. Moderate assistance standing up from bed with FWW. Pt was minimal assist down and up from toilet. Denies pain. States his legs felt weak. gait was steady. Pt in bed sleeping at this time.
[2016-10-02 08:00] VITALS: BP 112/60; PULSE 58; RESP 18; TEMP 98.3; O2SAT 98
[2016-10-02] MEDS: POLYETHYL.GLYCOL 3350 PACKET 17gm PO SCH (09:00)
[2016-10-02] MEDS: DOCUSATE SODIUM 100 MG CAPSULE PO SCH ×2 (09:09→20:17)
[2016-10-02] MEDS: MULTIVITAMIN PLAIN TABLET PO SCH (09:09)
[2016-10-02] MEDS: MIDODRINE 10 MG TABLET PO SCH ×3 (09:09→17:35)
[2016-10-02] MEDS: ASPIRIN 81 MG CHEWABLE TABLET PO SCH (09:09)
[2016-10-02] MEDS: CABERGOLINE 0.5 MG TABLET PO SCH (09:09)
[2016-10-02] MEDS: OMEGA-3 ACID ESTERS 1 G CAPSULE PO SCH (09:09)
[2016-10-02] MEDS: CLOPIDOGREL 75 MG TABLET PO SCH (09:09)
--- NOTE | 2016-10-02 11:44 | PNPDOC ---
Subjective Date DATE: 10/02/16 TIME: 11:37 Subjective Bernabe was resting with his eyes closed, but easily awakened. He states he is feeling pretty good. He denies any dizziness, lightheadedness, chest pain or difficulty breathing. He has been eating about 50% of his meals. Bowels are moving. He feels like he is progressing slowly with therapy. He is requiring moderate assistance with his walker, but total assistance with clothing and toileting needs. Objective Vital Signs Vital signs Vital Signs Date Time Temp Pulse Resp B/P Pulse Ox O2 Delivery O2 Flow Rate FiO2 10/02/16 08:00 98.3 58 18 112/60 98 Room Air Telemetry Rhythm: Sinus Bradycardia Height (Feet): 5 Height (Inches): 11.00 Weight (Kilograms): 86.600 General General Appearance: Alert, Orientated x 3, Well Nourished, Well Developed, No Acute Distress Eyes (Brief) Eyes: FOUND: PERRL, NOT FOUND: scleral icterus ENMT (Brief) ENMT: FOUND: mucosa moist, NOT FOUND: pharnyx erythema Respiratory (Brief) Respiratory: FOUND: equal bilaterally Comments Decreased air movement to both bases Cardiovascular (Brief) Cardiac: FOUND: regular rate, regular rhythm Abdomen (Brief) Abdominal: FOUND: BS normo active x4, soft, NOT FOUND: distended, tender Extremities (Brief) Extremity : Side: Bilateral Extremity: leg, foot Extremity Finding: FOUND: edema Musculoskeletal (Brief) Musculoskeletal: NOT FOUND: tenderness (calves soft, nontender) Integumentary (Brief) Integumentary: FOUND: dry, pink, warm Psychiatric (Brief) Psychiatric: FOUND: alert, attentive, normal affect, oriented Laboratory Laboratory Laboratory Tests 10/01/16 05:10 Assessment & Plan Problems: (1) Arterial ischemic stroke, MCA (middle cerebral artery), left, acute Onset Date: ~ 08/07/2016 Status: Acute Assessment & Plan: Had a repeat stroke to the same area on 09/06/16 (2) Myopathy Status: Acute (3) Right sided weakness Status: Acute (4) Nonsustained ventricular tachycardia Status: Resolved Assessment & Plan: Treated with amiodarone (5) Coronavirus infection Status: Resolved (6) Hyponatremia Status: Chronic (7) Syncope Status: Chronic (8) Orthostatic hypotension Status: Chronic (9) CAD (coronary artery disease) Status: Chronic Qualifiers: Coronary Disease-Associated Artery/Lesion type: bypass graft [place] vs. transplanted heart: [place] heart Associated angina: with unspecified angina Qualified Codes: I25.709 - Atherosclerosis of coronary artery bypass graft(s), unspecified, with unspecified angina pectoris Assessment & Plan: Heart catheterization on 09/14/[address] 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 Continue PT and OT. History of hyponatremia: 136 on 10/01/16. He was recently on a fluid restriction (but he tends not to drink a lot of oral fluids anyway), salt tabs, and demeclocycline. We'll repeat tomorrow morning. Orthostatic hypertension: Denies recent symptoms. Bradycardia: Stable. Telemetry was discontinued yesterday. Code Status Full Code Hospital Course Summary Disclaimer The hospital course summary below is not to be considered part of the above Progress Note. Hospital Course Summary 09/21/16 Will repeat BMP tomorrow to f/u on Na - salt tabs have been dc'd. He's on an 1800 ml fluid restriction but he's been taking in less than that per day. Cardiology notes reviewed - cont Amiodarone. No further NSVT. Continue Plavix, statin, ASA given recent ischemic strokes. 09/22/16 Given Hypotension will discontinue fluid restriction. Spoke with cardiology agree with given 1 liter of IVF now. Sodium increased to 146 and Pharmaceutical Development Technician is elevated at 1.6. Likely dehydrated. Recheck CBC as the last Hgb was 9.4. Given one time dose of oral potassium supplementation Continue Midodrine 10mg three times a day Continue Plavix, statin, ASA given recent ischemic strokes. 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 Pharmaceutical Development Technician remains elevated at 1.6 Continue with Midodrine 10 milligrams 3 times a day for orthostatic hypotension Appreciate continued recommendations by cardiology team Continue Plavix, statin, ASA given recent ischemic strokes. Recheck Labs again tomorrow morning to follow blood counts, renal function and electrolytes Continue to encourage work with PT and OT for ongoing strengthening 09/26/16- Pt reports feeling well. Continues with therapy. I was able to observe him wheeling his wheelchair independently. Nursing staff reports a flat affect- need to monitor for depression. Continue ASA, Plavix, Statin. Remains orthostatic- On midodrine. No BP meds otherwise. Hx of NSVT, but has been bradycardic with junctional rhythm. Hold Amiodarone. Repeat EKG in AM. CV following. Recent labs reviewed. Salt tabs on hold currently. 10/02/16 Recurrent ischemic stroke: Statin, Plavix, aspirin. Continue PT and OT. History of hyponatremia: 136 on 10/01/16. He was recently on a fluid restriction (but he tends not to drink a lot of oral fluids anyway), salt tabs, and demeclocycline. We'll repeat tomorrow morning. Orthostatic hypertension: Denies recent symptoms. Bradycardia: Stable. Telemetry was discontinued yesterday. VALENTE ANGELO APRN Oct 02, 2016 11:40
--- NOTE | 2016-10-02 15:57 | NUR ---
Status Patient alert and oriented x3. Ambulates partway to meals this shift with FWW, gait belt, min assist, with w/c pulled behind. Propelled w/c on unit with supervision. Refused bathing or shower this morning and requested shower before bed this evening. Patient set up for dressing upper body and mod assist with lower body dressing. Wears thigh high SANTIAGO hose. Feeds self, takes meds whole one at a time. Denies pain at this time.
[2016-10-02 16:00] VITALS: BP 148/78; PULSE 54; RESP 16; TEMP 98; O2SAT 95
[2016-10-02 20:00] VITALS: BP 136/67; PULSE 60; RESP 18; TEMP 98.3; O2SAT 97
[2016-10-02] MEDS: ATORVASTATIN 40 MG TABLET PO SCH (20:17)
[2016-10-03 06:36] LABS: ANION GAP 7 MEQ/L (5-15); BUN/CREATININE RATIO 22 RATIO (6-26); CALCIUM 8.3 MG/DL (8.4-10.2); CHLORIDE 98 MEQ/L (98-107); CO2 - CARBON DIOXIDE 30 MEQ/L (22-30); CREATININE 1.2 MG/DL (0.8-1.5); GLOMERULAR FILTRATION RATE 57; GLUCOSE 87 MG/DL (75-110); POTASSIUM 4.5 MEQ/L (3.6-5); SODIUM 135 MEQ/L (134-144)
--- NOTE | 2016-10-03 06:38 | NUR ---
Summary Pt denied shower last night. When asked why he stated " I changed my mind". Pt was incont of bladder twice in the night, no accidents. Assisted to the BR. It took the pt 10minutes to sit up from bed and stand. Pt stood with maximum assistance from bed. Pt ambulated steadily with FWW. Pt was able to lower self to toilet safely and stand from toilet under his own power. Pt in bed sleeping at this time.
[2016-10-03 08:00] VITALS: BP 127/64; PULSE 57; RESP 16; TEMP 98.1; O2SAT 90
[2016-10-03] MEDS: POLYETHYL.GLYCOL 3350 PACKET 17gm PO SCH (09:00)
[2016-10-03] MEDS: MIDODRINE 10 MG TABLET PO SCH ×3 (09:22→17:26)
[2016-10-03] MEDS: CLOPIDOGREL 75 MG TABLET PO SCH (09:22)
[2016-10-03] MEDS: OMEGA-3 ACID ESTERS 1 G CAPSULE PO SCH (09:22)
[2016-10-03] MEDS: ASPIRIN 81 MG CHEWABLE TABLET PO SCH (09:23)
[2016-10-03] MEDS: DOCUSATE SODIUM 100 MG CAPSULE PO SCH ×2 (09:23→20:09)
[2016-10-03] MEDS: MULTIVITAMIN PLAIN TABLET PO SCH (09:23)
--- NOTE | 2016-10-03 10:18 | NUR ---
Activity Status Patient ambulated the entire distance from Rm 169 to the dining room and back for breakfast. Praised him for his efforts. This nurse stated "I wish your was here to see how well you are doing and how far you have walked already this morning." Patient replied, "I don't." When asked why, he stated he didn't think she needed to see how well he was doing. This nurse asked him if he wanted his to know how much he had improved and he stated "no, I don't want her to know". He was reminded that he was here to become stronger so he could do some of his own care. When asked if he wanted to help reduce the amount of care his would have to provide, he did not answer. Encouraged him to continue to work with therapy and improve.
[2016-10-03 15:53] VITALS: BP 151/79; PULSE 54; RESP 20; TEMP 97.9; O2SAT 97
--- NOTE | 2016-10-03 16:27 | PNPDOC ---
IRU Subjective Date DATE: 10/03/16 TIME: 16:24 Subjective Pt resting today. Planning on PT and OT in am. He is still requiring sig help with transfers and self care. IRU Objective Vital Signs Vital signs Vital Signs Date Time Temp Pulse Resp B/P Pulse Ox O2 Delivery O2 Flow Rate FiO2 10/03/16 15:53 97.9 54 20 151/79 97 Room Air Telemetry Rhythm: Sinus Bradycardia Height (Feet): 5 Height (Inches): 11.00 Weight (Kilograms): 86.600 General General Appearance: Alert, Orientated x 2 Respiratory (Brief) Respiratory: FOUND: clear all whelan, equal bilaterally Cardiovascular (Brief) Cardiac: FOUND: regular rate, regular rhythm Capillary Refill: <2 sec Laboratory Laboratory Laboratory Tests Test 10/03/16 05:26 Turbidity < 20 Sodium Level 135MEQ/L Potassium Level 4.5MEQ/L Chloride Level 98MEQ/L Carbon Dioxide Level 30MEQ/L Anion Gap 7MEQ/L Blood Urea Nitrogen 26.0MG/DL Creatinine 1.2MG/DL Glomerular Filtration Rate Calc 57 BUN/Creatinine Ratio 22RATIO Glucose Level 87MG/DL Calculated Osmolality 264MOSM/KG Calcium Level 8.3MG/DL Icterus Index < 2 Chemistry Specimen Hemolysis < 15 Assessment & Plan Problems: (1) Orthostatic hypotension Status: Chronic Assessment & Plan: Managed by medical. Some improvement noted. (2) CAD (coronary artery disease) Status: Chronic Qualifiers: Coronary Disease-Associated Artery/Lesion type: bypass graft [place] vs. transplanted heart: [place] heart Associated angina: with unspecified angina Qualified Codes: I25.709 - Atherosclerosis of coronary artery bypass graft(s), unspecified, with unspecified angina pectoris (3) Acute ischemic stroke Status: Acute Assessment & Plan: Weakness continues, pt very cooperative with PT and OT. Frustrated that he is still weak. Cont with PT and OT per plan. (4) Myopathy Status: Acute Assessment & Plan: Cont with PT and OT per plan of care. Re-eval this week. (5) Hyponatremia Status: Chronic Assessment & Plan: Managed by medical. Assessment DVT Prophylaxis: SANTIAGO Boyer Code Status Full Code Interventions to Obtain Goals PT Treatment Plan: Therapeutic Exercise, Gait Training, Functional Activities , Patient/Family Education, Balance/Proprioception OT Treatment Plan: ADL's (basic care), Ther. Exercise for ADL's, UE Functional Training, Pt./Family Education ST Treatment Plan: Swallow Retraining, Oral Motor Exercise, Modified Diet Hospital Course Summary Disclaimer The hospital course summary below is not to be considered part of the above Progress Note. Hospital Course Summary 09/21/16 Will repeat BMP tomorrow to f/u on Na - salt tabs have been dc'd. He's on an 1800 ml fluid restriction but he's been taking in less than that per day. Cardiology notes reviewed - cont Amiodarone. No further NSVT. Continue Plavix, statin, ASA given recent ischemic strokes. 09/22/16 Given Hypotension will discontinue fluid restriction. Spoke with cardiology agree with given 1 liter of IVF now. Sodium increased to 146 and P[employer] Pie[employer] Necktie Operator is elevated at 1.6. Likely dehydrated. Recheck CBC as the last Hgb was 9.4. Given one time dose of oral potassium supplementation Continue Midodrine 10mg three times a day Continue Plavix, statin, ASA given recent ischemic strokes. 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 P[employer] Necktie Operator remains elevated at 1.6 Continue with Midodrine 10 milligrams 3 times a day for orthostatic hypotension Appreciate continued recommendations by cardiology team Continue Plavix, statin, ASA given recent ischemic strokes. Recheck Labs again tomorrow morning to follow blood counts, renal function and electrolytes Continue to encourage work with PT and OT for ongoing strengthening 09/26/16- Pt reports feeling well. Continues with therapy. I was able to observe him wheeling his wheelchair independently. Nursing staff reports a flat affect- need to monitor for depression. Continue ASA, Plavix, Statin. Remains orthostatic- On midodrine. No BP meds otherwise. Hx of NSVT, but has been bradycardic with junctional rhythm. Hold Amiodarone. Repeat EKG in AM. CV following. Recent labs reviewed. Salt tabs on hold currently. 10/02/16 Recurrent ischemic stroke: Statin, Plavix, aspirin. Continue PT and OT. History of hyponatremia: 136 on 10/01/16. He was recently on a fluid restriction (but he tends not to drink a lot of oral fluids anyway), salt tabs, and demeclocycline. We'll repeat tomorrow morning. Orthostatic hypertension: Denies recent symptoms. Bradycardia: Stable. Telemetry was discontinued yesterday. DYAN WEST MD Oct 03, 2016 16:27
--- NOTE | 2016-10-03 18:21 | NUR ---
Shift summary Patient ambulating with FWW, gait belt, min assist to breakfast and lunch, propelled self to and from supper meal. Incontinent of bladder this shift with total assist for management, continent of bowel. Wears pull ups. Min assist for shower transfer, set up assist for upper body washing, max assist for lower body bathing. Set up for upper body dressing and max assist for lower body dressing. Feeds self dysphagia diet, takes meds whole. Patient's hoping he can come home in the next day or two.
[2016-10-03 19:30] VITALS: BP 143/68; PULSE 52; RESP 20; TEMP 98.6; O2SAT 97
[2016-10-03 20:00] VITALS: PULSE 52; RESP 20
[2016-10-03] MEDS: ATORVASTATIN 40 MG TABLET PO SCH (20:09)
--- NOTE | 2016-10-03 22:51 | NUR ---
Chart Check 24 hour chart check completed
--- NOTE | 2016-10-04 06:33 | NUR ---
Summary ERIC is pleasant ,quiet and noted flat affect.He interacts comfortably with staff. He is alert and oriented x three. He denies pain. He has been incontinent of bladder x three with staff managing his hygiene and clothes. He has been moderate assist out of bed for one staff fww and gb. When in bed two assist with incontinence care and clothing management. When in bed side rails up x two and bedalarms in use for safety.Bilateral SCD's in use. Pt turned x three times this shift. He does manage to move and turn himself thru the night. He has mild 1+ edema to to both feet. He takes his meds whole and has not taken any prn meds.
[2016-10-04 08:00] VITALS: BP 113/62; PULSE 62; RESP 20; TEMP 97.7
[2016-10-04] MEDS: ASPIRIN 81 MG CHEWABLE TABLET PO SCH (08:38)
[2016-10-04] MEDS: MIDODRINE 10 MG TABLET PO SCH ×3 (08:38→17:33)
[2016-10-04] MEDS: DOCUSATE SODIUM 100 MG CAPSULE PO SCH ×2 (08:38→20:06)
[2016-10-04] MEDS: MULTIVITAMIN PLAIN TABLET PO SCH (08:39)
[2016-10-04] MEDS: OMEGA-3 ACID ESTERS 1 G CAPSULE PO SCH (08:39)
[2016-10-04] MEDS: POLYETHYL.GLYCOL 3350 PACKET 17gm PO SCH (08:39)
[2016-10-04] MEDS: CLOPIDOGREL 75 MG TABLET PO SCH (08:39)
--- NOTE | 2016-10-04 15:42 | PNPDOC ---
CINDY MEHTA CAR SEALER 10/04/16 1542: Subjective Date DATE: 10/04/16 TIME: 15:39 Subjective Bernabe is in bed, napping. His is at the bedside, he denies complaints. Objective Vital Signs Vital signs Vital Signs 10/04/16 10/04/16 08:00 08:00 Temp 97.7 Pulse 62 62 Resp 20 B/P 113/62 O2 Delivery Room Air Telemetry Rhythm: Sinus Bradycardia Height (Feet): 5 Height (Inches): 11.00 Weight (Kilograms): 86.600 General Alert, Orientated x 3, Cooperative ENMT (Brief) mucosa moist Neck (Brief) NOT FOUND: JVD, carotid bruits Respiratory (Brief) clear all whelan, equal bilaterally, NOT FOUND: rales Cardiovascular (Brief) pedal edema, regular rate, regular rhythm, NOT FOUND: click, gallop, murmur, rub Abdomen (Brief) BS normo active x4, soft Integumentary (Brief) dry, warm Psychiatric (Brief) alert, oriented Laboratory Laboratory Laboratory Tests Test 10/03/16 05:26 Turbidity < 20 Sodium Level 135MEQ/L Potassium Level 4.5MEQ/L Chloride Level 98MEQ/L Carbon Dioxide Level 30MEQ/L Anion Gap 7MEQ/L Blood Urea Nitrogen 26.0MG/DL Creatinine 1.2MG/DL Glomerular Filtration Rate Calc 57 BUN/Creatinine Ratio 22RATIO Glucose Level 87MG/DL Calculated Osmolality 264MOSM/KG Calcium Level 8.3MG/DL Icterus Index < 2 Chemistry Specimen Hemolysis < 15 Medications Current Medications Miscellaneous Medication (May use PRN orders) 1 PRN PRN MC ; Start 09/16/16 at 18:45 Acetaminophen (Tylenol Regular Strength) 325 mg Q5H PRN PO PAIN; Start 09/16/16 at 18:45 Aspirin (ASA) 81 mg DAILY PO Last administered on 10/04/16 08:38; Start at 09:00 Atorvastatin Calcium (LIPITOR 40 mg) 40 mg HS PO Last administered on 20:09; Start 09/16/16 at 22:00 Cabergoline (Dostinex) 0.25 mg TuSa@09 PO Last administered on 10/02/16 09:09 ; Start 09/18/16 at 09:00 Clopidogrel Bisulfate (Plavix) 75 mg DAILY PO Last administered on 10/04/16 08 :39; Start 09/17/16 at 09:00 Divalproex Sodium (Depakote) 250 mg BID PO Last administered on 09/17/16 19:55 ; Start 09/16/16 at 21:00; Stop 09/17/16 at 20:26; Status DC Docusate Sodium (Colace) 100 mg BID PO ; Start 09/16/16 at 21:00; Stop 09/17/16 at 17:32; Status DC Acetaminophen/ Hydrocodone Bitart ([place] 5/325) 1 tab Q6H PRN PO PAIN; Start at 18:45 Nitroglycerin (Nitrostat) 0.4 mg Q5MIN PRN SL CHEST PAIN; Start 09/16/16 at 18: 45 Polyethylene Glycol (Miralax) 17 g DAILY PO Last administered on 09/24/16 08: 55; Start 09/17/16 at 09:00 Sodium Chloride (Salt Tab) 1 g BIDBS PO Last administered on 09/17/16 09:07; Start 09/16/16 at 19:30; Stop 09/26/16 at 17:55; Status DC Multivitamins Therapeutic (Theragran) 1 tab DAILY PO Last administered on 08:39; Start 09/17/16 at 09:00 [id number] Ethyl Esters (Lovaza) 1 g DAILY PO Last administered on 10/04/16 08:39; Start 09/17/16 at 09:00 Ondansetron HCl (Zofran) 4 mg Q6H PRN PO ; Start 09/16/16 at 18:45 Midodrine (Proamatine) 10 mg 08,12,16 PO Last administered on 09/22/16 08:38; Start 09/17/16 at 08:00; Stop 09/22/16 at 09:02; Status DC Demeclocycline HCl (Declomycin) 300 mg BID/E PO Last administered on 09/22/16 06:30; Start 09/16/16 at 20:00; Stop 09/29/16 at 19:20; Status DC Amiodarone HCl (Pacerone) 200 mg DAILY PO Last administered on 09/26/16 08:37 ; Start 09/17/16 at 09:00; Status Future Hold Potassium Chloride (Kdur) 20 meq WB PO Last administered on 09/22/16 09:53; Start 09/22/16 at 08:45; Stop 09/23/16 at 07:33; Status DC Midodrine 10 mg 10 mg 08,12,16 PO Last administered on 10/04/16 11:51; Start 09/22/16 at 12:00 Sodium Chloride (Normal Saline IV) 1,000 ml @ 75 mls/hr [id number] ONCE IV Last administered on 09/23/16 20:08; Start 09/23/16 at 19:44; Stop 09/24/16 at 09:03; Status DC Albuterol/ Ipratropium (Duoneb) 3 ml PRN PRN AEROSOL ; Start 09/27/16 at 17:00 Assessment & Plan Problems: (1) CAD (coronary artery disease) Status: Chronic Qualifiers: Coronary Disease-Associated Artery/Lesion type: bypass graft [place] vs. transplanted heart: [place] heart Associated angina: with unspecified angina Qualified Codes: I25.709 - Atherosclerosis of coronary artery bypass graft(s), unspecified, with unspecified angina pectoris Assessment & Plan: Medical management, Continue Atorvastatin. (2) S/P right coronary artery (RCA) stent placement Status: Acute Assessment & Plan: Plavix 75mg and Aspirin 81mg daily (3) Nonsustained ventricular tachycardia Status: Resolved Assessment & Plan: Amiodarone 200mg daily, monitor telemetry (4) Orthostatic hypotension Status: Chronic Assessment & Plan: Midodrine 10mg TID (5) Dyslipidemia Status: Chronic Assessment & Plan: Continue Atorvastatin Plan/Intensity of Service 09/17/16 CAD, S/P RCA Stent: Medical management, continue Atorvastatin. EKG prn chest pain. NSVT: Continue Amiodarone, monitor Telemetry. 09/20/16 No further VTach on telemetry. No cardiac complaint. continue to monitor telemetry. 09/21/16 Continues to progress well with therapy, he denies complaints. 09/22/16 Patient reports dizziness this morning, evidently had some orthostasis as well. Hypernatremic NA 146 today, give 1L of NS over 2 hours please. Continue to monitor BP and Midodrine dosage. 09/23/16 Denies dizziness, however appears fluid down. Na remains elevated at 146 and Creatinine remains 1.6. Standing BP 123/67. Will give NS @ 75mL x1 09/24/16 He denies any symptoms. Na 143 today, creatinine 1.7, continue to monitor. Measure and treat standing BP only. 09/27/16 Na remains stable last Creatinine 1.4, repeat BMP 09/28/16 BUN improved, creatinine 1.5. No change in plan. 09/29/16 Doing well, will continue to follow. 09/30/16 telemetry remains unremarkable, no V Tach. 10/04/16 Telemetry discontinued over the weekend. Will see Bernabe once weekly while remains on IRU unless needs arise PRINCESS CRUZ MD 10/07/16 1025: Assessment & Plan Plan/Intensity of Service After examining the patient I agree with the above assessment. I am involved in the formulation of the patient's plan of care. CINDY MEHTA APRN Oct 04, 2016 15:42 PRINCESS CRUZ MD Oct 07, 2016 10:25
[2016-10-04 16:38] VITALS: BP 124/68; PULSE 59; RESP 18; TEMP 98.3; O2SAT 98
--- NOTE | 2016-10-04 19:12 | NUR ---
Shift summary Ambulating short distance with min assist, gait belt, FWW. Transfers with mod assist. On dysphagia diet, feeds self. Incontinent of urine x3 today with 1 accident. No BM today. Total assist for incontinence management. Wears pullups. here for short time this afternoon.
[2016-10-04] MEDS: ATORVASTATIN 40 MG TABLET PO SCH (20:06)
[2016-10-04 21:02] VITALS: BP 120/65; PULSE 58; RESP 16; TEMP 97.5; O2SAT 98
[2016-10-04 21:10] VITALS: PULSE 58; RESP 16
--- NOTE | 2016-10-04 21:33 | PNPDOC ---
IRU Subjective Date DATE: 10/04/16 TIME: 21:29 Subjective Pt still frustrated, but is working to increase strength. Concern is potential for repeat cva. IRU Objective Vital Signs Vital signs Vital Signs Date Time Temp Pulse Resp B/P Pulse Ox O2 Delivery O2 Flow Rate FiO2 10/04/16 21:02 97.5 58 16 120/65 98 Room Air Telemetry Rhythm: Sinus Bradycardia Height (Feet): 5 Height (Inches): 11.00 Weight (Kilograms): 86.600 General General Appearance: Alert, Orientated x 2 Neck (Brief) Neck: NOT FOUND: adenopathy, thyromegaly Respiratory (Brief) Respiratory: FOUND: clear all whelan, equal bilaterally Cardiovascular (Brief) Cardiac: FOUND: regular rate, regular rhythm Capillary Refill: <2 sec Laboratory Laboratory Laboratory Tests Test 10/03/16 05:26 Turbidity < 20 Sodium Level 135MEQ/L Potassium Level 4.5MEQ/L Chloride Level 98MEQ/L Carbon Dioxide Level 30MEQ/L Anion Gap 7MEQ/L Blood Urea Nitrogen 26.0MG/DL Creatinine 1.2MG/DL Glomerular Filtration Rate Calc 57 BUN/Creatinine Ratio 22RATIO Glucose Level 87MG/DL Calculated Osmolality 264MOSM/KG Calcium Level 8.3MG/DL Icterus Index < 2 Chemistry Specimen Hemolysis < 15 Assessment & Plan Problems: (1) Orthostatic hypotension Status: Chronic Assessment & Plan: managed by medical. (2) CAD (coronary artery disease) Status: Chronic Qualifiers: Coronary Disease-Associated Artery/Lesion type: bypass graft [place] vs. transplanted heart: [place] heart Associated angina: with unspecified angina Qualified Codes: I25.709 - Atherosclerosis of coronary artery bypass graft(s), unspecified, with unspecified angina pectoris Assessment & Plan: cont to be an issue. Pt is following safety restrictions, (3) Acute ischemic stroke Status: Acute Assessment & Plan: Currently on Plavix. Pt to cont with PT and OT to work on strength. (4) Myopathy Status: Acute Assessment & Plan: PT and OT with plan to increase strength, pt is cooperative. (5) Hyponatremia Status: Chronic Assessment & Plan: managed by medical. Assessment Code Status Full Code Interventions to Obtain Goals PT Treatment Plan: Therapeutic Exercise, Gait Training, Functional Activities , Patient/Family Education, Balance/Proprioception OT Treatment Plan: ADL's (basic care), Ther. Exercise for ADL's, UE Functional Training, Pt./Family Education ST Treatment Plan: Swallow Retraining, Oral Motor Exercise, Modified Diet Hospital Course Summary Disclaimer The hospital course summary below is not to be considered part of the above Progress Note. Hospital Course Summary 09/21/16 Will repeat BMP tomorrow to f/u on Na - salt tabs have been dc'd. He's on an 1800 ml fluid restriction but he's been taking in less than that per day. Cardiology notes reviewed - cont Amiodarone. No further NSVT. Continue Plavix, statin, ASA given recent ischemic strokes. 09/22/16 Given Hypotension will discontinue fluid restriction. Spoke with cardiology agree with given 1 liter of IVF now. Sodium increased to 146 and Actuarial Mathematician is elevated at 1.6. Likely dehydrated. Recheck CBC as the last Hgb was 9.4. Given one time dose of oral potassium supplementation Continue Midodrine 10mg three times a day Continue Plavix, statin, ASA given recent ischemic strokes. 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 Actuarial Mathematician remains elevated at 1.6 Continue with Midodrine 10 milligrams 3 times a day for orthostatic hypotension Appreciate continued recommendations by cardiology team Continue Plavix, statin, ASA given recent ischemic strokes. Recheck Labs again tomorrow morning to follow blood counts, renal function and electrolytes Continue to encourage work with PT and OT for ongoing strengthening 09/26/16- Pt reports feeling well. Continues with therapy. I was able to observe him wheeling his wheelchair independently. Nursing staff reports a flat affect- need to monitor for depression. Continue ASA, Plavix, Statin. Remains orthostatic- On midodrine. No BP meds otherwise. Hx of NSVT, but has been bradycardic with junctional rhythm. Hold Amiodarone. Repeat EKG in AM. CV following. Recent labs reviewed. Salt tabs on hold currently. 10/02/16 Recurrent ischemic stroke: Statin, Plavix, aspirin. Continue PT and OT. History of hyponatremia: 136 on 10/01/16. He was recently on a fluid restriction (but he tends not to drink a lot of oral fluids anyway), salt tabs, and demeclocycline. We'll repeat tomorrow morning. Orthostatic hypertension: Denies recent symptoms. Bradycardia: Stable. Telemetry was discontinued yesterday. DYAN WEST MD Oct 04, 2016 21:33
--- NOTE | 2016-10-05 05:26 | NUR ---
SHIFT SUMMARY Patient has slept well this shift. Ambulated to bathroom with min assist of 1. He moves slowly but is able to complete task. Takes meds whole with water.
[2016-10-05 08:00] VITALS: PULSE 58; RESP 16
[2016-10-05] MEDS: OMEGA-3 ACID ESTERS 1 G CAPSULE PO SCH (08:14)
[2016-10-05] MEDS: CLOPIDOGREL 75 MG TABLET PO SCH (08:14)
[2016-10-05] MEDS: MULTIVITAMIN PLAIN TABLET PO SCH (08:14)
[2016-10-05] MEDS: CABERGOLINE 0.5 MG TABLET PO SCH (08:14)
[2016-10-05] MEDS: DOCUSATE SODIUM 100 MG CAPSULE PO SCH ×2 (08:14→20:47)
[2016-10-05] MEDS: ASPIRIN 81 MG CHEWABLE TABLET PO SCH (08:15)
[2016-10-05] MEDS: MIDODRINE 10 MG TABLET PO SCH ×3 (08:15→17:15)
[2016-10-05] MEDS: POLYETHYL.GLYCOL 3350 PACKET 17gm PO SCH (09:00)
--- NOTE | 2016-10-05 09:25 | STDAILYN ---
Daily Note Date/Time DATE: 10/05/16 TIME: 08:55 Subjective Comment Mr. Galeana was in a pleasant mood. We first met with him in the dining room while he ate breakfast. Then completed the therapy in his room. He agreed to having raw juice weigher, Josh, provide therapy while being supervised by RN ANGIOGRAPHY Patricia. Orientations: x 3, Alert, Cooperative, Motivated Chief Complaint: CVA Pain: No Was Patient Education Provided: Yes Person(s) Educated: Patient Education Subject: Treatment Plan Instruction Understanding Demo: Pt. verbalizes understand Education Comment Pt. was educated on his swallowing exercises. He verbally understood. *Speech Therapy Impressions ALEX 11X: PATIENT WAS INSTRUCTED TO PRODUCE A SWALLOW WHILE LIGHTLY BITING HIS TONGUE. Patient produced 6/6 trials with an effort-full swallow TONGUE PRESS OUT 5X: PATIENT WAS INSTRUCTED TO PROTRUDE HIS TONGUE AND RESIST A TONGUE DEPRESSOR FOR 5 SECONDS. Patient successfully completed 5/5 trials TONGUE PRESS SIDE 5X EACH SIDE: PATIENT WAS INSTRUCTED TO PROTRUDE HIS TONGUE LATERALLY WHILE RESISTING A TONGUE DEPRESSOR FOR 5 SECONDS. Patient successfully completed 7/7 trials on both left and right sides TONGUE BOWL 5X: PATIENT WAS INSTRUCTED TO MAKE HIS TONGUE INTO A BOWL-LIKE SHAPE AND HOLD A SMALL ICE CHIP FOR 5 SECONDS BEFORE SWALLOWING. Patient successfully withheld a small ice chip for longer than 5 seconds prior to swallowing 5/5 trials SHOWA 2X: THIS EXERCISE WAS MODIFIED TO DECREASE DIFFICULTY. PATIENT WAS INSTRUCTED TO HOLD A TONGUE DEPRESSOR ON THE ROOF OF HIS MOUTH WITH HIS TONGUE WHILE HE PRODUCED A SWALLOW. Not targeted during therapy EFFORTFUL SWALLOW 5X: PATIENT WAS INSTRUCTED TO SQUEEZE THE MUSCLES IN HIS THROAT WHILE HE SWALLOWED. Not targeted during therapy SUSTAINED "AH" 1X: PATIENT WAS INSTRUCTED TO SAY "AH" AND HOLD IT FOR LONG AND LOUD HE COULD. Patient was instructed to take a deep breath of air from belly rather than pulling up shoulders. Patient sustained "ah" for 8-9 seconds on two trials. During this task, the clinician instructed the Pt. to produce sound to elicit vocal fold production by saying "ah" or numbers. The Pt. produced a clear and dry voice during this task. HAWK EXERCISES 10X: PATIENT WAS INSTRUCTED TO REPEAT WORDS THAT CONTAINED /K/ IN FINAL POSITION OF WORDS WITH AN EXAGGERATED/FORCEFUL /K/. Not targeted during therapy Supra super glottic 5X: PATIENT WAS INSTRUCTED TO HOLD ON TO CLINICIANS HAND CAUSING A FORCE WHILE SWALLOWING. Patient successfully completed this task 5/5 trials while voicing "ah" and counting 1-2-3. ST Treatment Plan: Swallow Retraining, Oral Motor Exercise ST Treatment Plan Frequency: three times per week Treatment Plan Duration: one week Plan of Care Comment: Continue Plan of Care Start Treatment 1: 08:10 Stop Treatment 1: 08:55 Treatment Duration : ST Treatment Charge: Swallow Treatment Minutes of Individual Therapy: 45 ST FIM Comprehension Ability: 6 Modified [place] Social Interaction: 6 Modified [place] Problem Solvin Modified [place] Memory: 6 Modified [place] Expression Ability: 5 Supervision/Setup Swallowin Modified [place] JOSH ROSEN Oct 05, 2016 08:58
[2016-10-05 09:38] VITALS: BP 108/61; PULSE 81; RESP 16; TEMP 97.8; O2SAT 100
--- NOTE | 2016-10-05 10:28 | PNPDOC ---
ALEXANDER BATRES 10/05/16 1022: Subjective Date DATE: 10/05/16 TIME: 10:14 Subjective Mr. Galeana is seen this morning in follow up for his recent stroke. He is seen while sitting in the day room, eating breakfast. He is pleasant on exam and denies any complaints or concerns including no chest pain, shortness of breath, abdominal pain, nausea, vomiting or dysuria. He is noted to be able to feed himself and enjoying his dysphagia diet. Nursing notes were reviewed and indicate that overall he is doing well. His appetite is good and his bowels are moving. On exam, he eating and cheerful. He is alert and orientated. Cardiac exam reveals regular rate and rhythm and lungs are clear to auscultation. Abdomen is soft, nontender with active bowel sounds. Nick hastingse noted to bilateral lower extremities and trace edema. N/V intact. Objective Vital Signs Vital signs Vital Signs Date Time Temp Pulse Resp B/P Pulse Ox O2 Delivery O2 Flow Rate FiO2 10/05/16 09:38 97.8 81 16 108/61 100 Room Air Height (Feet): 5 Height (Inches): 11.00 Weight (Kilograms): 86.600 General General Appearance: Alert, Cooperative, No Acute Distress Eyes (Brief) Eyes: FOUND: PERRL, NOT FOUND: scleral icterus ENMT (Brief) ENMT: FOUND: mucosa moist Neck (Brief) Neck: FOUND: midline, NOT FOUND: nuchal rigidity, tenderness Respiratory (Brief) Respiratory: FOUND: clear all whelan, equal bilaterally, symmetrical, NOT FOUND : rales, wheezes Cardiovascular (Brief) Cardiac: FOUND: pedal edema, regular rate, regular rhythm Abdomen (Brief) Abdominal: FOUND: BS normo active x4, soft, NOT FOUND: distended, tender Extremities (Brief) Extremity : Side: Bilateral Extremity: leg Extremity Finding: FOUND: edema, NOT FOUND: deformity Lymphatic (Brief) Lymphatic: NOT FOUND: lymphedema Musculoskeletal (Brief) Musculoskeletal: NOT FOUND: deformity Integumentary (Brief) Integumentary: FOUND: dry, pink, warm Comments afebrile Psychiatric (Brief) Psychiatric: FOUND: alert, attentive, normal affect, oriented Assessment & Plan Problems: (1) Arterial ischemic stroke, MCA (middle cerebral artery), left, acute Onset Date: ~ 08/07/2016 Status: Acute Assessment & Plan: Had a repeat stroke to the same area on 09/06/16 (2) Myopathy Status: Acute (3) Right sided weakness Status: Acute (4) Nonsustained ventricular tachycardia Status: Resolved Assessment & Plan: Treated with amiodarone (5) Coronavirus infection Status: Resolved (6) Hyponatremia Status: Chronic (7) Syncope Status: Chronic (8) Orthostatic hypotension Status: Chronic (9) CAD (coronary artery disease) Status: Chronic Qualifiers: Coronary Disease-Associated Artery/Lesion type: bypass graft [place] vs. transplanted heart: [place] heart Associated angina: with unspecified angina Qualified Codes: I25.709 - Atherosclerosis of coronary artery bypass graft(s), unspecified, with unspecified angina pectoris Assessment & Plan: Heart catheterization on 09/14/[address] 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 Overall, Mr. Galeana is doing well. Recurrent ischemic stroke: * Continue to encourage participation in rehab and therapies. * Continue Statin, Plavix, aspirin. * Continue to provide safe and supportive environment. History of hyponatremia- resolved: * 135 on 10/03/16. Will recheck in AM. * He was recently on a fluid restriction (but he tends not to drink a lot of oral fluids anyway); Continue salt tabs and demeclocycline. Orthostatic hypertension: * Denies recent symptoms. Continue to monitor closely. Bradycardia: Stable. * Continue to monitor closely. Anemia * Hgb 8.7 on 09/30. Will recheck in AM to monitor blood counts. Code Status Full Code Hospital Course Summary Disclaimer The hospital course summary below is not to be considered part of the above Progress Note. Hospital Course Summary 09/21/16 Will repeat BMP tomorrow to f/u on Na - salt tabs have been dc'd. He's on an 1800 ml fluid restriction but he's been taking in less than that per day. Cardiology notes reviewed - cont Amiodarone. No further NSVT. Continue Plavix, statin, ASA given recent ischemic strokes. 09/22/16 Given Hypotension will discontinue fluid restriction. Spoke with cardiology agree with given 1 liter of IVF now. Sodium increased to 146 and Room Cooler Installer is elevated at 1.6. Likely dehydrated. Recheck CBC as the last Hgb was 9.4. Given one time dose of oral potassium supplementation Continue Midodrine 10mg three times a day Continue Plavix, statin, ASA given recent ischemic strokes. 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 Room Cooler Installer remains elevated at 1.6 Continue with Midodrine 10 milligrams 3 times a day for orthostatic hypotension Appreciate continued recommendations by cardiology team Continue Plavix, statin, ASA given recent ischemic strokes. Recheck Labs again tomorrow morning to follow blood counts, renal function and electrolytes Continue to encourage work with PT and OT for ongoing strengthening 09/26/16- Pt reports feeling well. Continues with therapy. I was able to observe him wheeling his wheelchair independently. Nursing staff reports a flat affect- need to monitor for depression. Continue ASA, Plavix, Statin. Remains orthostatic- On midodrine. No BP meds otherwise. Hx of NSVT, but has been bradycardic with junctional rhythm. Hold Amiodarone. Repeat EKG in AM. CV following. Recent labs reviewed. Salt tabs on hold currently. 10/02/16 Recurrent ischemic stroke: Statin, Plavix, aspirin. Continue PT and OT. History of hyponatremia: 136 on 10/01/16. He was recently on a fluid restriction (but he tends not to drink a lot of oral fluids anyway), salt tabs, and demeclocycline. We'll repeat tomorrow morning. Orthostatic hypertension: Denies recent symptoms. Bradycardia: Stable. Telemetry was discontinued yesterday. 10/05/16; [place]. Overall, Mr. Galeana is doing well. Recurrent ischemic stroke: * Continue to encourage participation in rehab and therapies. * Continue Statin, Plavix, aspirin. * Continue to provide safe and supportive environment. History of hyponatremia- resolved: * 135 on 10/03/16. Will recheck in AM. * He was recently on a fluid restriction (but he tends not to drink a lot of oral fluids anyway); Continue salt tabs and demeclocycline. Orthostatic hypertension: * Denies recent symptoms. Continue to monitor closely. Bradycardia: Stable. * Continue to monitor closely. Anemia * Hgb 8.7 on 09/30. Will recheck in AM to monitor blood counts. GREGORY HOLLAND MD 10/05/16 1939: Assessment & Plan Plan/Intensity of Service Have independently interviewed and examined pt. Chart reviewed. Case discussed with my PA. Above care plan developed with my supervision; agree with above other than Salt tablets and demeclocycline have been stopped. Doing well. Feels making good gains with strength and abilities. Tolerating therapy well. Eating well. Bowels stable. No ab pain. Breathing well. Lungs; clear CV: regular MSE: awake alert appropriate Plan: Encourage continuation of therapy to maximize functional status. Check Lab in am to monitor sodium, renal status, and blood counts. Hope for discharge in near future. Medically stable for IRU floor activities. ALEXANDER BATRES Oct 05, 2016 10:22 GREGORY HOLLAND MD Oct 05, 2016 19:39
--- NOTE | 2016-10-05 13:36 | NUR ---
NADINE SPOKE WITH PT, RE: DC PLANNING. EXPLAINED DC COULD BE THIS WEEK. PT SAID HE IS VERY READY TO GO HOME. CALLED ABOUT THIS. SHE SAID SHE IS READY FOR DC "WHENEVER YOU WANT." SHE SAID "HE'S MORE THAN READY AND IM' MORE THAN READY." ARRANGED FOR HER TO COME IN FOR FAMILY TRAINING TOMORROW AT 9 AM. Addendum: 10/05/16 at 1340 by ANNA CINTRON Amended: Links added.
[2016-10-05 16:00] VITALS: BP 131/67; PULSE 57; RESP 20; TEMP 98.1; O2SAT 94
--- NOTE | 2016-10-05 19:19 | NUR ---
Shift Summary Patient ambulating with FWW, gait belt, min assist. Propels wheelchair with supervision. Transfers from bed mod assist with gait belt and FWW. Incontinent of bowel x1 this shift and bladder x3 this shift with total assist for incontinence management. Mod assist with clothing management. Patient upgraded to regular consistency diet. Patient hoping to go home in the next few days with his . Bathing upper body with set up assist and lower body with mod assist. Dressing upper body with set up and lower body with mod assist.
[2016-10-05] MEDS: ATORVASTATIN 40 MG TABLET PO SCH (20:48)
[2016-10-05 21:13] VITALS: BP 125/64; PULSE 58; RESP 20; TEMP 98; O2SAT 94
[2016-10-06 01:30] VITALS: PULSE 63; RESP 20
--- NOTE | 2016-10-06 05:03 | NUR ---
CHART CHECK 24 hr chart check completed.
[2016-10-06 05:17] LABS: BASOPHILS # (AUTO) 0.1 T/MM3 (0-0.2); BASOPHILS % (AUTO) 0.7 % (0-2); EOSINOPHILS # (AUTO) 0.3 T/MM3 (0-0.5); EOSINOPHILS % (AUTO) 4.2 % (0-4); HCT - HEMATOCRIT 29.1 % (41-53); IMMATURE GRANULOCYTE # (AUTO) 0.01 T/MM3 (0.00-0.03); IMMATURE GRANULOCYTE % (AUTO) 0.1 % (0.0-0.5); LYMPHOCYTES # (AUTO) 1.4 T/MM3 (1-4.8); LYMPHOCYTES % (AUTO) 20.2 % (23-45); MEAN CORPUSCULAR HGB CONC(MCHC 30.9 GM/DL (31-37); MEAN CORPUSCULAR VOLUME 90.7 UM3 (80-100); MEAN PLATELET VOLUME 8.9 UM3 (9.4-12.4); MONOCYTES # (AUTO) 0.6 T/MM3 (0-0.8); MONOCYTES % (AUTO) 8.6 % (0-9.0); NEUTROPHILS #(AUTO)-ABSOLUTE 4.6 T/MM3 (1.8-7.7); NEUTROPHILS % (AUTO) 66.2 % (33-66); RED BLOOD COUNT 3.21 M/MM3 (4.50-5.90); WBC - WHITE BLOOD COUNT 6.9 T/MM3 (4.5-11.0)
[2016-10-06 05:31] LABS: ANION GAP 8 MEQ/L (5-15); BUN/CREATININE RATIO 24 RATIO (6-26); CALCIUM 8.4 MG/DL (8.4-10.2); CHLORIDE 99 MEQ/L (98-107); CO2 - CARBON DIOXIDE 28 MEQ/L (22-30); CREATININE 1.1 MG/DL (0.8-1.5); GLOMERULAR FILTRATION RATE 63; GLUCOSE 84 MG/DL (75-110); POTASSIUM 4.3 MEQ/L (3.6-5); SODIUM 135 MEQ/L (134-144)
--- NOTE | 2016-10-06 05:42 | NUR ---
SHIFT SUMMARY Patient has required min assist for ambulation, was able to get self dressed for bed with min assist as well. Required total care for toilet hygiene after bm. Alert/oriented x 3. States will be here in a.m. and he is preparing to go home hopefully this week sometime. Was incont. x 2 of urine during night. Up to bathroom for hygiene cares. Staff changed any needed bedding.
[2016-10-06] MEDS ORDERED: POLYETHYL.GLYCOL 3350 PACKET 17gm PO PRN (08:15)
[2016-10-06] MEDS: MULTIVITAMIN PLAIN TABLET PO SCH (08:29)
[2016-10-06] MEDS: OMEGA-3 ACID ESTERS 1 G CAPSULE PO SCH (08:29)
[2016-10-06] MEDS: CLOPIDOGREL 75 MG TABLET PO SCH (08:29)
[2016-10-06] MEDS: MIDODRINE 10 MG TABLET PO SCH ×3 (08:29→16:41)
[2016-10-06] MEDS: ASPIRIN 81 MG CHEWABLE TABLET PO SCH (08:29)
[2016-10-06] MEDS: DOCUSATE SODIUM 100 MG CAPSULE PO SCH (08:31)
[2016-10-06 09:43] VITALS: BP 127/65; PULSE 60; RESP 18; TEMP 97.9; O2SAT 94
--- NOTE | 2016-10-06 09:43 | STDAILYN ---
Daily Note Date/Time DATE: 10/06/16 TIME: 09:19 Subjective Comment Mr. Galeana was in a good mood this morning. The clinicians met him in the dining room while he ate breakfast. He was agreeable to graduate clinician, Josh , providing therapy while being supervised by [employer] Emeterio. Orientations: x 3, Alert, Cooperative, Motivated Chief Complaint: CVA Pain: No (Pt. reported having no pain) Was Patient Education Provided: Yes Person(s) Educated: Patient Education Subject: Treatment Plan Instruction Understanding Demo: Pt. verbalizes understand Education Comment Pt. was educated on his swallowing exercises and verbally understood. *Speech Therapy Impressions ALEX 11X: PATIENT WAS INSTRUCTED TO PRODUCE A SWALLOW WHILE LIGHTLY BITING HIS TONGUE. Patient produced 5/5 trials with an effort-full swallow TONGUE PRESS OUT 5X: PATIENT WAS INSTRUCTED TO PROTRUDE HIS TONGUE AND RESIST A TONGUE DEPRESSOR FOR 5 SECONDS. Patient successfully completed 5/5 trials TONGUE PRESS SIDE 5X EACH SIDE: PATIENT WAS INSTRUCTED TO PROTRUDE HIS TONGUE LATERALLY WHILE RESISTING A TONGUE DEPRESSOR FOR 5 SECONDS. Patient successfully completed 5/5 trials on each side (right and left) TONGUE BOWL 5X: PATIENT WAS INSTRUCTED TO MAKE HIS TONGUE INTO A BOWL-LIKE SHAPE AND HOLD A SMALL ICE CHIP FOR 5 SECONDS BEFORE SWALLOWING. Patient successfully withheld a small ice chip for longer than 5 seconds prior to swallowing 5/5 trials successfully SHOWA 2X: THIS EXERCISE WAS MODIFIED TO DECREASE DIFFICULTY. PATIENT WAS INSTRUCTED TO HOLD A TONGUE DEPRESSOR ON THE ROOF OF HIS MOUTH WITH HIS TONGUE WHILE HE PRODUCED A SWALLOW. Patient completed 5/5 trials demonstrating no difficulty EFFORTFUL SWALLOW 5X: PATIENT WAS INSTRUCTED TO SQUEEZE THE MUSCLES IN HIS THROAT WHILE HE SWALLOWED. Not targeted during therapy SUSTAINED "AH" 1X: PATIENT WAS INSTRUCTED TO SAY "AH" AND HOLD IT FOR LONG AND LOUD HE COULD. Patient was instructed to take a deep breath of air from belly rather than pulling up shoulders. Patient sustained "ah" for 9 - 11 seconds on two trials exhibiting a clear and dry voice. HAWK EXERCISES 10X: PATIENT WAS INSTRUCTED TO REPEAT WORDS THAT CONTAINED /K/ IN FINAL POSITION OF WORDS WITH AN EXAGGERATED/FORCEFUL /K/. Not targeted during therapy Supra super glottic 5X: PATIENT WAS INSTRUCTED TO HOLD ON TO CLINICIANS HAND CAUSING A FORCE WHILE SWALLOWING. Patient successfully completed this task 5/5 trials. While eating breakfast, the patient demonstrated laryngeal elevation within functional limits. He took small sips and bites while alternating between his solids and liquids. The patient produced multiple coughs throughout his meal; however, they were reported to be clear and dry with no s/s of aspiration. ST Treatment Plan: Swallow Retraining, Oral Motor Exercise ST Treatment Plan Frequency: three times per week Treatment Plan Duration: one week Plan of Care Comment: Continue Plan of Care Start Treatment 1: 08:10 Stop Treatment 1: 09:00 Treatment Duration : ST Treatment Charge: Swallow Treatment Minutes of Individual Therapy: 50 ST FIM Comprehension Ability: 6 Modified [place] Social Interaction: 6 Modified [place] Problem Solvin Modified [place] Memory: 6 Modified [place] Expression Ability: 6 Modified [place] Swallowin Modified [place] JOSH ROSEN Oct 06, 2016 09:23
--- NOTE | 2016-10-06 13:54 | PDIRUTEAM ---
Multidisciplinary Team Meeting Nursing Hx Incontinence: Yes Bladder Goal: 5 Supervision/Setup López Y/N: No Bladder Continent or Incontine: Incontinent Incontinent Product Used: Pull-up Number of Times Incontinent of: 2 Cleaning Ability-Bladder: 1 Total Assistance Bladder Incontinence Managemen: 1 Total Assistance Bowel Goal: 5 Supervision/Setup Colostomy Y/N: No Bowel Incontinent/Continent: Continent Bowel Number of Accidents: 0 Number of times Incontinent of: 0 Cleaning Ability-Bowel: 1 Total Assistance Colostomy Care: 0 Activity Does Not Occur Bowel Incontinence Management: 1 Total Assistance Toileting Ability: 4 Minimal Assistance Vital Signs Vital Signs Date Time Temp Pulse Resp B/P Pulse Ox O2 Delivery O2 Flow Rate FiO2 10/06/16 09:43 97.9 60 18 127/65 94 Room Air Current Medications Current Medications Medications (Trade) Dose Ordered Sig/Aishwarya Route PRN Reason Start Time Stop Time Status Last Admin Dose Admin Docusate Sodium (Colace) 100 mg BID PO 09/16/16 21:00 10/06/16 08:08 DC 10/05/16 08:14 Aspirin (ASA) 81 mg DAILY PO 09/17/16 09:00 10/06/16 08:29 Atorvastatin Calcium (LIPITOR 40 mg) 40 mg HS PO 09/16/16 22:00 10/05/16 20:48 Cabergoline (Dostinex) 0.25 mg TuSa@09 PO 09/18/16 09:00 10/05/16 08:14 Clopidogrel Bisulfate (Plavix) 75 mg DAILY PO 09/17/16 09:00 10/06/16 08:29 Divalproex Sodium (Depakote) 250 mg BID PO 09/16/16 21:00 09/17/16 20:26 DC 09/17/16 19:55 Albuterol/ Ipratropium (Duoneb) 3 ml BID AEROSOL 09/16/16 21:00 09/27/16 16:49 DC 09/27/16 10:03 Polyethylene Glycol (Miralax) 17 g DAILY PO 09/17/16 09:00 10/06/16 08:08 DC 09/24/16 08:55 Sodium Chloride (Salt Tab) 1 g BIDBS PO 09/16/16 19:30 09/26/16 17:55 DC 09/17/16 09:07 Multivitamins Therapeutic (Theragran) 1 tab DAILY PO 09/17/16 09:00 10/06/16 08:29 [id number] Ethyl Esters (Lovaza) 1 g DAILY PO 09/17/16 09:00 10/06/16 08:29 Midodrine (Proamatine) 10 mg 08,12,16 PO 09/17/16 08:00 09/22/16 09:02 DC 09/22/16 08:38 Demeclocycline HCl (Declomycin) 300 mg BID/E PO 09/16/16 20:00 09/29/16 19:20 DC 09/22/16 06:30 Amiodarone HCl (Pacerone) 200 mg DAILY PO 09/17/16 09:00 Future Hold 09/26/16 08:37 Potassium Chloride (Kdur) 20 meq WB PO 09/22/16 08:45 09/23/16 07:33 DC 09/22/16 09:53 Midodrine (Proamatine) 10 mg 08,12,16 PO 09/22/16 12:00 10/06/16 12:17 Physical Therapy Bed Transfer Ability: 4 Minimal Assistance Bed Transfer Assistance Needed: 1 Person Bed FIM Score Reason: stood infront of recliner for blood pressure Chair Transfer Ability: 4 Minimal Assistance Chair Transfer Assistance Need: 1 Person Overall Wheelchair Transfer Ab: 4 Minimal Assistance Wheelchair Transfer Assistance: 1 Person Overall Toilet / Commode Trans: 4 Minimal Assistance Ambulation Ability: 4 Minimal Assistance Ambulation Assistance Needed: 1 Person Walk FIM Score Reason: mod to min assist 2/7 d/t distance Ambulation Distance: 150 Comments FIMS 5 across board. wants to go home. Occupational Therapy Grooming Ability: 5 Supervision/Setup Grooming FIM Score Reason: Standing at sink Bathing Ability: 4 Minimal Assistance Upper Body Dressing Ability: 5 Supervision/Setup Lower Body Dressing Ability: 4 Minimal Assistance Lower Body Dressing Assistance: 1 Person Dressing-Lower FIM Score Reaso: MIN A/steadying assist to stand and when donning pants over hips Toileting Assistance Needed: 1 Person Comments FIMS 4-5, improved. Care Plan Condition at time of discharge: Fair IRU Discharge Disposition: Home Health Service Interventions/Goals Requesting d/c tomorrow am. Home health Follow up outpatient. RIght on Track referral. barriers to d/c: fatigue. DYAN WEST MD Oct 06, 2016 13:54
[2016-10-06 15:53] VITALS: BP 131/69; PULSE 60; RESP 12; TEMP 97.5; O2SAT 92
--- NOTE | 2016-10-06 17:08 | NUR ---
CM ANTICIPATED DC DATE IS 10-07. SPOKE WITH PT ABOUT THIS, HE EXPRESSED EAGERNESS TO BE DC'D HOME. EXPLAINED ROTP; HE WAS AGREEABLE TO THIS. CALLED , UPDATED HER ON DC DATE. SHE ALSO EXPRESSED EAGERNESS FOR THIS AND STATED SHE IS READY FOR HIM TO COME HOME. SHE SAID SHE FELT COMFORTABLE WITH TAKING PT HOME AND CAN MANAGE HIS CARES. HOME HEALTH WILL BE THROUGH [facility]. NO DME NEEDS. REVIEWED ROTP WITH , SHE WAS ALSO AGREEABLE. THEY HAD NO QUESTIONS/CONCERNS FOR THIS WORKER. FAXED HH ORDERS. LEFT MESSAGE WITH LOC AT [facility].
--- NOTE | 2016-10-06 18:45 | NUR ---
SHIFT SUMMARY PT HAS BEEN PLEASANT AND COOPERATIVE. PT HAS BEEN CONTINENT EXCEPT FOR FIRST THING THIS MORNING. PT HAS WORKED WITH THERAPY. PT AMBULATED TO MEALS TODAY WITH FWW AND GAIT BELT. PT DID PROPEL SELF BACK TO ROOM FROM DINNER. PT IS CURRENTLY RESTING IN ROOM.
[2016-10-06 20:30] VITALS: BP 124/67; PULSE 59; RESP 16; TEMP 97.9; O2SAT 97
[2016-10-06] MEDS: ATORVASTATIN 40 MG TABLET PO SCH (21:26)
[2016-10-06 23:37] VITALS: PULSE 59; RESP 16
[2016-10-07] VITALS: BP 124/67; PULSE 59; RESP 16; TEMP 97.9; O2SAT 97
--- NOTE | 2016-10-07 04:28 | NUR ---
CHART CHECK 24hr chart check completed.
--- NOTE | 2016-10-07 05:58 | NUR ---
SHIFT SUMMARY Bernabe has slept well this shift. He ambulated to bathroom x 3 for toileting but had already been incontinent of urine. Staff assist him to clean up and ensure bedding is dry. He is alert/oriented x 3. No issues with swallowing meds. He is looking forward to returning home with his later today. Min. assist for ambulation and transfers.
[2016-10-07 07:45] VITALS: BP 125/66; PULSE 56; RESP 18; TEMP 97.5; O2SAT 92
[2016-10-07 08:00] VITALS: PULSE 56
[2016-10-07] MEDS ORDERED: CABE0.5T2 PO (08:09)
[2016-10-07] MEDS ORDERED: HYDR-4246 PO (08:09)
[2016-10-07] MEDS ORDERED: CLOP75TA PO (08:10)
[2016-10-07] MEDS: ASPIRIN 81 MG CHEWABLE TABLET PO SCH (08:42)
[2016-10-07] MEDS: MIDODRINE 10 MG TABLET PO SCH ×2 (08:42→12:07)
[2016-10-07] MEDS: DOCUSATE SODIUM 100 MG CAPSULE PO SCH (08:43)
[2016-10-07] MEDS: CLOPIDOGREL 75 MG TABLET PO SCH (08:43)
[2016-10-07] MEDS: OMEGA-3 ACID ESTERS 1 G CAPSULE PO SCH ×2 (08:43→09:00)
[2016-10-07] MEDS: MULTIVITAMIN PLAIN TABLET PO SCH (08:43)
--- NOTE | 2016-10-07 10:05 | NUR ---
CM REVIEWED IM LETTER WITH PT, HE SIGNED IT AND HAD NO QUESTIONS/CONCERNS. HE SAID HE IS VERY READY TO DC HOME. HE HAD NO QUESTIONS/NEEDS.
--- NOTE | 2016-10-07 13:58 | NUR ---
PATIENT ALERT AND ORIENTED X 3. PATIENT UP WITH ONE ASSIST, WALKER AND GAIT BELT. PATIENT AMBULATED TO AND FROM BREAKFAST AND LUNCH. PATIENT TALAT MEALS. NO C/O PAIN. PATIENT HAD SEVERAL CONTINENT LOOSE BMS TODAY. PATIENT HAD SEVERAL INCONTINENT URINES TODAY.
--- NOTE | 2016-10-07 15:21 | STDAILYN ---
Discharge Note Date/Time DATE: 10/07/16 TIME: 14:55 Discharge From: Inpatient ST (IRU) Reason for Discharge: Transf. to Diff. Facility Discharge Summary: Pt has made progress with all speech therapy goals. He is tolerating a soft diet with chopped meat per pt request with no overt s/s of aspiration. Recommended Follow-up: No Follow-up Needed Discharge Followup Comments: Recommend continue with soft diet with chopped meat/reg. liquids ST FIM Comprehension Ability: 6 Modified [place] Social Interaction: 6 Modified [place] Problem Solvin Modified [place] Memory: 6 Modified [place] Expression Ability: 6 Modified [place] Swallowin Modified [place] LYNNETTE JOHNSON MA Oct 07, 2016 14:56
--- NOTE | 2016-10-07 15:28 | NUR ---
DISCHARGE NOTE PATIENT MEDICATION PRESCRIPTIONS DISCUSSED WITH PATIENT AND . DISCHARGE DIET, ACTIVITY AND F/U APPTS DISCUSSED. HANDOUT ON STROKE EDUCATION GIVEN. PATIENT BELONGINGS WITH PATIENT. ARMBAND REMOVED. PATIENT LEFT IRU UNIT VIA WHEELCHAIR WITH AUTO CLUTCH REBUILDER TO FRONT ENTRANCE.
--- NOTE | 2016-10-08 12:30 | DSPDOC ---
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 Patient has been admitted inpatient to hospital since 09/06/2016. He has had several medical issues during that period of time including SVT, CAD with an MA , coronary stenting, hyponatremia, most recently a coronavirus infection. He has done well with all of these and consistently improved after acute interventions. However the CVA continues to plague him with weakness. He is admitted to IRU for physical therapy, occupational therapy and speech therapy if needed. Hospital Course 09/21/16 Will repeat BMP tomorrow to f/u on Na - salt tabs have been dc'd. He's on an 1800 ml fluid restriction but he's been taking in less than that per day. Cardiology notes reviewed - cont Amiodarone. No further NSVT. Continue Plavix, statin, ASA given recent ischemic strokes. 09/22/16 Given Hypotension will discontinue fluid restriction. Spoke with cardiology agree with given 1 liter of IVF now. Sodium increased to 146 and Aircraft Systems Repairer is elevated at 1.6. Likely dehydrated. Recheck CBC as the last Hgb was 9.4. Given one time dose of oral potassium supplementation Continue Midodrine 10mg three times a day Continue Plavix, statin, ASA given recent ischemic strokes. 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 Aircraft Systems Repairer remains elevated at 1.6 Continue with Midodrine 10 milligrams 3 times a day for orthostatic hypotension Appreciate continued recommendations by cardiology team Continue Plavix, statin, ASA given recent ischemic strokes. Recheck Labs again tomorrow morning to follow blood counts, renal function and electrolytes Continue to encourage work with PT and OT for ongoing strengthening 09/26/16- Pt reports feeling well. Continues with therapy. I was able to observe him wheeling his wheelchair independently. Nursing staff reports a flat affect- need to monitor for depression. Continue ASA, Plavix, Statin. Remains orthostatic- On midodrine. No BP meds otherwise. Hx of NSVT, but has been bradycardic with junctional rhythm. Hold Amiodarone. Repeat EKG in AM. CV following. Recent labs reviewed. Salt tabs on hold currently. 10/02/16 Recurrent ischemic stroke: Statin, Plavix, aspirin. Continue PT and OT. History of hyponatremia: 136 on 10/01/16. He was recently on a fluid restriction (but he tends not to drink a lot of oral fluids anyway), salt tabs, and demeclocycline. We'll repeat tomorrow morning. Orthostatic hypertension: Denies recent symptoms. Bradycardia: Stable. Telemetry was discontinued yesterday. 10/05/16; [place]. Overall, Mr. Galeana is doing well. Recurrent ischemic stroke: * Continue to encourage participation in rehab and therapies. * Continue Statin, Plavix, aspirin. * Continue to provide safe and supportive environment. History of hyponatremia- resolved: * 135 on 10/03/16. Will recheck in AM. * He was recently on a fluid restriction (but he tends not to drink a lot of oral fluids anyway); Continue salt tabs and demeclocycline. Orthostatic hypertension: * Denies recent symptoms. Continue to monitor closely. Bradycardia: Stable. * Continue to monitor closely. Anemia * Hgb 8.7 on 09/30. Will recheck in AM to monitor blood counts. Problems: (1) CAD (coronary artery disease) Status: Chronic Assessment & Plan: Stable, followed by cardiology (2) Orthostatic hypotension Status: Chronic Assessment & Plan: Medication managed by medical/cardiology. Pt with stabilized bp on d/c, but will still require followup. (3) Arterial ischemic stroke, MCA (middle cerebral artery), left, acute Onset Date: ~ 08/07/2016 Status: Acute Assessment & Plan: neurology evaluated, followed by medical. stable. (4) Right sided weakness Status: Acute Assessment & Plan: Strength and stability and endurance improved with PT and OT involvement. speech eval. Safety issues discussed, plan in place. DVT Prophylaxis: SCD'S Code Status Full Code Home Meds Active Scripts Clopidogrel Bisulfate (Plavix) 75 Mg Tablet, 75 MG PO DAILY for 30 Days, #30 TAB Prov:LUIS FERNANDO NOBLES APRN 10/07/16 Cabergoline (Cabergoline) 0.5 Mg Tablet, 0.25 MG PO TuSa@09, #60 TAB Prov:LUIS FERNANDO NOBLES APRN 10/07/16 Hydrocodone/Acetaminophen ([place] 5-325 Tablet) 5-325 Tablet, 1 TAB PO Q6H Y for PAIN for 30 Days, #120 TAB Prov:LUIS FERNANDO NOBLES APRN 10/07/16 Docusate Sodium (Colace) 100 Mg Capsule, 100 MG PO BID for 30 Days, #60 CAP Prov:LUIS FERNANDO NOBLES APRN 08/26/16 Polyethylene Glycol 3350 (Healthylax) 17 Gm Powd.pack, 17 G PO DAILY for 30 Days Prov:LUIS FERNANDO NOBLES APRN 08/26/16 Atorvastatin Calcium (Lipitor) 40 Mg Tablet, 40 MG PO HS for 30 Days, #30 TAB Prov:LUIS FERNANDO NOBLES APRN 08/26/16 Midodrine HCl (Midodrine HCl) 10 Mg Tablet, 5 MG PO TID for 30 Days 0800,1200,1600 Prov:LUIS FERNANDO NOBLES APRN 08/26/16 Acetaminophen (Tylenol) 325 Mg Tablet, 325 MG PO Q5H Y for PAIN for 30 Days, # 120 TAB Prov:LUIS FERNANDO NOBLES APRN 08/11/16 Reported Medications [place]-3/Dha/Epa/Fish Oil (Fish Oil 1,000 mg Softgel) 1 Each Capsule, 1000 MG PO DAILY 12/11/15 Multivitamin (Daily Vitamin) 1 Each Tablet, 1 TAB PO DAILY 04/09/14 Aspirin (Aspirin) 81 Mg Tab.chew, 81 MG PO DAILY 06/06/13 Nitroglycerin (Nitroglycerin) 0.4 Mg Tab.subl, 0.4 MG SL Q5MIN Y for CHEST PAIN 08/04/09 Discontinued Scripts Ipratropium/Albuterol Sulfate (Iprat-Albut 0.5-3(2.5) mg/3 ml) 3 Ml Ampul.neb, 3 ML AEROSOL BID for 7 Days Prov:TIFFANIE JOE MD 09/16/16 Ondansetron HCl/Pf (Ondansetron HCl 4 mg/2 ml Vial) 4 Mg/2 Ml Vial, 4 MG PO/SL Q6H Y for NAUSEA &/OR VOMITING, #20 VIAL Prov:TIFFANIE JOE MD 09/16/16 Divalproex Sodium (Depakote) 250 Mg Tablet.dr, 1 TAB PO BID, #30 TAB Prov:SHAHID WEST MD 09/05/16 Sodium Chloride (Sodium Chloride) 1 G Tablet, 1 G PO BID for 30 Days, #60 TAB Prov:LUIS FERNANDO NOBLES APRN 08/26/16 Cabergoline (Cabergoline) 0.5 Mg Tablet, 0.25 MG PO 2XW for 30 Days Tuesday and tuesday at 0900. Prov:LUIS FERNANDO NOBLES APRN 08/26/16 Face to Face Encounter I met with patient on the day of dismissal and discussed follow up appointments , medications, and safety plan. Discharge Disposition To home with family support. Home health if needed. Copies To 1: MISTY PIERRE MD, CHARLES E MD Oct 08, 2016 12:27
--- NOTE | 2016-10-08 16:51 | PDONTRACK ---
Right on Track Program Date of Discharge Oct 07, 2016 at 15:25 Scheduled Aspirin (Aspirin), 81 MG PO DAILY, (Reported) Atorvastatin Calcium (Lipitor), 40 MG PO HS Cabergoline (Cabergoline), 0.25 MG PO TuSa@09 Clopidogrel Bisulfate (Plavix), 75 MG PO DAILY Docusate Sodium (Colace), 100 MG PO BID Midodrine HCl (Midodrine HCl), 5 MG PO TID Multivitamin (Daily Vitamin), 1 TAB PO DAILY, (Reported) [place]-3/Dha/Epa/Fish Oil (Fish Oil 1,000 mg Softgel), 1,000 MG PO DAILY, ( Reported) Polyethylene Glycol 3350 (Healthylax), 17 G PO DAILY Scheduled PRN Acetaminophen (Tylenol), 325 MG PO Q5H PRN for PAIN Hydrocodone/Acetaminophen ([place] 5-325 Tablet), 1 TAB PO Q6H PRN for PAIN Nitroglycerin (Nitroglycerin), 0.4 MG SL Q5MIN PRN for CHEST PAIN, (Reported) Discontinued Medications Cabergoline (Cabergoline), 0.25 MG PO 2XW Divalproex Sodium (Depakote), 1 TAB PO BID Ipratropium/Albuterol Sulfate (Iprat-Albut 0.5-3(2.5) mg/3 ml), 3 ML AEROSOL BID Ondansetron HCl/Pf (Ondansetron HCl 4 mg/2 ml Vial), 4 MG PO/SL Q6H PRN for NAUSEA &/OR VOMITING Sodium Chloride (Sodium Chloride), 1 G PO BID Right on Track Program: 24 Hour Follow-Up Date of Discharge: Oct 07, 2016 Discharge Summary Received: Yes Care Plan Received: Yes Follow up: Follow Up Appt. Scheduled (Dr Pierre and Dr Adkins) Education: Education to Auto Inspection Specialist Referrals: Case Management Total LACE Score: 11 Discussed w/pt and caregiver: Yes Recommendations for follow-up Mr Galeana is doing well today. reports they were seen today by home health. She denies having questions regarding discharge plan or medications. He does have follow up apt scheduled with Dr Pierre on 10/[address] Adkins 10/27 Spoke with CM today also. Problems: (1) Arterial ischemic stroke, MCA (middle cerebral artery), left, acute Onset Date: ~ 08/07/2016 Status: Acute Assessment & Plan: Had a repeat stroke to the same area on 09/06/16 (2) Myopathy Status: Acute (3) Right sided weakness Status: Acute (4) Nonsustained ventricular tachycardia Status: Resolved Assessment & Plan: Treated with amiodarone (5) Coronavirus infection Status: Resolved (6) Hyponatremia Status: Chronic (7) Syncope Status: Chronic (8) Orthostatic hypotension Status: Chronic (9) CAD (coronary artery disease) Status: Chronic Assessment & Plan: Heart catheterization on 09/14/[address] 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
--- NOTE | 2016-10-15 12:25 | PDONTRACK ---
Right on Track Program Date of Discharge Oct 07, 2016 at 15:25 Scheduled Aspirin (Aspirin), 81 MG PO DAILY, (Reported) Atorvastatin Calcium (Lipitor), 40 MG PO HS Cabergoline (Cabergoline), 0.25 MG PO TuSa@09 Clopidogrel Bisulfate (Plavix), 75 MG PO DAILY Docusate Sodium (Colace), 100 MG PO BID Midodrine HCl (Midodrine HCl), 5 MG PO TID Multivitamin (Daily Vitamin), 1 TAB PO DAILY, (Reported) Howells-3/Dha/Epa/Fish Oil (Fish Oil 1,000 mg Softgel), 1,000 MG PO DAILY, ( Reported) Polyethylene Glycol 3350 (Healthylax), 17 G PO DAILY Scheduled PRN Acetaminophen (Tylenol), 325 MG PO Q5H PRN for PAIN Hydrocodone/Acetaminophen ([place] 5-325 Tablet), 1 TAB PO Q6H PRN for PAIN Nitroglycerin (Nitroglycerin), 0.4 MG SL Q5MIN PRN for CHEST PAIN, (Reported) Date: Oct 15, 2016 Right on Track Program: 7-14Day Txel-dk-Busq Discharge Summary Received: Yes Care Plan Received: Yes Follow up: Follow Up Appt. Scheduled (Dr. Pierre 10/26 & Dr. Adkins 10/28) Education: Diagnosis Ed. Review, Education to [employer] [facility] Referrals: Social Work Total LACE Score: 11 Comments I visited Bernabe and his , Roz, at their house on 10/15/16. Below is a summary of my visit. Patient/family concerns: HR has been running low, recently as low as 48. The highest it has been = 72. Roz is concerned about the slow HR, and she's noticed that he doesn't have the "get up and go" he typically does when his HR is so low. Biggest concerns are repeat strokes and falls. We discussed the medical treatment for stroke prevention as well as signs of stroke. Extrinsic fall risks in their home have been eliminated or modified. Neither of them plan on leaving their house (ever), because they were told that they would need separate rooms at [facility] d/t his [facility] - they refuse to be . Son has noticed increasing forgetfulness, and Roz reports that his answers more and more are similar to "I don't know". Medications: Reviewed with , who understands meds and indications. He is on: ASA, Plavix, Lipitor, cabergoline, midodrine. He has not needed any bowel meds or pain control (even Tylenol). Resources: is primary commercial lines manager, and drives him to all appointments. He has a walker and a motorized lift in the garage to facilitate getting into and out of the house. Retired son from [place] has been up frequently with his to support them. Home Health services visit regularly, along with PT. Barriers: Cataracts impede his vision, but he's been following closely with ophtho and has a neuro-ophtho appt coming up soon. Monitor for commercial lines manager stress, which was not observed during this visit. No healthy local family or other support systems to help Roz or Bernabe in times of need. Quality of Life: Bernabe rates his QOL as very good. Self-monitoring: Roz completes Bernabe's self-monitoring activities: BP and HR BID and fills his pill box. Health Literacy Screen: They understand written health information extremely well. Depression/Anxiety screen: Negative. Engagement: Brenabe and Roz are highly engaged in their healthcare and treatment plan. They are motivated to stay at home. Cognitive evaluation: Scored 20 on SLUMS, indicating dementia. We discussed engaging in cognitive and mental activities. Recommend f/u with PCP. Nutritional assessment: He's lost about 2 lbs. Appetite has been very good. Based on Mini Nutritional Assessment, he is at risk of malnutrition. Fall risk: He's at high risk of falls, but they have taken as many measures as possible to reduce risk: grab bars, environmental safety measures, nonslick surfaces, shower chair, lift chair, hospital bed, use of a walker all the time, PT. His is with him all the time to monitor his balance. Family believe that his strength is better now than what it was before the stroke. ADLs/IADLs: His assists with nearly all of these. He is able to dress himself (mostly), transfer, and feed himself. Emergency Plan: His is physically unable to assist him if he falls or passes out. She will call 911 if needed. Advance Care Planning: Roz is his DPOA. He has a Living Will. If his gets to a point where she can no longer take care of him, she will hire someone to help. Exam: BP 110/78, HR 48 (Home Health RN also present) General: NAD Psych: Pleasant, A&O x3 Neuro: CN II-XII grossly intact. Chalk Tester equal. CV: Bradycardic but regular. HR 50 on exam. Pulm: Decreased air movement left lower lobe (known effusion), otherwise clear. Abd: Nondistended. Ext: Nick hose B/L. +Pedal edema. Discussed w/pt and caregiver: Yes Recommendations for follow-up 1. F/U with Dr. Pierre on 10/26/16. Please consider further evaluation or support regarding his cognitive deficits. 2. F/U with Dr. Adkins on 10/27/16. Please provide recommendations regarding bradycardia, which is occasionally symptomatic with weakness/lack of energy. He has not had any episodes of dizziness, orthostasis, or syncope. 3. Continue with Home Health. 4. Will continue to follow with phone calls. Problems: (1) Arterial ischemic stroke, MCA (middle cerebral artery), left, acute Onset Date: ~ 08/07/2016 Status: Acute Assessment & Plan: Had a repeat stroke to the same area on 09/06/16 (2) Myopathy Status: Acute (3) Nonsustained ventricular tachycardia Status: Resolved (4) Hyponatremia Status: Chronic (5) Orthostatic hypotension Status: Chronic (6) CAD (coronary artery disease) Status: Chronic Assessment & Plan: Heart catheterization on 09/14/[address] 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
== END 2016-10-07 15:25 | disposition home health service (06) | DRG 57 ==
PROVIDERS: ADMIT Family Medicine; ATTEND Family Medicine
PROC: F07Z9FZ Gait Training/Functional Ambulation Treatment using Assistive, Adaptive, Supportive or Protective Equipment (ICD-10-PCS; principal; 2016-09-16)
PROC: F07M6ZZ Therapeutic Exercise Treatment of Musculoskeletal System - Whole Body (ICD-10-PCS; 2016-09-16)
PROC: F08Z4ZZ Home Management Treatment (ICD-10-PCS; 2016-09-16)
DX: I69.351 Hemiplegia and hemiparesis following cerebral infarction affecting right dominant side (principal); E87.1 Hypo-osmolality and hyponatremia; J90 Pleural effusion, not elsewhere classified; G72.9 Myopathy, unspecified; I95.1 Orthostatic hypotension; I10 Essential (primary) hypertension; I25.10 Atherosclerotic heart disease of native coronary artery without angina pectoris; E78.5 Hyperlipidemia, unspecified; R00.1 Bradycardia, unspecified; D64.9 Anemia, unspecified; M19.91 Primary osteoarthritis, unspecified site; Z96.651 Presence of right artificial knee joint; B97.29 Other coronavirus as the cause of diseases classified elsewhere; D35.2 Benign neoplasm of pituitary gland; R13.10 Dysphagia, unspecified; Z79.82 Long term (current) use of aspirin; Z95.1 Presence of aortocoronary bypass graft
CPT/HCPCS: 36415; 36416; 80048; 80069; 81003; 83735; 85025; 93005; 94640

== ENCOUNTER → 2016-10-25 | Outpatient (CLI) | payer MEDICARE ==
[~2016-10-25] MED LIST changes: -DIVA250T4 PO; -IPRA3AMP AEROSOL; -ONDA4VIA23 PO/SL; -SODI1TAB3 PO
[2016-10-25 13:00] LABS: ANION GAP 9 MEQ/L (5-15); BUN/CREATININE RATIO 16 RATIO (6-26); CALCIUM 8.6 MG/DL (8.4-10.2); CHLORIDE 93 MEQ/L (98-107); CO2 - CARBON DIOXIDE 27 MEQ/L (22-30); CREATININE 1.1 MG/DL (0.8-1.5); GLOMERULAR FILTRATION RATE 63; GLUCOSE 100 MG/DL (75-110); POTASSIUM 3.8 MEQ/L (3.6-5); SODIUM 129 MEQ/L (134-144)
== END ==
LOC: LABN.NHH 12:42
PROVIDERS: ATTEND Family Medicine
DX: Z86.73 Personal history of transient ischemic attack (TIA), and cerebral infarction without residual deficits (principal)
CPT/HCPCS: 80048

== ENCOUNTER 2016-11-03 09:46 | Emergency (ER) | payer MEDICARE ==
[~2016-11-03] VITALS: Ht 180.3 cm; Wt 85.1 kg
[2016-11-03 09:48] VITALS: Ht 180.3 cm; Wt 85.1 kg
--- OUTSIDE RECORDS SUMMARY | 2016-11-03 09:50 | XMS REPORT | Continuity of Care Document ---
Author Author [facility] Organization [facility] Address Unknown Phone Unavailable Support Name Relationship Address Phone LILIAN SIEGEL MD Caregiver [address] [place] [phone] GONZALO BRIDGES MD Caregiver [address] [place] [address] [place] [phone] JENN DEMPSEY DPFRANSICO Next Of Kin [address] [place], [place] [id number] Insurance Providers Payer Name Policy Number Subscriber Name Relationship Medicare [id number] Eliza Dempsey Self [facility] [id number] Eliza Dempsey 20 Self Advance Directives Directive [...] 200 Unit PO DAILY 08/04/09 Active Fish Oil/[place]-3 Fatty Acids 1 Cap PO DAILY 08/04/09 [...] F (96.8 - 99.1) Temperature (Calculated Celsius) 35.17600 degrees C (36.0 - 37.3) Pulse Rate [...] 07, 2009 9:15am Not done - PLEASE [facility] Thyroid Stimulating Hormone (TSH) July 19, 2014 12:10pm 2.39 MIU/L N 0.47-4.68 Total Bilirubin July 19, 2014 12:10pm 1.30 MG/DL N 0.20-1.30 Total Protein July 19, 2014 12:10pm 6.6 G/DL N 6.3-8.2 Troponin I July 19, 2014 12:10pm 0.014 ng/ml N 0-0.12 Urine Bacteria September 16, 2009 9:25am 1+ - PLEASE [facility] Urine Bilirubin July 19, 2014 1:36pm [...] 16, 2009 9:25am 30-50 /HPF - PLEASE [facility] Urine Specific [place] July 19, 2014 1:36pm 1.010 L - Has specimen been collected/obtained? Y Urine Squamous Epithelial Cells September 16, 2009 9:25am Few - PLEASE [facility] Urine Turbidity July 19, 2014 1:36pm Clear - Has specimen been collected/obtained? Y Urine Urobilinogen July 19, 2014 1:36pm 0.2 EU/DL - Has specimen been collected/obtained? Y Urine WBC September 16, 2009 9:25am 5-10 /HPF - PLEASE [facility] Urine pH July 19, 2014 1:36pm [...] 05, 2014 8:34pm LAB TEST FORM REQUEST [id number] - EKG August 04, 2009 7:50am Complete [...] Source June 08, 2010 9:18am Nasal - ZZ-Rcz-D-Type Natriuretic Peptide July 19, 2014 12:10pm 1060 PG/ML H 0-175 Rule in cut points: <50 years old=450; 50-75 years old=900; >75 years old=1800; When utilizing ProBNP rule-in cut points, adjustment for impaired renal function is typically not required. Name: Eliza DEMPSEY Unit #: [id number] : [id number] Sex: M Loc / Svc: ED DOS: 07/19/14 Signed Report #: [id number] DIAGNOSTIC IMAGING REPORT TYPE OF EXAM: CT [...] Encounters Encounter Location Date/Time Departed Emergency Room [facility] 07/19/14 11:36am Recent Diagnosis
--- OUTSIDE RECORDS SUMMARY | 2016-11-03 09:50 | XMS REPORT | Continuity of Care Document ---
Author Author [facility] Address Unknown Phone Unavailable Support Name Relationship Address Phone MISTY PIERRE MD Caregiver [address] [address] Unavailable DYAN WEST MD Caregiver [address] [place] [address] Unavailable DYAN WEST MD Caregiver [address] [place] [address] Unavailable JENN DEMPSEY Next Of Kin [address] [place] [address] Insurance Providers Guarantor Eliza Dempsey Address [address] [place] [address] Email DENIED 16 Payer [facility] Policy Number [id number] Subscriber's Name Eliza Dempsey Relationship 18 Self Group Number [id number] Effective Date 04 Payer Medicare Policy Number [id number] Subscriber's Name Eliza Dempsey Relationship 18 Self Effective Date 92 Advance Directives Directive Response Recorded Date/Time Resuscitation Documents on File Yes 09/16/16 4:46pm DPOA for Healthcare Only Yes 09/16/16 4:46pm Living Will Yes 09/16/16 4:46pm Problems Active Problems Medical Problem Onset Date Status Acute ischemic stroke Unknown Acute Anemia Unknown Chronic Arterial ischemic stroke, MCA (middle cerebral artery), left, acute ~2016 Acute Bradycardia Unknown Chronic CAD (coronary artery disease) Unknown Chronic CVA (cerebral vascular accident) Unknown Coronary artery disease Unknown Chronic Coronavirus infection Unknown Acute Dyslipidemia Unknown Chronic HTN (hypertension) Unknown Chronic Hyponatremia Unknown Chronic Myopathy Unknown Nonsustained ventricular tachycardia Unknown Resolved Orthostatic hypotension Unknown Chronic Osteoarthritis Unknown Pituitary adenoma Unknown Pituitary mass Unknown Chronic Pleural effusion on left Unknown Chronic Prolactinoma Unknown Chronic Right sided weakness Unknown Acute Symptomatic bradycardia Unknown Chronic Syncope Unknown Acute Syncope Unknown Acute Ventricular tachyarrhythmia Unknown Acute Weakness Unknown Acute syncopal episode Unknown Resolved Past Problems Medical Problem Onset Date Chr Ischemic Hrt Dis Nos Unknown Hyponatremia Unknown Prostate cancer Unknown Seizure-like activity Unknown Syncope Unknown Weakness Unknown Medications Current Home Medications Medication Dose Units Route Directions Days Qty Instructions Start Date Acetaminophen (Tylenol) 325 Mg Tablet 325 Mg Oral Every 5 Hours as needed for Pain 30 Days 120 Tablet 08/11/16 Aspirin 81 Mg Tab.chew 81 Mg Oral Daily 06/06/13 Atorvastatin Calcium (Lipitor) 40 Mg Tablet 40 Mg Oral Bedtime 30 Days 30 Tablet 08/26/16 Cabergoline 0.5 Mg Tablet 0.25 Mg Oral Twice A Week 30 Days Tuesday and tuesday at 0900. 08/26/16 Clopidogrel Bisulfate (Plavix) 75 Mg Tablet 75 Mg Oral Daily 30 Days 30 Tablet 08/26/16 Divalproex Sodium (Depakote) 250 Mg Tablet.dr 1 Tab Oral Twice A Day 30 Tablet 09/05/16 Docusate Sodium (Colace) 100 Mg Capsule 100 Mg Oral Twice A Day 30 Days 60 Capsule 08/26/16 Hydrocodone/Acetaminophen ([place] 5-325 Tablet) 5-325 Tablet 1 Tab Oral Every 6 Hours as needed for Pain 30 Days 120 Tablet 08/26/16 Ipratropium/Albuterol Sulfate (Iprat-Albut 0.5-3(2.5) Mg/3 Ml) 3 Ml Ampul.neb 3 Ml Aerosol Tx. Twice A Day 7 Days 09/16/16 Midodrine Hcl 10 Mg Tablet 5 Mg Oral Three Times A Day 30 Days 0800, 1200,1600 08/26/16 Multivitamin (Daily Vitamin) 1 Each Tablet 1 Tab Oral Daily 04/09 Nitroglycerin 0.4 Mg Tab.subl 0.4 Mg Sublingual Every 5 Minutes X 3 as needed for Chest Pain 08/04/09 [place]-3/Dha/Epa/Fish Oil (Fish Oil 1,000 Mg Softgel) 1 Each Capsule 1,000 Mg Oral Daily 12/11/15 Ondansetron Hcl/Pf (Ondansetron Hcl 4 Mg/2 Ml Vial) 4 Mg/2 Ml Vial 4 Mg Oral /Sublingual Every 6 Hours as needed for Nausea &/Or Vomiting 20 Vial Polyethylene Glycol 3350 (Healthylax) 17 Gm Powd.pack 17 G Oral Daily 30 Days 08/26/16 Sodium Chloride 1 G Tablet 1 G Oral Twice A Day 30 Days 60 Tablet 04/03 Past Home Medications Medication Directions Ordered Status Alprazolam 0.25 Mg Tablet, 0.25 Mg Oral Bedtime as needed for Anxiety/ Restlessness 08/11/16 Discontinued Amlodipine Besylate 5 Mg Tablet, 5 Mg Oral Daily 11/25/15 Discontinued Aspirin 325 Mg Tablet, 325 Mg Oral Daily 08/04/09 Discontinued Atorvastatin Calcium (Lipitor) 40 Mg Tablet, 40 Mg Oral Bedtime 08/11/16 Discontinued Cabergoline 0.5 Mg Tablet, 0.25 Mg Oral Twice A Week 08/11/16 Discontinued Clopidogrel Bisulfate (Plavix) 75 Mg Tablet, 75 Mg Oral Daily 08/11/16 Discontinued Fish Oil/[place]-3 Fatty Acids ([place]-3 Fish Oil 1,200 Mg Stgl) 1 Cap Capsule, 1 Cap Oral Daily 08/04/09 Discontinued Hydrocodone/Acetaminophen ([place] 5-325 Tablet) 5-325 Tablet, 1 Tab Oral Every 6 Hours as needed for Pain 08/11/16 Discontinued Midodrine Hcl 10 Mg Tablet, 5 Mg Oral Three Times A Day 07/28/14 Discontinued Nitroglycerin (Nitroglycerin 0.2MG/Hr Patch) 1 Patch Patch, 1 Patch Transderm As Needed 06/10/10 Discontinued Nystatin 50,000,000 Unit Powder.ea., 1 Applic Topically Three Times A Day Discontinued Polyethylene Glycol 3350 (Healthylax) 17 Gm Powd.pack, 17 G Oral Daily Discontinued Pravastatin Sodium 10 Mg Tablet, 10 Mg Oral Daily 08/04/09 Discontinued Social History Social History Problem Response Recorded Date/Time Onset Date Status Hx Substance Use No 09/06/2016 1:51pm Not Applicable Not Applicable Hx Alcohol Use Y OCC 09/06/2016 1:51pm Not Applicable Not Applicable Has the pt used tobacco in the last 12 months No 09/16/2016 4:51pm Not Applicable Not Applicable Tobacco Usage none 07/19/2014 12:32pm Not Applicable Not Applicable Query Response Start Date Stop Date Smoking Status Never smoker Hospital Discharge Instructions Current inpatient/outpatient. Discharge instructions are currently unavailable. Plan of Care Current inpatient/outpatient. The plan of care is currently unavailable Functional Status Query Response Date Recorded Ability to complete ADL's impeded by Impaired Mobility September 16, 2016 4:46pm Allergies, Adverse Reactions, Alerts Allergen Type Severity Reaction Status Last Updated No Known Drug Allergies Allergy Unknown Active 09/05/16 Immunizations Query Response on File Recorded Date/Time Hx Influenza Vaccination Y 05/201609/16/16 4:51pm Hx Pneumococcal Vaccination Y 11/201209/16/16 4:51pm Hx Influenza Vaccination Y 05/201609/16/16 4:51pm Influenza Vaccine Hx apr 2016 09/16/16 4:54pm Vital Signs Acute Vital Signs Vital Response Date/Time Temperature (Fahrenheit) 96.5 deg F (96.8 - 99.1) 09/16/2016 8:07am Temperature (Calculated Celsius) 35.95854 degrees C (36.0 - 37.3) 09/16/2016 8:07am Temperature Source Temporal 08/09/2016 10:41am Pulse Rate (adult) 57 bpm (60 - 100) 09/16/2016 9:00am Respiratory Rate 16 breaths/min (10 - 20) 09/16/2016 8:07am O2 Sat by Pulse Oximetry 100 % (90 - 100) 09/16/2016 10:54am Oxygen Delivery Method Nasal Cannula 09/14/2016 10:38pm Oxygen Delivery Method Nasal Cannula 09/16/2016 8:07am Oxygen Flow Rate 1.00 L/min 09/16/2016 8:07am Blood Pressure 145/81 mm Hg 09/16/2016 9:00am Blood Pressure Source Automatic Cuff 09/16/2016 8:07am Blood Pressure 144/79 mm Hg 09/16/2016 9:00am Blood Pressure 116/65 mm Hg 09/16/2016 9:00am Height (Feet) 5 feet 09/15/2016 7:43pm Height (Inches) 10.00 inches 09/15/2016 7:43pm Weight (Kilograms) 86.000 kg 09/16/2016 8:07am Body Mass Index (BMI) 27.3 09/06/2016 5:00pm Results Laboratory Results Test Name Result Units Flags Reference Collection Date/Time Result Date/ Time Comments Iron Level 41 UG/DL L 49-181 08/10/2016 7:39am 08/11/2016 2:09am Total Iron Binding Capacity 274 UG/DL 261-497 08/10/2016 7:39am 2016 2:18am Percent Iron Saturation 15 % 13-59 08/10/2016 7:39am 08/11/2016 2:18am Prolactin < 1.4 NG/ML 08/10/2016 7:39am 08/10/2016 8:32am Normal Female (Non-): 3.0-18.6 ng/ml; Males: 3.7-17.9 ng/ml Urine Amorphous Phosphates FEW 08/07/2016 1:25am 08/07/2016 1:45am Cortisol AM Sample 7 ug/dL 3-08/10/2016 7:39am 08/10/2016 3:27pm Cortisol AM performed at [facility], [address] [place] [address] Braided Band Assembler Doyle Garcia, DO Cortisol Baseline 8 ug/dL 3-08/11/2016 12:33pm 08/11/2016 9:25pm Cortisol AM performed at [facility], [address] [place] [address] Braided Band Assembler Doyle Garcia, DO Cortisol 60 Minute 15 ug/dL 15-30 08/11/2016 2:15pm 08/11/2016 9:25pm Cortisol 60 minute performed at [facility], [address] [place] [address] Braided Band Assembler Doyle Garcia, DO Serum Osmolality 267 mOsm/kg L 275-300 08/07/2016 6:42am 08/07/2016 10: 49pm Osmolality performed at [facility], [address] [place] [address] Braided Band Assembler Doyle Garcia, DO Glucometer 121 mg/dL H 75-110 08/09/2016 10:37am 08/09/2016 10:42am Urinalysis Comment MICROSCOPIC NOT IND. 09/05/2016 8:17am 2016 9:32am White Blood Count 6.8 T/MM3 4.5-11.0 09/15/2016 4:44am 09/15/2016 5: 32am Red Blood Count 3.37 M/MM3 L 4.50-5.90 09/15/2016 4:44am 09/15/2016 5: 32am Hemoglobin 9.7 GM/DL L 13.5-17.5 09/15/2016 4:44am 09/15/2016 5:32am Hematocrit 30.3 % L 41-53 09/15/2016 4:44am 09/15/2016 5:32am Mean Corpuscular Volume 89.9 UM3 80-100 09/15/2016 4:44am 09/15/2016 5: 32am Mean Corpuscular Hemoglobin 28.8 UUG 26-34 09/15/2016 4:44am 2016 5:32am Mean Corpuscular Hemoglobin Concent 32.0 GM/DL 31-37 09/15/2016 4:44am 09/15/2016 5:32am RDW Standard Deviation 48.5 FL 36.9-50.2 09/15/2016 4:44am 09/15/2016 5 :32am Platelet Count 294 T/MM3 130-400 09/15/2016 4:44am 09/15/2016 5:32am Mean Platelet Volume 9.0 UM3 L 9.4-12.4 09/15/2016 4:44am 09/15/2016 5: 32am Neutrophils (%) (Auto) 72.7 % H 33-66 09/15/2016 4:44am 09/15/2016 5: 32am Lymphocytes (%) (Auto) 14.7 % L 23-45 09/15/2016 4:44am 09/15/2016 5: 32am Monocytes (%) (Auto) 9.8 % H 0-9.0 09/15/2016 4:44am 09/15/2016 5:32am Eosinophils (%) (Auto) 2.1 % 0-4 09/15/2016 4:44am 09/15/2016 5:32am Basophils (%) (Auto) 0.6 % 0-2 09/15/2016 4:44am 09/15/2016 5:32am Immature Granulocyte % (Auto) 0.1 % 0.0-0.5 09/15/2016 4:44am 2016 5:32am Absolute Neutrophils (auto) 5.0 T/MM3 1.8-7.7 09/15/2016 4:44am 2016 5:32am Absolute Lymphocytes (auto) 1.0 T/MM3 1-4.8 09/15/2016 4:44am 2016 5:32am Absolute Monocytes (auto) 0.7 T/MM3 0-0.8 09/15/2016 4:44am 09/15/2016 5:32am Absolute Eosinophils (auto) 0.1 T/MM3 0-0.5 09/15/2016 4:44am 2016 5:32am Absolute Basophils (auto) 0.0 T/MM3 0-0.2 09/15/2016 4:44am 09/15/2016 5:32am Absolute Immature Granulocyte (auto 0.01 T/MM3 0.00-0.03 09/15/2016 4: 44am 09/15/2016 5:32am Neutrophils % (Manual) 69.0 % H 33-66 09/10/2016 5:33am 09/10/2016 7: 00am Band Neutrophils % 1.0 % 0-6 09/10/2016 5:33am 09/10/2016 7:00am Lymphocytes % (Manual) 23.0 % 23-45 09/10/2016 5:33am 09/10/2016 7: 00am Monocytes % (Manual) 6.0 % 0-9.0 09/10/2016 5:33am 09/10/2016 7:00am Eosinophils % (Manual) 1.0 % 0-4 09/10/2016 5:33am 09/10/2016 7:00am Band Neutrophils # 0.1 T/MM3 09/10/2016 5:33am 09/10/2016 7:00am Absolute Neutrophils (Manual) 3.6 T/MM3 1.8-7.7 09/10/2016 5:33am 09/10 7:00am Lymphocytes # (Manual) 1.2 T/MM3 1-4.8 09/10/2016 5:33am 09/10/2016 7: 00am Monocytes # (Manual) 0.3 T/MM3 0-0.8 09/10/2016 5:33am 09/10/2016 7: 00am Eosinophils # (Manual) 0.1 T/MM3 0-0.5 09/10/2016 5:33am 09/10/2016 7: 00am Red Cell Morphology Comment ABNORMAL 09/10/2016 5:33am 09/10/2016 7 :00am Poikilocytosis 1+ 09/10/2016 5:33am 09/10/2016 7:00am Teresa Cells 1+ 09/10/2016 5:33am 09/10/2016 7:00am Helmet Cells 1+ 09/10/2016 5:33am 09/10/2016 7:00am Ovalocytes 1+ 09/10/2016 5:3309/10/2016 7:00am Icterus Index < 2 0-7 09/15/2016 4:44am 09/15/2016 5:45am Chemistry Specimen Hemolysis < 15 0-25 09/15/2016 4:44am 09/15/2016 5 :45am 0-25: Specimen Exhibited No Hemolysis. Turbidity < 20 0-20 09/15/2016 4:44am 09/15/2016 5:45am Sodium Level 134 MEQ/L 134-144 09/15/2016 4:44am 09/15/2016 5:45am Potassium Level 4.3 MEQ/L 3.6-5 09/15/2016 4:44am 09/15/2016 5:45am Chloride Level 100 MEQ/L 98-107 09/15/2016 4:44am 09/15/2016 5:45am Carbon Dioxide Level 27 MEQ/L 22-30 09/15/2016 4:44am 09/15/2016 5: 45am Anion Gap 7 MEQ/L 5-15 09/15/2016 4:44am 09/15/2016 5:45am Blood Urea Nitrogen 20.0 MG/DL 9-20 09/15/2016 4:44am 09/15/2016 5: 45am Creatinine 1.1 MG/DL 0.8-1.5 09/15/2016 4:44am 09/15/2016 5:45am BUN/Creatinine Ratio 18 RATIO 6-26 09/15/2016 4:44am 09/15/2016 5:45am Glomerular Filtration Rate Calc 63 09/15/2016 4:44am 09/15/2016 5: 45am Glucose Level 86 MG/DL 75-110 09/15/2016 4:44am 09/15/2016 5:45am Calculated Osmolality 260 MOSM/KG L 261-280 09/15/2016 4:44am 2016 5:45am Calcium Level 8.5 MG/DL 8.4-10.2 09/15/2016 4:44am 09/15/2016 5:45am Phosphorus Level 4.1 MG/DL 2.5-4.5 09/12/2016 10:01am 09/12/2016 10: 16am Total Bilirubin 0.90 MG/DL 0.20-1.30 09/13/2016 4:42am 09/13/2016 5: 44am Alkaline Phosphatase 88 U/L 38-126 09/13/2016 4:42am 09/13/2016 5:44am Total Protein 6.2 G/DL L 6.3-8.2 09/13/2016 4:42am 09/13/2016 5:44am Albumin 3.3 G/DL L 3.5-5.0 09/13/2016 4:42am 09/13/2016 5:44am Globulin 2.9 G/DL 2.4-3.6 09/13/2016 4:42am 09/13/2016 5:44am Albumin/Globulin Ratio 1.1 RATIO 1.1-2.2 09/13/2016 4:42am 09/13/2016 5 :44am Aspartate Amino Transf (AST/SGOT) 35 U/L 17-59 09/13/2016 4:42am 2016 5:44am Alanine Aminotransferase (ALT/SGPT) 31 U/L 21-72 09/13/2016 4:42am 5:44am Cholesterol Level 75 MG/DL L 132-199 09/10/2016 4:51pm 09/14/2016 1: 32am Triglycerides Level 69 MG/DL 40-160 09/10/2016 4:51pm 09/14/2016 1: 32am HDL Cholesterol Direct 30 MG/DL L 40-60 09/10/2016 4:51pm 09/14/2016 1: 32am LDL Cholesterol, Calculated 31.2 L 66-159 09/10/2016 4:51pm 2016 1:32am VLDL Cholesterol 13.8 MG/DL 0-28 09/10/2016 4:51pm 09/14/2016 1:32am Cholesterol/HDL Ratio 2.5 RATIO 0-5.0 09/10/2016 4:51pm 09/14/2016 1: 32am Troponin I < 0.012 ng/ml 0-0.12 09/06/2016 2:23pm 09/06/2016 2:54pm Troponin values with a difference of 55% increase from orginal troponin value represent a true biological DELTA value. (%increase Calc=Orginal Troponin value, divided by subsequent Troponin value, multiplied by 100) Magnesium Level 2.1 MG/DL 1.6-2.3 09/13/2016 4:42am 09/13/2016 5:44am Thyroid Stimulating Hormone (TSH) 1.41 MIU/L 0.47-4.68 09/08/2016 5: 00am 09/08/2016 3:43pm Urine Random Creatinine 70.3 MG/DL 09/07/2016 2:26am 09/07/2016 3: 24am Urine Random Sodium 55 MEQ/L 30-90 09/07/2016 2:26am 09/07/2016 3:24am Reason Tests Not Done HEMOLYZED SPECIMEN 09/06/2016 1:53pm 2016 1:53pm Tests Not Done CBC,CMP TROP 09/06/2016 1:53pm 09/06/2016 1:53pm Specimen [place] [place] 09/06/2016 1:53pm 2016 1:53pm Adenovirus (PCR) NEGATIVE NEGATIVE 09/07/2016 11:15am 09/07/2016 12: 37pm Coronavirus Type 229E (PCR) NEGATIVE NEGATIVE 09/07/2016 11:15am 12:37pm Coronavirus Type HKU1 (PCR) NEGATIVE NEGATIVE 09/07/2016 11:15am 12:37pm Coronavirus Type NL63 (PCR) NEGATIVE NEGATIVE 09/07/2016 11:15am 12:37pm Coronavirus Type OC43 (PCR) DETECTED A NEGATIVE 09/07/2016 11:15am 12:37pm Human Metapneumovirus (PCR) NEGATIVE NEGATIVE 09/07/2016 11:15am 12:37pm Enterovirus/Rhinovirus (PCR) NEGATIVE NEGATIVE 09/07/2016 11:15am 12:37pm Influenza Virus Type A (PCR) NEGATIVE NEGATIVE 09/07/2016 11:15am 12:37pm Influenza Virus Type B (PCR) NEGATIVE NEGATIVE 09/07/2016 11:15am 12:37pm Parainfluenza Type 1 (PCR) NEGATIVE NEGATIVE 09/07/2016 11:15am 09/07 12:37pm Parainfluenza Type 2 (PCR) NEGATIVE NEGATIVE 09/07/2016 11:15am 09/07 12:37pm Parainfluenza Type 3 (PCR) NEGATIVE NEGATIVE 09/07/2016 11:15am 09/07 12:37pm Parainfluenza Type 4 (PCR) NEGATIVE NEGATIVE 09/07/2016 11:15am 09/07 12:37pm Respiratory Syncytial Virus (PCR) NEGATIVE NEGATIVE 09/07/2016 11: 15am 09/07/2016 12:37pm Bordetella parapertussis DNA (PCR) NEGATIVE NEGATIVE 09/07/2016 11: 15am 09/07/2016 12:37pm Chlamydia pneumoniae DNA (PCR) NEGATIVE NEGATIVE 09/07/2016 11:15am 09/07/2016 12:37pm Mycoplasma pneumoniae (PCR) NEGATIVE NEGATIVE 09/07/2016 11:15am 12:37pm Urine Collection Type VOIDED-NOT CC-MIDSTR 09/07/2016 2:2016 3:20am Urine Color YELLOW YELLOW 09/07/2016 2:09/07/2016 3:20am Urine Turbidity CLEAR CLEAR 09/07/2016 2:09/07/2016 3:20am Urine Specific [place] 1.020 1.015-1.025 09/07/2016 2:2016 3:20am Urine pH 5.5 5.0-8.0 09/07/2016 2:09/07/2016 3:20am Urine Leukocyte Esterase 2+ A NEGATIVE 09/07/2016 2:09/07/2016 3: 20am Urine Nitrite NEGATIVE NEGATIVE 09/07/2016 2:09/07/2016 3:20am Urine Protein NEGATIVE NEGATIVE 09/07/2016 2:09/07/2016 3:20am Urine Glucose (UA) NEGATIVE NEGATIVE 09/07/2016 2:09/07/2016 3: 20am Urine Ketones NEGATIVE NEGATIVE 09/07/2016 2:09/07/2016 3:20am Urine Urobilinogen 0.2 EU/DL NORMAL 09/07/2016 2:09/07/2016 3: 20am Urine Bilirubin NEGATIVE NEGATIVE 09/07/2016 2:09/07/2016 3: 20am Urine Blood 2+ A NEGATIVE 09/07/2016 2:09/07/2016 3:20am Urine WBC 5-10 /HPF H 0-5 09/07/2016 2:09/07/2016 3:46am Urine RBC 5-10 /HPF H 0-3 09/07/2016 2:26am 09/07/2016 3:46am Urine Bacteria NONE SEEN NEGATIVE 09/07/2016 2:26am 09/07/2016 3: 46am Urine Culture Indicated CULT NOT INDICATED 09/07/2016 2:26am 2016 3:46am Urine Osmolality 415 mOsm/kg 38-1400 09/07/2016 2:26am 09/07/2016 9: 09pm Osmolality, Urine performed at [facility], [address] [place] [address] Braided Band Assembler Doyle Garcia, Procedures Procedure Status Date Provider(s) Cine/vid x-ray throat/esoph Completed 08/03/16 Motion fluoroscopy/swallow Completed 08/03/16 ST SWALLOW CURRENT STATUS Completed 08/03/16 ST SWALLOW GOAL STATUS Completed 08/03/16 ST SWALLOW DISCHARGE STATUS Completed 08/03/16 Gait training therapy Completed 08/11/16 DYAN WEST MD Pt eval mod complex 30 min Completed 08/11/16 DYAN WEST MD Therapeutic exercises Completed 08/11/16 DYAN WEST MD Ot eval mod complex 45 min Completed 08/11/16 DYAN WEST MD GAIT TRAINING/AMBULAT TREATMENT USING ASSIST EQUIPMENT Completed 08/11/16 YDAN WEST MD THERAPEUTIC EXERCISE TREATMENT OF MUSCULOSK WHOLE Completed 08/11/16 DYAN WEST MD HOME MANAGEMENT TREATMENT Completed 08/11/16 DYAN WEST MD Metabolic panel total ca Completed 09/03/16 Ct head/brain w/o dye Completed 09/05/16 Chest x-ray 1 view frontal Completed 09/05/16 Comprehen metabolic panel Completed 09/05/16 Urinalysis auto w/o scope Completed 09/05/16 Assay of troponin quant Completed 09/05/16 Complete cbc w/auto diff wbc Completed 09/05/16 Electrocardiogram tracing Completed 09/05/16 Hydrate iv infusion add-on Completed 09/05/16 Ther/proph/diag inj iv push Completed 09/05/16 Emergency dept visit Completed 09/05/16 [id number] ITEM OR SERVICE Completed 09/05/16 601574"INJECTION, ONDANSETRON HYDROCHLORIDE, PER 1 MG" Completed 09/05/16 085906"INFUSION, NORMAL SALINE SOLUTION , 1000 CC" Completed 09/05/16 Encounters Encounter Location Arrival/Admit Date Discharge/Depart Date Attending Provider Admitted Inpatient [facility] 09/16/16 4:25pm DYAN WEST MD Discharged Inpatient [facility] 09/06/16 9:21pm 09/16/16 4:25pm OFELIA MI MD Departed Emergency Room [facility] 09/05/16 5:12am 09/05/16 12: 15pm MONICO ANTOINE MD Registered [facility] 09/03/16 3:37pm SENG MCKEON MD Discharged Inpatient [facility] 08/11/16 3:25pm 08/27/16 1:35pm DYAN WEST MD Discharged Inpatient [facility] 08/07/16 3:01am 08/11/16 3:30pm AUTUMN FAJARDO MD Registered [facility] 08/03/16 1:05pm MISTY PIERRE MD Registered [facility] 07/15/16 12:00am MISTY PIERRE MD
--- OUTSIDE RECORDS SUMMARY | 2016-11-03 09:50 | XMS REPORT | Continuity of Care Document ---
Author Author [facility] Organization [facility] Address Unknown Phone Unavailable Support Name Relationship Address Phone MISTY PIERRE MD Caregiver [address] [place] [address] [place] [address] Unavailable JENN DEMPSEY Next Of Kin [address] [place], [place] [id number] Insurance Providers Guarantor Eliza Dempsey Address [address] [place] [address] Payer [facility] Policy Number [id number] Subscriber's Name Eliza Dempsey Relationship 18 Self Group Number PLANN Effective Date 04 Payer Medicare Policy Number [id number] Subscriber's Name Eliza Dempsey Relationship 18 Self Effective Date 92 Problems Active Problems Medical Problem Onset Date Status Acute ischemic stroke Unknown Acute Anemia Unknown Chronic Arterial ischemic stroke, MCA (middle cerebral artery), left, acute ~2016 Acute Bradycardia Unknown Chronic CAD (coronary artery disease) Unknown Chronic CVA (cerebral vascular accident) Unknown Coronary artery disease Unknown Chronic Coronavirus infection Unknown Resolved Dyslipidemia Unknown Chronic Generalized weakness Unknown Acute HTN (hypertension) Unknown Resolved Hyponatremia Unknown Chronic Myopathy Unknown Acute Nonsustained ventricular tachycardia Unknown Resolved Orthostatic hypotension Unknown Chronic Osteoarthritis Unknown Chronic Pituitary adenoma Unknown Pituitary mass Unknown Chronic Pleural effusion on left Unknown Chronic Prolactinoma Unknown Chronic Right sided weakness Unknown Acute Symptomatic bradycardia Unknown Chronic Syncope Unknown Chronic Syncope Unknown Acute Ventricular tachyarrhythmia Unknown Acute Weakness Unknown Acute syncopal episode Unknown Resolved Surgical Problem Onset Date Status S/P right coronary artery (RCA) stent placement Unknown Acute Past Problems Medical Problem Onset Date Chr [...] Cabergoline 0.5 Mg Tablet 0.25 Mg Oral Tusa@09 60 Tablet 10/07/16 Clopidogrel Bisulfate (Plavix) 75 Mg Tablet 75 Mg Oral Daily 30 Days 30 Tablet 10/07/16 Docusate Sodium (Colace) 100 Mg Capsule 100 Mg Oral Twice A Day 30 Days 60 Capsule 08/26/16 Hydrocodone/Acetaminophen ([place] 5-325 Tablet) 5-325 Tablet 1 Tab Oral Every 6 Hours as needed for Pain 30 Days 120 Tablet 10/07/16 Midodrine Hcl 10 Mg Tablet 5 Mg Oral Three Times A Day 30 Days 0800, 1200,1600 08/26/16 Multivitamin (Daily Vitamin) 1 Each Tablet 1 Tab Oral Daily 04/09 Nitroglycerin 0.4 Mg Tab.subl 0.4 Mg Sublingual Every 5 Minutes X 3 as needed for Chest Pain 08/04/09 [place]-3/Dha/Epa/Fish Oil (Fish Oil 1,000 Mg Softgel) 1 Each Capsule 1,000 Mg Oral Daily 12/11/15 Polyethylene Glycol 3350 (Healthylax) 17 Gm Powd.pack 17 G Oral Daily 30 Days 08/26/16 Past Home Medications Medication Directions Ordered Status [...] Tablet, 0.25 Mg Oral Twice A Week 08/26/16 Discontinued Cabergoline 0.5 Mg Tablet, 0.25 Mg Oral Twice A Week 08/11/16 Discontinued Clopidogrel Bisulfate (Plavix) 75 Mg Tablet, 75 Mg Oral Daily 08/26/16 Discontinued Clopidogrel Bisulfate (Plavix) 75 Mg Tablet, 75 Mg Oral Daily 08/11/16 Discontinued Divalproex Sodium (Depakote) 250 Mg Tablet.dr, 1 Tab Oral Twice A Day Discontinued Fish Oil/[place]-3 Fatty Acids ([place]-3 Fish Oil 1,200 Mg Stgl) 1 Cap Capsule, 1 Cap Oral Daily 08/04/09 Discontinued Hydrocodone/Acetaminophen ([place] 5-325 Tablet) 5-325 Tablet, 1 Tab Oral Every 6 Hours as needed for Pain 08/26/16 Discontinued Hydrocodone/Acetaminophen ([place] 5-325 Tablet) 5-325 Tablet, 1 Tab Oral Every 6 Hours as needed for Pain 08/11/16 Discontinued Ipratropium/Albuterol Sulfate (Iprat-Albut 0.5-3(2.5) Mg/3 Ml) 3 Ml Ampul.neb, 3 Ml Aerosol Tx. Twice A Day 09/16/16 Discontinued Midodrine Hcl 10 Mg Tablet, 5 Mg Oral Three Times A Day 07/28/14 Discontinued Nitroglycerin (Nitroglycerin 0.2MG/Hr Patch) 1 Patch Patch, 1 Patch Transderm As Needed 06/10/10 Discontinued Nystatin 50,000,000 Unit Powder.ea., 1 Applic Topically Three Times A Day Discontinued Ondansetron Hcl/Pf (Ondansetron Hcl 4 Mg/2 Ml Vial) 4 Mg/2 Ml Vial, 4 Mg Oral/ Sublingual Every 6 Hours as needed for Nausea &/Or Vomiting 09/16/16 Discontinued Polyethylene Glycol 3350 (Healthylax) 17 Gm Powd.pack, 17 G Oral Daily Discontinued Pravastatin Sodium 10 Mg Tablet, 10 Mg Oral Daily 08/04/09 Discontinued Sodium Chloride 1 G Tablet, 1 G Oral Twice A Day 08/26/16 Discontinued Social History Social History Problem Response Recorded Date/Time Onset Date Status Hx Substance Use No 09/06/2016 1:51pm Not Applicable Not Applicable Hx Alcohol Use Y OCC 09/06/2016 1:51pm Not Applicable Not Applicable Has the pt used tobacco in the last 12 months No 09/16/2016 4:51pm Not Applicable Not Applicable Tobacco Usage none 07/19/2014 12:32pm Not Applicable Not Applicable Hospital Discharge Instructions Current inpatient/outpatient. Discharge instructions are currently unavailable. Plan of Care Current inpatient/outpatient. The plan of care is currently unavailable Functional Status No functional status results. Allergies, Adverse Reactions, Alerts Allergen Type Severity Reaction Status Last Updated No Known Drug Allergies Allergy Unknown Active 09/05/16 Immunizations Query Response on File Recorded Date/Time Hx Influenza Vaccination Y 05/201609/16/16 4:51pm Hx Pneumococcal Vaccination Y 11/201209/16/16 4:51pm Hx Influenza Vaccination Y 05/201609/16/16 4:51pm Influenza Vaccine Hx apr 2016 03/02/17 4:54pm Vital Signs Acute Vital Signs Vital Response Date/Time Temperature (Fahrenheit) 97.5 deg F (96.8 - 99.1) 10/07/2016 7:45am Temperature (Calculated Celsius) 36.53785 degrees C (36.0 - 37.3) 10/07/2016 7:45am Temperature Source Temporal 08/09/2016 10:41am Pulse Rate (adult) 56 bpm (60 - 100) 10/07/2016 8:00am Respiratory Rate 18 breaths/min (10 - 20) 10/07/2016 7:45am O2 Sat by Pulse Oximetry 92 % (90 - 100) 10/07/2016 7:45am Oxygen Delivery Method Nasal Cannula 09/14/2016 10:38pm Oxygen Delivery Method Room Air 10/07/2016 7:45am Oxygen Flow Rate 1.00 L/min 09/16/2016 8:07am Blood Pressure 125/66 mm Hg 10/07/2016 7:45am Blood Pressure Source Automatic Cuff 10/07/2016 7:45am Height (Feet) 5 feet 10/05/2016 10:27am Height (Inches) 11.00 inches 10/05/2016 10:27am Weight (Kilograms) 86.600 kg 09/30/2016 6:21pm Body Mass Index (BMI) 26.3 09/16/2016 5:28pm Results No known relevant diagnostic tests, laboratory data and/or discharge summary. Procedures Procedure Status Date Provider(s) Cine/vid x-ray [...] TRAINING/AMBULAT TREATMENT USING ASSIST EQUIPMENT Completed 08/11/16 DYAN WEST MD THERAPEUTIC EXERCISE TREATMENT OF MUSCULOSK [...] Completed 09/05/16 Emergency dept visit Completed 09/05/16 [id number] ITEM OR SERVICE Completed 09/05/16 [id number]"INJECTION, ONDANSETRON HYDROCHLORIDE, PER 1 MG" Completed 09/05/16 [id number]"INFUSION, NORMAL SALINE SOLUTION , 1000 CC" Completed 09/05/16 L hrt art/grft angio Completed 09/06/16 PRINCESS CRUZ MD Inject r ventr/atrial angio Completed 09/06/16 PRINCESS CRUZ MD L hrt art/grft angio Completed 09/06/16 PRINCESS CRUZ MD Prq card stent w/angio 1 vsl Completed 09/06/16 PRINCESS CRUZ MD L hrt art/grft angio Completed 09/06/16 PRINCESS CRUZ MD DILATION OF 1 COR ART WITH DRUG-ELUT INTRA, PERC APPROACH Completed 09/14/16 PRINCESS CRUZ MD, HOSSEIN MD MEASURE OF CARDIAC SAMPL & PRESSURE, L HEART, PERC APPROACH Completed PRINCESS CRUZ MD FLUOROSCOPY OF MULT COR ART USING L OSM CONTRAST Completed 09/14/16 PRINCESS CRUZ MD FLUOROSCOPY OF LEFT HEART USING LOW OSMOLAR CONTRAST Completed 09/14/16 PRINCESS CRUZ MD FLUOROSCOPY OF L INT MAMM GRAFT USING L OSM CONTRAST Completed 09/14/16 PRINCESS CRUZ MD Encounters Encounter Location Arrival/Admit Date Discharge/Depart Date Attending Provider Registered [facility] 10/07/16 1:58pm MISTY PIERRE MD Discharged Inpatient [facility] 09/16/16 4:25pm 10/07/16 3:25pm DYAN WEST MD Discharged Inpatient [facility] 09/06/16 9:21pm 09/16/16 4:25pm OFELIA MI MD Departed Emergency Room [facility] 09/05/16 5:12am 09/05/16 12: 15pm MONICO ANTOINE MD Registered [facility] 09/03/16 3:37pm SENG MCKEON MD Discharged Inpatient [facility] 08/11/16 3:25pm 08/27/16 1:35pm DYAN WEST MD Discharged Inpatient [facility] 08/07/16 3:01am 08/11/16 3:30pm AUTUMN FAJARDO MD Registered [facility] 08/03/16 1:05pm MISTY PIERRE MD Discharged [facility] 07/15/16 12:00am 09/06/16 MISTY PIERRE MD
--- OUTSIDE RECORDS SUMMARY | 2016-11-03 09:51 | XMS REPORT | Continuity of Care Document ---
Author Author Hossein [facility] Organization [facility] Address Unknown Phone Unavailable Support Name Relationship Address Phone GONZALO BRIDGES MD Caregiver [address] [place] [phone] ESTEFANY PASTRANA MD Caregiver [address] [place] [place] [phone] JENN DEMPSEY DPOA Next Of Kin [address] [place] [address] Insurance Providers Payer Name Policy Number Subscriber Name Relationship Medicare [id number] Eliza Dempsey 20 Self [facility] [id number] Eliza Dempsey 20 Self Problems Medical Problems [...] 200 Unit PO DAILY 08/04/09 Active Fish Oil/[place]-3 Fatty Acids 1 Cap PO DAILY 08/04/09 [...] F (96.8 - 99.1) Temperature (Calculated Celsius) 36.73370 degrees C (36.0 - 37.3) Pulse Rate [...] 07, 2009 9:15am Not done - PLEASE [facility] Thyroid Stimulating Hormone (TSH) April 05, 2014 11:55am 2.83 MIU/L N 0.47-4.68 Total Bilirubin April 09, 2014 3:28pm 1.60 MG/DL H 0.20-1.30 Total Protein April 09, 2014 3:28pm 6.3 G/DL N 6.3-8.2 Troponin I April 09, 2014 3:28pm 0.017 ng/ml N 0-0.12 Urine Bacteria September 16, 2009 9:25am 1+ - PLEASE [facility] Urine Bilirubin October 07, 2009 9:15am Negative - PLEASE [facility] Urine Blood October 07, 2009 9:15am Negative - PLEASE [facility] Urine Collection Type October 07, 2009 9:15am Voided - PLEASE [facility] Urine Color October 07, 2009 9:15am Yellow - PLEASE [facility] Urine Glucose (UA) October 07, 2009 9:15am Negative - PLEASE [facility] Urine Ketones October 07, 2009 9:15am Negative - PLEASE [facility] Urine Leukocyte Esterase October 07, 2009 9:15am Negative - PLEASE [facility] Urine Nitrite October 07, 2009 9:15am Negative - PLEASE [facility] Urine Protein October 07, 2009 9:15am Negative - PLEASE [facility] Urine RBC September 16, 2009 9:25am 30-50 /HPF - PLEASE [facility] Urine Specific [place] October 07, 2009 9:15am 1.005 L - PLEASE [facility] Urine Squamous Epithelial Cells September 16, 2009 9:25am Few - PLEASE [facility] Urine Turbidity October 07, 2009 9:15am Clear - PLEASE [facility] Urine Urobilinogen October 07, 2009 9:15am Normal EU/DL - PLEASE [facility] Urine WBC September 16, 2009 9:25am 5-10 /HPF - PLEASE [facility] Urine pH October 07, 2009 9:15am 7.0 - PLEASE [facility] White Blood Count April 09, 2014 3:28pm [...] 05, 2014 8:34pm LAB TEST FORM REQUEST [id number] - EKG August 04, 2009 7:50am Complete [...] Source June 08, 2010 9:18am Nasal - AC-Rzc-P-Type Natriuretic Peptide April 09, 2014 3:28pm 721 PG/ML H 0-175 Rule in cut points: <50 years old=450; 50-75 years old=900; >75 years old=1800; When utilizing ProBNP rule-in cut points, adjustment for impaired renal function is typically not required. Procedures No known history of procedures. Encounters Encounter Location Date/Time Departed Emergency Room [facility] 04/09/14 3:39pm Registered Clinic [facility] 04/05/14 12:17pm Recent Diagnosis
--- OUTSIDE RECORDS SUMMARY | 2016-11-03 09:52 | XMS REPORT | Continuity of Care Document ---
Author Author [facility] Organization [facility] Address Unknown Phone Unavailable Allergies Active Description Code Type Severity Reaction Onset Reported/Identified Relationship to Patient Clinical Status Yes No Known Medication Allergies NKMA N/A N/A 02/13/2014 Medications Problems Procedures Results Test Result Range FLUID CYTOLOGY - 12/10/15 15:25 FLUID CYTOLOGY SPECIMEN RECEIVED GRAM STAIN - 12/10/15 15:25 Microbiology Encounters ACCT No. Visit Date/Time Discharge Status Pt. Type Provider Facility Loc./Unit Complaint [id number] 07/31/2013 09:33:00 07/31/2013 23 :59:59 CLS Outpatient [id number] 05/07/2013 08:16:00 05/07/2013 23 :59:59 CLS Outpatient
--- OUTSIDE RECORDS SUMMARY | 2016-11-03 09:52 | XMS REPORT | Continuity of Care Document ---
Author Author Hossein [facility] Organization [facility] Address Unknown Phone Unavailable Support Name Relationship Address Phone LILIAN SIEGEL MD Caregiver [address] [place] [phone] GONZALO BRIDGES MD Caregiver [address] [place] [address] [place] [phone] JENN DEMPSEY DPFRANSICO Next Of Kin [address] [place] [address] Insurance Providers Payer Name Policy Number Subscriber Name Relationship Medicare [id number] Eliza Dempsey Self [facility] [id number] Eliza Dempsey Self Advance Directives Directive Response [...] 200 Unit PO DAILY 08/04/09 Active Fish Oil/[place]-3 Fatty Acids 1 Cap PO DAILY 08/04/09 [...] F (96.8 - 99.1) Temperature (Calculated Celsius) 35.74230 degrees C (36.0 - 37.3) Pulse Rate [...] 11, 2014 10:39pm LAB TEST FORM REQUEST [id number] - Lymphocytes # (Auto) September 18, 2014 [...] 18, 2014 12:47pm 9.7 % H 0-9.0 WA-Mwb-S-Type Natriuretic Peptide July 19, 2014 12:10pm 1060 [...] 07, 2009 9:15am Not done - PLEASE [facility] Thyroid Stimulating Hormone (TSH) July 19, 2014 [...] Has specimen been collected/obtained? Y Urine Specific [place] September 18, 2014 2:09pm 1.020 - Has specimen been collected/obtained? Y Urine Squamous Epithelial Cells September 16, 2009 9:25am Few - PLEASE [facility] Urine Total Volume (Cortisol) August 10, 2014 10:00pm 900 mL - Cortisol Free, 24 hr Urine performed at [facility], [address] [place] [address] Environmental Adviser Nydia Hines MD Test Performed by: [place] [address] Chemical Mixer: Derek Maldonado M.D. Cortisol Free, 24 hr Urine performed at [facility], [address] [place] [address] Environmental Adviser Nydia Hines MD --- 08/14/14 1605 --- CORTFV previously reported as: 900 Cortisol Free, 24 hr Urine performed at [facility], [address] [place] [address] Environmental Adviser Nydia Hines MD Urine Turbidity September 18, [...] N 4.5-11.0 Name: Eliza DEMPSEY Unit #: [id number] : 1925 Sex: M Loc / Svc: ED DOS: 09/18/14 Signed Report #: [id number] DIAGNOSTIC IMAGING REPORT TYPE OF EXAM: CHEST [...] completed 07/19/14 EMERGENCY DEPT VISIT completed 07/19/14 [id number]"INFUSION, NORMAL SALINE SOLUTION , 1000 CC" completed [...] Encounters Encounter Location Date/Time Registered Emergency Room [facility] 09/18/14 12:05pm Registered Clinic [facility] 08/05/14 1:17pm Departed Emergency Room [facility] 07/28/14 9:54am Departed Emergency Room [facility] 07/19/14 11:36am Recent Diagnosis
--- OUTSIDE RECORDS SUMMARY | 2016-11-03 09:52 | XMS REPORT | Continuity of Care Document ---
Author Author Hossein [facility] Organization [facility] Address Unknown Phone Unavailable Support Name Relationship Address Phone LANRE RAMON MD Caregiver [address] [phone] GONZALO BRIDGES MD Caregiver [address] [phone] JENN DEMPSEY DPOA Next Of Kin [address] [place] [address] Insurance Providers Payer Name Policy Number Subscriber Name Relationship Medicare [id number] Eliza Dempsey Self [facility] [id number] Eliza Dempsey 20 Self Advance Directives Directive [...] 200 Unit PO DAILY 08/04/09 Active Fish Oil/[place]-3 Fatty Acids 1 Cap PO DAILY 08/04/09 06/06/13 Discontinued Nitroglycerin 1 Patch TD NEEDED 06/10/10 06/06/13 Discontinued Pravastatin Sodium 20 Mg PO BEDTIME 06/06/13 Active Aspirin 81 Mg PO DAILY 06/06/13 Active Multivitamin DAILY 04/09/14 Active Fluticasone Propionate 2 [place] EA NOSTRIL NEEDED 07/28/14 Active Loratadine 10 [...] F (96.8 - 99.1) Temperature (Calculated Celsius) 36.20482 degrees C (36.0 - 37.3) Pulse Rate [...] 07, 2009 9:15am Not done - PLEASE [facility] Thyroid Stimulating Hormone (TSH) July 19, 2014 12:10pm 2.39 MIU/L N 0.47-4.68 Total Bilirubin July 28, 2014 9:36am 1.50 MG/DL H 0.20-1.30 Total Protein July 28, 2014 9:36am 6.8 G/DL N 6.3-8.2 Troponin I July 28, 2014 9:36am 0.016 ng/ml N 0-0.12 Urine Bacteria September 16, 2009 9:25am 1+ - PLEASE [facility] Urine Bilirubin July 19, 2014 1:36pm [...] 16, 2009 9:25am 30-50 /HPF - PLEASE [facility] Urine Specific [place] July 19, 2014 1:36pm 1.010 L - Has specimen been collected/obtained? Y Urine Squamous Epithelial Cells September 16, 2009 9:25am Few - PLEASE [facility] Urine Turbidity July 19, 2014 1:36pm Clear - Has specimen been collected/obtained? Y Urine Urobilinogen July 19, 2014 1:36pm 0.2 EU/DL - Has specimen been collected/obtained? Y Urine WBC September 16, 2009 9:25am 5-10 /HPF - PLEASE [facility] Urine pH July 19, 2014 1:36pm [...] 05, 2014 8:34pm LAB TEST FORM REQUEST [id number] - EKG August 04, 2009 7:50am Complete [...] Source June 08, 2010 9:18am Nasal - UQ-Fgl-O-Type Natriuretic Peptide July 19, 2014 12:10pm 1060 PG/ML H 0-175 Rule in cut points: <50 years old=450; 50-75 years old=900; >75 years old=1800; When utilizing ProBNP rule-in cut points, adjustment for impaired renal function is typically not required. Name: Eliza DEMPSEY Unit #: [id number] : 1925 Sex: M Loc / Svc: ED DOS: 07/28/14 Signed Report #: [id number] DIAGNOSTIC IMAGING REPORT TYPE OF EXAM: CT [...] completed 07/19/14 EMERGENCY DEPT VISIT completed 07/19/14 [id number]"INFUSION, NORMAL SALINE SOLUTION , 1000 CC" completed 07/19/14 Encounters Encounter Location Date/Time Departed Emergency Room [facility] 07/28/14 9:54am Departed Emergency Room [facility] 07/19/14 11:36am Recent Diagnosis
--- NOTE | 2016-11-03 09:54 | NUR ---
PROVIDER DR [facility] AT BEDSIDE
[2016-11-03] MEDS ORDERED: NORMAL SALINE 500 ML IV ONE (10:07)
[2016-11-03] MEDS ORDERED: ACET325T51 PO (10:09)
[2016-11-03] MEDS ORDERED: ATOR40TA64 PO (10:09)
[2016-11-03] MEDS ORDERED: CLOP75TA33 PO (10:11)
[2016-11-03] MEDS ORDERED: CABE0.5T2 PO (10:11)
[2016-11-03] MEDS ORDERED: MIDO10TA PO (10:12)
[2016-11-03] MEDS ORDERED: POLY17PO18 PO (10:14)
--- OUTSIDE RECORDS SUMMARY | 2016-11-03 10:18 | XMS REPORT | Continuity of Care Document ---
Author Author Hossein [facility] Organization [facility] Address Unknown Phone Unavailable Support Name Relationship Address Phone LILIAN SIEGEL MD Caregiver [address] [place] [phone] GONZALO BRIDGES MD Caregiver [address] [place] [address] [place] [phone] JENN DEMPSEY DPFRANSICO Next Of Kin [address] [place] [address], [place] [id number] Insurance Providers Payer Name Policy Number Subscriber Name Relationship Medicare [id number] Eliza Dempsey Self [facility] [id number] Eliza Dempsey 20 Self Advance Directives Directive [...] 200 Unit PO DAILY 08/04/09 Active Fish Oil/[place]-3 Fatty Acids 1 Cap PO DAILY 08/04/09 [...] F (96.8 - 99.1) Temperature (Calculated Celsius) 35.60002 degrees C (36.0 - 37.3) Pulse Rate [...] 07, 2009 9:15am Not done - PLEASE [facility] Thyroid Stimulating Hormone (TSH) July 19, 2014 12:10pm 2.39 MIU/L N 0.47-4.68 Total Bilirubin July 19, 2014 12:10pm 1.30 MG/DL N 0.20-1.30 Total Protein July 19, 2014 12:10pm 6.6 G/DL N 6.3-8.2 Troponin I July 19, 2014 12:10pm 0.014 ng/ml N 0-0.12 Urine Bacteria September 16, 2009 9:25am 1+ - PLEASE [facility] Urine Bilirubin July 19, 2014 1:36pm Negative [...] 16, 2009 9:25am 30-50 /HPF - PLEASE [facility] Urine Specific [place] July 19, 2014 1:36pm 1.010 L - Has specimen been collected/obtained? Y Urine Squamous Epithelial Cells September 16, 2009 9:25am Few - PLEASE [facility] Urine Turbidity July 19, 2014 1:36pm Clear - Has specimen been collected/obtained? Y Urine Urobilinogen July 19, 2014 1:36pm 0.2 EU/DL - Has specimen been collected/obtained? Y Urine WBC September 16, 2009 9:25am 5-10 /HPF - PLEASE [facility] Urine pH July 19, 2014 1:36pm 6.0 [...] 05, 2014 8:34pm LAB TEST FORM REQUEST [id number] - EKG August 04, 2009 7:50am Complete [...] Source June 08, 2010 9:18am Nasal - NB-Idy-B-Type Natriuretic Peptide July 19, 2014 12:10pm 1060 PG/ML H 0-175 Rule in cut points: <50 years old=450; 50-75 years old=900; >75 years old=1800; When utilizing ProBNP rule-in cut points, adjustment for impaired renal function is typically not required. Name: Eliza DEMPSEY Unit #: [id number] : 1925 Sex: M Loc / Svc: ED DOS: 07/19/14 Signed Report #: [id number] DIAGNOSTIC IMAGING REPORT TYPE OF EXAM: CT [...] Encounters Encounter Location Date/Time Departed Emergency Room [facility] 07/19/14 11:36am Recent Diagnosis
--- OUTSIDE RECORDS SUMMARY | 2016-11-03 10:19 | XMS REPORT | Continuity of Care Document ---
Author Author Hossein [facility] LIVE Organization [facility] LIVE Address Unknown Phone Unavailable Support Name Relationship Address Phone GONZALO BRIDGES MD Caregiver [address] [place] [phone] ESTEFANY PASTRANA MD Caregiver [address] [place] [phone] JENN DEMPSEY DPOA Next Of Kin [address] [place] [address] Insurance Providers Payer Name Policy Number Subscriber Name Relationship Medicare [id number] Eliza Dempsey 20 Self [facility] [id number] Eliza Dempsey 20 Self Problems Medical Problems [...] 200 Unit PO DAILY 08/04/09 Active Fish Oil/F[place]-3 Fatty Acids 1 Cap PO DAILY 08/04/09 [...] F (96.8 - 99.1) Temperature (Calculated Celsius) 36.99301 degrees C (36.0 - 37.3) Pulse Rate [...] 07, 2009 9:15am Not done - PLEASE [facility] Thyroid Stimulating Hormone (TSH) April 05, 2014 11:55am 2.83 MIU/L N 0.47-4.68 Total Bilirubin April 09, 2014 3:28pm 1.60 MG/DL H 0.20-1.30 Total Protein April 09, 2014 3:28pm 6.3 G/DL N 6.3-8.2 Troponin I April 09, 2014 3:28pm 0.017 ng/ml N 0-0.12 Urine Bacteria September 16, 2009 9:25am 1+ - PLEASE [facility] Urine Bilirubin October 07, 2009 9:15am Negative - PLEASE [facility] Urine Blood October 07, 2009 9:15am Negative - PLEASE [facility] Urine Collection Type October 07, 2009 9:15am Voided - PLEASE [facility] Urine Color October 07, 2009 9:15am Yellow - PLEASE [facility] Urine Glucose (UA) October 07, 2009 9:15am Negative - PLEASE [facility] Urine Ketones October 07, 2009 9:15am Negative - PLEASE [facility] Urine Leukocyte Esterase October 07, 2009 9:15am Negative - PLEASE [employer] Urine Nitrite October 07, 2009 9:15am Negative - PLEASE [employer] Urine Protein October 07, 2009 9:15am Negative - PLEASE [facility] Urine RBC September 16, 2009 9:25am 30-50 /HPF - PLEASE [employer] Urine Specific [place] October 07, 2009 9:15am 1.005 L - PLEASE [facility] Urine Squamous Epithelial Cells September 16, 2009 9:25am Few - PLEASE [facility] Urine Turbidity October 07, 2009 9:15am Clear - PLEASE [facility] Urine Urobilinogen October 07, 2009 9:15am Normal EU/DL - PLEASE [facility] Urine WBC September 16, 2009 9:25am 5-10 /HPF - PLEASE [facility] Urine pH October 07, 2009 9:15am 7.0 - PLEASE [facility] White Blood Count April 09, 2014 [...] 05, 2014 8:34pm LAB TEST FORM REQUEST [id number] - EKG August 04, 2009 7:50am Complete [...] Source June 08, 2010 9:18am Nasal - ZP-Evl-Z-Type Natriuretic Peptide April 09, 2014 3:28pm 721 PG/ML H 0-175 Rule in cut points: <50 years old=450; 50-75 years old=900; >75 years old=1800; When utilizing ProBNP rule-in cut points, adjustment for impaired renal function is typically not required. Procedures No known history of procedures. Encounters Encounter Location Date/Time Departed Emergency Room [facility] 04/09/14 3:39pm Registered Clinic [facility] 04/05/14 12:17pm Recent Diagnosis
--- OUTSIDE RECORDS SUMMARY | 2016-11-03 10:20 | XMS REPORT | Continuity of Care Document ---
Author Author Hossein [facility] LIVE Organization [facility] LIVE Address Unknown Phone Unavailable Support Name Relationship Address Phone LANRE RAMON MD Caregiver [address] [place] [phone] GONZALO BRIDGES MD Caregiver [address] [place] [phone] JENN DEMPSEY DPOA Next Of Kin [address] [place] [address] Insurance Providers Payer Name Policy Number Subscriber Name Relationship Medicare [id number] Eliza Dempsey Self [facility] [id number] Eliza Dempsey 20 Self Advance Directives Directive [...] 200 Unit PO DAILY 08/04/09 Active Fish Oil/[place]-3 Fatty Acids 1 Cap PO DAILY 08/04/09 06/06/13 Discontinued Nitroglycerin 1 Patch TD NEEDED 06/10/10 06/06/13 Discontinued Pravastatin Sodium 20 Mg PO BEDTIME 06/06/13 Active Aspirin 81 Mg PO DAILY 06/06/13 Active Multivitamin DAILY 04/09/14 Active Fluticasone Propionate 2 [place] EA NOSTRIL NEEDED 07/28/14 Active Loratadine 10 [...] F (96.8 - 99.1) Temperature (Calculated Celsius) 36.78239 degrees C (36.0 - 37.3) Pulse Rate [...] 07, 2009 9:15am Not done - PLEASE [facility] Thyroid Stimulating Hormone (TSH) July 19, 2014 12:10pm 2.39 MIU/L N 0.47-4.68 Total Bilirubin July 28, 2014 9:36am 1.50 MG/DL H 0.20-1.30 Total Protein July 28, 2014 9:36am 6.8 G/DL N 6.3-8.2 Troponin I July 28, 2014 9:36am 0.016 ng/ml N 0-0.12 Urine Bacteria September 16, 2009 9:25am 1+ - PLEASE [facility] Urine Bilirubin July 19, 2014 [...] 16, 2009 9:25am 30-50 /HPF - PLEASE [facility] Urine Specific [place] July 19, 2014 1:36pm 1.010 L - Has specimen been collected/obtained? Y Urine Squamous Epithelial Cells September 16, 2009 9:25am Few - PLEASE [facility] Urine Turbidity July 19, 2014 1:36pm Clear - Has specimen been collected/obtained? Y Urine Urobilinogen July 19, 2014 1:36pm 0.2 EU/DL - Has specimen been collected/obtained? Y Urine WBC September 16, 2009 9:25am 5-10 /HPF - PLEASE [facility] Urine pH July 19, 2014 [...] 05, 2014 8:34pm LAB TEST FORM REQUEST [id number] - EKG August 04, 2009 7:50am Complete [...] Source June 08, 2010 9:18am Nasal - BP-Vhx-N-Type Natriuretic Peptide July 19, 2014 12:10pm 1060 PG/ML H 0-175 Rule in cut points: <50 years old=450; 50-75 years old=900; >75 years old=1800; When utilizing ProBNP rule-in cut points, adjustment for impaired renal function is typically not required. Name: Eliza DEMPSEY Unit #: [id number] : [id number] Sex: M Loc / Svc: ED DOS: 07/28/14 Signed Report #: [id number] DIAGNOSTIC IMAGING REPORT TYPE OF EXAM: CT [...] completed 07/19/14 EMERGENCY DEPT VISIT completed 07/19/14 [id number]"INFUSION, NORMAL SALINE SOLUTION , 1000 CC" completed 07/19/14 Encounters Encounter Location Date/Time Departed Emergency Room [facility] 07/28/14 9:54am Departed Emergency Room [facility] 07/19/14 11:36am Recent Diagnosis
--- OUTSIDE RECORDS SUMMARY | 2016-11-03 10:20 | XMS REPORT | Continuity of Care Document ---
Author Author Hossein [facility] LIVE Organization [facility] LIVE Address Unknown Phone Unavailable Support Name Relationship Address Phone LILIAN SIEGEL MD Caregiver [address] [place] [phone] GONZALO BRIDGES MD Caregiver [address] [place] [address] [place] [phone] JENN DEMPSEY DPFRANSICO Next Of Kin [address] [place] [address] Insurance Providers Payer Name Policy Number Subscriber Name Relationship Medicare [id number] Eliza Dempsey Self [facility] [id number] Eliza Dempsey Self Advance Directives Directive Response [...] 200 Unit PO DAILY 08/04/09 Active Fish Oil/[place]-3 Fatty Acids 1 Cap PO DAILY 08/04/09 [...] F (96.8 - 99.1) Temperature (Calculated Celsius) 35.64026 degrees C (36.0 - 37.3) Pulse Rate [...] 11, 2014 10:39pm LAB TEST FORM REQUEST [id number] - Lymphocytes # (Auto) September 18, 2014 [...] 18, 2014 12:47pm 9.7 % H 0-9.0 YB-Mcz-M-Type Natriuretic Peptide July 19, 2014 12:10pm 1060 [...] 07, 2009 9:15am Not done - PLEASE [facility] Thyroid Stimulating Hormone (TSH) July 19, 2014 [...] Has specimen been collected/obtained? Y Urine Specific [place] September 18, 2014 2:09pm 1.020 - Has specimen been collected/obtained? Y Urine Squamous Epithelial Cells September 16, 2009 9:25am Few - PLEASE [facility] Urine Total Volume (Cortisol) August 10, 2014 10:00pm 900 mL - Cortisol Free, 24 hr Urine performed at [facility], [address] [place] [address] [employer] Nydia Hines MD Test Performed by: [place] [address] Phone Circuit Operator: Derek Maldonado M.D. Cortisol Free, 24 hr Urine performed at [facility], [address] [place] [address] [employer] Nydia Hines MD --- 08/14/14 1605 --- CORTFV previously reported as: 900 Cortisol Free, 24 hr Urine performed at [facility], [address] [place] [address] [employer] Nydia Hines MD Urine Turbidity September 18, [...] N 4.5-11.0 Name: Eliza DEMPSEY Unit #: [id number] : 1925 Sex: M Loc / Svc: ED DOS: 09/18/14 Signed Report #: [id number] DIAGNOSTIC IMAGING REPORT TYPE OF EXAM: CHEST [...] completed 07/19/14 EMERGENCY DEPT VISIT completed 07/19/14 [id number]"INFUSION, NORMAL SALINE SOLUTION , 1000 CC" completed [...] Encounters Encounter Location Date/Time Registered Emergency Room [facility] 09/18/14 12:05pm Registered Clinic [facility] 08/05/14 1:17pm Departed Emergency Room [facility] 07/28/14 9:54am Departed Emergency Room [facility] 07/19/14 11:36am Recent Diagnosis
--- OUTSIDE RECORDS SUMMARY | 2016-11-03 10:20 | XMS REPORT | Continuity of Care Document ---
Author Author [facility] Organization [facility] Address Unknown Phone Unavailable Allergies Active Description Code Type Severity Reaction Onset Reported/Identified Relationship to Patient Clinical Status Yes No Known Medication Allergies NKMA N/A N/A 02/13/2014 Medications Problems Procedures Results Test Result Range FLUID CYTOLOGY - 12/10/15 15:25 FLUID CYTOLOGY SPECIMEN RECEIVED GRAM STAIN - 12/10/15 15:25 Microbiology Encounters ACCT No. Visit Date/Time Discharge Status Pt. Type Provider Facility Loc./Unit Complaint [id number] 07/31/2013 09:33:00 07/31/2013 23 :59:59 [facility] Outpatient [id number] 05/07/2013 08:16:00 05/07/2013 23 :59:59 CLS Outpatient
[2016-11-03 10:52] LABS: BASOPHILS % (AUTO) 1.1 % (0-2); EOSINOPHILS # (AUTO) 0.1 T/MM3 (0-0.5); EOSINOPHILS % (AUTO) 1.9 % (0-4); HCT - HEMATOCRIT 42.2 % (41-53); LYMPHOCYTES # (AUTO) 0.7 T/MM3 (1-4.8); LYMPHOCYTES % (AUTO) 25.6 % (23-45); MEAN CORPUSCULAR HGB CONC(MCHC 33.2 GM/DL (31-37); MEAN CORPUSCULAR VOLUME 87.6 UM3 (80-100); MEAN PLATELET VOLUME 8.9 UM3 (9.4-12.4); MONOCYTES # (AUTO) 0.2 T/MM3 (0-0.8); MONOCYTES % (AUTO) 7.9 % (0-9.0); NEUTROPHILS #(AUTO)-ABSOLUTE 1.7 T/MM3 (1.8-7.7); NEUTROPHILS % (AUTO) 63.5 % (33-66); RED BLOOD COUNT 4.82 M/MM3 (4.50-5.90); WBC - WHITE BLOOD COUNT 2.7 T/MM3 (4.5-11.0)
[2016-11-03 11:13] LABS: ANION GAP 10 MEQ/L (5-15); BUN/CREATININE RATIO 15 RATIO (6-26); CALCIUM 8.4 MG/DL (8.4-10.2); CHLORIDE 96 MEQ/L (98-107); CO2 - CARBON DIOXIDE 26 MEQ/L (22-30); CREATININE 1.2 MG/DL (0.8-1.5); GLOMERULAR FILTRATION RATE 57; GLUCOSE 107 MG/DL (75-110); POTASSIUM 4.1 MEQ/L (3.6-5); SODIUM 132 MEQ/L (134-144)
--- NOTE | 2016-11-03 11:20 | DI ---
Indication: ITS.REASON: syncope PROCEDURE: CT HEAD W/O CONTRAST: Encounter: Initial Comparison: Head CT dated September 06, 2016 and brain MRI dated September 07, 2016 Technique: Axial CT images through the head were performed without contrast. Iterative Reconstruction dose reducing technique was utilized. FINDINGS: Moderate atrophy. The ventricles are unchanged. Areas of subacute infarct in the periventricular left frontal lobe as noted on the prior MRI. There are multiple areas of low attenuation in the white matter which most likely represent changes from chronic microvascular ischemia. The brainstem, cerebellum, and cerebral hemispheres otherwise have a normal morphology and CT attenuation. There is no evidence of midline displacement. No hemorrhage, obvious new territorial stroke, mass effect, mass lesions, or edema is evident. The visualized portions of the skull base, midface, and calvarium demonstrate no abnormality. The paranasal sinuses are well aerated and free of significant disease. Small right mastoid effusion. IMPRESSION: No acute intracranial abnormality or hemorrhage. Subacute left MCA territory stroke. .
[2016-11-03 11:43] LABS: THYROID STIM HORMONE-TSH 3.19 MIU/L (0.47-4.68)
[2016-11-03 11:43] LABS: BLOOD, URINE TRACE-INTACT (NEGATIVE); COLOR,URINE YELLOW (YELLOW); LEUKOCYTE ESTERASE ,URINE NEGATIVE (NEGATIVE); NITRITE,URINE NEGATIVE (NEGATIVE); UROBILINOGEN,URINE 0.2 EU/DL (NORMAL)
--- NOTE | 2016-11-03 12:50 | NUR ---
UPDATE PATIENT LYING IN BED, AT BEDSIDE. PATIENT REPORTS HE IS FEELING BETTER. DENIES ANY CHANGE IN CONDITION. DENIES NEEDS.
--- NOTE | 2016-11-03 14:04 | ERPDOC ---
Departure Disposition Decision Date: Nov 03, 2016 Disposition Decision Time: 14:04 Disposition: 01 DISCHARGED HOME, SELF-CARE Impression Impression Impression: Primary Impression: Micturition syncope Severity: Moderate Condition: Improved Seen By: Physician only Referrals: MISTY PIERRE MD (Family) Patient Instructions: Syncope (ED) Problems/Meds/Labs Reviewed?: Yes Medications reviewed and manag: Yes Additional Instructions: Follow up with your Primary Care Provider. Follow up care ordered?: Yes Mental Status: Alert, Oriented HPI - Syncope General Chief Complaint: Syncope Stated Complaint: SYNCOPE Time Seen by Provider: 10:07 HPI - Syncope Initial Comments 89-year-old gentleman passed out while urinating at home. This is happen before. He was admitted with a CVA and weakness August. Allergies: Coded Allergies: No Known Drug Allergies (Verified Allergy, Unknown, 11/03/16) Past History Patient Surgical History Heart catheterization 09/14/16 - stent to RCA (Resolute integrity); LAD occluded; L circ 50% stenosis; RCA 90%; EF 50-55% Tonsillectomy Right partial knee replacement CABG . Cardiac [id number]. [place] Cholecystectomy TURP Thoracentesis 11/2015 Colonoscopy Past Medical History Metabolic: cancer, hypercholesterolemia, hypertension, other Cardiac: CAD Neurological: CVA, other Musculoskeletal: osteoarthritis Surgical History Cardiac: cardiac bypass, cardiac cath, cardiac stent Joint: knee Family History Family PMH: FOUND: hypertension Vaccines Hx Influenza Vaccination: Yes (05/2016) Hx Pneumococcal Vaccination: Yes (11/2012) Social History Does patient use chewing tobac: No Second Hand Exposure: No Substance Use Type: does not use Alcohol Intake: none, occasionally Marital Status: Sexuality: female partner Housing: house Household Members: spouse Current Occupational Status: retired Occupational Hazard: No Advance Directives: Yes Full Code Physical Exam General Vitals and Pain First Documented Vital Signs Date Time Temp Pulse Resp B/P Pulse Ox O2 Delivery O2 Flow Rate FiO2 11/03/16 09:48 97.5 58 12 137/71 98 Room Air Weight: Kilograms: 85.100 Height (feet): 5 Height (inches): 11.00 Triage Pain Scale: Progress Results/Orders Orders Procedure Category Date Status Time Cbc W/Auto LAB 11/03/16 Complete Diff-Reflex Manual 10:07 Ua, Dip Wreflex LAB 11/03/16 Complete Microsc & Computer Aided Design Operator 10:07 Ct Head W/O Contrast CT 11/03/16 Resulted 10:07 Normal Saline (Ns) PHA 11/03/16 Complete 10:07 Oxygen Administration EDM 11/03/16 Transmitted 10:07 Ekg Prn ASHLEY 11/03/16 In Process 10:18 Rejected Specimen LAB 11/03/16 Complete 10:26 D-Dimer LAB 11/03/16 Complete 10:28 Bmp - Basic Metabolic LAB 11/03/16 Complete Panel 10:28 Tsh - Thyroid Stim LAB 11/03/16 Complete Hormone 10:28 Lab Results Laboratory Tests Test 11/03/16 10:26 11/03/16 10:37 11/03/16 10:38 11/03/16 11:37 Specimen Comment (Misc) Lab to recollect Tests Not Done Dd,bmp,tsh Reason Tests Not Done Inappropriate fill White Blood Count 2.7T/MM3 Red Blood Count 4.82M/MM3 Hemoglobin 14.0GM/DL Hematocrit 42.2% Mean Corpuscular Volume 87.6UM3 Mean Corpuscular Hemoglobin 29.0UUG Mean Corpuscular Hemoglobin Concent 33.2GM/DL RDW Standard Deviation 56.0FL Platelet Count 201T/MM3 Mean Platelet Volume 8.9UM3 Immature Granulocyte % (Auto) 0.0% Neutrophils (%) (Auto) 63.5% Lymphocytes (%) (Auto) 25.6% Monocytes (%) (Auto) 7.9% Eosinophils (%) (Auto) 1.9% Basophils (%) (Auto) 1.1% Absolute Immature Granulocyte (auto 0.00T/MM3 Absolute Neutrophils (auto) 1.7T/MM3 Absolute Lymphocytes (auto) 0.7T/MM3 Absolute Monocytes (auto) 0.2T/MM3 Absolute Eosinophils (auto) 0.1T/MM3 Absolute Basophils (auto) 0.0T/MM3 D-Dimer 313NG/ML Turbidity < 20 Sodium Level 132MEQ/L Potassium Level 4.1MEQ/L Chloride Level 96MEQ/L Carbon Dioxide Level 26MEQ/L Anion Gap 10MEQ/L Blood Urea Nitrogen 18.0MG/DL Creatinine 1.2MG/DL Glomerular Filtration Rate Calc 57 BUN/Creatinine Ratio 15RATIO Glucose Level 107MG/DL Calculated Osmolality 257MOSM/KG Calcium Level 8.4MG/DL Icterus Index < 2 Thyroid Stimulating Hormone (TSH) 3.19MIU/L Chemistry Specimen Hemolysis < 15 Urine Collection Type Voided-not cc-midstr Urine Color Yellow Urine Turbidity Clear Urine pH 7.0 Urine Specific [place] 1.010 Urine Protein Negative Urine Glucose (UA) Negative Urine Ketones Negative Urine Blood Trace-intact Urine Nitrite Negative Urine Bilirubin Negative Urine Urobilinogen 0.2EU/DL Urine Leukocyte Esterase Negative Urinalysis Comment Microscopic not ind. Medications Current ED Medications Sodium Chloride (NS) 500 ml @ 0 mls/hr Q0M ONCE IV ; Start 11/03/16 at 10:07; Stop 11/03/16 at 10:13; Status DC Progress Progress CT brain neg for new cva, does show subacute changes from cva in august. Pt labs reasonable. This is most likely a micturation syncope. Discussed methods to decrease risk of syncope. Pt will follow up with his PCP this week. DYAN WEST MD Nov 03, 2016 14:04
[2016-11-03 14:13] VITALS: BP 158/82; PULSE 57; RESP 16; TEMP 97.5; O2SAT 98
== END 2016-11-03 14:13 | disposition home or self-care (01) ==
LOC: ED 09:46
DX: R55 Syncope and collapse (principal); I10 Essential (primary) hypertension; Z86.73 Personal history of transient ischemic attack (TIA), and cerebral infarction without residual deficits
CPT/HCPCS: 36415; 80048; 81003; 84443; 85025; 85379

== ENCOUNTER 2017-01-07 03:47 | Observation (INO) ==
[2017-01-07 04:26] LABS: Eosinophils # (Auto) 0.4 T/MM3 (0-0.5); Hematocrit 35.1 % (41-53); Hemoglobin 11.5 GM/DL (13.5-17.5); Immature Granulocyte % (Auto) 0.4 % (0.0-0.5); Lymphocytes # (Auto) 1.8 T/MM3 (1-4.8); Lymphocytes % (Auto) 23.6 % (23-45); Mean Corpuscular Hemoglobin 27.5 UUG (26-34); Mean Platelet Volume 9.2 UM3 (9.4-12.4); Monocytes % (Auto) 9.7 % (0-9.0); Neutrophils % (Auto) 60.9 % (33-66); Platelet Count 259 T/MM3 (130-400); RDW Standard Deviation 48.3 FL (36.9-50.2); Red Blood Count 4.18 M/MM3 (4.50-5.90); White Blood Count 7.5 T/MM3 (4.5-11.0)
--- NOTE | 2017-01-07 04:36 | Emergency Department Report ---
General Adult HPI - General Chief complaint: Syncope Stated complaint: hypotension Time Seen by Provider: 01/07/17 03:55 Source: patient, family, EMS Mode of arrival: EMS Limitations: other (Dementia) - History of Present Illness HPI narrative: 89-year-old male presents to the emergency department via EMS for evaluation after a brief episode of unresponsiveness. Patient had gotten up to have a bowel movement and after having his bowel movement on the stool the became concerned that the patient was unresponsive. Patient was hypotensive in the 70s to 80s with EMS arrival. Patient had a GCS of 3 upon their arrival. Patient did not exhibit any type of seizure activity that was noted. Patient's GCS improved to baseline. His blood pressure returned to normal during other monitoring. Patient denies any pain or discomfort. He did not suffer any trauma or injury. Patient was at home when the incident occurred. Symptoms have resolved upon arrival to the emergency department. There are no other complaints or associated symptoms. Patient is a DO NOT RESUSCITATE per . - Related Data Home Medications Medication Instructions Recorded Confirmed Nitroglycerin 0.4 mg SL Q5MIN PRN #0 08/04/09 01/07/17 Aspirin 81 mg PO DAILY #0 06/06/13 01/07/17 Multivitamin (Daily Vitamin) 1 tab PO DAILY #0 04/09/14 01/07/17 Acetaminophen 325 mg PO Q5H PRN #0 11/03/16 01/07/17 Atorvastatin Calcium 40 mg PO HS #0 11/03/16 01/07/17 Clopidogrel Bisulfate [Clopidogrel] 75 mg PO DAILY #0 11/03/16 01/07/17 Midodrine HCl 10 mg PO TID #0 11/03/16 01/07/17 Polyethylene Glycol 3350 17 g PO DAILY PRN #0 11/03/16 01/07/17 [Healthylax] Cabergoline 0.5 mg PO WEEKLY 01/07/17 01/07/17 Allergies Allergy/AdvReac Type Severity Reaction Status Date / Time No Known Drug Allergies Allergy Unknown Verified 01/07/17 04:17 Review of Systems Limitations: ROS unobtainable due to patient's medical condition (Dementia) PFSH Patient Stated Medical History Cerebrovascular Accident Yes: 2 KNOWN Seizures No Transient Ischemic Attacks ( Yes TIA) Cataracts Yes Cardiac Arrhythmia No Hypertension No Hypotension No Other Cardiology Yes: BRADYCARDIA Diabetes Mellitus Type 1 No Diabetes Mellitus Type 2 No Anemia No Panic Disorder No Now No Acute CVA- left MCA with right-sided weakness-08/07/16, 09/06/16 HTN CAD-Dr. Marie Dyslipidemia Pituitary adenoma-Dr. Romero Bradycardia Chronic anemia Orthostatic hypotension Osteoarthritis Left pleural effusion-negative workup in [place] Surgical History: Heart catheterization 09/14/16 - stent to RCA (Resolute integrity); LAD. occluded; L circ 50% stenosis; RCA 90%; EF 50-55%. Tonsillectomy. Right partial knee replacement. CABG . Cardiac stent- 2012-Dr. Marie. Cholecystectomy. TURP. Thoracentesis 11/2015. Colonoscopy Family History: CAD, HTN - Social History Smoking status: Never smoker Substance use type: does not use Alcohol intake frequency: does not drink Physical Exam - Limitations Limitations: other (Dementia) - General General appearance: alert, in no apparent distress - Normal Exams: Head:: Normocephalic without trauma Eyes:: Pupils are PERRLA w/ EOMI, No scleral icterus, irritation, or foreign bodies noted ENMT:: No facial trauma, nasal exudates, pharyngeal erythema, or exudates are noted Dental: No fractured, loose, or missing teeth noted Neck:: Full range of motion, without adenopathy, JVD, bruits or thyromegaly Chest/Respirations:: Clear all whelan, with good airflow, and symmetry bilaterally Cardiovascular:: Regular rate and rhythm, without murmur or gallop, Pulses 2+ all extremities, capillary refill, <2 seconds all extremities Abdomen:: Bowel sounds positive, soft, non-tender, non-distended, no hepatosplenomegaly, masses or bruits noted Lymphatic:: No lymphadenopathy, or lymphedema noted Musculoskeletal:: No tenderness, or deformity noted, good range of motion, all extremities Integumentary:: No rashes, hives, or bruising noted, hair and nails, without abnormality Neurological:: Patient is alert (Alert and oriented x 1-2. No focal neurological deficit. Pt. is at baseline mental status per . ) Psychiatric:: Patient exhibits, appropriate attention, emotion and affect Course Vital Signs Temperature 97.7 F 01/07/17 03:47 Pulse Rate 65 01/07/17 03:47 Respiratory Rate 24 01/07/17 03:47 Blood Pressure 149/71 H 01/07/17 03:47 Pulse Oximetry 96 01/07/17 03:47 Temperature 97.7 F 01/07/17 03:47 Pulse Rate 59 L 01/07/17 05:30 Respiratory Rate 15 01/07/17 05:30 Blood Pressure 165/81 H 01/07/17 05:30 Pulse Oximetry 96 01/07/17 05:30 Medical Decision Making - MDM Narrative Medical decision making narrative: Labs / imaging were discussed in detail with the patient and family and questions are answered. Patient received 500 L of normal saline intravenously times one. Patient has returned to baseline mental status. Patient is markedly improved. Patient does not have a source of infection noted. Chest x- ray is similar to prior. Urinalysis is negative. Patient has no current pain or discomfort. Patient has normal sepsis markers along with being afebrile and no leukocytosis. There is no current indication for antibiotic therapy. Patient will be admitted in observation status to [facility] for further evaluation secondary to his history of coronary artery disease and cardiac arrhythmia. Patient and family are in agreement with the current plan of management. Patient is discussed with Dr. Wu Isabel and will be admitted to the service of Dr. Garcia. Accepting physician is in agreement with the current plan of management. No further orders. - Differential Diagnosis vasovagal syncope, acute ID, CVA, Metabolic process - Lab Data Result diagrams: 01/07/17 04:20 01/07/17 04:20 Lab Results 01/07/17 01/07/17 01/07/17 Range/Units 04:20 04:20 04:20 WBC 7.5 (4.5-11.0) T/MM3 RBC 4.18 L (4.50-5.90) M/MM3 Hgb 11.5 L (13.5-17.5) GM/DL Hct 35.1 L (41-53) % MCV 84.0 (80-100) UM3 MCH 27.5 (26-34) UUG MCHC 32.8 (31-37) GM/DL RDW Std Deviation 48.3 (36.9-50.2) FL Plt Count 259 (130-400) T/MM3 MPV 9.2 L (9.4-12.4) UM3 Immature Gran % (Auto) 0.4 (0.0-0.5) % Neut % (Auto) 60.9 (33-66) % Lymph % (Auto) 23.6 (23-45) % Dare % (Auto) 9.7 H (0-9.0) % Eos % (Auto) 5.0 H (0-4) % Baso % (Auto) 0.4 (0-2) % Neut # 4.6 (1.8-7.7) T/MM3 Lymph # 1.8 (1-4.8) T/MM3 Dare # 0.7 (0-0.8) T/MM3 Eos # 0.4 (0-0.5) T/MM3 Baso # 0.0 (0-0.2) T/MM3 Abs Immat Gran (auto) 0.03 (0.00-0.03) T/MM3 Turbidity < 20 (0-20) Sodium 131 L (134-144) MEQ/L Potassium 4.1 (3.6-5) MEQ/L Chloride 93 L (98-107) MEQ/L Carbon Dioxide 25 (22-30) MEQ/L Anion Gap 13 (5-15) MEQ/L BUN 17.0 (9-20) MG/DL Creatinine 1.1 (0.8-1.5) MG/DL GFR Calculation 63 BUN/Creatinine Ratio 16 (6-26) RATIO Glucose 120 H (75-110) MG/DL Calculated Osmolality 256 L (261-280) MOSM/KG Calcium 9.1 (8.4-10.2) MG/DL Total Bilirubin 1.50 H (0.20-1.30) MG/DL Icterus Index < 2 (0-7) AST 36 (17-59) U/L ALT 33 (21-72) U/L Alkaline Phosphatase 117 (38-126) U/L Troponin I < 0.012 (0-0.12) ng/ml Total Protein 7.1 (6.3-8.2) G/DL Albumin 4.2 (3.5-5.0) G/DL Globulin 2.9 (2.4-3.6) G/DL Albumin/Globulin Ratio 1.4 (1.1-2.2) RATIO Plasma Lactate 2.0 (0.6-2.2) MMOL/L Procalcitonin < 0.05 NG/ML Specimen Hemolysis 20 (0-25) Ur Collection Type Urine Color (YELLOW) Urine Clarity Urine pH (5.0-8.0) Ur Specific [place] (1.015-1.025) Urine Protein (NEGATIVE) Urine Glucose (UA) (NEGATIVE) Urine Ketones (NEGATIVE) Urine Occult Blood (NEGATIVE) Urine Nitrate (NEGATIVE) Urine Bilirubin (NEGATIVE) Urine Urobilinogen (NORMAL) EU/DL Ur Leukocyte Esterase (NEGATIVE) Urinalysis Comment 01/07/17 Range/Units 05:25 WBC (4.5-11.0) T/MM3 RBC (4.50-5.90) M/MM3 Hgb (13.5-17.5) GM/DL Hct (41-53) % MCV (80-100) UM3 MCH (26-34) UUG MCHC (31-37) GM/DL RDW Std Deviation (36.9-50.2) FL Plt Count (130-400) T/MM3 MPV (9.4-12.4) UM3 Immature Gran % (Auto) (0.0-0.5) % Neut % (Auto) (33-66) % Lymph % (Auto) (23-45) % Dare % (Auto) (0-9.0) % Eos % (Auto) (0-4) % Baso % (Auto) (0-2) % Neut # (1.8-7.7) T/MM3 Lymph # (1-4.8) T/MM3 Dare # (0-0.8) T/MM3 Eos # (0-0.5) T/MM3 Baso # (0-0.2) T/MM3 Abs Immat Gran (auto) (0.00-0.03) T/MM3 Turbidity (0-20) Sodium (134-144) MEQ/L Potassium (3.6-5) MEQ/L Chloride (98-107) MEQ/L Carbon Dioxide (22-30) MEQ/L Anion Gap (5-15) MEQ/L BUN (9-20) MG/DL Creatinine (0.8-1.5) MG/DL GFR Calculation BUN/Creatinine Ratio (6-26) RATIO Glucose (75-110) MG/DL Calculated Osmolality (261-280) MOSM/KG Calcium (8.4-10.2) MG/DL Total Bilirubin (0.20-1.30) MG/DL Icterus Index (0-7) AST (17-59) U/L ALT (21-72) U/L Alkaline Phosphatase (38-126) U/L Troponin I (0-0.12) ng/ml Total Protein (6.3-8.2) G/DL Albumin (3.5-5.0) G/DL Globulin (2.4-3.6) G/DL Albumin/Globulin Ratio (1.1-2.2) RATIO Plasma Lactate (0.6-2.2) MMOL/L Procalcitonin NG/ML Specimen Hemolysis (0-25) Ur Collection Type Urine, [place] Urine Color Yellow (YELLOW) Urine Clarity Clear Urine pH 6.0 (5.0-8.0) Ur Specific [place] 1.020 (1.015-1.025) Urine Protein Trace A (NEGATIVE) Urine Glucose (UA) Negative (NEGATIVE) Urine Ketones Trace A (NEGATIVE) Urine Occult Blood Trace-lysed (NEGATIVE) Urine Nitrate Negative (NEGATIVE) Urine Bilirubin Negative (NEGATIVE) Urine Urobilinogen 0.2 (NORMAL) EU/DL Ur Leukocyte Esterase Negative (NEGATIVE) Urinalysis Comment Microscopic not ind. - Radiology Data CXR- Persistent L pleural effusion. otherwise similar to prior exam. CT Head - No acute processes. - EKG Data EKG #1 EKG results narrative: Sinus rhythm. [address] changes. No STEMI. Disposition Clinical Impression: Vasovagal syncope Disposition: 02 To [facility] Condition: Improved Prescriptions: No Action Aspirin 81 mg PO DAILY #0 Multivitamin (Daily Vitamin) 1 tab PO DAILY #0 Clopidogrel Bisulfate [Clopidogrel] 75 mg PO DAILY #0 Polyethylene Glycol 3350 [Healthylax] 17 g PO DAILY PRN #0 PRN Reason: CONSTIPATION Nitroglycerin 0.4 mg SL Q5MIN PRN #0 PRN Reason: CHEST PAIN Acetaminophen 325 mg PO Q5H PRN #0 PRN Reason: PAIN Atorvastatin Calcium 40 mg PO HS #0 Midodrine HCl 10 mg PO TID #0 Cabergoline 0.5 mg PO WEEKLY Referrals: Jose Corona MD [Family Provider] - Time of Disposition: 05:30 (Admit. Dr. Garcia. DW Dr. Vidal. ) - Seen By: physician
[2017-01-07 04:37] LABS: ALT - NMC 33 U/L (21-72); AST - NMC 36 U/L (17-59); Albumin - NMC 4.2 G/DL (3.5-5.0); Albumin/Globulin Ratio 1.4 RATIO (1.1-2.2); Alkaline Phosphatase - NMC 117 U/L (38-126); Anion Gap 13 MEQ/L (5-15); BUN/Creatinine Ratio 16 RATIO (6-26); CO2 - Carbon Dioxide - NMC 25 MEQ/L (22-30); Calcium - NMC 9.1 MG/DL (8.4-10.2); Chloride - NMC 93 MEQ/L (98-107); Globulin 2.9 G/DL (2.4-3.6); Glomerular Filtration Rate 63; Glucose - NMC 120 MG/DL (75-110); NA - Sodium - NMC 131 MEQ/L (134-144); Osmolality,Calculated 256 MOSM/KG (261-280); Potassium 4.1 MEQ/L (3.6-5); TP - Total Protein - NMC 7.1 G/DL (6.3-8.2)
[2017-01-07 04:47] LABS: Troponin I < 0.012 ng/ml (0-0.12)
[2017-01-07 05:31] LABS: Add Microscopic for UA No; Clarity,Urine CLEAR; Color, Urine YELLOW (YELLOW); Leukocyte Esterase,Urine NEGATIVE (NEGATIVE); Nitrate,Urine NEGATIVE (NEGATIVE); Urine Microscopic (UA) Microscopic Not Ind.; Urobilinogen,Urine 0.2 EU/DL (NORMAL)
--- NOTE | 2017-01-07 05:51 | History & Physical Report ---
History of Present Illness Date: 01/07/17 Chief complaint: syncope HPI: Much of history of this 89-year-old male from ER report as he has some dementia and doesn't recall the event and his left before I could interview with her on [address] videoconf. He presents to the emergency department via EMS for evaluation after a brief episode of unresponsiveness. Patient had gotten up to have a bowel movement and after having his bowel movement on the stool the became concerned that the patient was unresponsive. Patient was hypotensive in the 70s to 80s with EMS arrival. Patient had a GCS of 3 upon their arrival. Patient did not exhibit any type of seizure activity that was noted. After reportedly about 15 min or so, patient's GCS improved to baseline. His blood pressure returned to normal during other monitoring. Received 500 cc NS in ER. Pt did not fall but was in WC. Patient denies any pain, chest pain or soa, no n/v/no diarrhea or abd pain, no edema or orthopnea. He did not suffer any trauma or injury. Patient was at home when the incident occurred, lives there where is essentially wheelchair bound, can reportedly stand/pivot/turn. Symptoms have resolved upon arrival to the emergency department and he states is feeling fine as I interview him. There are no other complaints or associated symptoms. 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 Marie Dyslipidemia Pituitary adenoma-Dr. Romero (on cabergoline) Bradycardia Chronic anemia Orthostatic hypotension (on midodrine) Osteoarthritis Left pleural effusion-[place]up [place] Surgical History: Heart catheterization 09/14/16 - stent to RCA (Resolute integrity); LAD. occluded; L circ 50% stenosis; RCA 90%; EF 50-55%. Tonsillectomy. Right partial knee replacement. CABG . Cardiac stent- 2012-Dr. Marie. Cholecystectomy. TURP. Thoracentesis 11/2015. Colonoscopy Surgical History: Heart catheterization 09/14/16 - stent to RCA (Resolute integrity); LAD. occluded; L circ 50% stenosis; RCA 90%; EF 50-55%. Tonsillectomy. Right partial knee replacement. CABG . Cardiac stent- 2012-Dr. Marie. Cholecystectomy. TURP. Thoracentesis 11/2015. Colonoscopy Family History: NC based on age - Social History Smoking status: Never smoker Household members: spouse Medications Home Medications Medication Instructions Recorded Confirmed Type Nitroglycerin 0.4 mg SL Q5MIN PRN #0 08/04/09 01/07/17 History Aspirin 81 mg PO DAILY #0 06/06/13 01/07/17 History Multivitamin (Daily Vitamin) 1 tab PO DAILY #0 04/09/14 01/07/17 History Acetaminophen 325 mg PO Q5H PRN #0 11/03/16 01/07/17 History Atorvastatin Calcium 40 mg PO HS #0 11/03/16 01/07/17 History Clopidogrel Bisulfate [Clopidogrel] 75 mg PO DAILY #0 11/03/16 01/07/17 History Midodrine HCl 10 mg PO TID #0 11/03/16 01/07/17 History Polyethylene Glycol 3350 17 g PO DAILY PRN #0 11/03/16 01/07/17 History [Healthylax] Cabergoline 0.5 mg PO WEEKLY 01/07/17 01/07/17 History Allergies Allergy/AdvReac Type Severity Reaction Status Date / Time No Known Drug Allergies Allergy Unknown Verified 01/07/17 04:17 Exam Vital Signs: Temp Pulse Resp BP Pulse Ox 97.7 F 59 L 15 165/81 H 96 01/07/17 03:47 01/07/17 05:30 01/07/17 05:30 01/07/17 05:30 01/07/17 05:30 Height: 1.78 m Weight: 81.9 kg - Constitutional Present: no acute distress (quite pleasant calm) - Routine HEENT Exam Head: Present: normocephalic Eye: Present: EOMI, PERRL ENT: Present: mucous membranes moist - Routine Neck Exam Present: supple - Routine Respiratory Exam Present: CTA bilaterally. Absent: accessory muscle use - Routine Cardiovascular Exam Present: RRR, S1, S2, no murmur Comments: well healed sternotomy incision - Routine Abdominal Exam Present: soft, normoactive bowel sounds, non distended, non tender - Routine Extremities Exam Present: no edema, non tender. Absent: cyanosis, clubbing Comments: can lift arms up off bed - Routine Neurological Exam Present: alert. Absent: oriented X3, pronator drift oriendted to person, "[facility]" Results - Labs CBC & Chem 7: 01/07/17 04:20 01/07/17 04:20 - Impressions not scanned into record for me to eval, reportedly no acute ST T wave changes - Imaging and Cardiology CT scan - head Additional comments: old appearing 10 cm mass, stable per d/w ER compared to previous, old bilateral lacunar infarcts, no bleed Assessment and Plan (1) Syncope and collapse Current visit: Yes Status: Acute ddx vasovagoal, orthostatic, bradycardic. Was going to restrooom when happened , could be BM related/micturation. On midodrine so wonder about autonomic BP issues. IV fluids x 1 in ER have helped. Monitor on tele, can involve Dr Gentile in AM if primary team feels needed. With everything now back at baseline, will admit to observation but may need longer stay, increased level of care if felt not back to baseline needs if evaluation does not turn up any new issues or active ACS etc. 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
[2017-01-07] MEDS ORDERED: POLYETHYL GLYCOL 3350 17gm PACKET PO PRN (07:27)
[2017-01-07] MEDS ORDERED: NITROGLYCERIN 0.4 MG SUBLINGUAL TABLET SL PRN (07:27)
[2017-01-07] MEDS ORDERED: ONDANSETRON 4 MG/2 ML INJECTION IVP PRN (07:27)
[2017-01-07] MEDS ORDERED: ACETAMINOPHEN 325 MG TABLET PO PRN ×2 (07:27)
[2017-01-07] MEDS ORDERED: SENNA + DOCUSATE TABLET PO PRN (07:27)
[2017-01-07] MEDS ORDERED: DOCUSATE SODIUM 100 MG CAPSULE PO PRN (07:27)
[2017-01-07 07:32] VITALS: BMI 25.6
--- NOTE | 2017-01-07 07:39 | XRay Report ---
Indication: Hypotension and syncope PROCEDURE: XR chest 1V: Encounter: Initial Comparison: September 17, 2016 Findings: Small left pleural effusion has decreased in size. Persistent left lower lobe consolidation. Right lung is grossly clear. No pneumothorax. Heart size and mediastinal contours are stable. Pulmonary vascularity is unchanged. Prior CABG Right abdominal surgical clips. Impression: Decreasing small left pleural effusion. .
--- NOTE | 2017-01-07 07:41 | CT Scan Report ---
Indication: AMS PROCEDURE: CT head/brain wo con: Encounter: Initial Comparison: November 03, 2016 Technique: Axial CT images through the head were performed without contrast. Iterative Reconstruction dose reducing technique was utilized. FINDINGS: Moderate atrophy. The ventricles are stable. Small bilateral old lacunar infarcts. There are scattered areas of low attenuation in the white matter which most likely represent changes from chronic microvascular ischemia. The brainstem, cerebellum, and cerebral hemispheres otherwise have a normal morphology and CT attenuation. There is no evidence of midline displacement. No hemorrhage, signs of acute territorial stroke or edema is evident. 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 The visualized portions of the skull base, midface, and calvarium demonstrate no abnormality. The paranasal sinuses are well aerated and free of significant disease. The tympanic and mastoid cavities appear normal. IMPRESSION: No acute intracranial abnormality or hemorrhage. There is a preliminary report by [facility]. .
[2017-01-07 08:57] LABS: Lactate - NMC 1.6 MMOL/L (0.6-2.2)
[2017-01-07 09:09] LABS: Troponin I < 0.012 ng/ml (0-0.12)
[2017-01-07] MEDS: --POM--ASPIRIN 81 MG CHEWABLE TABLET PO SCH (10:17)
[2017-01-07] MEDS: --POM--CLOPIDOGREL 75 MG TABLET PO SCH (10:17)
[2017-01-07] MEDS: MIDODRINE 10 MG PO SCH ×3 (10:18→22:01)
[2017-01-07 13:44] LABS: Troponin I < 0.012 ng/ml (0-0.12)
[2017-01-07 20:36] LABS: Troponin I < 0.012 ng/ml (0-0.12)
[2017-01-07] MEDS ORDERED: --POM--ATORVASTATIN 40 MG TABLET PO SCH (22:00)
[2017-01-08 00:05] VITALS: RESP 18; TEMP 97.6
[2017-01-08 05:58] LABS: Albumin - NMC 3.6 G/DL (3.5-5.0); Anion Gap 9 MEQ/L (5-15); BUN/Creatinine Ratio 17 RATIO (6-26); CO2 - Carbon Dioxide - NMC 26 MEQ/L (22-30); Calcium - NMC 8.7 MG/DL (8.4-10.2); Chloride - NMC 94 MEQ/L (98-107); Glomerular Filtration Rate 79; Glucose - NMC 82 MG/DL (75-110); NA - Sodium - NMC 129 MEQ/L (134-144); Osmolality,Calculated 249 MOSM/KG (261-280); Phosphorus - NMC 3.2 MG/DL (2.5-4.5); Potassium 3.9 MEQ/L (3.6-5)
[2017-01-08 07:33] VITALS: PULSE 56; O2SAT 95
[2017-01-08] MEDS: --POM--CLOPIDOGREL 75 MG TABLET PO SCH (08:26)
[2017-01-08] MEDS: --POM--ASPIRIN 81 MG CHEWABLE TABLET PO SCH (08:26)
[2017-01-08] MEDS: MIDODRINE 10 MG PO SCH (08:26)
[2017-01-08] MEDS ORDERED: SALINE FLUSH 10ml SYRINGE IV PRN (08:43)
[2017-01-08 10:57] VITALS: BP 152/84
--- NOTE | 2017-01-08 12:01 | Discharge Instructions ---
Discharge Plan - Med Rec/Dispo Referrals/Follow Up: Jose Corona MD [Family Provider] - (Please call and schedule follow up apt with Dr Corona for 1-2 weeks) Additional Instructions: Call office and have BMP lab done this week to check Sodium Prescriptions: Continue Aspirin 81 mg PO DAILY #0 Multivitamin (Daily Vitamin) 1 tab PO DAILY #0 Clopidogrel Bisulfate [Clopidogrel] 75 mg PO DAILY #0 Polyethylene Glycol 3350 [Healthylax] 17 g PO DAILY PRN #0 PRN Reason: CONSTIPATION Nitroglycerin 0.4 mg SL Q5MIN PRN #0 PRN Reason: CHEST PAIN Acetaminophen 325 mg PO Q5H PRN #0 PRN Reason: PAIN Atorvastatin Calcium 40 mg PO HS #0 Midodrine HCl 10 mg PO TID #0 Cabergoline 0.5 mg PO WEEKLY Discharge Instructions/Outpatient Orders: Final Provider Discharge Instructions Location: Determined By Patient - Disposition 01 Discharged Home, Self-Care
--- NOTE | 2017-01-08 12:14 | Discharge Summary ---
<Lupe Vega V - Last Filed: 01/08/17 12:10> Discharge Information Date of admission: 01/07/17 06:08 Anticipated date of discharge: 01/08/17 Attending Physician: Carrie Pruitt MD Primary care physician: Jose Corona MD - Discharge Diagnosis (1) Syncope and collapse Status: Acute (2) Bradycardia Status: Acute (3) Dementia Status: Acute (4) CAD (coronary artery disease) Status: Acute (5) Late effects of CVA (cerebrovascular accident) Status: Acute (6) Wheelchair bound Status: Acute (7) Pituitary adenoma Status: Acute (8) Hyponatremia Status: Acute - Laboratory Labs: 01/08/17 05:11 - Microbiology None - Radiology Radiology: 01/07/17- Ct Head- No acute intracranial abnormality or hemorrhage. 01/07/17- Chest Xray- Small left pleural effusion that is decreased. - Pathology None History of Present Illness HPI: Much of history of this 89-year-old male from ER report as he has some dementia and doesn't recall the event and his left before I could interview with her on [address] way videoconf. He presents to the emergency department via EMS for evaluation after a brief episode of unresponsiveness. Patient had gotten up to have a bowel movement and after having his bowel movement on the stool the became concerned that the patient was unresponsive. Patient was hypotensive in the 70s to 80s with EMS arrival. Patient had a GCS of 3 upon their arrival. Patient did not exhibit any type of seizure activity that was noted. After reportedly about 15 min or so, patient's GCS improved to baseline. His blood pressure returned to normal during other monitoring. Received 500 cc NS in ER. Pt did not fall but was in WC. Patient denies any pain, chest pain or soa, no n/v/no diarrhea or abd pain, no edema or orthopnea. He did not suffer any trauma or injury. Patient was at home when the incident occurred, lives there where is essentially wheelchair bound, can reportedly stand/pivot/turn. Symptoms have resolved upon arrival to the emergency department and he states is feeling fine as I interview him. There are no other complaints or associated symptoms. 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 He was admitted as observation under the hospitalist services for further monitoring and evaluation. Mr Kervin rodriguez is well known to the Hospital services as he has had previous admissions for syncope. He does have known chronic orthostasis and does follow with Dr. Adkins for cardiac care. All laboratory studies and radiology reports were reviewed. He does have mild hyponatremia, however this has been a chronic issue for him. He was given IV fluids and monitored on cardiac telemetry. Orthostatic vitals signs were followed and were negative this morning. No medications changes were made during his stay. Mr Galeana has continued to feel good and is requesting discharge today with his . Planning for discharge home with . He is instructed to follow up with PCP Dr Corona in 1 week. Will need to recheck a BMP to follow Hyponatremia. All home medications are continued at time of discharge. DVT Prophylaxis: SCD's Discharge Plan - Med Rec/Dispo Referrals/Follow Up: Jose Corona MD [Family Provider] - (Please call and schedule follow up apt with Dr Corona for 1-2 weeks) [facility] Instructions: Hyponatremia (DC) Additional Instructions: Call office and have BMP lab done this week to check Sodium Prescriptions: Continue Aspirin 81 mg PO DAILY #0 Multivitamin (Daily Vitamin) 1 tab PO DAILY #0 Clopidogrel Bisulfate [Clopidogrel] 75 mg PO DAILY #0 Polyethylene Glycol 3350 [Healthylax] 17 g PO DAILY PRN #0 PRN Reason: CONSTIPATION Nitroglycerin 0.4 mg SL Q5MIN PRN #0 PRN Reason: CHEST PAIN Acetaminophen 325 mg PO Q5H PRN #0 PRN Reason: PAIN Atorvastatin Calcium 40 mg PO HS #0 Midodrine HCl 10 mg PO TID #0 Cabergoline 0.5 mg PO WEEKLY Discharge Instructions/Outpatient Orders: Final Provider Discharge Instructions Location: Determined By Patient - Disposition 01 Discharged Home, Self-Care <Carrie Pruitt - Last Filed: 01/08/17 18:17> Discharge Information Date of admission: 01/07/17 06:08 Attending Physician: Carrie Pruitt MD Primary care physician: Jose Corona MD - Discharge Diagnosis (1) Syncope and collapse Status: Acute (2) Bradycardia Status: Acute (3) Dementia Status: Acute (4) CAD (coronary artery disease) Status: Acute (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 I reviewed the chart, the patient's history, and the CYLINDER BATCHER's documented findings as above. We discussed and formulated the assessment and plan as above with additions as below: Mr. Galeana is well known from multiple prior admissions. He denied dizziness or lightheadedness this morning and has had no chest pain or palpitations. Orthostatics were checked earlier and were unremarkable. Both he and his are anxious for discharge home. The patient is alert and appears well. Respirations are nonlabored and breath sounds clear. Cardiac rhythm regular, S1-S2. Stable for discharge-has follow-up plans with Dr. Corona in 3 days. No change in chronic therapies.
[2017-01-11] MEDS ORDERED: CABERGOLINE 0.5 MG TABLET PO SCH (09:00)
== END 2017-01-08 13:50 | disposition home or self-care (01) ==
LOC: MED 03:47 → ED 03:47 → MED 06:23
PROVIDERS: ADMIT Pediatrics; ATTEND Internal Medicine

== ENCOUNTER 2017-09-10 10:50 | Inpatient (IN) ==
[2017-09-09 14:16] VITALS: BMI 23.6
[2017-09-09] MEDS: NS 1,000 ML IV SCH (15:25)
[2017-09-09] MEDS: MetroNIDAZOLE PB 500 MG/100 ML BAG IV SCH ×2 (15:26→21:46)
--- NOTE | 2017-09-09 15:33 | History & Physical Report ---
History of Present Illness Date: 09/09/17 Past Medical History Patient Stated Medical History Cerebrovascular Accident Yes: 2 KNOWN Seizures No Transient Ischemic Attacks ( Yes TIA) Cataracts Yes Cardiac Arrhythmia No Hypertension No Hypotension No Other Cardiology Yes: BRADYCARDIA Diabetes Mellitus Type 1 No Diabetes Mellitus Type 2 No Hx Incontinence Yes Anemia No Panic Disorder No Now No Clinic Medical History (Last Reviewed 05/18/17 @ 10:54 by Oleg Romero MD) Prolactinoma (Chronic Medical ~2013) Stable. Cancer (Chronic Medical) Coronary artery disease (Chronic Medical) HTN (hypertension) (Chronic Medical) Hypercholesterolemia (Chronic Medical) Osteoarthritis (Chronic Medical) Pituitary macroadenoma (Chronic Medical) Syncope (Chronic Medical) Surgical History: Heart catheterization 09/14/16 - stent to RCA (Resolute integrity); LAD. occluded; L circ 50% stenosis; RCA 90%; EF 50-55%. Tonsillectomy. Right partial knee replacement. CABG . Cardiac stent- 2012-Dr. Marie. Cholecystectomy. TURP. Thoracentesis 11/2015. Colonoscopy Family History: Family History (Last Reviewed 05/18/17 @ 10:54 by Oleg Romero MD) Mother Stroke Father Heart disease Sister COPD (chronic obstructive pulmonary disease) Sister No problems noted. Brother Prostate cancer - Social History Smoking status: Never smoker Medications Home Medications Medication Instructions Recorded Confirmed Type Aspirin 81 mg PO DAILY #0 06/06/13 09/09/17 History Acetaminophen 325 mg PO Q5H PRN #0 11/03/16 09/09/17 History Clopidogrel Bisulfate [Clopidogrel] 75 mg PO DAILY #0 11/03/16 09/09/17 History Lipitor (atorvastatin) 40 mg tablet 40 mg PO DAILY #0 tab 02/16/17 09/09/17 History midodrine 10 mg tablet 10 mg PO TID #0 02/16/17 09/09/17 History multivitamin tablet 1 tab PO DAILY tab 02/16/17 09/09/17 History Allergies Allergy/AdvReac Type Severity Reaction Status Date / Time No Known Allergies Allergy Verified 09/09/17 14:27 Exam Vital Signs: Pulse Rate 62 09/09/17 14:03 Respiratory Rate 12 09/09/17 14:03 Blood Pressure 139/72 09/09/17 14:03 Pulse Oximetry 98 09/09/17 14:03 Height/Weight/BMI: Height 5 ft 11 in Weight 169 lb 1.513 oz Body Mass Index 23.6 Assessment and Plan - Physician Narrative Narrative: Date: 09/09/17 Time: 1511 Hospital Course Summary Disclaimer: The visit summary below is not to be considered part of the above Progress Note.
--- NOTE | 2017-09-09 16:03 | History & Physical Report ---
History of Present Illness Date: 09/09/17 Chief complaint: Leukocytosis, nausea/vomiting HPI: Henry Galeana Jr. is a pleasantly confused 89-year-old male resident of [facility] who was directly admitted to [facility] today, 09/09/17, after seeing his PCP, Dr. Krause in clinic this morning for nausea and vomiting. He is seen immediately after his arrival to his room, with his at the bedside, who contributes to the patient's history given his dementia. He reports that around 3am this morning, he woke up with significant nausea and then vomited x1 immediately after taking his morning medications around 0700. He admits to having a decreased appetite yesterday and states he has not eaten anything in 2 days. He states that his emesis was dark and describes it as "coffee-grounds". He also admits to some diarrhea last night but denies any bright red blood in his vomit or stools. His reports that that over the past 5 years, he has progressively gotten more weak which lead to his admission to [facility] in March 2017. He was seen by Dr. Krause this morning and found to have a leukocytosis (WBC 18.1) with 2% bands, anemia (Hgb 10.7) and thrombocytosis ( Plt 413). CMP was relatively unremarkable with the exception of an elevated total bilirubin at 1.5. KUB was obtained and revealed mildly dilated small bowel loops which could represent gastroenteritis, ileus or developing small bowel obstruction. He denies any other complaints or concerns. No chest pain, shortness of breath, abdominal pain, dysuria or hematuria. No recent fevers, chills, cough or congestion. He does admit to a history of orthostatic hypotension with episodes of syncope for which he as been evaluated by Dr. Adkins in the past. Given his leukocytosis with nausea and vomiting and dehydration, Dr. Jones was consulted and he was directly admitted to observation status for further evaluation and treatment. His length of stay is noted expected to exceed more than 2 over nights. Review of Systems ROS unobtainable: due to mental status All systems PM: 10-point ROS was reviewed, no additional remarkable complaints except Review of systems: limited due to patient's dementia. - Constitutional Constitutional: Present: weakness (generalized). Absent: chills, fatigue, fever (s) - EENMT Eyes: Absent: diplopia, dry eye, photophobia Ears: Absent: ear pain Balance: Absent: falling to one side Nose: Absent: nosebleeds Mouth/Throat: Present: dry mouth. Absent: sore throat - Cardiovascular Cardiovascular: Absent: chest pain, palpitations, syncope, dyspnea on exertion, orthopnea, edema Rhythm: Present: regular rhythm Vascular: Absent: pallor of an extermity, pedal edema - Respiratory Respiratory: Absent: cough, dyspnea, hemoptysis, dyspnea on exertion, wheezing, pain on inspiration, chest congestion - Gastrointestinal Gastrointestinal: Present: coffee ground emesis, diarrhea. Absent: abdominal pain, dyspepsia, hematemesis, hematochezia, melena, nausea, vomiting - Genitourinary Genitourinary: Absent: dysuria, flank pain, hematuria - Musculoskeletal Musculoskeletal: Absent: deformity - Integumentary/Breasts Integumentary: Absent: rash - Neurological Neurological: Present: confusion (chronic), dizziness (history of orthostatic hypotension), focal weakness (right>left - chronic), weakness (generalized). 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 CAD. Hypertension. Hyperlipidemia. Orthostatic hypotension. Bradycardia. Osteoarthritis. Anemia. Dementia. History of pleural effusions. 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 Cataracts. Urinary incontinence. History of syncope. Surgical History: Heart catheterization 09/14/16 - stent to RCA (Resolute integrity), LAD occluded, L circ 50% stenosis, RCA 90%, EF 50-55%. Tonsillectomy. Right partial knee replacement. CABG -1994. Cardiac stent- 2012-Dr. Marie. Cholecystectomy. TURP. Thoracentesis 11/2015. Colonoscopy. Family History Updates: Mother - , Stroke. Father - , Heart disease. Sister - COPD. Brother - Prostate cancer. - Social History Smoking status: Never smoker Substance use type: does not use Alcohol intake frequency: does not drink Housing: retirement ([facility]) Household members: none Current occupational status: retired Current residence: [place] [place] Social history: PCP - Dr. Krause. Cardio - Dr. Adkins. Medications Home Medications Medication Instructions Recorded Confirmed Type Aspirin 81 mg PO DAILY #0 06/06/13 09/09/17 History Acetaminophen 325 mg PO Q5H PRN #0 11/03/16 09/09/17 History Clopidogrel Bisulfate [Clopidogrel] 75 mg PO DAILY #0 11/03/16 09/09/17 History Lipitor (atorvastatin) 40 mg tablet 40 mg PO DAILY #0 tab 02/16/17 09/09/17 History midodrine 10 mg tablet 10 mg PO TID #0 02/16/17 09/09/17 History multivitamin tablet 1 tab PO DAILY tab 02/16/17 09/09/17 History Allergies Allergy/AdvReac Type Severity Reaction Status Date / Time No Known Allergies Allergy Verified 09/09/17 14:27 Exam Vital Signs: Pulse Rate 62 09/09/17 14:03 Respiratory Rate 12 09/09/17 14:03 Blood Pressure 139/72 09/09/17 14:03 Pulse Oximetry 98 09/09/17 14:03 Height/Weight/BMI: Height 5 ft 11 in Weight 169 lb 1.513 oz Body Mass Index 23.6 Comments: Patient is seen while resting in bed, with his at the bedside. - Constitutional Present: no acute distress, well nourished, well developed, thin, cooperative - Routine HEENT Exam Head: Present: normocephalic, atraumatic Eye: Present: PERRL. Absent: conjunctival icterus ENT: Present: mucous membranes dry - Routine Neck Exam Present: supple, full ROM, trachea midline - Routine Chest/Breast/Axilla Exam Chest wall: Absent: tenderness - Routine Respiratory Exam Absent: dyspnea, respiratory distress, rhonchi, stridor, wheezes Comments: diminished breath sounds bilaterally with questionable crackles bibasilarly. - Routine Cardiovascular Exam Present: RRR, S1, S2 - Routine Abdominal Exam Present: soft, non distended, non tender. Absent: rebound, guarding Comments: hypoactive bowel sounds. - Routine Extremities Exam Present: edema (trace), non tender, pulses intact - Routine Back/Spine/Pelvis Exam Back/Spine: Present: full ROM. Absent: vertebral tenderness Comments: generalized weakness requiring assistance to sit up. - Routine Skin Exam Present: intact, dry, warm. Absent: jaundice Comments: afebrile. 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 - Routine Psychiatric Exam Present: cooperative Results - Impressions Date of Exam: 09/09/17 Type of Exam(s): XR abdomen 2V Reason for Exam(s): R11.10, Vomiting Findings: Small pleural effusions. No free air identified. Surgical clips in the right upper quadrant. Air-fluid levels seen in the small and large bowel. Mildly prominent small bowel loops in the left abdomen measuring up to 3.5 cm in diameter. Impression: Mildly dilated small bowel loops could represent gastroenteritis, ileus or developing small bowel obstruction. Continued radiographic follow-up is recommended. Assessment and Plan (1) Nausea & vomiting Current visit: Yes Status: Acute (2) Leukocytosis Current visit: Yes Status: Acute (3) Ileus Current visit: Yes Status: Acute Assessment and Plan: 89-year-old male resident at [facility] saw Dr. Corona (PCP) this AM due to nausea and vomiting x 1 day with coffee-ground emesis and found to have leukocytosis (WBC 18.1), dehydration and possible ileus so was directly admitted to hospitalist service. Acute Medical Condition Acute nausea and vomiting. Possible ileus vs. gastroenteritis. Leukocytosis (WBC 18.1), present on admission. Anemia (Hgb 10.7), present on admission. Thrombocytosis (Plt 413), present on admission. Dehydration, present on admission. 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 CAD. 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 Hypertension. Hyperlipidemia. Orthostatic hypotension. Bradycardia. Osteoarthritis. Anemia. Dementia. History of pleural effusions. 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 Cataracts. Urinary incontinence. History of syncope. Plan - 09/09/17 (Admission) Admit to observation status under the care of Dr. Jones. Labs obtained prior to admission revealed leukocytosis. Patient afebrile. Monitor closely for signs of deterioration and SIRS/Sepsis. Initiate Flagyl IV for empiric treatment of abdominal pathogens. Initiate NS 100cc/hr for hydration. Monitor daily weight and urinary output closely for signs of fluid overload. Anemia noted on admission (Hgb 10.7) and coffee-ground emesis reported. No history of GERD or PUD. Will obtain fecal Hemoccult to assess for possible GI bleed. Will monitor hemoglobin closely. Zofran PRN nausea/vomiting. Clear liquid diet as tolerated. History of CVA. Speech previously recommended soft diet with chopped meats when able. Monitor closely on telemetry. History of syncope with gait instability. High fall risk. Will recheck labs in AM to monitor blood counts, electrolytes and renal function. Upon discharge, patient's care will be returned to his PCP, Dr. Corona. DVT Prophylaxis: SCD's GI Prophylaxis: Protonix Resuscitation Status: Do Not Resuscitate - Time spent with patient Time with patient PN: 50 minutes - Physician Narrative Physician: John Jones MD Narrative: Date: 09/09/17 Time: 1750 Have independently interviewed and examined pt. Chart reviewed. Case discussed with Dr Corona and my PA. Care plan developed with my supervision; agree with above. Decreased appetite for 2 day, woke this am with n/v. Not having ab pain or discomfort. Not sure when last stool was. Breathing well-not feeling SOA or congested. More tired and weak in general. Lungs: decreased CV: regular AB: soft nt/nd BS very decreased MSE: awake alert Plan: OBS admission. IVF for hydration. Will start metronidazole for GI coverage. Protonix IV for GI protection. Hold ASA and Plavix. Recheck KUB/ upright tomorrow as well as lab. Dulcolax suppository daily for bowel stimulation. Hospital Course Summary Disclaimer: The visit summary below is not to be considered part of the above Progress Note. Hospital Course: Plan - 09/09/17 (Admission) Admit to observation status under the care of Dr. Jones. Labs obtained prior to admission revealed leukocytosis. Patient afebrile. Monitor closely for signs of deterioration and SIRS/Sepsis. Initiate Flagyl IV for empiric treatment of abdominal pathogens. Initiate NS 100cc/hr for hydration. Monitor daily weight and urinary output closely for signs of fluid overload. Anemia noted on admission (Hgb 10.7) and coffee-ground emesis reported. No history of GERD or PUD. Will obtain fecal Hemoccult to assess for possible GI bleed. Will monitor hemoglobin closely. Zofran PRN nausea/vomiting. Clear liquid diet as tolerated. History of CVA. Speech previously recommended soft diet with chopped meats when able. Monitor closely on telemetry. History of syncope with gait instability. High fall risk. Will recheck labs in AM to monitor blood counts, electrolytes and renal function. Upon discharge, patient's care will be returned to his PCP, Dr. Corona.
[2017-09-09] MEDS: PANTOPRAZOLE 40 MG INJECTION IVP SCH (21:32)
[2017-09-10] MEDS: MetroNIDAZOLE PB 500 MG/100 ML BAG IV SCH ×3 (08:25→21:13)
[2017-09-10] MEDS: PANTOPRAZOLE 40 MG INJECTION IVP SCH ×2 (09:09→21:13)
[2017-09-10] MEDS: BISACODYL 10 MG SUPPOSITORY RECTALLY SCH (09:21)
[2017-09-10] MEDS: LIDOCAINE 1% INJ 10 MG, POTASSIUM CHLORIDE INJ 10 MEQ in NS 100 ML IV SCH ×4 (09:41→13:14)
[~2017-09-10 10:50] MED LIST changes: -ACET-2321 PO; +ACETAMINOPHEN 500 MG TABLET PO PRN; -ASPI-725 PO; -ATOR40TA PO; +BISACODYL 10 MG SUPPOSITORY RECTALLY PRN; -CABE0.5T2 PO; -CLOP75TA PO; -DOCU-168 PO; -HYDR-4246 PO; -MIDO10TA PO; -MULT-57 PO; -NITR0.4T38 SL; -OMEG1CAP79 PO; +ONDANSETRON 4 MG/2 ML INJECTION IVP PRN; -POLY17PO18 PO; +SALINE FLUSH 10ml SYRINGE IVF PRN
--- NOTE | 2017-09-10 12:09 | Progress Note ---
- Date 09/10/17 Subjective: F/U: Acute nausea and vomiting, Possible ileus vs. gastroenteritis, Anemia with decrease in hemoglobin, Dehydration. Feeling a little better-not having the nausea he was yesterday. Denies ab pain or discomfort. Still feels very weak and puny. Breathing okay-not feeling more SOA or congested with IVF. No chest pain. No muscle cramps or pain. Objective Vital signs: Temperature 97.8 F 09/10/17 00:30 Pulse Rate 65 09/10/17 07:42 Respiratory Rate 14 09/10/17 07:42 Blood Pressure 126/65 09/10/17 07:42 Pulse Oximetry 95 09/10/17 07:42 Height/Weight/BMI: Height 1.8 m Weight 78.5 kg Body Mass Index 23.6 - Constitutional Present: well nourished, well developed, average body habitus, cooperative - Routine HEENT Exam Head: Present: normocephalic, atraumatic Eye: Present: EOMI, PERRL ENT: Present: mucous membranes moist - Routine Respiratory Exam Present: CTA bilaterally. Absent: rales, respiratory distress, rhonchi, wheezes , crackles - Routine Cardiovascular Exam Present: RRR, no murmur - Routine Abdominal Exam Present: soft, non distended, non tender. Absent: normoactive bowel sounds ( Decreased, but more bowel sounds today vs yesterday), guarding, firm - Routine Extremities Exam Present: pulses intact. Absent: cyanosis, clubbing Comments: SCD in place - Routine Musculoskeletal Exam Musculoskeletal: Present: no clubbing or cyanosis - Routine Skin Exam Present: dry, warm - Routine Neurological Exam Present: alert, CN II-XII intact, moving all extremities, vision grossly intact , hearing grossly intact, normal speech. Absent: altered mental status - Routine Psychiatric Exam Present: normal affect, cooperative Results - Labs CBC & Chem 7: 09/10/17 15:31 09/10/17 15:31 Assessment and Plan (1) Nausea & vomiting Current visit: Yes Status: Acute (2) Leukocytosis Current visit: Yes Status: Acute (3) Ileus Current visit: Yes Status: Suspected Assessment and Plan: Assessment Acute nausea and vomiting Possible ileus vs. 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 IV potassium boluses initiated. Will recheck potassium and hemoglobin after potassium bolus. Type and screen at that time. Magnesium checked and normal at 2.0. Nausea improved. Will continue with clear liquids for bowel rest. Continue IV Protonix for GI protection due to decreased hemoglobin. Continue metronidazole for GI pathogen coverage in light of ab symptoms as presentation and resolving leukocytosis (9.4). Daily Dulcolax suppositories initiated for bowel stimulation given nausea. Can decrease IVF to 75cc/hr as BP and HR stable, oral drive with some improvement. Recheck CBC in am due to anemia. Will repeat BMP and Mg in am due to hypokalemia. Case discussed with CM. Time spent with patient care 25 minutes. 1705 - Lab returned showing HGB 9.7 and potassium 3.5. Will give Oral KCl 20mEq x1. Continue to monitor. DVT Prophylaxis: SCD's GI Prophylaxis: Protonix Resuscitation Status: Do Not Resuscitate - Time spent with patient Time with patient PN: 25 minutes - Physician Narrative Physician: John oJnes MD Narrative: Date: 09/10/17 Time: 1205 Hospital Course Summary Disclaimer: The visit summary below is not to be considered part of the above Progress Note. Hospital Course: 09/09/17 OBS admission Admit to observation status under the care of Dr. Jones. Labs obtained prior to admission revealed leukocytosis. Patient afebrile. Monitor closely for signs of deterioration and SIRS/Sepsis. Initiate Flagyl IV for empiric treatment of abdominal pathogens. Initiate NS 100cc/hr for hydration. Monitor daily weight and urinary output closely for signs of fluid overload. Anemia noted on admission (Hgb 10.7) and coffee-ground emesis reported. No history of GERD or PUD. Will obtain fecal Hemoccult to assess for possible GI bleed. Will monitor hemoglobin closely. Zofran PRN nausea/vomiting. Clear liquid diet as tolerated. History of CVA. Speech previously recommended soft diet with chopped meats when able. Monitor closely on telemetry. History of syncope with gait instability. High fall risk. Will recheck labs in AM to monitor blood counts, electrolytes and renal function. Upon discharge, patient's care will be returned to his PCP, Dr. Corona. 09/10/17 With decreased potassium to 2.7 and hemoglobin decreasing to 8.2 coupled with his weakness, will change admission status to inpatient; anticipate greater than 2 midnights of care needed. IV potassium boluses initiated. Will recheck potassium and hemoglobin after potassium bolus. Type and screen at that time. Magnesium checked and normal at 2.0. Nausea improved. Will continue with clear liquids for bowel rest. Continue IV Protonix for GI protection due to decreased hemoglobin. Continue metronidazole for GI pathogen coverage in light of ab symptoms as presentation and resolving leukocytosis (9.4). Daily Dulcolax suppositories initiated for bowel stimulation given nausea. Can decrease IVF to 75cc/hr as BP and HR stable, oral drive with some improvement. 1705 - Lab returned showing HGB 9.7 and potassium 3.5. Will give Oral KCl 20mEq x1. Continue to monitor.
[2017-09-10] MEDS: NS 1,000 ML IV SCH ×2 (15:29→16:07)
[2017-09-11] MEDS: NS 1,000 ML IV SCH ×3 (03:14→13:13)
[2017-09-11] MEDS: MetroNIDAZOLE PB 500 MG/100 ML BAG IV SCH (04:45)
[2017-09-11] MEDS: BISACODYL 10 MG SUPPOSITORY RECTALLY SCH ×2 (08:59→09:00)
[2017-09-11] MEDS: PANTOPRAZOLE 40 MG INJECTION IVP SCH ×2 (08:59→20:52)
--- NOTE | 2017-09-11 12:21 | Progress Note ---
- Date 09/11/17 Subjective: F/U: Acute nausea and vomiting, Possible ileus vs. gastroenteritis, Anemia with decrease in hemoglobin, Dehydration. Doing well. Not having nausea or ab pain. Feels ready for 'real food.' Bowels have been moving. Breathing well-not feeling SOA or congested. No chest pain or pain with breathing. Denies pain in general. Strength fair. Objective Vital signs: Temperature 97.6 F 09/11/17 08:52 Pulse Rate 58 L 09/11/17 12:00 Respiratory Rate 14 09/11/17 08:52 Blood Pressure 113/53 09/11/17 08:52 Pulse Oximetry 98 09/11/17 08:52 Height/Weight/BMI: Height 1.8 m Weight 79.6 kg Body Mass Index 23.6 - Constitutional Present: well nourished, well developed, average body habitus, cooperative. Absent: agitated - Routine HEENT Exam Head: Present: normocephalic, atraumatic Eye: Present: EOMI, PERRL ENT: Present: mucous membranes moist - Routine Respiratory Exam Present: CTA bilaterally. Absent: respiratory distress - Routine Cardiovascular Exam Present: no murmur, bradycardia - Routine Abdominal Exam Present: soft, normoactive bowel sounds, non distended, non tender. Absent: guarding - Routine Extremities Exam Present: edema (Trace BLE), pulses intact. Absent: cyanosis, clubbing Comments: SCD in place - Routine Musculoskeletal Exam Musculoskeletal: Present: no clubbing or cyanosis - Routine Skin Exam Present: intact, dry, warm, normal turgor - Routine Neurological Exam Present: alert, CN II-XII intact, moving all extremities, vision grossly intact , hearing grossly intact, normal speech. Absent: motor deficit, altered mental status - Routine Psychiatric Exam Present: normal affect, cooperative. Absent: anxious, agitated Results - Labs CBC & Chem 7: 09/11/17 04:30 09/11/17 04:30 Assessment and Plan (1) Nausea & vomiting Current visit: Yes Status: Acute (2) Leukocytosis Current visit: Yes Status: Acute (3) Ileus Current visit: Yes Status: Suspected Assessment and Plan: Assessment Acute nausea and vomiting Possible ileus vs. 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 Potassium 3.4. No nausea or vomiting - taking clears well. Oral potassium 20mEg x2 today due to low potassium. [facility], will decrease IVF to 40cc/hr as oral intake improving. Discontinue routine Dulcolax as bowels moving. Will stop metronidazole as WBC remains normal at 6.2. Consult PT/OT to help increase strength and functional status. Recheck CBC in am due to anemia. Will repeat BMP and Mg in am due to hypokalemia. Case discussed with Nursing. Time spent with patient care 25 minutes. DVT Prophylaxis: SCD's Resuscitation Status: Do Not Resuscitate - Time spent with patient Time with patient PN: 25 minutes - Physician Narrative Physician: John Jones MD Narrative: Date: 09/11/17 Time: 1218 Hospital Course Summary Disclaimer: The visit summary below is not to be considered part of the above Progress Note. Hospital Course: 09/09/17 OBS admission Admit to observation status under the care of Dr. Jones. Labs obtained prior to admission revealed leukocytosis. Patient afebrile. Monitor closely for signs of deterioration and SIRS/Sepsis. Initiate Flagyl IV for empiric treatment of abdominal pathogens. Initiate NS 100cc/hr for hydration. Monitor daily weight and urinary output closely for signs of fluid overload. Anemia noted on admission (Hgb 10.7) and coffee-ground emesis reported. No history of GERD or PUD. Will obtain fecal Hemoccult to assess for possible GI bleed. Will monitor hemoglobin closely. Zofran PRN nausea/vomiting. Clear liquid diet as tolerated. History of CVA. Speech previously recommended soft diet with chopped meats when able. Monitor closely on telemetry. History of syncope with gait instability. High fall risk. Will recheck labs in AM to monitor blood counts, electrolytes and renal function. Upon discharge, patient's care will be returned to his PCP, Dr. Corona. 09/10/17 With decreased potassium to 2.7 and hemoglobin decreasing to 8.2 coupled with his weakness, will change admission status to inpatient; anticipate greater than 2 midnights of care needed. IV potassium boluses initiated. Will recheck potassium and hemoglobin after potassium bolus. Type and screen at that time. Magnesium checked and normal at 2.0. Nausea improved. Will continue with clear liquids for bowel rest. Continue IV Protonix for GI protection due to decreased hemoglobin. Continue metronidazole for GI pathogen coverage in light of ab symptoms as presentation and resolving leukocytosis (9.4). Daily Dulcolax suppositories initiated for bowel stimulation given nausea. Can decrease IVF to 75cc/hr as BP and HR stable, oral drive with some improvement. 1705 - Lab returned showing HGB 9.7 and potassium 3.5. Will give Oral KCl 20mEq x1. Continue to monitor. 09/11/17 Hemoglobin 8.6 this am. Potassium 3.4. No nausea or vomiting - taking clears well. Oral potassium 20mEg x2 today due to low potassium. Advance diet to Mech soft, will decrease IVF to 40cc/hr as oral intake improving. Discontinue routine Dulcolax as bowels moving. Will stop metronidazole as WBC remains normal at 6.2. Consult PT/OT to help increase strength and functional status.
[2017-09-11] MEDS: MIDODRINE 10 MG TABLET PO SCH ×2 (14:16→20:51)
--- NOTE | 2017-09-11 18:48 | XRay Report ---
Indication: F/U PROCEDURE: XR abdomen 2V: Encounter: Initial Comparison: September 09, 2017 Findings: The visualized lung bases show small effusions. No free air. The mildly dilated small bowel loops seen previously have resolved. There is scattered colonic gas present but no abnormally dilated bowel loops appreciated. Surgical clips in the right upper quadrant. Impression: Improved appearance of the abdomen could represent a resolving ileus or resolving partial small bowel obstruction. .
[2017-09-12 07:37] VITALS: BP 146/72; RESP 18; TEMP 97.7; O2SAT 94
[2017-09-12] MEDS: MIDODRINE 10 MG TABLET PO SCH (08:43)
[2017-09-12] MEDS: PANTOPRAZOLE 40 MG INJECTION IVP SCH (08:44)
[2017-09-12 09:00] VITALS: PULSE 60
[2017-09-12] MEDS ORDERED: MULTI-VITAMIN + MINERAL TABLET PO SCH (09:00)
--- NOTE | 2017-09-12 13:21 | Discharge Summary ---
Discharge Information Date of admission: 09/10/17 10:50 Anticipated date of discharge: 09/12/17 Attending Physician: John Jones MD Primary care physician: MD Jose Donaldson MD Consults: [facility] Consult [CONS] Routine Reason for consultation: red/broken open coccyx - Discharge Diagnosis (1) Nausea & vomiting Status: Acute Acute nausea and vomiting - resolved Possible ileus vs. gastroenteritis - improved Leukocytosis (WBC 18.1) POA - resolved Anemia with decrease in hemoglobin - dilutional vs GI bleed - stabilized Heme positive stool Thrombocytosis (Plt 413) (POA) - resolved Dehydration, present on admission - resolved Hypokalemia (Not POA) - resolved Weakness secondary to above Pituitary macroadenoma (prolactinoma) - 2013, Dr. 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 No free air identified. Surgical clips in the right upper quadrant. Air-fluid levels seen in the small and large bowel. Mildly prominent small bowel loops in the left abdomen measuring up to 3.5 cm in diameter. Impression: Mildly dilated small bowel loops could represent gastroenteritis, ileus or developing small bowel obstruction. Date of Exam: 09/10/17 Ordering Provider: John Jones MD Type of Exam(s): XR abdomen 2V Findings: The visualized lung bases show small effusions. No free air. The mildly dilated small bowel loops seen previously have resolved. There is scattered colonic gas present but no abnormally dilated bowel loops appreciated. Surgical clips in the right upper quadrant. Impression: Improved appearance of the abdomen could represent a resolving ileus or resolving partial small bowel obstruction. History of Present Illness HPI: Henry Galeana is a pleasantly confused 89-year-old male resident of [place] who was directly [place] [facility], after seeing his PCP, Dr. Krause in clinic this morning for nausea and vomiting. He is seen immediately after his arrival to his room, with his at the bedside, who contributes to the patient's history given his dementia. He reports that around 3am this morning, he woke up with significant nausea and then vomited x1 immediately after taking his morning medications around 0700. He admits to having a decreased appetite yesterday and states he has not eaten anything in 2 days. He states that his emesis was dark and describes it as "coffee-grounds". He also admits to some diarrhea last night but denies any bright red blood in his vomit or stools. His reports that that over the past 5 years, he has progressively gotten more weak which lead to his admission to [facility] in March 2017. He was seen by Dr. Krause this morning and found to have a leukocytosis (WBC 18.1) with 2% bands, anemia (Hgb 10.7) and thrombocytosis ( Plt 413). CMP was relatively unremarkable with the exception of an elevated total bilirubin at 1.5. KUB was obtained and revealed mildly dilated small bowel loops which could represent gastroenteritis, ileus or developing small bowel obstruction. He denies any other complaints or concerns. No chest pain, shortness of breath, abdominal pain, dysuria or hematuria. No recent fevers, chills, cough or congestion. He does admit to a history of orthostatic hypotension with episodes of syncope for which he as been evaluated by Dr. Adkins in the past. Given his leukocytosis with nausea and vomiting and dehydration, Dr. Jones was consulted and he was directly admitted to observation status for further evaluation and treatment. His length of stay is noted expected to exceed more than 2 over nights. Objective Vital signs: Temperature 97.7 F 09/12/17 07:36 Pulse Rate 60 09/12/17 08:00 Respiratory Rate 18 09/12/17 07:36 Blood Pressure 146/72 H 09/12/17 07:36 Pulse Oximetry 94 09/12/17 07:36 Height/Weight/BMI: Height 1.8 m Weight 82.1 kg Body Mass Index 23.6 - Constitutional Present: no acute distress, well nourished, well developed - Routine HEENT Exam Head: Present: normocephalic Eye: Present: PERRL. Absent: conjunctival icterus, scleral injection ENT: Present: mucous membranes moist - Routine Respiratory Exam Present: decreased breath sounds - Routine Cardiovascular Exam Present: RRR, bradycardia - Routine Abdominal Exam Present: soft, normoactive bowel sounds, non distended, non tender - Routine Extremities Exam Present: edema (1+ BLE), pulses intact - Routine Skin Exam Present: dry, warm - Routine Neurological Exam Present: alert, normal speech - Routine Psychiatric Exam Present: normal affect, normal thought process, cooperative Hospital Course This is a general summary of the patient's hospital course. For more details refer to the complete medical record. Hospital course: 09/09/17 Admit to observation status under the care of Dr. Jones. Labs obtained prior to admission revealed leukocytosis. Initiate Flagyl IV for empiric treatment of abdominal pathogens & NS 100cc/hr for hydration. Monitor daily weight and urinary output closely for signs of fluid overload. Anemia noted on admission (Hgb 10.7) and coffee-ground emesis reported. Hemoccult was positive; monitored hemoglobin and held Plavix and ASA. Zofran PRN nausea/vomiting. Clear liquid diet as tolerated. Speech previously recommended soft diet with chopped meats when able. 09/10/17 With decreased potassium to 2.7 and hemoglobin decreasing to 8.2 changed admission status to inpatient. IV potassium boluses initiated. Magnesium checked and normal at 2.0. Nausea improved. Will continue with clear liquids for bowel rest. IV Protonix for GI protection due to decreased hemoglobin. Leukocytosis improved (9.4). Start daily Dulcolax suppositories initiated for bowel stimulation given nausea. Decrease IVF to 75cc/hr as BP and HR stable, oral drive with some improvement. Repeat Lab: HGB 9.7 and potassium 3.5. Will give Oral KCl 20mEq x1. Continue to monitor. 09/11/17 Hemoglobin 8.6. Potassium 3.4. No nausea or vomiting - taking clears well. Oral potassium 20mEg x2 today due to low potassium. Advance diet to [facility] soft, will decrease IVF to 40cc/hr. Discontinue routine Dulcolax as bowels moving. Stopped metronidazole as WBC remains normal at 6.2. Consult PT/OT to help increase strength and functional status - recommended skilled therapy. 09/12/17 WBC 5.6, hgb 9.0, K 3.6. He did not require blood transfusion during this hospital stay. His diet advanced and tolerating well without pain, nausea/ vomiting. Both patient and spouse would like to return to [place], where he will continue with restorative therapy. Continue to hold ASA and Plavix at time of discharge d/t heme-positive stools. Recommend f/u in [address] Corona. Will recheck BMP and CBC in 3 days. Time spent with patient: discharge greater than 30 minutes Resuscitation Status: Do Not Resuscitate Discharge Plan - Discharge Disposition Discharge Date: 09/12/17 Disposition: 04 To [facility] Home/Facility *Condition: Stable Reason For Visit (Visit label in EMR): Weakness with hypokalemia and anemia - Discharge Medications *Discharge Medications: New Ondansetron [Zofran Odt] 1 tab PO Q6HR PRN #12 tab PRN Reason: Nausea &/Or Vomiting Continue Acetaminophen 325 mg PO Q5H PRN #0 PRN Reason: PAIN midodrine 10 mg tablet 10 mg PO TID #0 multivitamin tablet 1 tab PO DAILY tab Lipitor (atorvastatin) 40 mg tablet 40 mg PO DAILY #0 tab cabergoline 0.5 mg tablet 0.5 mg PO 2XW #26 tab Discontinued Aspirin 81 mg PO DAILY #0 Clopidogrel Bisulfate [Clopidogrel] 75 mg PO DAILY #0 - Discharge Packet/Instructions *Diet: Regular diet, mechanical soft consistency *Activity: PT/OT *Pain Management/Treatment: Tylenol if needed. *Wound Care: Apply barrier cream to coccyx. *Expected Signs/Symptoms: Weakness, fatigue. His appetite may be less than usual for some time. *Notify Physician if: Vomiting, coffee-ground emesis, bloody stools, abdominal pain, constipation, fever, choking on food, difficulty breathing, confusion or mental status changes, or any new concerns *During Business Hours Contact: Dr. Corona's clinic at [facility]. *After Business Hours Contact: The on-call provider for Dr. Corona. *Pending Lab/Results: No Pending Lab Outpatient Orders: BMP - Basic Metabolic - AMS Time Frame: 3 Days, Location: None Selected CBC w Auto Diff-AMS Time Frame: 3 Days, Location: None Selected - Referrals/Follow Up *Referrals/Follow Up: Jose Corona MD [Primary Care Provider] - 1 Week - Patient Handouts Patient Handouts: Hypokalemia (GEN), Anemia (GEN) - Dismissal Complete Discharge Instructions are:: Complete Physician Narrative - Narrative Physician: John Jones MD Attestation Narrative: Date: 09/12/17 Time: 1410 Have independently interviewed and examined patient prior to discharge. Case discussed with CM, pt's , and my [employer]. Care plan developed with my supervision; agree with above. Doing well today. Eating without nausea or ab pain. Breathing well. Hemoglobin stable. Potassium normalized. Lungs: Clear bilaterally, no distress on RA. CV: regular AB: soft nt/nd MSE: awake alert appropriate Plan: Will discharge to his care facility. Hold ASA and Plavix secondary to anemia. PT/OT to help strength. F/U with Dr Corona in 1 week. See orders for detail. Patient medically stable for discharge.
[2017-09-12] MEDS: NS 1,000 ML IV SCH (13:22)
--- NOTE | 2017-09-12 14:00 | Extended Care Facility Orders ---
Admission Orders Admit to:: [facility] Allergies/Adverse Reactions: Allergies No Known Allergies Allergy (Verified 09/09/17 14:27) Admitting Diagnosis: Weakness with hypokalemia and anemia Admitting Physician: John Jones MD Attending Physician: John Jones MD Code Status: Do Not Resuscitate Anticiapted Length of Stay: 30 days or less Rehab Potential: fair Rehab Prognosis: fair Diet: Regular Diet [DIET] Food Consistency: MECHANICAL SOFT Wound/Incision Care: Apply barrier cream to coccyx. May use Facility Protocol or Standing Orders: Yes May have flu vaccine: Yes Evaluations/Treatment: PT, OT Longterm Certification: I certify that SNF services are required to be given on an Inpatient basis because of the patient's need for halfway care on a continuing basis for the condition(s) for which he received inpatient hospital services prior to his transfer to the SNF. SNF inpatient care is necessary for the following reasons Indication for Longterm: Not Applicable - Additional Information In Event of Arrest: Do Not Start CPR Resident is Aware of Diagnosis: Yes Laboratory/Radiology: CBC and BMP on 09/15/17. Send results to Dr. Corona. Referrals: Jose Corona MD [Primary Care Provider] - 1 Week
[2017-09-12] MEDS ORDERED: ATORVASTATIN 40 MG TABLET PO SCH (21:00)
== END 2017-09-12 14:45 | DRG 389 ==
LOC: MED
PROVIDERS: ADMIT Hospitalist; ATTEND Hospitalist